=== PATIENT | male | born 1945 | race Caucasian/White ===

== ENCOUNTER 2025-07-23 13:57 | Outpatient (CLI) | payer MEDICARE, SELFPAY ==
--- NOTE | ~2025-07-23 | XR_ITS ---
EXAM/PROCEDURE: XR barium swallow modified HISTORY: R13.10 - Dysphagia, unspecified COMPARISON: None available. Fluoroscopy time: 0.7 minutes DAP: 0.4 great per square centimeter Number of images: 1 TECHNIQUE: Modified barium swallow IMPRESSION: Aspiration observed on the film sequences. See also speech therapist's report for complete evaluation. Reviewed, dictated and finalized at location A. NG CARRIER IMPRESSION: Aspiration observed on the film sequences. See also speech therapist's report f or complete evaluation.
--- NOTE | 2025-07-23 15:04 | REHSTMBS ---
Assessment and note entered by Pema Maldonado, SHED HAND Modified Barium Swallow Evaluation Feeding Type Recommended Oral Food Consistency Regular, Level 7 Liquid Consistency Mildly Thick (2) Treatment Recommendations Laryngeal Elevation Exercise,Mayank Maneuver ST Clinical Summary The patient is a 79 year old male referred for a MBS study. The patient reports a history of dysphagia for several years primarily with liquids but at times with solids. He states he has had hoarseness for sometime as well and that previous speech therapy was not beneficial in improving his voice. He reports he is scheduled to have a procedure in August to address his vocal cord function. The patient was seen in a lateral view and presented the following consistencies: 5cc/tsp thin liquid barium, thin liquid barium via cup, mildly thick liquid barium via cup, pudding mixed with barium paste, and cracker coated with barium paste. Oral Stage: Timely oral preparation and transit was viewed for all consistencies. Pharyngeal Stage: When presented 5cc/tsp thin liquid barium, mildly thick liquid barium, pudding , and cracker consistency swallow initiation was viewed to be timely without viewed aspiration or penetration. No residual was viewed to remain in the vallecula or pyriform sinus for any consistencies presented. However, When presented thin liquid barium via cup the patient was viewed to have julian aspiration during the swallow secondary to reduced laryngeal closure. The aspirated material was viewed to pass below the vocal cords without patient awareness to cough and eject. Additional trace aspiration viewed with trials utilizing a chin tuck posture, passing below the vocal cords without patient awareness to cough and eject the material. Recommend 1. Regular Diet / Level 7 2. Mildly Thick Liquid / Level 2 3. Upright with meals Reviewed recommendations of thickener use and results of MBS with patient and spouse. They verbalized understanding. May consider a MBS following vocal cord procedure in August to determine if it provided improved airway protection and reduction of aspiration risk to allow discontinued use of thickener.
== END 2025-07-23 13:58 | disposition home or self-care (01) ==
PROVIDERS: Visit Provider Otolaryngology
DX: R93.3 Abnormal findings on diagnostic imaging of other parts of digestive tract (principal); R13.10 Dysphagia, unspecified
CPT/HCPCS: 74230; 92611

== ENCOUNTER 2025-08-04 15:53 | Outpatient (CLI) | payer MEDICARE, SELFPAY ==
--- NOTE | 2025-08-04 15:57 | ECG_ITS ---
Test Date: 2025-08-04 16:08:54 Measurements Intervals [place] Rate: 62 P: 26 WV: 328 QRS: -46 QRSD: 98 T: -12 QT: 386 QTc: 394 Interpretive Statements SINUS RHYTHM WITH MARKED FIRST DEGREE AV BLOCK ANTEROSEPTAL INFARCT, AGE INDETERMINATE INFERIOR INFARCT, AGE INDETERMINATE BORDERLINE ST-T WAVE ABNORMALITY- LAT/HIGH LAT LEADS BASELINE ARTIFACT- I, II, AVR ABNORMAL ECG No previous ECG available for comparison Electronically Signed On 08-04-2025 18:08:32 FUND CONTROLLER by Denton Pereira D.O.
--- OUTSIDE RECORDS SUMMARY | 2025-08-04 16:04 | XMS_ITS | Clinical Summary ---
Author Organization [facility] Address [address] [place] [address] Care Team Providers Care Psych Rn Name Role Phone Savage Lyons MD Unavailable [phone] Kevin Caballero MD PhD Unavailable [phone] Russell Mars Primary Care Provider [phone] Allergies No known active allergies Medications acetaminophen (TYLENOL) 325 mg tablet Take 650 mg by mouth every 4 (four) hours as needed for pain Active albuterol sulfate 90 mcg/actuation aerosol powdr breath activated Inhale 2 puffs 4 (four) times a day Active atorvastatin (LIPITOR) 80 mg tablet Take 80 mg by mouth daily Active cholecalciferol (VITAMIN D-3) 2,000 unit tablet Take 4,000 Units by mouth daily Take 2 tablets Active cyanocobalamin (Vitamin B-12) 1,000 mcg tabletIndicatio ns:Prevention of Vitamin B12 Deficiency Take 1,000 mcg by mouth daily Active finasteride (PROSCAR) 5 mg tablet Take 5 mg by mouth daily Active glucose 4 gram chewable tablet Take 20 g by mouth as needed for low blood sugar Active lisinopril-hydr oCHLOROthiazide (ZESTORETIC) 20-12.5 mg per tabletIndicatio ns:hypertension Take 1 tablet by mouth daily Active insulin glargine (LANTUS,BASAGLA R) 100 unit/mL (3 mL) insulin pen Inject 32 Units under the skin daily Active ketoconazole (NIZORAL) 2 % cream Apply topically daily Apply to rash on face Active meloxicam (MOBIC) 15 mg tablet Take 15 mg by mouth daily as needed for pain Active metFORMIN (GLUCOPHAGE) 1,000 mg tablet Take 1,000 mg by mouth 2 (two) times a day with meals Active olodaterol (STRIVERDI RESPIMAT) 2.5 mcg/actuation inhaler Inhale 2 puffs daily Active sildenafil (VIAGRA) 100 mg tablet Take 100 mg by mouth as needed for erectile dysfunction Weekly as needed Active terazosin (HYTRIN) 5 mg capsule Take 5 mg by mouth nightly Active polyvinyl alcohol (LIQUIFILM TEARS) 1.4 % ophthalmic solution Administer 1 drop into both eyes as needed for dry eyes Active glipiZIDE (GLUCOTROL) 5 mg tabletIndicatio ns:type 2 diabetes mellitus Take 5 mg by mouth daily Active fluocinonide (LIDEX) 0.05 % cream Apply 1 application topically 2 (two) times a day as needed Active mometasone 220 mcg/ actuation (120) aerosol powdr breath activated Inhale 1 puff nightly Active amLODIPine (NORVASC) 5 mg tablet Take 1 tablet (5 mg total) by mouth daily 30 tablet 11 0 Active aspirin 81 mg enteric coated tabletIndicatio ns:cerebral ischemia Take 1 tablet (81 mg total) by mouth daily 30 tablet 11 0 Active Active Problems Problem Noted Date Diagnosed Date Malignant neoplasm of upper lobe, right bronchus or lung 02/03/2023 Cancer Staging:Clinical stage from 02/03/2023:Stage IB(cT2a, cN0, cM0) - Signed by Kevin Caballero MD PhD on 02/03/2023 Cerebrovascular accident (CV A) due to thrombosis of right middle cerebral artery 10/08/2019 Hypertension 01/18/2014 Overview (12/07/2016): HYPERTENSION NOS Pure hypercholesterolemia 01/18/2014 Overview (12/08/2016): PURE HYPERCHOLESTEROLEM Type 2 diabetes mellitus 01/18/2014 Overview (12/08/2016): DMII WO CMP UNCNTRLD Cerebrovascular accident (CVA) Immunizations Immunization Administration Dates Next Due Influenza, Trivalent, High D ose, Split, Preservative Free, Intramuscular 06/25/2019,07/17/2018 Influenza, Unspecified 06/06/2019 Surgical History Surgery Date Site/Laterality Comments OTHER SURGICAL HISTORY Hypertension: Medical Management OTHER SURGICAL HISTORY Hyperlipidemia: Medical Management JOINT REPLACEMENT REPLACEMENT TOTAL KNEE Right LIMB SPARING RESECTION HIP W / SADDLE JOINT REPLACEMENT Right TOTAL SHOULDER REPLACEMENT Medical History Medical History Date Comments Hypertension Hypertension Hyperlipidemia Hyperlipidemia Hx Other Medical Peripheral Neur opathy Hx Other Medical carpal tyunnel Diabetes mellitus COPD (chronic obstructive pulmonary disease) Arthritis Cancer (HCC) Family History Medical History Relation Name Comments Diabetes type II Mother D M Type II ; Diabetes type II Sister 2 D M Type II ; secondary to complications Relation Name Status Comments Mother Alive Sister 1 Alive Sister 2 Social History Tobacco Use Types Packs/Day Years Used Date Smoking Tobacco: Former Smokeless Tobacco: Never Tobacco Cessation:Counseling Given: Not Answered Comments:20 years ago Alcohol Use Standard Drinks/Week Comments Not Currently 0 (1 standard drink = 0.6 oz pur e alcohol) PHQ-2 Answer Date Recorded PHQ-2 Score 0 10/07/2019 Sex and Gender Information Value Date Recorded Sex Assigned at Not on file Legal Sex Male 10:50 AM ULTIMATE HOOPS REFEREE Gender Identity Not on file Sexual Orientation Not on file Last Filed Vital Signs Vital Sign Reading Time Taken Comments Blood Pressure 108/64 10/24/2024 2:00 PM ULTIMATE HOOPS REFEREE Pulse 86 10/24/2024 2:00 PM ULTIMATE HOOPS REFEREE Temperature 36.3 C (97.3 F) 10/24/2024 2:00 PM ULTIMATE HOOPS REFEREE Respiratory Rate 20 10/24/2024 2:00 PM ULTIMATE HOOPS REFEREE Oxygen Saturation 99% 10/24/2024 2:00 PM ULTIMATE HOOPS REFEREE Inhaled Oxygen Concentration - - Weight 88.8 kg (195 lb 12.8 oz) 04/11/2024 1:39 PM CDT Height 177.8 cm (5' 10) 10/07/2019 7:28 PM ULTIMATE HOOPS REFEREE Body Mass Index 28.09 10/07/2019 7:28 PM ULTIMATE HOOPS REFEREE Plan of Treatment Health Maintenance Due Date Last Done Comments Albumin Creatinine Ratio, Urine 1945 Fall Risk Assessment 1945 Hepatitis C Screening 1945 Dilated Eye Exam 1945 Foot Exam 1945 Hepatitis B Screening 12/07/1963 Zoster Vaccine (2 of 3) 02/10/2010 12/16/2009 Well Visit 65+ 2010 Hemoglobin A1C 04/07/2020 10/08/2019 Depression Screening 10/07/2020 10/07/2019 Lipid Panel 10/08/2020 10/08/2019 eGFR 10/08/2020 10/08/2019, 10/07/2019 Influenza Vaccine (#1) 2025 4, 08/09/2023, 07/05/2022, Additional history exists DTaP/Tdap/Td Vaccine (3 - Td or Tdap) 07/26/2026 07/26/2016, 09/28/2007 Pneumococcal vaccine 65+ Completed 016, 04/01/2015, 03/11/2009 Procedures Procedure Name Priority Date/Time Associated Diagnosis Comments EGFR Routine 10/08/2019 3:26 AM ULTIMATE HOOPS REFEREE HEMOGLOBIN A1C Routine 10/08/2019 3:26 AM ULTIMATE HOOPS REFEREE LIPID PANEL Routine 10/08/2019 3:26 AM ULTIMATE HOOPS REFEREE from Last 3 Months or Most Recently Relevant to Health Maintenance Results * eGFR (10/08/2019 3:26 AM ULTIMATE HOOPS REFEREE) eGFR 94 mL/min/1.7 3 m2 LENA MCINTYRE (KASEY) Comment: Interpretive Data Reference Interval Normal >/= 90 mL/min/1.73m2 Mildly decreased* 60 - 89 mL/min/1.73m2 Mildly to moderately decreased 45 - 59 mL/min/1.73m2 Moderately to severely decreased 30 - 44 mL/min/1.73m2 Severely decreased 15 - 29 mL/min/1.73m2 Kidney Failure < 15 mL/min/1.73m2 *Relative to young adult level If -[place] multiply value by 1.16. Estimated glomerular filtration rate is determined by the CKD-EPI equation recommended by the National Kidney Foundation (KDIGO 2012 Clinical Practice Guideline for the Evaluation and Management of Chronic Kidney Disease. Kidney Intnl Suppl Sep 2012;3:1). The CKD-EPI equation should not be used for patients with unstable renal function and has not been validated in children and those over 70. Current interpretive data was last reviewed 2016. Blood specimen (specimen) 10/08/2019 3:26 AM ULTIMATE HOOPS REFEREE 10/08/2019 4:39 AM ULTIMATE HOOPS REFEREE Boston Berrios MD LAB BLOOD ORDERABLES Fi nal Result Performing Organization Address City/[facility] Co de Phone Number LENA MCINTYRE (QUINCY) [address] [facility] [place] [address] * (ABNORMAL) Hemoglobin A1c (10/08/2019 3:26 AM ULTIMATE HOOPS REFEREE) Hgb A1C 7.5(H) 4.0 - 5.6 % LENA MCINTYRE (KASEY) Estimated Average Glucose 169 mg/dL LNEA MCINTYRE (KASEY) Comment: The ADA recommends reporting an estimated Average Glucose (eAG) with all Hemoglobin A1c results using the equation derived from a study of 507 normal and diabetic adults. Minority populations were underrepresented and children were not included. (Diabetes Care 31:5191-7616, 2008). The eAG is not equivalent to a fasting glucose. Blood specimen (specimen) 10/08/2019 3:26 AM ULTIMATE HOOPS REFEREE 10/08/2019 4:39 AM ULTIMATE HOOPS REFEREE Pauline Gaona MD LAB BLOOD ORDERABLES Final Re sult Performing Organization Address [facility] Co de Phone Number LENA MCINTYRE (QUINCY) 1 [facility] [place] [address] * (ABNORMAL) Lipid panel (10/08/2019 3:26 AM ULTIMATE HOOPS REFEREE) Cholesterol 131 30 - 199 mg/dL LENA MCINTYRE (KASEY) Comment: Interpretive Data Ages < or = 19 years Acceptable: <170 mg/dL Borderline high: 170-199 mg/dL High: >or= 200 mg/dL Ages > or = 20 years Desirable: <200 mg/dL Borderline high: 200-239 mg/dL High: >or= 240 mg/dL Literature References: 1. Expert Panel on Integrated Guidelines for Cardiovascular Health and Risk Reduction in Children and Adolescents. Pediatrics 2011;128:S213 2. NCEP Expert Panel. Circulation 2004;110:227 Current Interpretive Data was last revised on 2018. Triglycerides 118 <=149 mg/dL LENA MCINTYRE (KASEY) Comment: Interpretive Data Ages < or = 9 years Acceptable: <75 mg/dL Borderline high: 75-99 mg/dL High: >or= 100 mg/dL Ages 10 to 20 years Acceptable: <90 mg/dL Borderline high: 90-129 mg/dL High: >or= 130 mg/dL Ages > or = 20 years Desirable: <150 mg/dL Borderline high: 150-199 mg/dL High: 200-499 mg/dL Very high: >or= 499 mg/dL Literature References: 1. Expert Panel on Integrated Guidelines for Cardiovascular Health and Risk Reduction in Children and Adolescents. Pediatrics 2011;128:S213 2. NCEP Expert Panel. Circulation 2004;110:227 Current Interpretive Data was last revised on 2018. HDL 37(L) >=40 mg/dL LENA Torres (KASEY) Comment: Interpretive Data Ages < or = 19 years Acceptable: >45 mg/dL Borderline low: 40-45 mg/dL Low: <40 mg/dL Ages > or = 20 years Desirable: >or= 60 mg/dL Low: <40 mg/dL Literature References: 1. Expert Panel on Integrated Guidelines for Cardiovascular Health and Risk Reduction in Children and Adolescents. Pediatrics 2011;128:S213 2. NCEP Expert Panel. Circulation 2004;110:227 Current Interpretive Data was last revised on 2018. LDL, calculated 70 <=129 mg/dL LENA MCINTYRE (KASEY) Comment: Interpretive Data Ages < or = 19 years Acceptable: <110 mg/dL Borderline high: 110-129 mg/dL High: >or= 130 mg/dL Ages > or = 20 years Optimal: <100 mg/dL Near optimal: 100-129 mg/dL Borderline high: 130-159 mg/dL High: >160 mg/dL Literature References: 1. Expert Panel on Integrated Guidelines for Cardiovascular Health and Risk Reduction in Children and Adolescents. Pediatrics 2011;128:S213 2. NCEP Expert Panel. Circulation 2004;110:227 Current Interpretive Data was last revised on 2018. Non-HDL Cholesterol 94 mg/dL LENA MCINTYRE (KASEY) Comment: Interpretive Data Ages < or = 19 years Acceptable: <120 mg/dL Borderline high: 120-144 mg/dL High: >145 mg/dL Ages > or = 20 years When triglycerides are >200 mg/dL, Non-HDL cholesterol is a secondary target of therapy with treatment goals that are 30 mg/dL greater than the LDL cholesterol target. Literature References: 1. Expert Panel on Integrated Guidelines for Cardiovascular Health and Risk Reduction in Children and Adolescents. Pediatrics 2011;128:S213 2. NCEP Expert Panel. Circulation 2004;110:227 Current Interpretive Data was last revised on 2018. Chol/HDL ratio 4 ASCENCION Carranza FRANCISCO JAVIER (KASEY) Blood specimen (specimen) 10/08/2019 3:26 AM ULTIMATE HOOPS REFEREE 10/08/2019 4:39 AM ULTIMATE HOOPS REFEREE us Pauline Gaona MD LAB BLOOD ORDERABLES Final Re sult LENA MCINTYRE (QUINCY) 1 [facility] [place] [address] from Last 3 Months or Most Recently Relevant to Health Maintenance Insurance MEDICARE [employer] [facility] ID COMMUNITY CARE MEDICARE RAILROAD ID COMMUNITY CARE Member Subscriber Plan / Payer (Ef fective 2005-Present) Name:Johny Miles Relation to Subscriber:Self Name:Johny Miles Payer ID:[id number] Group ID:Not on file Type:OTHER [employer] Address: [address] [place] [id number] MEDICARE RAILROAD Advance Directives For more information, please contact: [phone] * Full Code (Latest Code Status on File) Date Activated Date Inactivated Comments 10/07/2019 8:16 PM 10/09/2019 5:22 PM Care Teams Psych Rn Relationship Specialty Start Date End Date Russell Mars PA [address] [place] [address] PCP - General Physician Accounting Practice Manager 09/12/24 Savage Lyons MD [address] [address] Consulting Physician Neurology 10/09/19 Kevin Caballero MD PhD [address] [place] [address] Radiation Oncologist Radiation Oncology 02/03/23
--- OUTSIDE RECORDS SUMMARY | 2025-08-04 16:04 | XMS_ITS ---
Author Organization [facility] Address [address] [place] [address] Care Team Providers Care Janitor Head Name Role Phone Savage Lyons MD Unavailable [phone] Kevin Caballero MD PhD Unavailable [phone] Russell Mars Primary Care Provider [phone] Active Problems Problem Noted Date Diagnosed Date [...] DMII WO CMP UNCNTRLD Cerebrovascular accident (CVA) Current Treatment and Therapy Plans No current plan information found. Past Treatment and Therapy Plans No past plan information found. Radiation Treatments (No Episode) * Course [id number]/01/2023 - 03/06/2023 Treatment Period Energy Fraction Dose Fractions Total Dose Plans Planned SBRT RUL 03/01/2023 - 03/06/2023 1,800 3 / 5,400 Reference Points Delivered SBRT [id number] 03/01/2023 - 03/06/2023 5,400
--- OUTSIDE RECORDS SUMMARY | 2025-08-04 16:04 | XMS_ITS | Clinical Summary ---
Author Organization [facility] Address [address] [place] [address] Phone Care Team Providers Care E Learning Developer Name Role Phone Russell Amador DO Primary Care Provider Allergies No known active allergies Medications Cyanocobalamin (B-12 PO) Active AmLODIPine Besylate (NORVASC PO) Active Terazosin HCl (HYTRIN PO) Active SALINE NASAL SPRAY NA Active Meloxicam (MOBIC PO) Active Finasteride (PROSCAR PO) Active Formoterol Fumarate (FORADIL AEROLIZER IN) Active METFORMIN HCL PO Active LISINOPRIL PO Take by mouth. Active oxyCODONE-aceta minophen (PERCOCET) 5-325 MG Tablet Take 1 Tab by mouth every 4 hours as needed for Pain. Active polyethylene glycol (MIRALAX) Powder Take 17 g by mouth daily. 17 g = 1 scoop. Dissolve in 4 -8 oz of water or other liquid. 289 g 0 12/27/2016 Active Active Problems Problem Noted Date Diagnosed Date DM (diabetes mellitus) HTN (hypertension) ED (erectile dysfunction) B12 deficiency Social History Tobacco Use Types Packs/Day Years Used Date Smoking Tobacco: Former Alcohol Use Standard Drinks/Week Comments No 0 (1 standard drink = 0.6 oz pur e alcohol) Sex and Gender Information Value Date Recorded Sex Assigned at Not on file Legal Sex Male 9:32 PM CDT Gender Identity Not on file Sexual Orientation Not on file Last Filed Vital Signs Vital Sign Reading Time Taken Comments Blood Pressure 109/54 12/27/2016 7:22 AM CDT Pulse 95 12/27/2016 7:22 AM CDT Temperature 36.9 C (98.5 F) 12/27/2016 6:07 AM CDT Respiratory Rate 18 12/27/2016 7:22 AM CDT Oxygen Saturation 97% 12/27/2016 7:22 AM CDT Inhaled Oxygen Concentration - - Weight 102.5 kg (226 lb) 12/27/2016 6:07 AM CDT Height 177.8 cm (5' 10) 12/27/2016 6:07 AM CDT Body Mass Index 32.43 12/27/2016 6:07 AM CDT Plan of Treatment Health Maintenance Due Date Last Done Comments Diabetes: Eye Exam 1945 Diabetes: Foot Exam 1945 Hepatitis C Virus (HCV) Screening 1945 Diabetes: Nephropathy Screening 12/07/1963 Zoster Immunization (2 of 3) 02/10/2010 12/16/2009 Medicare Initial AWV [id number] 04/04/2011 Diabetes: Hemoglobin A1c 04/07/2020 10/08/2019 Respiratory Syncytial Virus (RSV) Immunization (Adult) (1 - 1-dose 75+ series) 2020 Influenza Immunization (#1) 05/05/202507/06, 07/15/2022, 07/05/2022, Additional history exists SARS-COV-2 Immunization ( season) 2025 07/24/2023, 07/15/2022, 06/19/2021, Additional history exists Colonoscopy Discontinued 01/23/2014 Colorectal Cancer Screening Discontinued Pneumococcal Immunization (50+ years) Completed 02/03/2016, 04/01/2015, 03/11/2009 Pneumococcal Immunization Combined Discontinued 02/03/2016, 04/01/2015, 03/11/2009 DTaP/Tdap/Td Immunization Discontinued 07/26/2016, TdaP Immunization Completed 07/26/2016, 09/28/2007 Cologuard Discontinued Hepatitis B Immunization Aged Out No longer eligible based on patient's age to complete this topic Human Papillomavirus (HPV) Immunization Aged Out No longer eligible based on patient's age to complete this topic Immunochemical Fecal Occult Blood Discontinued Meningococcal Immunization (ACWY) Aged Out No longer eligible based on patient's age to complete this topic Rotavirus Immunization Aged Out No lo nger eligible based on patient's age to complete this topic Procedures Procedure Name Priority Date/Time Associated Diagnosis Comments COLONOSCOPY Routine 01/23/2014 from Last 3 Months or Most Recently Relevant to Health Maintenance Results * COLONOSCOPY (01/23/2014) Gordon Bustillo MD PROCEDURE/MINOR SURGICAL ORDERAB LES Final Result from Last 3 Months or Most Recently Relevant to Health Maintenance Insurance MEDICARE ADMIN Care Teams E Learning Developer Relationship Specialty [place] [id number] [address] PCP - General Orthopaedic Surgery 08/08/24
[2025-08-04 17:06] LABS: Anion Gap 3 mmol/L (4-12); Blood Urea Nitrogen 28 mg/dL (9-20); Calcium 9.1 mg/dL (8.4-10.2); Carbon Dioxide 29 mmol/L (22-30); Chloride 106 mmol/L (98-107); Estimated Glomerular Filt Rate > 60; Glucose 238 mg/dL (65-110); Potassium 3.9 mmol/L (3.4-5.0); Sodium 138 mmol/L (137-145)
== END 2025-08-04 15:54 | disposition home or self-care (01) ==
PROVIDERS: Visit Provider Anesthesiology
DX: E78.5 Hyperlipidemia, unspecified (principal); I10 Essential (primary) hypertension; Z01.818 Encounter for other preprocedural examination; E11.9 Type 2 diabetes mellitus without complications
CPT/HCPCS: 36415; 80048; 93005

== ENCOUNTER 2025-08-29 00:27 | Day surgery (SDC) | payer MEDICARE, SELFPAY ==
--- OUTSIDE RECORDS SUMMARY | 2024-09-03 07:30 | XMS_ITS | Encounter Summary ---
Author Name [facility] Address [address] [place] [address] Care Team Providers Care Certified Alcohol Drug Counselor Name Role Phone LINN MCKEON Primary Care Provider Unavailabl e Insurance Providers: All historical and current Section Date Range: From patient's date of to the date document was created. This section includes the names of all active insurance providers for the patient. Insurance Provider Type of Coverage Plan Name Start of Policy Coverage End of Policy Coverage Group Number Member ID Insurance Provider's Telephone Number Policy Kirby's Name Patient's Relationship to Policy Kirby MEDICARE (WNR) MEDICARE (M) PART A Apr 04, 2010 PART A [id number] PATIENT MEDICARE (WNR) MEDICARE (M) PART B Apr 04, 2010 PART B [id number] ANDR[address] ROBERTS PATIENT MEDICARE (WNR) MEDICARE (M) PART A Apr 04, 2010 PART A [id number] ANDRÉS ROBERTS PATIENT MEDICARE (WNR) MEDICARE (M) PART B Apr 04, 2010 PART B [id number] ANDRÉS ROBERTS PATIENT Selected Encounter This section includes the information on record at [place] for the Encounter. Date/Time Encounter Type Encounter Description Reason Provider Source Sep 03, 2024 01:30 PM OFFICE O/P EST MOD 30 MIN PRIMARY CARE/MEDICINE ICD-10-CM E11.65 Type 2 diabetes mellitus with hyperglycemia MARS,TODD Lacho Encounter Template Text not used by [place] Assessments - Encounter Diagnoses This section includes the primary and secondary diagnoses documented for the Encounter. Date/Time Primary/Secondary Diagnosis Diagnosis Name Provider Source Sep 03, 2024 02:38 PM PRIMARY Type 2 diabetes mellitus with hyperglycemia GINA MARS [facility] Sep 03, 2024 02:38 PM SECONDARY Benign prostatic hyperplasia with lower urinary tract symp [facility] Sep 03, 2024 02:38 PM SECONDARY Constipation, unspecified [facility] Sep 03, 2024 02:38 PM SECONDARY Encounter for immunization VIKY WOODS [facility] Sep 03, 2024 02:38 PM SECONDARY Essential (primary) hypertension [facility] Sep 03, 2024 02:38 PM SECONDARY Hyperlipidemia, unspecified [facility] Sep 03, 2024 02:38 PM SECONDARY Malignant neoplasm of unsp part of unsp bronchus or lung GINA MARS [facility] Sep 03, 2024 02:38 PM SECONDARY Personal history of melanoma in-situ [facility] Sep 03, 2024 02:38 PM SECONDARY Unspecified osteoarthritis, unspecified site [facility] Plan of Treatment: Future Appointments (+ 6 months) and Future Tests (+/- 45 days) The Plan of Treatment section includes future care activities for the patient from all [place] treatmentfacilities. This section includes future appointments and future orders which are active, pending or scheduled. Future Appointments This section includes appointments that were scheduled to occur 6 months from the date of the Encounter, up to a maximum of 20 appointments. The data comes from all [place] treatment facilities. Appointment Date/Time Appointment Type Appointme nt Facility Name Oct 04, 2024 02:00 PM AMBULATORY - MEDICINE [facility] Oct 14, 2024 01:00 PM AMBULATORY - NONE [facility] Oct 15, 2024 11:00 AM AMBULATORY - MEDICINE [facility] Nov 01, 2024 01:30 PM AMBULATORY - MEDICINE [facility] Nov 13, 2024 01:45 PM AMBULATORY - MEDICINE [facility] January 15, 2025 01:00 PM AMBULATORY - MEDICINE [facility] January 30, 2025 02:00 PM AMBULATORY - MEDICINE [facility] January 31, 2025 11:00 AM AMBULATORY - MEDICINE [facility] Feb 14, 2025 01:30 PM AMBULATORY - MEDICINE [facility] Feb 17, 2025 03:00 PM AMBULATORY - MEDICINE [facility] Feb 21, 2025 02:00 PM AMBULATORY - MEDICINE [facility] Feb 25, 2025 02:30 PM AMBULATORY - MEDICINE [facility] Feb 27, 2025 01:00 PM AMBULATORY - MEDICINE [facility] Lab Results: +/- 30 days of the encounter This section includes the Chemistry and Hematology Lab Results on record with [place] for the patient. Radiology Reports and Pathology Reports are provided separately, in subsequent sections. Lab Results This section contains the Chemistry/Hematology Results that were resulted 30 days before or 30 daysafter the date of the Encounter. Date/Time Source Result Type Result - Unit Interpretation Reference Range Specimen Type Comment Sep 11, 2024 11:08 AM [facility] HGA1C BLOOD Specimen Type: BLOOD No comment entered. Ordering Provider: GINA MARS Report Released Date/Time: Sep 03, 2024 02:41 PM Reporting Lab: [facility] [address] [facility] [address] Performing Lab: [facility] [address] [facility] [address] HGA1C 7.8 H 4.0-6.0 Sep 11, 2024 11:08 AM [facility] TSH W/ REFLEX FT4 (STL) PLASMA Speci men Type: PLASMA No comment entered. Ordering Provider: GINA MARS Report Released Date/Time: Sep 03, 2024 02:41 PM Reporting Lab: [facility] [address] [facility] [address] Performing Lab: [facility] [address] [facility] [address] TSH 0.763 u[IU]/mL 0.47-5 Sep 11, 2024 11:08 AM [facility] B12 SERUM Specimen Type: SERUM No comment entered. Ordering Provider: GINA MARS Report Released Date/Time: Sep 03, 2024 02:41 PM Reporting Lab: [place] [address] [facility] [address] Performing Lab: [place] [address] [facility] [address] B12 >2000 pg/mL H 213-816 Sep 11, 2024 11:08 AM [facility] VITAMIN D, 25-HYDROXY SERUM Specime n Type: SERUM No comment entered. Ordering Provider: GINA MARS Report Released Date/Time: Sep 03, 2024 02:41 PM Reporting Lab: [place] [address] [facility] [address] Performing Lab: [address] [address] VITAMIN D, 25-HYDROXY 77.9 ng/mL 30-96 Sep 11, 2024 11:08 AM [facility] FOLATE (STL-MA) SERUM Specimen Type : SERUM No comment entered. Ordering Provider: GINA MARS Report Released Date/Time: Sep 03, 2024 02:41 PM Reporting Lab: [place] [address] [facility] [address] Performing Lab: [address] [address] FOLATE (STL-MA) 19.7 ng/mL 7-20 Sep 11, 2024 11:08 AM [facility] MICRAL/CREAT PROFILE (STL) URINE Specimen Typ e: URINE No comment entered. Ordering Provider: GINA MARS Report Released Date/Time: Sep 03, 2024 02:41 PM Reporting Lab: [address] [address] Performing Lab: [address] [place] [address] URINE ALBUMIN (PB-STL) 6.5 mg/L uACR (STL) 8 mg/g 0-29 CREATININE URINE/OTHERS 85.2 mg/dL 63-16 6 Sep 11, 2024 11:08 AM [facility] LIPID PANEL (STL) PLASMA Specimen Ty pe: PLASMA Comment: No hemolysis noted. Ordering Provider: GINA MARS Report Released Date/Time: Sep 03, 2024 02:41 PM Reporting Lab: [address] [address] Performing Lab: [address] [address] CHOLESTEROL 155 mg/dL 0-200 TRIGLYCERIDE 95 mg/dL 0-150 CALCULATED LDL 101 mg/dL HDL(New) 35 mg/dL L >40 Sep 11, 2024 11:08 AM [facility] IRON/TIBC PROFILE SERUM Specimen Ty pe: SERUM No comment entered. Ordering Provider: GINA MARS Report Released Date/Time: Sep 03, 2024 02:41 PM Reporting Lab: [address] [address] Performing Lab: [address] [address] TIBC 210 ug/dL L 250-450 TRANSFERRIN 168 mg/dL 163-344 IRON SATURATION 38 20-50 IRON 80 ug/dL 65-175 Sep 11, 2024 11:08 AM [facility] CBC BLOOD Specimen Type: BLOOD No comment entered. Ordering Provider: GINA MARS Report Released Date/Time: Sep 03, 2024 02:41 PM Reporting Lab: [address] [address] Performing Lab: [address] [address] WBC 5.7 10*3/uL 3.6-11.2 RBC 4.63 10*6/uL 4.10-5.70 HGB 14.4 g/dL 13.1-16.8 HCT 44.5 38.2-48.4 MCV 96.1 fL 80.0-100.0 MCH 31.1 pg 27.0-34.0 MCHC 32.4 g/dL L 33.0-36.0 PLT 284 10*3/uL 150-400 MPV 10.5 fL 7.5-11.2 RDW 12.6 11.8-15.1 LYMPHOCYTES, AUTO % 19 MONOCYTES, AUTO % 8 NEUTROPHILS, AUTO % 66 EOSINOPHILS, AUTO % 6 BASOPHILS, AUTO % 1 LYMPHOCYTES, ABSOLUTE 1.08 10*3/uL 0.77- 4.50 MONOCYTES, ABSOLUTE 0.47 10*3/uL 0.19-0. 80 NEUTROPHILS, ABSOLUTE 3.74 10*3/uL 2.10- 8.00 EOSINOPHILS, ABSOLUTE 0.35 10*3/uL 0.00- 0.60 BASOPHILS, ABSOLUTE 0.06 10*3/uL 0.00-0. 20 Sep 11, 2024 11:08 AM [facility] COMPREHENSIVE METABOLIC PANEL PLASMA Specimen Type: PLASMA Comment: No hemolysis noted. Ordering Provider: GINA MARS Report Released Date/Time: Sep 03, 2024 02:41 PM Reporting Lab: [facility] [address] [facility] [address] Performing Lab: [facility] [address] [facility] [address] CREATININE 0.91 mg/dL 0.7-1.3 UREA NITROGEN 19.9 mg/dL 9.0-25.0 GLUCOSE 208 mg/dL H 72-99 SODIUM 141 meq/L 136-145 POTASSIUM 4.2 meq/L 3.5-5 CHLORIDE 107 meq/L 98-107 CARBON DIOXIDE 25 meq/L 22-31 CALCIUM 9.3 mg/dL 8.4-10.4 PROTEIN 7.0 g/dL 6-8.6 ALBUMIN 3.8 g/dL 3.4-5 TOTAL BILIRUBIN 0.6 mg/dL 0.2-1.2 ALKALINE PHOSPHATASE 61 U/L 40-150 AST/SGOT 26 U/L 5-34 ALT/SGPT 13 U/L 8-40 EGFR (CKD-EPI 2020) 86.3 >60 Sep 03, 2024 01:32 PM [facility] GLUCOSE,BLOOD-poct (STL) BLOOD Specimen Type: BLOOD Comment: Test Performed by: [id number] Meter #: [id number] Ordering Provider: GINA MARS Report Released Date/Time: Sep 03, 2024 03:14 PM Reporting Lab: [facility] [address] [facility] [address] Performing Lab: [facility] [address] [facility] [address] GLUCOSE,BLOOD-poct (STL) 253 mg/dL H 72-99 Vital Signs: All taken on the encounter date This section contains inpatient and outpatient Vital Signs collected on the date of the Encounter. Date/Time Temperature Pulse Blood Pressure Respiratory Rate SP02 Pain Height Weight Body Mass Index Source Sep 03, 2024 01:28 PM 97.8 82 114/76 20 98 6 177 26 [facility] Immunizations: All administered on the encounter date This section contains immunizations associated to the Encounter. Immunization Series Date Issued Administered By Site Reaction Lot Number CVX Code Drug Catalyst Recovery Operator Comment(s) Source INFLUENZA, HIGH-DOSE, TRIVALENT, PF Sep 03, 2024 ZULAY WOODS RIGHT DELTO ID [id number] [facility] AT [facility] Social History: Smoking Status (Most current) and Tobacco Use (All prior to encounter date) This section includes the most current, and the historical, smoking and tobacco- related health factors from the [place] facility where the Encounter took place. Current Smoking Status This section includes the most current smoking, or tobacco-related health factor, from the [place] facility where the Encounter took place. Date/Time Current Smoking Status Comment Virgil itsuresh Sep 03, 2024 01:30 PM VA-TOBACCO NEVER USED OTHER TYPE [facility] Tobacco Use History This section includes a history of the smoking, or tobacco-related health factors, that were collected on or before the date of the Encounter. The data comes from the [place] facility where the Encounter took place. Date/Time Smoking Status/Tobacco Use Comment F acility Sep 03, 2024 01:30 PM VA-TOBACCO USE FORMER CIGARETTES [facility] Sep 07, 2023 11:00 AM VA-TOBACCO FORMER USER [facility] Sep 07, 2023 11:00 AM VA-TOBACCO QUIT 15 YRS OR MORE [facility] May 21, 2020 09:30 AM VA-TOBACCO FORMER USER [facility] May 21, 2020 09:30 AM VA-TOBACCO QUIT 15 YRS OR MORE [facility] Mar 29, 2019 10:32 AM VA-TOBACCO FORMER USER [facility] Mar 29, 2019 10:32 AM HI-TOBACCO QUIT 15 YRS OR MORE [facility] Advance Directives: All historical and current Section Date Range: From patient's date of to the date document was created. This section includes ALL of a patient's completed or amended [place] Advance and Rescinded Directives. The entries below indicate that a directive exists for the patient, but an actual copy is not included with this document. The data comes from all [place] facilities. Date Advance Directives Provider Source May 21, 2019 ADVANCE DIRECTIVE DISCUSSION Boogie DOUGLAS [facility] Jul 28, 2016 ADVANCE DIRECTIVE DISCUSSION [facility] Encounter Notes: All associated encounter notes This section contains the clinical notes associated to the Encounter. Date/Time Encounter Note(s) Provider Source Sep 03, 2024 01:36 PM PRIMARY CARE NOTE: LOCAL TITLE: PRIMARY CARE PROVIDER ESTABLISHED VISIT [facility] STANDARD TITLE: PRIMARY CARE NOTE DATE OF NOTE: SEP 03, 2024@13:36 ENTRY DATE: SEP 03, 2024@13:36:40 AUTHOR: GINA MARS EXP COSIGNER: URGENCY: STATUS: COMPLETED * [place] presents for 6 month visit PCP:[facility] SPECIALISTS:[facility] derm/endo/pulm/opto, civilian pod/onco SUBJECTIVE HPI: [place] is a 78 y/o patient to clinic today for a six-month [place] appointment to discuss chronic conditions to include type 2 diabetes and hypertension. Patient and his note that his blood pressures have been decreasing with the patient noting some increasing fatigue but denies any dizziness. states that his blood pressures in the morning run between 100-110 systolic and 60-65 diastolic. The patient's also notes that the patient continues to have issues with constipation and normally has only 1 bowel movement per week. Patient denies any blood in stool with his bowel movements and notes that he has started taking facl-eih-vuzxscr Colace with no improvement in his bowel movement frequency. Patient continues to stretch daily for exercise and adhere to a low-salt diet. Of note the patient did not have lab work done prior to today's appointment but will have labs drawn in the clinic this week. Patient denies headaches, chest pain, SOB, problems with bowel/bladder, or swelling to the BLE. The patient has no other complaints in the clinic today. Smoking:N Exercise:Y, stretching daily Diet:Y, low salt Alcohol:N Optometry:Y, Nov 2023 PERTINENT PMH: 1. Type 2 diabetes with peripheral neuropathy 2. Essential hypertension 3. Hyperlipidemia 4. BPH 5. History of melanoma 6. Multijoint osteoarthritis 7. Constipation 8. Lung cancer MEDICATIONS: Active Outpatient Medications (including Supplies): Active Outpatient Medications Status 1) ACCU-CHEK GUIDE (GLUCOSE) TEST STRIP USE 1 STRIP FOR BLOOD ACTIVE TEST FOUR TIMES A DAY Indication: FOR BLOOD SUGAR MONITORING 2) ACETAMINOPHEN 325MG TAB TAKE TWO TABLETS BY MOUTH EVERY 4 ACTIVE HOURS NEEDED /FEVER. CAUTION: DO NOT EXCEED 4000MG PER DAY ACETAMINOPHEN (APAP) FROM ALL MEDS. Indication: FOR PAIN 3) ALBUTEROL 90MCG (CFC-F) 200D ORAL INHL INHALE 2 PUFFS ORAL ACTIVE (S) INHALATION FOUR TIMES A DAY NEEDED SHAKE WELL. RINSE MOUTHPIECE FREQUENTLY TO PREVENT CLOGGING. Indication: FOR COPD 4) AMLODIPINE BESYLATE 5MG TAB TAKE ONE TABLET BY MOUTH ONCE A ACTIVE DAY Indication: FOR HIGH BLOOD PRESSURE 5) ASPIRIN 81MG EC TAB TAKE ONE TABLET BY MOUTH ONCE A DAY FOR ACTIVE HEART OR CIRCULATION. TAKE WITH FOOD. 6) ATORVASTATIN CALCIUM 80MG TAB TAKE ONE-HALF TABLET BY MOUTH ACTIVE EVERY EVENING FOR CHOLESTEROL. REPORT ANY UNEXPLAINED MUSCLE PAIN/WEAKNESS TO PROVIDER. 7) CAPSAICIN 0.075% CREAM APPLY SPARINGLY TO AFFECTED AREA(S) ACTIVE AT BEDTIME FOR EXTERNAL USE ONLY. WASH HANDS AFTER APPLICATION. Indication: FOR PAIN 8) CARBOXYMETHYLCELLULOSE NA 1% OPH GEL INSTILL 1 DROP INTO ACTIVE (S) BOTH EYES FOUR TIMES A DAY NEEDED FOR DRY EYES 9) CHOLECALCIF 50MCG (D3-2,000UNIT) TAB TAKE TWO TABLETS BY ACTIVE MOUTH ONCE A DAY FOR VITAMIN D DEFICIENCY. 10) CYANOCOBALAMIN 1000MCG TAB TAKE ONE TABLET BY MOUTH ONCE A ACTIVE DAY FOR B12 SUPPLEMENTATION Indication: FOR VITAMIN B12 SUPPLEMENTATION 11) EMPAGLIFLOZIN 10/METFORM 1000MG 24HR TAB TAKE 2 TABLETS BY ACTIVE (S) MOUTH ONCE A DAY TAKE WITH FOOD Indication: FOR DIABETES 12) FINASTERIDE 5MG TAB TAKE ONE TABLET BY MOUTH ONCE A DAY FOR ACTIVE PROSTATE 13) FLUOROURACIL 5% CREAM APPLY THIN FILM TO AFFECTED AREA(S) ACTIVE TWICE DAILY AVOID SUN EXPOSURE. FOLLOW DIRECTIONS CAREFULLY FOR PROPER HANDLING/DISPOSAL START AFTER BLISTERS FROM CYROTHERAPY HEAL. APPLY TO THE RIGHT ARM FOR 2 WEEKS, THEN STOP. THEN APPLY TO THE LEFT ARM FOR 2 WEEKS, THEN STOP. THEN APPLY TO THE FACE FOR 2 WEEKS. Indication: FOR ACTINIC KERATOSIS 14) HYDROCHLOROTHIAZIDE 25MG TAB TAKE ONE TABLET BY MOUTH ONCE A ACTIVE DAY FOR BLOOD PRESSURE TAKE IN THE MORNING 15) HYDROPHILIC (EQV EUCERIN) TOP CREAM APPLY LIBERALLY TO ACTIVE AFFECTED AREA(S) ONCE A DAY (EXTERNAL USE ONLY) APPLY TO DRY SKIN Indication: FOR SKIN CARE 16) KETOCONAZOLE 2% CREAM APPLY LIBERALLY TO AFFECTED AREA(S) ACTIVE TWICE A DAY (EXTERNAL USE ONLY) APPLY TO THE RED AND FLAKY AREAS ON THE NOSE AND ON THE FEET Indication: FOR FUNGAL INFECTION 17) LACTOBACILLUS ACIDOPHILUS CHEW TAB TAKE 1 TABLET BY MOUTH ACTIVE ONCE A DAY 18) LISINOPRIL 40MG TAB TAKE ONE-HALF TABLET BY MOUTH ONCE A DAY ACTIVE AT 1PM FOR HEART OR BLOOD PRESSURE Indication: FOR HIGH BLOOD PRESSURE 19) MELOXICAM 15MG TAB TAKE ONE TABLET BY MOUTH ONCE A DAY ACTIVE NEEDED FOR PAIN OR INFLAMMATION 20) SEMAGLUTIDE 1MG/0.75ML INJ PEN 3ML INJECT 1MG UNDER THE SKIN ACTIVE EVERY WEEK Indication: FOR DIABETES 21) SILDENAFIL CITRATE 100MG TAB TAKE ONE-HALF TABLET BY MOUTH ACTIVE ONE HOUR PRIOR TO SEXUAL ACTIVITY NEEDED - LIMIT 6 DOSES PER 30 DAYS Indication: FOR ERECTILE DYSFUNCTION 22) TERAZOSIN HCL 5MG CAP TAKE ONE CAPSULE BY MOUTH AT BEDTIME ACTIVE FOR PROSTATE ALLERGIES: SIMVASTATIN, SYMBICORT DATA REVIEW: HGA1C 6.9 H % 03/08/2024 11:52 HGA1C 7.3 H % 09/07/2023 10:15 HGA1C 7.3 H % 03/31/2023 10:10 HGA1C 7.2 H % 12/15/2022 11:48 HGA1C 8.4 H % 05/26/2022 13:54 Lipid Panel: TRIGLYCERIDE 85 mg/dL 03/08/2024 11:52 CHOLESTEROL 135 mg/dL 03/08/2024 11:52 HDL(New) 35 L mg/dL 03/08/2024 11:52 CALCULATED LDL 83 mg/dL 03/08/2024 11:52 CMP: SODIUM 140 mEq/L 03/08/2024 11:52 POTASSIUM 4.3 mEq/L 03/08/2024 11:52 CHLORIDE 106 mEq/L 03/08/2024 11:52 UREA NITROGEN 21.9 mg/dL 03/08/2024 11:52 CREATININE 1.08 mg/dL 03/08/2024 11:52 CALCIUM 9.6 mg/dL 03/08/2024 11:52 PROTEIN 7.3 g/dL 03/08/2024 11:52 ALBUMIN 4.1 g/dL 03/08/2024 11:52 ALKALINE PHOSPHATASE 65 U/L 03/08/2024 11:52 ALT/SGPT 18 U/L 03/08/2024 11:52 AST/SGOT 20 U/L 03/08/2024 11:52 TOTAL BILIRUBIN 0.6 mg/dL 03/08/2024 11:52 CARBON DIOXIDE 27 mEq/L 03/08/2024 11:52 GLUCOSE 148 H mg/dL 03/08/2024 11:52 EGFR (CKD-EPI 2020) 70.2 03/08/2024 11:52 CBC: WBC 7.2 10*3/uL 03/08/2024 11:52 RBC 4.87 10*6/uL 03/08/2024 11:52 HGB 15.2 g/dL 03/08/2024 11:52 HCT 46.4 % 03/08/2024 11:52 MCV 95.3 fL 03/08/2024 11:52 MCH 31.2 pg 03/08/2024 11:52 MCHC 32.8 L g/dL 03/08/2024 11:52 RDW 13.3 % 03/08/2024 11:52 PLT 294 10*3/uL 03/08/2024 11:52 MPV 9.9 fL 03/08/2024 11:52 NEUTROPHILS, AUTO % 72 % 03/08/2024 11:52 LYMPHOCYTES, AUTO % 16 % 03/08/2024 11:52 MONOCYTES, AUTO % 8 % 03/08/2024 11:52 EOSINOPHILS, AUTO % 4 % 03/08/2024 11:52 BASOPHILS, AUTO % 1 % 03/08/2024 11:52 NEUTROPHILS, ABSOLUTE 5.20 10*3/uL 03/08/2024 11:52 LYMPHOCYTES, ABSOLUTE 1.13 10*3/uL 03/08/2024 11:52 MONOCYTES, ABSOLUTE 0.56 10*3/uL 03/08/2024 11:52 EOSINOPHILS, ABSOLUTE 0.25 10*3/uL 03/08/2024 11:52 BASOPHILS, ABSOLUTE 0.06 10*3/uL 03/08/2024 11:52 PROST. SPECIFIC AG.(PB-STL) 0.872 ng/mL 12/30/2021 10:53 PROST. SPECIFIC AG.(PB-STL) 1.182 ng/mL 11/27/2020 10:31 PROST. SPECIFIC AG.(PB-STL) 0.782 ng/ml 11/14/2019 09:19 TSH: TSH 0.812 uIU/mL 03/08/2024 11:52 VITAMIN D, 25-HYDROXY 83.2 ng/mL 03/08/2024 11:52 VITAMIN D, 25-HYDROXY 69.5 ng/mL 12/15/2022 11:48 VITAMIN D, 25-HYDROXY 68.0 ng/mL 12/30/2021 10:53 UA: URINE COLOR Yellow 03/08/2024 11:52 APPEARANCE Clear 03/08/2024 11:52 U.PH 6.0 03/08/2024 11:52 U.BILIRUBIN Negative mg/dL 03/08/2024 11:52 U.NITRITE Negative mg/dL 03/08/2024 11:52 VITALS: BP: 114/76 P: 82 R: 20 WT: 177 T: 97.8 reviewed. OBJECTIVE: GENERAL: Alert, well developed/nourished, NAD SKIN: No rashes, no jaundice, warm/dry, intact HEENT: PERRLA, nares patent, throat clear CV: RRR, S1 S2 no murmurs, rubs or gallops RESP: CTA, no crackles, rhonchi, wheezing NECK: Supple, no bruit, no thyromegaly/nodules ABD: No ttp or HSM noted EXT: No edema, no cyanosis PSY: Mildly forgetful but pleasant, appropriate, no obvious delusions or hallucinations ASSESSMENT/PLAN: 1. Type 2 diabetes with peripheral neuropathy, stable with current treatment plan with hemoglobin A1c pending with continued follow-up through [facility] endocrinology. 2. Essential hypertension, decreasing per patient and his 's report. I will have the patient hold his amlodipine and decrease his lisinopril to 10 mg daily. We will have him continue with his hydrochlorothiazide 25 mg as prescribed. Patient and his were instructed to continue to take his blood pressures daily and we will have him return to clinic in 1 month for blood pressure check with nurse. Patient and his were encouraged to bring his blood pressure records to that appointment for review. 3. Hyperlipidemia, stable with medication with lipid panel pending. 4. BPH, stable with medication. 5. History of melanoma, in remission following treatment with continued follow- up through [facility] dermatology. 6. Multijoint osteoarthritis, stable with medication. 7. Constipation, ongoing issue. I will have the patient discontinue the use of Colace and start him on MiraLAX 1 cap daily to help with his constipation issues. 8. Lung cancer, in remission following treatment with continued follow-up through his civilian oncologist office. * Patient have labs drawn in the clinic this week. When lab work is completed we will contact him with results. * Medical conditions discussed with , medications refilled at appointment today. * Return to clinic with routine labs: 6 months. * Patient and his stated understanding and were agreeable with this treatment plan. Tobacco Use Screening - AT,DE,L,M,N,P,PH,PS,RT,S,U: The patient is a former cigarette smoker. The patient has never used other types of tobacco. PAVE Foot Check - L,N,P,PH,PO,PT,U: Patient indicates foot exam (including monofilament test for sensation) was performed in the past year in the private sector: Date: July 20, 2024 Result: Abnormal /es/ GINA MARS PA-C Signed: 09/03/2024 14:42 GINA MARS [place] [facility] Sep 03, 2024 01:33 PM NURSING NOTE: LOCAL TITLE: V15 PACT FACE TO FACE NOTE STL STANDARD TITLE: NURSING NOTE DATE OF NOTE: SEP 03, 2024@13:33 ENTRY DATE: SEP 03, 2024@13:33:22 AUTHOR: VIKY WOODS EXP COSIGNER: URGENCY: STATUS: COMPLETED V15 PACT FACE TO FACE NOTE STL Has ADDENDA Provider Visit: Patient Identifiers : Full Name Date of Reason for visit: Established Follow-Up Mode of Arrival: Ambulatory Allergy Review: SIMVASTATIN, SYMBICORT 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 Recent Vital Signs: Temperature: 97.8 F [36.6 C] (09/03/2024 13:28) Pulse: 82 (09/03/2024 13:28) Respiration: 20 (09/03/2024 13:28) B/P: 114/76 (09/03/2024 13:28) Pain: 6 (09/03/2024 13:28) Wt: 177 lb [80.29 kg] (09/03/2024 13:28) Ht: 69 in [175.3 cm] (12/11/2023 10:51) BMI: 26.2 POX: 98% (09/03/2024 13:28) Blood sugar glucometer readin PERSONAL HEALTH INVENTORY Notes: No data available for PHI note titles PERSONAL HEALTH INVENTORY - MAP: 03/05/2024 Personal Health Plan [place], [place]iration, Purpose (MAP) gg What matters most to you in your life right now? 's Response: being able to be independent Would you like to discuss any personal problem, family problem, alcohol use, drug use, or a mental or emotional illness? No My [facility] ([facility]), please select appointment type: Face to face: Yes- Done Contact provided Primary Care phone number and encouraged to call if any questions or concerns. Review that after hours nurse line [phone] and emergency room are available 27/03 for patient use. Contact verbalized good understanding. No notification required for this note. Frail/Elderly Screen: ADL Screen - Howe Index of [place] in Activities of Daily Living Bathing: (3 Points) Receives no assistance (gets in and out of tub by self, if tub is usual means of bathing) Dressing: (3 Points) Gets clothes and gets completely dressed without assistance. Toileting: (3 Points) Goes to toilet room, cleans self, and arranges clothes without assistance (may use object for support such as cane, walker, or wheelchair, and may manage own night bedpan or commode, emptying same next morning) Transferring: (3 Points) Moves in and out of bed and in and out of chair without assistance (may be using object for support, such as cane or walker) Continence: (3 Points) Controls urination and bowel movement completely by self Feeding: (3 Points) Feeds self without assistance Total Score: 18 Points 18 = High (patient independent) 6 = Low (patient very dependent) IADL Screen - Colin Instrumental Activities of Daily Living Scale Ability to use telephone: (1 point) Operates Telephone on own initiative; looks up and dials numbers. Shopping: (0 points) Completely unable to shop. Food preparation: (0 points) Needs to have meals prepared and served. Housekeeping: (0 points) Does not participate in any housekeeping tasks. Laundry: (0 points) All laundry must be done by others. Mode of transportation: (1 point) Travels independently on public transportation or drives own car. Responsibility for own medications: (1 point) Is responsible for taking medications in correct dosages at correct times. Ability to handle finances: (1 point) Manages financial matters independently (budgets, writes checks, pays rent and bills, goes to bank); collects and keeps track of income. Total score: 4 points 8 = High function, independent 0 = Low function, dependent Falls Screen: One fall with no injury within the last 12 months. Incontinence Screen: No incontinence. Tobacco Use Screening - AT,DE,L,M,N,P,PH,PS,RT,S,U: The patient is a former cigarette smoker. The patient has never used other types of tobacco. /sadia/ VIKY WOODS Licensed Practical Nurse Signed: 09/03/2024 13:37 09/03/2024 ADDENDUM STATUS: COMPLETED Influenza Immunization - L,N,P,PH,U: Influenza, High-Dose, Trivalent, Preservative Free (Fluzone-Syringe) Administered: INFLUENZA, HIGH-DOSE, TRIVALENT, PF Date Administered: Sep 03, 2024 13:30 Catalyst Recovery Operator: SANOFI PASTEUR Lot: [id number] Exp Date: Mar 03, 2025 [facility]: [phone] Admin Route/Site: INTRAMUSCULAR/RIGHT DELTOID Dosage: 0.5mL Vaccine Information Statement(s): INFLUENZA(FLU) VACC(INACTIVATED OR RECOMBINANT)VIS Apr 09, 2021 (SPANISH) Order By: Gina Mars Administered By: Viky Woods The Influenza Vaccine Information Statement (VIS) was reviewed with the patient/caregiver which lists the benefits and risks of the vaccine and the risks of not receiving the Influenza vaccine. The patient/caregiver denied any prior severe reaction to this vaccine or its components or a severe allergic reaction, such as anaphylaxis, to any vaccine or any injectable therapy. The patient/caregiver gave verbal consent to receive the vaccine. /sadia/ VIKY WOODS Licensed Practical Nurse Signed: 09/03/2024 13:58 [facility] WOODS [facility]
--- OUTSIDE RECORDS SUMMARY | 2024-09-27 06:21 | XMS_ITS | Encounter Summary ---
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 Date/Time Encounter Type Encounter Description Reason Pro vider Source Sep 27, 2024 12:21 PM Outpatient Encounter COMMUNITY CARE CONSULT IHE Encounter Template Text not used by [place] Plan of Treatment: Future Appointments (+ 6 months) and Future Tests (+/- 45 days) The Plan of Treatment section includes future care activities for the patient from all [place] treatmentfacilities. This section includes future appointments and future orders which are active, pending or scheduled. Future Appointments This section includes appointments that were scheduled to occur 6 months from the date of the Encounter, up to a maximum of 20 appointments. The data comes from all [place] treatment facilities. Appointment Date/Time Appointment Type Appointme nt Facility Name Oct 04, 2024 02:00 PM AMBULATORY - MEDICINE [facility] Oct 14, 2024 01:00 PM AMBULATORY - NONE [facility] Oct 15, 2024 11:00 AM AMBULATORY - MEDICINE [facility] Nov 01, 2024 01:30 PM AMBULATORY - MEDICINE [facility] Nov 13, 2024 01:45 PM AMBULATORY - MEDICINE [facility] January 15, 2025 01:00 PM AMBULATORY - MEDICINE [facility] January 30, 2025 02:00 PM AMBULATORY - MEDICINE [facility] January 31, 2025 11:00 AM AMBULATORY - MEDICINE [facility] Feb 14, 2025 01:30 PM AMBULATORY - MEDICINE [facility] Feb 17, 2025 03:00 PM AMBULATORY - MEDICINE [facility] Feb 21, 2025 02:00 PM AMBULATORY - MEDICINE [facility] Feb 25, 2025 02:30 PM AMBULATORY - MEDICINE [facility] Feb 27, 2025 01:00 PM AMBULATORY - MEDICINE [facility] Mar 13, 2025 01:30 PM AMBULATORY - MEDICINE [facility] Mar 27, 2025 03:00 PM AMBULATORY - SURGERY [facility] Lab Results: +/- 30 days of the encounter This section includes the Chemistry and Hematology Lab Results on record with [place] for the patient. Radiology Reports and Pathology Reports are provided separately, in subsequent sections. Lab Results This section contains the Chemistry/Hematology Results that were resulted 30 days before or 30 daysafter the date of the Encounter. Date/Time Source Result Type Result - Unit Interpretation Reference Range Specimen Type Comment Sep 11, 2024 11:08 AM [facility] TSH W/ REFLEX FT4 (STL) PLASMA Specimen Type: PLASMA No comment entered. Ordering Provider: GINA CALDERON Report Released Date/Time: Sep 03, 2024 02:41 PM Reporting Lab: [facility] [address] [facility] [address] Performing Lab: [place] [address] [facility] [address] TSH 0.763 u[IU]/mL 0.47-5 Sep 11, 2024 11:08 AM [facility] HGA1C BLOOD Specimen Type: BLOOD No comment entered. Ordering Provider: GINA CALDERON Report Released Date/Time: Sep 03, 2024 02:41 PM Reporting Lab: [facility] [address] [facility] [address] Performing Lab: [place] [address] [facility] [address] HGA1C 7.8 H 4.0-6.0 Sep 11, 2024 11:08 AM [facility] B12 SERUM Specimen Type: SERUM No comment entered. Ordering Provider: GINA CALDERON Report Released Date/Time: Sep 03, 2024 02:41 PM Reporting Lab: [facility] [address] [facility] [address] Performing Lab: [address] [address] B12 >2000 pg/mL H 213-816 Sep 11, 2024 11:08 AM [facility] VITAMIN D, 25-HYDROXY SERUM Specime n Type: SERUM No comment entered. Ordering Provider: GINA CALDERON Report Released Date/Time: Sep 03, 2024 02:41 PM Reporting Lab: [facility] [address] Performing Lab: [facility] [address] VITAMIN D, 25-HYDROXY 77.9 ng/mL 30-96 Sep 11, 2024 11:08 AM [facility] FOLATE (L-MA) SERUM Specimen Type : SERUM No comment entered. Ordering Provider: GINA CALDERON Report Released Date/Time: Sep 03, 2024 02:41 PM Reporting Lab: [address] [address] Performing Lab: [address] [address] FOLATE ([facility]) 19.7 ng/mL 7-20 Sep 11, 2024 11:08 AM [facility] IRON/TIBC PROFILE SERUM Specimen Ty pe: SERUM No comment entered. Ordering Provider: GINA CALDERON Report Released Date/Time: Sep 03, 2024 02:41 PM Reporting Lab: [address] [address] Performing Lab: [address] [address] TIBC 210 ug/dL L 250-450 TRANSFERRIN 168 mg/dL 163-344 IRON SATURATION 38 20-50 IRON 80 ug/dL 65-175 Sep 11, 2024 11:08 AM [facility] MICRAL/CREAT PROFILE (L) URINE Specimen Typ e: URINE No comment entered. Ordering Provider: GINA CALDERON Report Released Date/Time: Sep 03, 2024 02:41 PM Reporting Lab: [address] [address] Performing Lab: [address] [address] URINE ALBUMIN (PB-STL) 6.5 mg/L uACR (STL) 8 mg/g 0-29 CREATININE URINE/OTHERS 85.2 mg/dL 63-16 6 Sep 11, 2024 11:08 AM [facility] LIPID PANEL (L) PLASMA Specimen Ty pe: PLASMA Comment: No hemolysis noted. Ordering Provider: GINA CALDERON Report Released Date/Time: Sep 03, 2024 02:41 PM Reporting Lab: [address] [address] Performing Lab: [address] [address] CHOLESTEROL 155 mg/dL 0-200 TRIGLYCERIDE 95 mg/dL 0-150 CALCULATED LDL 101 mg/dL HDL(New) 35 mg/dL L >40 Sep 11, 2024 11:08 AM [facility] CBC BLOOD Specimen Type: BLOOD No comment entered. Ordering Provider: GINA CALDERON Report Released Date/Time: Sep 03, 2024 02:41 PM Reporting Lab: [address] [address] Performing Lab: [address] [address] WBC 5.7 10*3/uL 3.6-11.2 RBC 4.63 10*6/uL [...] 0.00-0. 20 Sep 11, 2024 11:08 AM [facility] COMPREHENSIVE METABOLIC PANEL PLASMA Specimen Type: PLASMA Comment: No hemolysis noted. Ordering Provider: GINA CALDERON Report Released Date/Time: Sep 03, 2024 02:41 PM Reporting Lab: [place] [phone] Performing Lab: [facility] [address] [facility] [address] CREATININE 0.91 mg/dL 0.7-1.3 UREA NITROGEN 19.9 [...] 86.3 >60 Sep 03, 2024 01:[address] [facility] GLUCOSE,BLOOD-poct (STL) BLOOD Specimen Type: BLOOD Comment: Test Performed by: [id number] Meter #: [id number] Ordering Provider: GINA CALDERON Report Released Date/Time: Sep 03, 2024 03:14 PM Reporting Lab: [facility] [address] [place] [phone] Performing Lab: [address] [address] GLUCOSE,BLOOD-poct (STL) 253 mg/dL H 72-99 Social History: Smoking Status (Most current) and Tobacco Use (All prior to encounter date) This section includes the most current, and the historical, smoking and tobacco- related health factors from the [facility] where the Encounter took place. Current Smoking Status This section includes the most current smoking, or tobacco-related health factor, from the [place] facility where the Encounter took place. Date/Time Current Smoking Status Comment Facil ity January 13, 2023 05:24 PM ORYX ADMIT TOBACCO SCREEN NO [facility] Tobacco Use History This section includes a history of the smoking, or tobacco-related health factors, that were collected on or before the date of the Encounter. The data comes from the [place] facility where the Encounter took place. Date/Time Smoking Status/Tobacco Use Comment F acility May 12, 2022 01:00 PM VA-TOBACCO FORMER USER [facility] May 12, 2022 01:00 PM VA-TOBACCO QUIT 15 YRS OR MORE [facility] May 12, 2021 09:00 AM VA-TOBACCO FORMER USER [facility] May 12, 2021 09:00 AM VA-TOBACCO QUIT 15 YRS OR MORE [facility] Nov 01, 2017 03:12 PM LIFETIME NON-USER OF TOBACCO [facility] Dec 16, 2016 07:18 PM QUIT TOBACCO >7 YEARS AGO [facility] Jul 27, 2016 12:41 AM LIFETIME NON-USER OF TOBACCO [facility] Advance Directives: All historical and current Section Date Range: From patient's date of to the date document was created. This section includes ALL of a patient's completed or amended [place] Advance and Rescinded Directives. The entries below indicate that a directive exists for the patient, but an actual copy is not included with this document. The data comes from all [place] facilities. Date Advance Directives Provider Source May 21, 2019 ADVANCE DIRECTIVE DISCUSSION Boogie DOUGLAS [facility] Jul 28, 2016 ADVANCE DIRECTIVE DISCUSSION SEAN JOE [facility] Encounter Notes: All associated encounter notes This section contains the clinical notes associated to the Encounter. Date/Time Encounter Note(s) Provider Source Sep 27, 2024 12:21 PM NONVA NOTE: LOCAL TITLE: COMMUNITY CARE-REQUEST FOR SERVICE NOTE [facility] STANDARD TITLE: NONVA NOTE DATE OF NOTE: SEP 27, 2024@12:21 ENTRY DATE: SEP 27, 2024@12:21:41 AUTHOR: ZACHARY BRADY EXP COSIGNER: URGENCY: STATUS: COMPLETED Request for Services (RFS) documentation has been scanned to [facility] Consult: COMMUNITY CARE-Rad therapy Consult No: [id number] Date scanned: Sep A Request for Service (RFS) form [id number] has been received which includes the following: Care Requested: 's previous [facility] Rad Onc referral/auth 09/17/24. CC Provider requesting new auth. Appt: 10/10/24 1300 w/Federico BALL. Copy of notes/RFS sent to [place] Rad Onc Team for review and dispositon. ICD-10 Dx code: C34.11 Date VA received request: Sep Date service required: Sep Requesting [facility] Provider Information: Name of Ordering Provider: Dr. Kevin Caballero Office:[facility] Address, City, State: [address] [place] [address] [place] [address] POC: Nicole /es/ ZACHARY BRADY MSN RN REGISTERED NURSE Signed: 09/27/2024 12:25 Receipt Acknowledged By: 09/27/2024 12:30 /es/ ALAYNA IZAGUIRRE RN REGISTERED NURSE 09/30/2024 08:16 /es/ MIGUELITO PINO,MSN,RN REGISTERED NURSE ZACHARY BRADY [facility]
--- OUTSIDE RECORDS SUMMARY | 2024-09-27 08:12 | XMS_ITS | Encounter Summary ---
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 Date/Time Encounter Type Encounter Description Reason Provider Source Sep 27, 2024 02:12 PM Outpatient Encounter COMMUNITY CARE CONSULT ZACHARY BRADY Lacho Encounter Template Text not used by [place] Plan of Treatment: Future Appointments (+ 6 months) and Future Tests (+/- 45 days) The Plan of Treatment section includes future care activities for the patient from all [place] treatmentfacilities. This section includes future appointments and future orders which are active, pending or scheduled. Future Appointments This section includes appointments that were scheduled to occur 6 months from the date of the Encounter, up to a maximum of 20 appointments. The data comes from all [place] treatment facilities. Appointment Date/Time Appointment Type Appointme nt Facility Name Oct 04, 2024 02:00 PM AMBULATORY - MEDICINE [facility] Oct 14, 2024 01:00 PM AMBULATORY - NONE [facility] Oct 15, 2024 11:00 AM AMBULATORY - MEDICINE [facility] Nov 01, 2024 01:30 PM AMBULATORY - MEDICINE [facility] Nov 13, 2024 01:45 PM AMBULATORY - MEDICINE [facility] January 15, 2025 01:00 PM AMBULATORY - MEDICINE [facility] January 30, 2025 02:00 PM AMBULATORY - MEDICINE [facility] January 31, 2025 11:00 AM AMBULATORY - MEDICINE [facility] Feb 14, 2025 01:30 PM AMBULATORY - MEDICINE [facility] Feb 17, 2025 03:00 PM AMBULATORY - MEDICINE [facility] Feb 21, 2025 02:00 PM AMBULATORY - MEDICINE [facility] Feb 25, 2025 02:30 PM AMBULATORY - MEDICINE [facility] Feb 27, 2025 01:00 PM AMBULATORY - MEDICINE [facility] Mar 13, 2025 01:30 PM AMBULATORY - MEDICINE [facility] Mar 27, 2025 03:00 PM AMBULATORY - SURGERY . [facility] Lab Results: +/- 30 days of the encounter This section includes the Chemistry and Hematology Lab Results on record with [place] for the patient. Radiology Reports and Pathology Reports are provided separately, in subsequent sections. Lab Results This section contains the Chemistry/Hematology Results that were resulted 30 days before or 30 daysafter the date of the Encounter. Date/Time Source Result Type Result - Unit Interpretation Reference Range Specimen Type Comment Sep 11, 2024 11:08 AM [facility] HGA1C BLOOD Specimen Type: BLOOD No comment entered. Ordering Provider: GINA CALDERON Report Released Date/Time: Sep 03, 2024 02:41 PM Reporting Lab: [facility] [address] [facility] [address] Performing Lab: [place] [address] [facility] [address] HGA1C 7.8 H 4.0-6.0 Sep 11, 2024 11:08 AM [facility] VITAMIN D, 25-HYDROXY SERUM Specime n Type: SERUM No comment entered. Ordering Provider: GINA CALDERON Report Released Date/Time: Sep 03, 2024 02:41 PM Reporting Lab: [facility] [address] [place] [address] Performing Lab: [place] [address] [facility] [address] VITAMIN D, 25-HYDROXY 77.9 ng/mL 30-96 Sep 11, 2024 11:08 AM [facility] TSH W/ REFLEX FT4 (STL) PLASMA Speci men Type: PLASMA No comment entered. Ordering Provider: GINA CALDERON Report Released Date/Time: Sep 03, 2024 02:41 PM Reporting Lab: [facility] [address] [facility] [address] Performing Lab: [facility] [address] [facility] [address] TSH 0.763 u[IU]/mL 0.47-5 Sep 11, 2024 11:08 AM [facility] B12 SERUM Specimen Type: SERUM No comment entered. Ordering Provider: GINA CALDERON Report Released Date/Time: Sep 03, 2024 02:41 PM Reporting Lab: [facility] [address] [facility] [address] Performing Lab: [facility] [address] [facility] [address] B12 >2000 pg/mL H 213-816 Sep 11, 2024 11:08 AM [facility] FOLATE (L-MA) SERUM Specimen Type : SERUM No comment entered. Ordering Provider: GINA CALDERON Report Released Date/Time: Sep 03, 2024 02:41 PM Reporting Lab: [address] [address] Performing Lab: [address] [address] FOLATE ([facility]) 19.7 ng/mL 7-20 Sep 11, 2024 11:08 AM [facility] MICRAL/CREAT PROFILE (STL) URINE Specimen Typ e: URINE No comment entered. Ordering Provider: GINA CALDERON Report Released Date/Time: Sep 03, 2024 02:41 PM Reporting Lab: [address] [address] Performing Lab: [address] [address] URINE ALBUMIN (PB-STL) 6.5 mg/L uACR (STL) 8 mg/g 0-29 CREATININE URINE/OTHERS 85.2 mg/dL 63-16 6 Sep 11, 2024 11:08 AM [facility] IRON/TIBC PROFILE SERUM Specimen Ty pe: SERUM No comment entered. Ordering Provider: GINA CALDERON Report Released Date/Time: Sep 03, 2024 02:41 PM Reporting Lab: [address] [address] Performing Lab: [address] [address] TIBC 210 ug/dL L 250-450 TRANSFERRIN 168 mg/dL 163-344 IRON SATURATION 38 20-50 IRON 80 ug/dL 65-175 Sep 11, 2024 11:08 AM [facility] LIPID PANEL (STL) PLASMA Specimen Ty pe: PLASMA Comment: No hemolysis noted. Ordering Provider: GINA CALDERON Report Released Date/Time: Sep 03, 2024 02:41 PM Reporting Lab: [address] [address] Performing Lab: [address] [address] CHOLESTEROL 155 mg/dL 0-200 TRIGLYCERIDE 95 mg/dL 0-150 CALCULATED LDL 101 mg/dL HDL(New) 35 mg/dL L >40 Sep 11, 2024 11:08 AM [facility] CBC BLOOD Specimen Type: BLOOD No comment entered. Ordering Provider: GINA CALDERON Report Released Date/Time: Sep 03, 2024 02:41 PM Reporting Lab: [address] [address] Performing Lab: [address] [address] WBC 5.7 10*3/uL 3.6-11.2 RBC 4.63 10*6/uL [...] 0.00-0. 20 Sep 11, 2024 11:08 AM [facility] COMPREHENSIVE METABOLIC PANEL PLASMA Specimen Type: PLASMA Comment: No hemolysis noted. Ordering Provider: GINA CALDERON Report Released Date/Time: Sep 03, 2024 02:41 PM Reporting Lab: [address] [place] [address] Performing Lab: [facility] [address] [facility] [address] CREATININE 0.91 mg/dL 0.7-1.3 UREA NITROGEN 19.9 [...] 86.3 >60 Sep 03, 2024 01:32 PM [facility] GLUCOSE,BLOOD-poct (STL) BLOOD Specimen Type: BLOOD Comment: Test Performed by: [id number] Meter #: [id number] Ordering Provider: GINA CALDERON Report Released Date/Time: Sep 03, 2024 03:14 PM Reporting Lab: [facility] [address] [place] [address] Performing Lab: [facility] [address] [place] [address] GLUCOSE,BLOOD-poct (STL) 253 mg/dL H 72-99 Social History: Smoking Status (Most current) and Tobacco Use (All prior to encounter date) This section includes the most current, and the historical, smoking and tobacco- related health factors from the [facility] where the Encounter took place. Current Smoking Status This section includes the most current smoking, or tobacco-related health factor, from the [place] facility where the Encounter took place. Date/Time Current Smoking Status Comment Facil ity January 13, 2023 05:24 PM ORYX ADMIT TOBACCO SCREEN NO [facility] Tobacco Use History This section includes a history of the smoking, or tobacco-related health factors, that were collected on or before the date of the Encounter. The data comes from the [place] facility where the Encounter took place. Date/Time Smoking Status/Tobacco Use Comment F acility May 12, 2022 01:00 PM VA-TOBACCO FORMER USER [facility] May 12, 2022 01:00 PM VA-TOBACCO QUIT 15 YRS OR MORE [facility] May 12, 2021 09:00 AM VA-TOBACCO FORMER USER [facility] May 12, 2021 09:00 AM VA-TOBACCO QUIT 15 YRS OR MORE [facility] Nov 01, 2017 03:12 PM LIFETIME NON-USER OF TOBACCO [facility] Dec 16, 2016 07:18 PM QUIT TOBACCO >7 YEARS AGO [facility] Jul 27, 2016 12:41 AM LIFETIME NON-USER OF TOBACCO [facility] Advance Directives: All historical and current Section Date Range: From patient's date of to the date document was created. This section includes ALL of a patient's completed or amended [place] Advance and Rescinded Directives. The entries below indicate that a directive exists for the patient, but an actual copy is not included with this document. The data comes from all [place] facilities. Date Advance Directives Provider Source May 21, 2019 ADVANCE DIRECTIVE DISCUSSION Boogie DOUGLAS [facility] Jul 28, 2016 ADVANCE DIRECTIVE DISCUSSION SEAN JOE [facility] Encounter Notes: All associated encounter notes This section contains the clinical notes associated to the Encounter. Date/Time Encounter Note(s) Provider Source Sep 27, 2024 02:12 PM NONVA NOTE: LOCAL TITLE: COMMUNITY CARE-CARE COORDINATION PLAN NOTE 6[address] STANDARD TITLE: NONVA NOTE DATE OF NOTE: SEP 27, 2024@14:12 ENTRY DATE: SEP 27, 2024@14:13:01 AUTHOR: ZACHARY BRADY EXP COSIGNER: URGENCY: STATUS: COMPLETED COMMUNITY CARE-CARE COORDINATION PLAN NOTE 657 STL Has ADDENDA Community Care Consult: rad therapy Consult No: [id number] [facility] Referral #: pending DOA approval Chief Complaint: lung cancer Patient Admitted? No Level of Care Coordination Moderate Care Coordination was determined from: Chart Review Facility Community Care Office Contact Care Coordination Point of Contact: Zachary Brady Services: Basic Care Coordination Services Monitoring and coordination of Rehab/PT Services Direct communication to referring provider Care management, if appropriate Plan: [facility] will proceed after DOA decision. /vanesa OTTO RN REGISTERED NURSE Signed: 09/27/2024 14:14 09/30/2024 ADDENDUM STATUS: COMPLETED Care Coordination Follow Up Level of Care Coordination Moderate Care Coordination was determined from: Chart Review, Phone call to [place]/Family/Caregiver Services: Basic Care Coordination Services Monitoring and coordination of Rehab/PT Services Direct communication to referring provider Care management, if appropriate Plan: [facility] [address], [place], [id number] Provider Name (if known): CLYDE RUBIO Community Provider Provider Provider POC: Nicole Referral Number: [id number] Appointment Management: Appointment 1 Other: rad onc Appointment Location: Community Provider Appointment Date: Oct 1300 Reason for Appointment: OV CONTACT [place] contacted on Sep to discuss approved consult. Informed 's that referral has been approved for six months. [place]'s was informed of CC Provider location and above appt date/time. No transporation issues reported. Action Needed? Yes Will coordinate care with and [facility]/Community providers throughout [facility]. CC staff will call post first appointment and throughout [facility] as warranted. /vanesa OTTO RN REGISTERED NURSE Signed: 09/30/2024 11:28 10/11/2024 ADDENDUM STATUS: COMPLETED Appointment Management: Appointment 1 Radiology Appointment Location: Community Provider Appointment Date: Oct 1300 Reason for Appointment: CT Appointment 2 Other: Radiation Oncology Appointment Location: Community Provider Appointment Date: Oct 1300 Reason for Appointment: OV w/Federico - r/s from 10/10/24 in order to be seen s/p above CT /sadia/ ZACHARY OTTO RN REGISTERED NURSE Signed: 10/11/2024 09:32 11/02/2024 ADDENDUM STATUS: COMPLETED Care Coordination Follow Up Level of Care Coordination Moderate Care Coordination was determined from: Chart Review Services: Basic Care Coordination Services Monitoring and coordination of Rehab/PT Services Direct communication to referring provider Care management, if appropriate Plan: According to [facility] 10/24/24 notes: ASSESSMENT: Andrés Miles is a 78 [facility] a [facility] of a 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 He remains relatively stable from a respiratory standpoint and has no clinical or radiographic evidence of disease progression at this time. PLAN: Return to clinic in 6 months with a repeat CT of the chest at that time. Continue close follow up with his other healthcare providers. RAD ONC PAIN PLAN: The patient is not currently having any pain that requires changes in pain management. My total face to face time with this patient during this office visit: 20 minutes DISEASE STATUS/TOXICITY: Disease Status: Controlled New metachronous cancer?: No Copy of notes sent to [facility]. Appointment Management: Appointment Other: Rad Onc Appointment Location: Community Provider Appointment Date: Apr 1300 Reason for Appointment: f/u visit w/Federico BALL Referral [id number] valid until 04/12/25; will need new CC auth prior to above appt date. /sadia/ ZACHARY OTTO RN REGISTERED NURSE Signed: 11/02/2024 08:08 ZACHARY BRADY [facility]
--- OUTSIDE RECORDS SUMMARY | 2024-10-04 08:00 | XMS_ITS | Encounter Summary ---
Author Name [facility] [facility] [place] [facility] [place] Address [address] [place] [address] Care Team Providers Care Counter Professional Name Role Phone LINN MCKEON Primary Care [...] PART A Apr 04, 2010 PART A [id number] PATIENT MEDICARE (WNR) MEDICARE (M) PART B Apr 04, 2010 PART B [id number] PATIENT MEDICARE (WNR) MEDICARE (M) PART B Apr 04, 2010 PART B [id number] [phone] ANDRÉS ROBERTS PATIENT MEDICARE (WNR) MEDICARE (M) PART A Apr 04, 2010 PART A [id number] ANDRÉS ROBERTS PATIENT Selected Encounter This section includes the information on record at [place] for the Encounter. Date/Time Encounter Type Encounter Description Reason Provider Source Oct 04, 2024 02:00 PM EDU&TRN PT SELF-MGMT NQHP 1 PRIMARY CARE/MEDICINE ICD-10-CM I10 Essential (primary) hypertension MALIMAN LANDAEMILY Monk IHLacho Encounter Template Text not used by [place] Assessments - Encounter Diagnoses This section includes the primary and secondary diagnoses documented for the Encounter. Date/Time Primary/Secondary Diagnosis Diagnosis Name Provider Source Oct 05, 2024 12:33 AM PRIMARY Essential (primary) hypertension RACHAEL SAMSON [facility] Plan of Treatment: Future Appointments (+ 6 months) and Future Tests (+/- 45 days) The Plan of Treatment section includes future care activities for the patient from all [place] treatmentfacilities. This section includes future appointments and future orders which are active, pending or scheduled. Future Appointments This section includes appointments that were scheduled to occur 6 months from the date of the Encounter, up to a maximum of 20 appointments. The data comes from all [place] treatment facilities. Appointment Date/Time Appointment Type Appointme nt Facility Name Oct 14, 2024 01:00 PM AMBULATORY - NONE [facility] Oct 15, 2024 11:00 AM AMBULATORY - MEDICINE [facility] Nov 01, 2024 01:30 PM AMBULATORY - MEDICINE [facility] Nov 13, 2024 01:45 PM AMBULATORY - MEDICINE [facility] January 15, 2025 01:00 PM AMBULATORY - MEDICINE [facility] January 30, 2025 02:00 PM AMBULATORY - MEDICINE [facility] January 31, 2025 11:00 AM AMBULATORY - MEDICINE [facility] Feb 14, 2025 01:30 PM AMBULATORY - MEDICINE [facility] Feb 17, 2025 03:00 PM AMBULATORY - MEDICINE [facility] Feb 21, 2025 02:00 PM AMBULATORY - MEDICINE [facility] Feb 25, 2025 02:30 PM AMBULATORY - MEDICINE [facility] Feb 27, 2025 01:00 PM AMBULATORY - MEDICINE [facility] Mar 13, 2025 01:30 PM AMBULATORY - MEDICINE [facility] Mar 27, 2025 03:00 PM AMBULATORY - SURGERY [facility] Lab Results: +/- 30 days of the encounter This section includes the Chemistry and Hematology Lab Results on record with [place] for the patient. Radiology Reports and Pathology Reports are provided separately, in subsequent sections. Lab Results This section contains the Chemistry/Hematology Results that were resulted 30 days before or 30 daysafter the date of the Encounter. Date/Time Source Result Type Result - Unit Interpretation Reference Range Specimen Type Comment Sep 11, 2024 11:08 AM [facility] HGA1C BLOOD Specimen Type: BLOOD No comment entered. Ordering Provider: RUSSELL MARS Report Released Date/Time: Sep 03, 2024 02:41 PM Reporting Lab: [address] [address] Performing Lab: [address] [address] HGA1C 7.8 H 4.0-6.0 Sep 11, 2024 11:08 AM [facility] VITAMIN D, 25-HYDROXY SERUM Specime n Type: SERUM No comment entered. Ordering Provider: RUSSELL MARS Report Released Date/Time: Sep 03, 2024 02:41 PM Reporting Lab: [place] [address] [facility] [phone] Performing Lab: [address] [address] VITAMIN D, 25-HYDROXY 77.9 ng/mL 30-96 Sep 11, 2024 11:08 AM [facility] TSH W/ REFLEX FT4 (STL) PLASMA Speci men Type: PLASMA No comment entered. Ordering Provider: RUSSELL MARS Report Released Date/Time: Sep 03, 2024 02:41 PM Reporting Lab: [address] [address] Performing Lab: [address] [address] TSH 0.763 u[IU]/mL 0.47-5 Sep 11, 2024 11:08 AM [facility] FOLATE (STL-MA) SERUM Specimen Type : SERUM No comment entered. Ordering Provider: RUSSELL MARS Report Released Date/Time: Sep 03, 2024 02:41 PM Reporting Lab: [address] [address] Performing Lab: [facility] [address] [place] [phone] FOLATE ([facility]) 19.7 ng/mL 7-20 Sep 11, 2024 11:08 AM [facility] B12 SERUM Specimen Type: SERUM No comment entered. Ordering Provider: RUSSELL MARS Report Released Date/Time: Sep 03, 2024 02:41 PM Reporting Lab: [address] [address] Performing Lab: [address] [address] B12 >2000 pg/mL H 213-816 Sep 11, 2024 11:08 AM [facility] MICRAL/CREAT PROFILE (L) URINE Specimen Typ e: URINE No comment entered. Ordering Provider: RUSSELL MARS Report Released Date/Time: Sep 03, 2024 02:41 PM Reporting Lab: [facility] [address] [place] [phone] Performing Lab: [address] [address] URINE ALBUMIN (PB-STL) 6.5 mg/L uACR (STL) 8 mg/g 0-29 CREATININE URINE/OTHERS 85.2 mg/dL 63-16 6 Sep 11, 2024 11:08 AM [facility] LIPID PANEL (L) PLASMA Specimen Ty pe: PLASMA Comment: No hemolysis noted. Ordering Provider: RUSSELL MARS Report Released Date/Time: Sep 03, 2024 02:41 PM Reporting Lab: [facility] [address] [place] [phone] Performing Lab: [address] [address] CHOLESTEROL 155 mg/dL 0-200 TRIGLYCERIDE 95 mg/dL 0-150 CALCULATED LDL 101 mg/dL HDL([facility]) 35 mg/dL L >40 Sep 11, 2024 11:08 AM [facility] IRON/TIBC PROFILE SERUM Specimen Ty pe: SERUM No comment entered. Ordering Provider: RUSSELL MARS Report Released Date/Time: Sep 03, 2024 02:41 PM Reporting Lab: [address] [address] Performing Lab: [address] [address] TIBC 210 ug/dL L 250-450 TRANSFERRIN 168 mg/dL 163-344 IRON SATURATION 38 20-50 IRON 80 ug/dL 65-175 Sep 11, 2024 11:08 AM [facility] CBC BLOOD Specimen Type: BLOOD No comment entered. Ordering Provider: RUSSELL MARS Report Released Date/Time: Sep 03, 2024 02:41 PM Reporting Lab: [address] [address] Performing Lab: [address] [address] WBC 5.7 10*3/uL 3.6-11.2 RBC 4.63 10*6/uL [...] 0.00-0. 20 Sep 11, 2024 11:08 AM [facility] COMPREHENSIVE METABOLIC PANEL PLASMA Specimen Type: PLASMA Comment: No hemolysis noted. Ordering Provider: RUSSELL MARS Report Released Date/Time: Sep 03, 2024 02:41 PM Reporting Lab: [facility] [address] [facility] [phone] Performing Lab: [facility] [address] [facility] [facility] [phone] CREATININE 0.91 mg/dL 0.7-1.3 UREA NITROGEN 19.9 [...] U/L 8-40 EGFR (CKD-EPI 2020) 86.3 >60 Vital Signs: All taken on the encounter date This section contains inpatient and outpatient Vital Signs collected on the date of the Encounter. Date/Time Temperature Pulse Blood Pressure Respiratory Rate SP02 Pain Height Weight Body Mass Index Source Oct 04, 2024 01:39 PM 80 108/70 [facility] Social History: Smoking Status (Most current) and Tobacco Use (All prior to encounter date) This section includes the most current, and the historical, smoking and tobacco- related health factors from the [place] facility where the Encounter took place. Current Smoking Status This section includes the most current smoking, or tobacco-related health factor, from the [place] facility where the Encounter took place. Date/Time Current Smoking Status Comment Virgil ity Sep 03, 2024 01:30 PM VA-TOBACCO USE FORMER CIGARETTES [facility] Tobacco Use History This section includes a history of the smoking, or tobacco-related health factors, that were collected on or before the date of the Encounter. The data comes from the [place] facility where the Encounter took place. Date/Time Smoking Status/Tobacco Use Comment F acility Sep 03, 2024 01:30 PM VA-TOBACCO USE FORMER CIGARETTES [facility] Sep 07, 2023 11:00 AM VA-TOBACCO FORMER USER [facility] Sep 07, 2023 11:00 AM VA-TOBACCO QUIT 15 YRS OR MORE [facility] May 21, 2020 09:30 AM VA-TOBACCO FORMER USER [facility] May 21, 2020 09:30 AM VA-TOBACCO QUIT 15 YRS OR MORE [facility] Mar 29, 2019 10:32 AM VA-TOBACCO FORMER USER [facility] Mar 29, 2019 10:32 AM VA-TOBACCO QUIT 15 YRS OR MORE [facility] Advance Directives: All historical and current Section Date Range: From patient's date of to the date document was created. This section includes ALL of a patient's completed or amended [place] Advance and Rescinded Directives. The entries below indicate that a directive exists for the patient, but an actual copy is not included with this document. The data comes from all [place] facilities. Date Advance Directives Provider Source May 21, 2019 ADVANCE DIRECTIVE DISCUSSION Boogie DOUGLAS [facility] Jul 28, 2016 ADVANCE DIRECTIVE DISCUSSION [facility] Encounter Notes: All associated encounter notes This section contains the clinical notes associated to the Encounter. Date/Time Encounter Note(s) Provider Source Oct 04, 2024 02:00 PM NURSING NOTE: LOCAL TITLE: V15 PACT FACE TO FACE NOTE ST STANDARD TITLE: NURSING NOTE DATE OF NOTE: OCT 04, 2024@14:00 ENTRY DATE: OCT 04, 2024@23:25:57 AUTHOR: RACHAEL SAMSON COSIGNER: URGENCY: STATUS: COMPLETED Nurse Visit: Patient Identifiers : Full Name Date of Reason for visit: Blood pressure check Mode of Arrival: Ambulatory Allergy Review: SIMVASTATIN, SYMBICORT 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 's Response: Family Hypertension (HTN): Purpose of Encounter:Provider requested follow-up for HTN Subjective:Dizziness and weakness DX Hypertension: Yes DX IHD (Ischemic Heart Disease):No DX DM: Yes Is patient currently enrolled in the home telehealth (HT) program: No VSD - Detailed Vitals Date Vital Measurement Qualifiers 10/04/2024 13:39 Pulse 80 BP 108/70 L Arm, Sitting, Cuff- Manual, Lg Adult Home BP readings: Patient reported BP readings: Enter up to 7 readings: DATE/TIME:09/17/2024 B/P 108/61 PULSE76 [id number] 3 pills DATE/TIME:09/17/2024 B/P 150/76 PULSE74 [id number] DATE/TIME:09/18/2024 B/P 115/63 PULSE79 [id number] 3 pills DATE/TIME:09/18/2024 B/P 132/71 PULSE78 [id number] DATE/TIME:09/19/2024 B/P 110/64 PULSE84 [id number] 3 pills DATE/TIME:09/19/2024 B/P 112/56 PULSE81 [id number] DATE/TIME:09/20/2024 B/P 109/60 PULSE90 [id number] 3 pills Enter up to 7 readings: DATE/TIME:09/21/2024 B/P 109/64 PULSE88 [id number] 2 pills held Amlodipine DATE/TIME:09/21/2024 B/P 116/64 PULSE79 [id number] DATE/TIME:09/22/2024 B/P 116/66 PULSE76 [id number] 2 pills DATE/TIME:09/22/2024 B/P 153/80 PULSE73 [id number] DATE/TIME:09/23/2024 B/P 104/62 PULSE87 [id number] 3 pills DATE/TIME:09/23/2024 B/P 103/61 PULSE74 [id number] DATE/TIME:09/24/2024 B/P 108/56 PULSE68 [id number] 3 pills Enter up to 7 readings: DATE/TIME:09/24/2024 B/P 124/67 PULSE71 [id number] DATE/TIME:09/25/2024 B/P 100/53 PULSE83 [id number] 2 pills DATE/TIME:09/25/2024 B/P 110/59 PULSE81 [id number] DATE/TIME:09/26/2024 B/P 111/59 PULSE91 [id number] 2 pills DATE/TIME:09/26/2024 B/P 128/63 PULSE76 [id number] DATE/TIME:09/27/2024 B/P 100/55 PULSE88 [id number] 2 pills DATE/TIME:09/27/2024 B/P 119/64 PULSE80 [id number] Enter up to 7 readings: DATE/TIME:09/28/2024 B/P 114/64 PULSE81 [id number] 2 pills DATE/TIME: B/P 136/64 PULSE69 [id number] 2 pills DATE/TIME:09/29/2024 B/P 119/65 PULSE87 [id number] 2 pills DATE/TIME:09/29/2024 B/P 134/73 PULSE76 [id number] DATE/TIME:09/30/2024 B/P 112/66 PULSE80 [id number] 1 pill DATE/TIME:09/30/2024 B/P 120/65 PULSE76 [id number] DATE/TIME:10/01/2024 B/P 108/56 PULSE85 [id number] no pills taken Date/Time:10/01/2024 B/P 135/70 Pulse77 Comment 2015 Enter up to 7 readings: Date/Time:10/02/2024 B/P 107/57 Pulse92 [id number] no pills taken Date/Time: B/P 151/80 Pulse75 Comment Date/Time:10/03/2024 B/P 132/76 Pulse85 Comment 1000 3 pills Date/Time:10/03/2024 B/P 142/68 Pulse75 Comment 2020 Date/Time:10/04/2024 B/P 111/62 Pulse76 Comment 0840 Allergy Review: SIMVASTATIN, SYMBICORT 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 View Current Medications Active Outpatient Medications (including Supplies): Active Outpatient [...] CREAM APPLY SPARINGLY TO AFFECTED AREA(S) ACTIVE FOUR TIMES A DAY NEEDED FOR EXTERNAL USE ONLY. WASH HANDS AFTER APPLICATION. Indication: FOR PAIN 8) CARBOXYMETHYLCELLULOSE NA 1% OPH GEL INSTILL 1 DROP INTO ACTIVE BOTH EYES FOUR TIMES A DAY NEEDED [...] MOUTH ACTIVE ONCE A DAY 18) LISINOPRIL 20MG TAB TAKE ONE-HALF TABLET BY MOUTH ONCE A DAY ACTIVE AT 1PM FOR HEART OR BLOOD PRESSURE Indication: FOR HIGH BLOOD PRESSURE 19) MELOXICAM 15MG TAB TAKE ONE TABLET BY MOUTH ONCE A DAY ACTIVE NEEDED FOR PAIN OR INFLAMMATION 20) POLYETHYLENE GLYCOL 3350 ORAL PWDR MIX AND DRINK 1 CAPFUL BY ACTIVE MOUTH ONCE A DAY (MEASURE WITH CAP AND MIX IN 8 OZ OF WATER) Indication: FOR CONSTIPATION 21) SEMAGLUTIDE 1MG/0.75ML INJ PEN 3ML INJECT 1MG UNDER THE SKIN ACTIVE EVERY WEEK Indication: FOR DIABETES 22) SILDENAFIL CITRATE 100MG TAB TAKE ONE-HALF TABLET BY MOUTH ACTIVE ONE HOUR PRIOR TO SEXUAL ACTIVITY NEEDED - LIMIT 6 DOSES PER 30 DAYS Indication: FOR ERECTILE DYSFUNCTION 23) TERAZOSIN HCL 5MG CAP TAKE ONE CAPSULE BY MOUTH AT BEDTIME ACTIVE FOR PROSTATE Patient reports the following medication regimen changes: Taking Amlodipine 5 mg daily unless B/P systolic is less than 120 and he feels weak. HCYZ 25mg, and Lisinirpil 10 mg . total of 3 B/P meds. Patient was instructed to hold Amlodipine. thought patient had stopped taking Amlodipine. Patient says hold and stop mean two different things. Planned follow-up: Patiet/ instructed to Stop taking Amlodipine and repeat B/P log, and return in 1 month for [place]. [place]'s understanding verified by teach back: Yes For notification only, information forwarded to: Russell Mars/ADALI Provider /sadia/ RACHAEL SAMSON BSN,RN REGISTERED NURSE Signed: 10/05/2024 01:07 RACHAEL SAMSON [facility]
--- OUTSIDE RECORDS SUMMARY | 2024-10-15 05:00 | XMS_ITS ---
Author Name [facility] [place] Organization [facility] [place] Address [address] [place] [address] Care Team Providers Care Media Services Specialist Name Role Phone LINN MCKEON Primary Care [...] PART A Apr 04, 2010 PART A [id number] [phone] ANDRÉS ROBERTS PATIENT MEDICARE (WNR) MEDICARE (M) PART B Apr 04, 2010 PART B [id number] [phone] ANDRÉS ROBERTS PATIENT MEDICARE (WNR) MEDICARE (M) PART A Apr 04, 2010 PART A [id number] ANDRÉS ROBERTS PATIENT MEDICARE (WNR) MEDICARE (M) PART B Apr 04, 2010 PART B [id number] ANDRÉS ROBERTS PATIENT Selected Encounter This section includes the information on record at [place] for the Encounter. Date/Time Encounter Type Encounter Description Reason Provider Source Oct 15, 2024 11:00 AM OFFICE O/P EST MOD 30 MIN ENDOCRINOLOGY ICD-10-CM E11.65 Type 2 diabetes mellitus with hyperglycemia VIVIAN KIRK IHLacho Encounter Template Text not used by [place] Assessments - Encounter Diagnoses This section includes the primary and secondary diagnoses documented for the Encounter. Date/Time Primary/Secondary Diagnosis Diagnosis Name Provider Source Oct 15, 2024 11:27 AM PRIMARY Type 2 diabetes mellitus with hyperglycemia VIVIAN KIRK [facility] Plan of Treatment: Future Appointments (+ 6 months) and Future Tests (+/- 45 days) The Plan of Treatment section includes future care activities for the patient from all [place] treatmentfacilities. This section includes future appointments and future orders which are active, pending or scheduled. Future Appointments This section includes appointments that were scheduled to occur 6 months from the date of the Encounter, up to a maximum of 20 appointments. The data comes from all [place] treatment facilities. Appointment Date/Time Appointment Type Appointme nt Facility Name Nov 01, 2024 01:30 PM AMBULATORY - MEDICINE [facility] Nov 13, 2024 01:45 PM AMBULATORY - MEDICINE [facility] January 15, 2025 01:00 PM AMBULATORY - MEDICINE [facility] January 30, 2025 02:00 PM [facility] MEDICINE [facility] January 31, 2025 11:00 AM AMBULATORY - MEDICINE [facility] Feb 14, 2025 01:30 PM AMBULATORY - MEDICINE [facility] Feb 17, 2025 03:00 PM AMBULATORY - MEDICINE [facility] Feb 21, 2025 02:00 PM AMBULATORY - MEDICINE [facility] Feb 25, 2025 02:30 PM AMBULATORY - MEDICINE [facility] Feb 27, 2025 01:00 PM AMBULATORY - MEDICINE [facility] Mar 13, 2025 01:30 PM AMBULATORY - MEDICINE [facility] Mar 27, 2025 03:00 PM AM[facility]ORY - SURGERY [facility] Vital Signs: All taken on the encounter date This section contains inpatient and outpatient Vital Signs collected on the date of the Encounter. Date/Time Temperature Pulse Blood Pressure Respiratory Rate SP02 Pain Height Weight Body Mass Index Source Oct 15, 2024 10:43 AM 97.3 81 107/66 16 95 7 172.6 26 [facility] Social History: Smoking Status (Most current) and Tobacco Use (All prior to encounter date) This section includes the most current, and the historical, smoking and tobacco- related health factors from the [place] facility where the Encounter took place. Current Smoking Status This section includes the most current smoking, or tobacco-related health factor, from the [place] facility where the Encounter took place. Date/Time Current Smoking Status Comment Facil ity January 13, 2023 05:24 PM ORYX ADMIT TOBACCO SCREEN NO [facility] Tobacco Use History This section includes a history of the smoking, or tobacco-related health factors, that were collected on or before the date of the Encounter. The data comes from the [place] facility where the Encounter took place. Date/Time Smoking Status/Tobacco Use Comment F acility May 12, 2022 01:00 PM VA-TOBACCO FORMER USER [facility] May 12, 2022 01:00 PM VA-TOBACCO QUIT 15 YRS OR MORE [facility] May 12, 2021 09:00 AM VA-TOBACCO FORMER USER [facility] May 12, 2021 09:00 AM VA-TOBACCO QUIT 15 YRS OR MORE [facility] Nov 01, 2017 03:12 PM LIFETIME NON-USER OF TOBACCO [facility] Dec 16, 2016 07:18 PM QUIT TOBACCO >7 YEARS AGO [facility] Jul 27, 2016 12:41 AM LIFETIME NON-USER OF TOBACCO [facility] Advance Directives: All historical and current Section Date Range: From patient's date of to the date document was created. This section includes ALL of a patient's completed or amended [place] Advance and Rescinded Directives. The entries below indicate that a directive exists for the patient, but an actual copy is not included with this document. The data comes from all [place] facilities. Date Advance Directives Provider Source May 21, 2019 ADVANCE DIRECTIVE DISCUSSION Boogie [facility] Jul 28, 2016 ADVANCE DIRECTIVE DISCUSSION [facility] Encounter Notes: All associated encounter notes This section contains the clinical notes associated to the Encounter. 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 Couch was last seen in 05/2024. Insulin was stopped. Ozempic was increased to 1 mg weekly dose. Couch has ongoing weight loss. Lost > 20 lbs over the past year. He notes marked appetite suppression with current dose of ozempic. Glucose log shows fasting glucose 150-200s, glucose at bedtime 170-220s Couch concerned about hyperglycemia No hypoglycemia current regimen: /metformin 1000 mg bid ozempic 1 mg weekly previously on lantus which was stopped in 05/2024 a1c 7.8, 09/28 eye exam 11/27/23 1. Type 2 Diabetes without Ocular Manifestations OU 2. Immature Cataract OU; not visually significant 3. Dry Eye OU 4. Refractive Error/Presbyopia checks feet daily, [facility] htn: on lisinopril 10 mg daily, amlodipine 5 mg daily, hctz 25 mg daily hld: on lipitor 40 mg daily, ldl 101 renal: egfr 86, micr/cr neg in 09/2024 Uses a wheelchair x 10 years CVA 10/2019 Tolerating SGLT2 inhibitor well, no UTIs Not very active,may get short winded, continues to complain of feeling tired, history of sleep apnea not using CPAP no hx of pancreatitis Has JEAN MARIE, has not used cpap in years, worried about malfunctioning device, endorses fatigue no family hx of T2DM/medullary thyroid cancer 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, 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, 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,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, no other substance use ROS: 10 point ros done and negative except as per HPI Allergies: SIMVASTATIN, SYMBICORT Medications: Active Outpatient Medications (excluding Supplies): Issue Date Status Last Fill Active Outpatient Medications Refills Expiration 1) ACCU-CHEK GUIDE (GLUCOSE) TEST STRIP Qty: ACTIVE Issue: 01/01/24 200 for 50 days Sig: USE 1 STRIP FOR BLOOD Refills: 7 Last : 08/06/24 TEST FOUR TIMES A DAY Expr : 01/01/25 Indication: FOR BLOOD SUGAR MONITORING 2) ACETAMINOPHEN 325MG TAB Qty: 200 for 30 days ACTIVE Issue: 09/03/24 Sig: TAKE TWO TABLETS BY MOUTH EVERY 4 HOURS Refills: 3 Last : 09/11/24 NEEDED /FEVER. CAUTION: DO NOT EXCEED Expr : 09/04/25 4000MG PER DAY ACETAMINOPHEN (APAP) FROM ALL MEDS. Indication: FOR PAIN 3) ALBUTEROL 90MCG (CFC-F) 200D ORAL INHL Qty: ACTIVE (S) Issue: 09/03/24 3 for 90 days Sig: INHALE 2 PUFFS ORAL Refills: 2 Last : 11/12/24 INHALATION FOUR TIMES A DAY NEEDED SHAKE Expr : 09/04/25 WELL. RINSE MOUTHPIECE FREQUENTLY TO PREVENT CLOGGING. Indication: FOR COPD 4) AMLODIPINE BESYLATE 5MG TAB Qty: 90 for 90 ACTIVE Issue: 08/06/24 days Sig: TAKE ONE TABLET BY MOUTH ONCE A Refills: 3 Last : 08/06/24 DAY Expr : 08/07/25 Indication: FOR HIGH BLOOD PRESSURE 5) ASPIRIN 81MG EC TAB Qty: 120 for 90 days ACTIVE Issue: 03/05/24 Sig: TAKE ONE TABLET BY MOUTH ONCE A DAY FOR Refills: 2 Last : 08/06/24 HEART OR CIRCULATION. TAKE WITH FOOD. Expr : 03/06/25 6) ATORVASTATIN CALCIUM 80MG TAB Qty: 45 for 90 ACTIVE Issue: 01/01/24 days Sig: TAKE ONE-HALF TABLET BY MOUTH Refills: 0 Last : 10/03/24 EVERY EVENING FOR CHOLESTEROL. REPORT ANY Expr : 01/01/25 UNEXPLAINED MUSCLE PAIN/WEAKNESS TO PROVIDER. 7) CAPSAICIN 0.075% CREAM Qty: 120 for 90 days ACTIVE Issue: 09/03/24 Sig: APPLY SPARINGLY TO AFFECTED AREA(S) Refills: 3 Last : 09/03/24 FOUR TIMES A DAY NEEDED FOR EXTERNAL USE Expr : 09/04/25 ONLY. WASH HANDS AFTER APPLICATION. Indication: FOR PAIN 8) CARBOXYMETHYLCELLULOSE NA 1% OPH GEL Qty: 45 ACTIVE Issue: 11/27/23 for 90 days Sig: INSTILL 1 DROP INTO BOTH Refills: 1 Last : 09/29/24 EYES FOUR TIMES A DAY NEEDED FOR DRY EYES Expr : 11/27/24 9) CHOLECALCIF 50MCG (D3-2,000UNIT) TAB Qty: ACTIVE Issue: 07/12/24 200 for 90 days Sig: TAKE TWO TABLETS BY Refills: 2 Last : 09/30/24 MOUTH ONCE A DAY FOR VITAMIN D DEFICIENCY. Expr : 07/13/25 10) CYANOCOBALAMIN 1000MCG TAB Qty: 100 for 90 ACTIVE Issue: 05/08/24 days Sig: TAKE ONE TABLET BY MOUTH ONCE A Refills: 2 Last : 08/18/24 DAY FOR B12 SUPPLEMENTATION Expr : 05/09/25 Indication: FOR VITAMIN B12 SUPPLEMENTATION 11) EMPAGLIFLOZIN 10/METFORM 1000MG 24HR TAB ACTIVE Issue: 05/09/24 Qty: 180 for 90 days Sig: TAKE 2 TABLETS BY Refills: 1 Last : 10/27/24 MOUTH ONCE A DAY TAKE WITH FOOD Expr : 05/10/25 Indication: FOR DIABETES 12) FINASTERIDE 5MG TAB Qty: 90 for 90 days Sig: ACTIVE Issue: 01/01/24 TAKE ONE TABLET BY MOUTH ONCE A DAY FOR Refills: 1 Last : 07/11/24 PROSTATE Expr : 01/01/25 13) FLUOROURACIL 5% CREAM Qty: 40 for 30 days ACTIVE Issue: 05/14/24 Sig: APPLY THIN FILM TO AFFECTED AREA(S) Refills: 2 Last : 05/16/24 TWICE DAILY AVOID SUN EXPOSURE. FOLLOW Expr : 05/15/25 DIRECTIONS CAREFULLY FOR PROPER HANDLING/DISPOSAL START AFTER BLISTERS FROM CYROTHERAPY HEAL. APPLY TO THE RIGHT ARM FOR 2 WEEKS, THEN STOP. THEN APPLY TO THE LEFT ARM FOR 2 WEEKS, THEN STOP. THEN APPLY TO THE FACE FOR 2 WEEKS. Indication: FOR ACTINIC KERATOSIS 14) HYDROCHLOROTHIAZIDE 25MG TAB Qty: 90 for 90 ACTIVE Issue: 01/01/24 days Sig: TAKE ONE TABLET BY MOUTH ONCE A Refills: 3 Last : 01/19/24 DAY FOR BLOOD PRESSURE TAKE IN THE MORNING Expr : 01/01/25 15) HYDROPHILIC (EQV EUCERIN) TOP CREAM Qty: 454 ACTIVE Issue: 05/14/24 for 90 days Sig: APPLY LIBERALLY TO AFFECTED Refills: 2 Last : 05/16/24 AREA(S) ONCE A DAY (EXTERNAL USE ONLY) APPLY Expr : 05/15/25 TO DRY SKIN Indication: FOR SKIN CARE 16) KETOCONAZOLE 2% CREAM Qty: 60 for 30 days ACTIVE Issue: 05/14/24 Sig: APPLY LIBERALLY TO AFFECTED AREA(S) Refills: 3 Last : 05/16/24 TWICE A DAY (EXTERNAL USE ONLY) APPLY TO Expr : 05/15/25 THE RED AND FLAKY AREAS ON THE NOSE AND ON THE FEET Indication: FOR FUNGAL INFECTION 17) LACTOBACILLUS ACIDOPHILUS CHEW TAB Qty: 100 ACTIVE Issue: 03/05/24 for 90 days Sig: TAKE 1 TABLET BY MOUTH ONCE Refills: 3 Last : 07/12/24 A DAY Expr : 03/06/25 18) LISINOPRIL 20MG TAB Qty: 45 for 90 days Sig: ACTIVE Issue: 09/03/24 TAKE ONE-HALF TABLET BY MOUTH ONCE A DAY AT Refills: 3 Last : 09/03/24 1PM FOR HEART OR BLOOD PRESSURE Expr : 09/04/25 Indication: FOR HIGH BLOOD PRESSURE 19) MELOXICAM 15MG TAB Qty: 90 for 90 days Sig: ACTIVE Issue: 05/08/24 TAKE ONE TABLET BY MOUTH ONCE A DAY Refills: 2 Last : 10/14/24 NEEDED FOR PAIN OR INFLAMMATION Expr : 05/09/25 20) POLYETHYLENE GLYCOL 3350 ORAL PWDR Qty: 510 ACTIVE Issue: 09/03/24 for 30 days Sig: MIX AND DRINK 1 CAPFUL BY Refills: 2 Last : 09/30/24 MOUTH ONCE A DAY (MEASURE WITH CAP AND MIX Expr : 09/04/25 IN 8 OZ OF WATER) Indication: FOR CONSTIPATION 21) SEMAGLUTIDE 1MG/0.75ML INJ PEN 3ML Qty: 3 ACTIVE Issue: 05/09/24 for 84 days Sig: INJECT 1MG UNDER THE SKIN Refills: 1 Last : 10/15/24 EVERY WEEK Expr : 05/10/25 Indication: FOR DIABETES 22) SILDENAFIL CITRATE 100MG TAB Qty: 9 for 90 ACTIVE Issue: 01/30/24 days Sig: TAKE ONE-HALF TABLET BY MOUTH ONE Refills: 3 Last : 01/31/24 HOUR PRIOR TO SEXUAL ACTIVITY NEEDED - Expr : 01/30/25 LIMIT 6 DOSES PER 30 DAYS Indication: FOR ERECTILE DYSFUNCTION 23) TERAZOSIN HCL 5MG CAP Qty: 90 for 90 days ACTIVE Issue: 01/01/24 Sig: TAKE ONE CAPSULE BY MOUTH AT BEDTIME Refills: 0 Last : 10/07/24 FOR PROSTATE Expr : 01/01/25 Past Medical History: 1) Benign essential hypertension (SNOMED CT 1962455) 2) Moderate chronic obstructive pulmonary disease (SNOMED CT 163665032) 3) Obesity (SNOMED CT 853847726) 4) History of malignant melanoma of the skin (SNOMED CT 918569093973) 5) Osteoarthritis of knee (SNOMED CT 426521681) 6) Colonoscopy normal 7) Diabetes mellitus 8) HLD - Hyperlipidaemia 9) Expressive dysphasia 10) Moderate cognitive impairment 11) Neuropathy 12) Squamous cell carcinoma of lung 13) Vitamin B12 Deficiency (SCT 509034534) 14) Vitamin D Deficiency (SCT 62334459) 15) Arthritis of hand 16) Benign prostatic hyperplasia 17) Osteoarthritis of multiple joints 18) Exposure to potentially hazardous substance 19) Constipation PHYSICAL EXAM: Vital Signs: Temperature: 97.3 F [36.3 C] (10/15/2024 10:43) Blood Pressure: 107/66 (10/15/2024 10:43) Pulse: 81 (10/15/2024 10:43) Respirations: 16 (10/15/2024 10:43) Weight: 172.6 lb [78.29 kg] (10/15/2024 10:43) Patient Weight History - Last Four 1. 172.6 lbs. / 78.3 kg. on OCT 15, 2024@10:43:08 2. 177.0 lbs. / 80.3 kg. on SEP 03, 2024@13:28:28 3. 190.6 lbs. / 86.5 kg. on MAY 09, 2024@11:14:03 4. 195.0 lbs. / 88.5 kg. on MAR 05, 2024@13:31:26 BMI: 25.5 GENERAL: No acute distress, Well developed, well nourished HEENT: EOMI, PERRL, sclera anicteric NECK: Supple, no cervical LAD, no thyromegaly CV: RRR, S1 S2, no S3, S4, murmur, no edema bilaterally RESP: regular, unlabored, clear to auscultation bilaterally GI: soft, non-tender, non-distended, +BS NEURO: strength equal bilaterally, patellar & Achilles reflex 2+ bilaterally PSYCH: pleasant, appropriate LABS: Comprehensive Metabolic Panel Results: SODIUM 141 mEq/L 09/11/2024 11:08 POTASSIUM 4.2 mEq/L 09/11/2024 11:08 CHLORIDE 107 mEq/L 09/11/2024 11:08 UREA NITROGEN 19.9 mg/dL 09/11/2024 11:08 CREATININE 0.91 mg/dL 09/11/2024 11:08 CALCIUM 9.3 mg/dL 09/11/2024 11:08 PROTEIN 7.0 g/dL 09/11/2024 11:08 ALBUMIN 3.8 g/dL 09/11/2024 11:08 ALKALINE PHOSPHATASE 61 U/L 09/11/2024 11:08 ALT/SGPT 13 U/L 09/11/2024 11:08 AST/SGOT 26 U/L 09/11/2024 11:08 TOTAL BILIRUBIN 0.6 mg/dL 09/11/2024 11:08 CARBON DIOXIDE 25 mEq/L 09/11/2024 11:08 GLUCOSE 208 H mg/dL 09/11/2024 11:08 EGFR (CKD-EPI 2020) 86.3 09/11/2024 11:08 Hemoglobin: HGB 14.4 g/dL 09/11/2024 11:08 Hematocrit: HCT 44.5 % 09/11/2024 11:08 Vitamin D: VITAMIN D, 25-HYDROXY 77.9 ng/mL 09/11/2024 11:08 Phosphorus: No PHOSPHOROUS data found TSH: TSH 0.763 uIU/mL 09/11/2024 11:08 ____ Total T3: 0 ng/dl PSA: No PSA EO data found No TESTOSTERONE EO data found No PROLACTIN EO data found LH: ____ Glucose: GLUCOSE 208 H mg/dL 09/11/2024 11:08 Hemoglobin A1C: HGA1C 7.8 H % 09/11/2024 11:08 HGA1C 6.9 H % 03/08/2024 11:52 HGA1C 7.3 H % 09/07/2023 10:15 HGA1C 7.3 H % 03/31/2023 10:10 HGA1C 7.2 H % 12/15/2022 11:48 Microalb/creat ratio: No MICRAL/CREAT RATIO (STL) data found Lipid Panel: TRIGLYCERIDE 95 mg/dL 09/11/2024 11:08 CHOLESTEROL 155 mg/dL 09/11/2024 11:08 HDL(New) 35 L mg/dL 09/11/2024 11:08 CALCULATED LDL 101 mg/dL 09/11/2024 11:08 Assessment and plan: 78 year old male with a medical history of osteoarthritis of knee, htn, severe copd, diabetes, hld, cognitive impairement, 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 1. Type II DM, A1c goal is <7.5% - current regimen: [id number]/metformin 1000 mg bid ozempic 1 mg weekly - previously on lantus which was stopped in 05/2024 - a1c 7.8, 09/28 - Glucose log shows fasting glucose 150-200s, glucose at bedtime 170-220s - No hypoglycemia P: - given ongoing weight loss and marked appetite suppression with current dose of ozempic, will reduce ozempic to 0.5 mg weekly - continue [id number]/metformin 1000 mg bid - start glipizide 5 mg daily - hypoglycemia precautions discussed - eye exam 11/27/23, 1. Type 2 Diabetes without Ocular Manifestations OU, advised to make an appt for an - checks feet daily, [facility] htn: on lisinopril 10 mg daily, amlodipine 5 mg daily, hctz 25 mg daily, bp at goal, continue hld: on lipitor 40 mg daily, ldl 101, continue renal: egfr 86, micr/cr neg in 09/2024, advised to avoid nephrotoxic medications. Continue jardiance JEAN MARIE: has not used cpap in years, worried about malfunctioning device, endorses fatigue. advised to go to the 5th floor walk in CPAP clinic for trouble shooting History of lung cancer - stage 1, incidentally found, s/p xrt, follows [facility] Questions answered. Verbalizes understanding. RTC 3 months /es/ Vivian Kirk MD STAFF GILL BOX OPERATOR Signed: 10/15/2024 11:27 VIVIAN KIRK [facility]
--- OUTSIDE RECORDS SUMMARY | 2024-11-01 07:30 | XMS_ITS | Encounter Summary ---
Author Name [facility] [place] [facility] [place] [facility] [place] Address [address] [place] [address] Care Team Providers Care Sales Team Manager Name Role Phone LINN MCKEON Primary Care [...] PART A Apr 04, 2010 PART A [id number] ANDRÉS ROBERTS PATIENT MEDICARE (WNR) MEDICARE (M) PART B Apr 04, 2010 PART B [id number] [phone] ANDRÉS ROBERTS PATIENT MEDICARE (WNR) MEDICARE (M) PART A Apr 04, 2010 PART A [id number] ANDRÉS ROBERTS PATIENT MEDICARE (WNR) MEDICARE (M) PART B Apr 04, 2010 PART B [id number] [phone] ANDRÉS ROBERTS PATIENT Selected Encounter This section includes the information on record at [place] for the Encounter. Date/Time Encounter Type Encounter Description Reason Provider Source Nov 01, 2024 01:30 PM EDU&TRN PT SELF-MGMT NQHP 1 PRIMARY CARE/MEDICINE ICD-10-CM I10 Essential (primary) hypertension MALIMAN LANDAEMILY Monk IHLacho Encounter Template Text not used by [facility] Assessments - Encounter Diagnoses This section includes the primary and secondary diagnoses documented for the Encounter. Date/Time Primary/Secondary Diagnosis Diagnosis Name Provider Source Nov 01, 2024 05:53 PM PRIMARY Essential (primary) hypertension RACHAEL SAMSON [facility] Plan of Treatment: Future Appointments (+ 6 months) and Future Tests (+/- 45 days) The Plan of Treatment section includes future care activities for the patient from all [place] treatmentfacilities. This section includes future appointments and future orders which are active, pending or scheduled. Future Appointments This section includes appointments that were scheduled to occur 6 months from the date of the Encounter, up to a maximum of 20 appointments. The data comes from all [place] treatment facilities. Appointment Date/Time Appointment Type Appointme nt Facility Name Nov 13, 2024 01:45 PM [facility] January 15, 2025 01:00 PM [facility] January 30, 2025 02:00 PM [facility] - MEDICINE [facility] January 31, 2025 11:00 AM [facility] Feb 14, 2025 01:30 PM [facility] Feb 17, 2025 03:00 PM [facility] Feb 21, 2025 02:00 PM [facility] Feb 25, 2025 02:30 PM [facility] Feb 27, 2025 01:00 PM [facility] Mar 13, 2025 01:30 PM [facility] Mar 27, 2025 03:00 PM AMBULATORY - SURGERY [facility] May 01, 2025 01:00 PM [facility] Social History: Smoking Status (Most current) and Tobacco Use (All prior to encounter date) This section includes the most current, and the historical, smoking and tobacco- related health factors from the [place] facility where the Encounter took place. Current Smoking Status This section includes the most current smoking, or tobacco-related health factor, from the [place] facility where the Encounter took place. Date/Time Current Smoking Status Comment Facil ity Sep 03, 2024 01:30 PM VA-TOBACCO USE FORMER CIGARETTES [facility] Tobacco Use History This section includes a history of the smoking, or tobacco-related health factors, that were collected on or before the date of the Encounter. The data comes from the [place] facility where the Encounter took place. Date/Time Smoking Status/Tobacco Use Comment F acility Sep 03, 2024 01:30 PM VA-TOBACCO USE FORMER CIGARETTES [facility] Sep 07, 2023 11:00 AM VA-TOBACCO FORMER USER [facility] Sep 07, 2023 11:00 AM VA-TOBACCO QUIT 15 YRS OR MORE [facility] May 21, 2020 09:30 AM VA-TOBACCO FORMER USER [facility] May 21, 2020 09:30 AM VA-TOBACCO QUIT 15 YRS OR MORE [facility] Mar 29, 2019 10:32 AM VA-TOBACCO FORMER USER [facility] Mar 29, 2019 10:32 AM VA-TOBACCO QUIT 15 YRS OR MORE [facility] Advance Directives: All historical and current Section Date Range: From patient's date of to the date document was created. This section includes ALL of a patient's completed or amended [place] Advance and Rescinded Directives. The entries below indicate that a directive exists for the patient, but an actual copy is not included with this document. The data comes from all [facility]. Date Advance Directives Provider Source May 21, 2019 ADVANCE DIRECTIVE DISCUSSION Boogie DOUGLAS [facility] Jul 28, 2016 ADVANCE DIRECTIVE DISCUSSION [facility] Encounter Notes: All associated encounter notes This section contains the clinical notes associated to the Encounter. Date/Time Encounter Note(s) Provider Source Nov 01, 2024 04:49 PM NURSING NOTE: LOCAL TITLE: V15 PACT FACE TO FACE NOTE STL STANDARD TITLE: NURSING NOTE DATE OF NOTE: NOV 01, 2024@16:49 ENTRY DATE: NOV 01, 2024@16:50:02 AUTHOR: RACHAEL SAMSON COSIGNER: URGENCY: STATUS: COMPLETED Nurse Visit: Patient Identifiers : Full Name Date of Reason for visit: B/P follow-up Mode of Arrival: Ambulatory Allergy Review: SIMVASTATIN, SYMBICORT 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 Blood pressure (BP) follow-up: Home BP readings: Enter Home Blood Pressure DATE/TIME:10/22/2024 B/P 91/50 [id number] COMMENT am held all bop meds today DATE/TIME:10/22/2024 B/P 116/63 [email or web address] Comment DATE/TIME:10/23/2024 B/P 115/66 [email or web address] COMMENT am DATE/TIME:10/23/2024 B/P 154/80 [email or web address] COMMENT am held HCTZ DATE/TIME:10/24/2024 B/P 124/69 [email or web address] Comment DATE/TIME:10/24/2024 B/P 127/63 [email or web address] COMMENTPM DATE/TIME:10/25/2024 B/P 107/63 [email or web address] COMMENTAM DATE/TIME:10/25/2024 B/P 113/60 [email or web address] COMMENTPM DATE/TIME:10/26 B/P 120/69 [email or web address] COMMENTAM DATE/TIME:10/26 B/P 128/70 [email or web address] COMMENTPM DATE/TIME:10/27 B/P 100/64 [email or web address] COMMENTAM DATE/TIME:10/27 B/P 166/88 [email or web address] COMMENTPM DATE/TIME:10/28 B/P 100/52 PULSE84 COMMENTAM DATE/TIME:10/28 B/P 100/51 [email or web address] COMMENTPM Enter up to 14 additional home B/P readings DATE/TIME 10/29 B/P 93/59 [email or web address] COMMENTAM DATE/TIME 10/29 B/P 138/72 [email or web address] COMMENTPM HELD HCTZ DATE/TIME 10/30 B/P 88/51 [email or web address] COMMENTAM HELD B/P MEDS DATE/TIME 10/30 B/P 115/63 [email or web address] COMMENTPM DATE/TIME 10/31 B/P 120/60 [email or web address] COMMENTAM DATE/TIME 10/31 B/P 120/66 [email or web address] COMMENTPM DATE/TIME 11/01 B/P 97/59 [email or web address] COMMENTAM HELD B/P MEDS DATE/TIME 11/01 B/P 93/54 PULSE COMMENTAFTER NOON PATIENT FEELS FATIGUE FEELS BAD Reminded of importance of using correct BP technique and recording/reporting BP readings per parameters. Follow-up instructions: Go to the Ed if fatigue and dizziness continue. 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 's Response: Health WHOLE HEALTH SHARED GOALS: PERSONAL HEALTH PLAN - SHARED GOALS: No data available for: Php Shared Goals SHARED GOALS Patient wants to feel better, tired of feeling bad. Hypertension (HTN): Purpose of Encounter: Scheduled RN Follow-up HTN visit (state Second interval Subjective: Patient c/o fatigue, slight dizziness DX IHD (Ischemic Heart Disease):No DX DM: No Is patient currently enrolled in the home telehealth (HT) program: No VSD - Detailed Vitals Date Vital Measurement Qualifiers 10/15/2024 10:43 Temp F (C) 97.3 (36.3) Pulse 81 Respir 16 BP 107/66 Wt. lbs. (kg)[BMI] 172.6 (78.29)[26] Pain 7 Pox (L/Min)(%) 95 Allergy Review: SIMVASTATIN, SYMBICORT Allergy list reviewed [...] ORAL INHL INHALE 2 PUFFS ORAL ACTIVE INHALATION FOUR TIMES A DAY NEEDED SHAKE [...] ONE TABLET BY MOUTH ONCE A ACTIVE (S) DAY FOR B12 SUPPLEMENTATION Indication: FOR VITAMIN B12 SUPPLEMENTATION 11) EMPAGLIFLOZIN 10/METFORM 1000MG 24HR TAB TAKE 2 TABLETS BY ACTIVE MOUTH ONCE A DAY TAKE WITH FOOD [...] 2 WEEKS. Indication: FOR ACTINIC KERATOSIS 14) GLIPIZIDE 5MG TAB TAKE ONE TABLET BY MOUTH TWO TIMES A DAY ACTIVE BEFORE MEALS TAKE 30 MINUTES BEFORE EATING. Indication: FOR DIABETES 15) HYDROCHLOROTHIAZIDE 25MG TAB TAKE ONE TABLET BY MOUTH ONCE A ACTIVE DAY FOR BLOOD PRESSURE TAKE IN THE MORNING 16) HYDROPHILIC (EQV EUCERIN) TOP CREAM APPLY LIBERALLY TO ACTIVE AFFECTED AREA(S) ONCE A DAY (EXTERNAL USE ONLY) APPLY TO DRY SKIN Indication: FOR SKIN CARE 17) KETOCONAZOLE 2% CREAM APPLY LIBERALLY TO AFFECTED AREA(S) ACTIVE TWICE A DAY (EXTERNAL USE ONLY) APPLY TO THE RED AND FLAKY AREAS ON THE NOSE AND ON THE FEET Indication: FOR FUNGAL INFECTION 18) LACTOBACILLUS ACIDOPHILUS CHEW TAB TAKE 1 TABLET BY MOUTH ACTIVE ONCE A DAY 19) LISINOPRIL 20MG TAB TAKE ONE-HALF TABLET BY MOUTH ONCE A DAY ACTIVE AT 1PM FOR HEART OR BLOOD PRESSURE Indication: FOR HIGH BLOOD PRESSURE 20) MELOXICAM 15MG TAB TAKE ONE TABLET BY MOUTH ONCE A DAY ACTIVE NEEDED FOR PAIN OR INFLAMMATION 21) POLYETHYLENE GLYCOL 3350 ORAL PWDR MIX AND DRINK 1 CAPFUL BY ACTIVE MOUTH ONCE A DAY (MEASURE WITH CAP AND MIX IN 8 OZ OF WATER) Indication: FOR CONSTIPATION 22) SEMAGLUTIDE 0.25MG/0.375ML INJ PEN 3ML INJECT 0.5MG UNDER ACTIVE THE SKIN EVERY WEEK Indication: FOR DIABETES 23) SILDENAFIL CITRATE 100MG TAB TAKE ONE-HALF TABLET BY MOUTH ACTIVE ONE HOUR PRIOR TO SEXUAL ACTIVITY NEEDED - LIMIT 6 DOSES PER 30 DAYS Indication: FOR ERECTILE DYSFUNCTION 24) TERAZOSIN HCL 5MG CAP TAKE ONE CAPSULE BY MOUTH AT BEDTIME ACTIVE FOR PROSTATE Patient reports the following medication regimen changes: Patient reports taking B/P medications as prescribed but will hold the HCTZ when the B/P is low and he feels dizzy or no energy. Assessment: Understanding of hypertension: Patient reports understanding of hypertension-no additional education necessary. Modifiable risk factors (select all that apply): Nutrition: Eats canned foods. Increase water intake Physical activity: Patient does not exercise. Self-management: Checks own B/P BP monitor and use: Patient reports having a BP cuff and understands how to use it. Patients not currently enrolled in the HT program: Declines enrollment in the HT program. Barriers identified: Feels very fatigued SMART Goals set prior to this encounter (Specific, Measurable, Attainable, Relevant, Time): None Patient had no smart goals prior to this visit. Analyze: [facility] nursing Diagnosis List [facility] Nursing Diagnosis List (select all that apply): Sedentary lifestyle (Nursing care Plan) Planning/Intervention (select all that apply): Education (select all that apply): Hypertension disease process: Blood pressure indicates how hard your heart is working to move blood throughout your body. Your BP reading is divided into two numbers. The first number is the systolic which is the pressure in your arteries when your heart contracts. The second number is the diastolic, which is the pressure in your arteries when your heart relaxes. A reading of 120/80 is considered normal. High BP (hypertension) is when your BP is consistently elevated. For most patients with high BP, your provider will recommend treating you to a BP reading < 130/90. It is important that you discuss what your individual BP goal is with your provider and understand what your BP readings mean. Hypertension can be caused by diet high in sodium, being overweight, aging, being sedentary or a lack of exercise, other chronic conditions like diabetes, kidneys, or hormonal problems, a family history, race, and/or excessive alcohol consumption. Consequences of hypertension can include peripheral artery disease, stroke, eye disease, heart attack, congestive heart failure, and/or chronic kidney disease. The best way to protect yourself is to visit your primary care provider for checkups and to follow their instructions. It is also important to understand the causes and consequences of hypertension so you can slow down or stop the progression. Self-Management (select all that apply): BP monitoring: It is important to check your blood pressure as directed so you will know if you are within target range. Provided log to record BP readings. Instructed to bring log of home readings with you each time you visit your health care provider. Modifiable risk factors (select all that apply per AHA list for HTN): Lack of physical activity: Work up to 30 minutes of moderate to high intensity physical activity at least 3-4 days per week. Remember, some activity is better than none. Clearance from provider may be needed for some forms of exercise. An unhealthy diet: Eat less unhealthy fat. Saturated fats and trans (also called hydrogenated) fats by selecting lean cuts of meat, low-fat dairy, and using oils instead of solid fats. Limit baked goods, processed meats, and fried foods. A diet that's high in these gats increases your bad cholesterol. It's not enough to just cut back on foods containing cholesterol. Avoid foods high in sodium. SMART Goals set today: Nutrition, Physical activity Goal 1: Patient/ stop eating can foods, increase water intake with in a week Goal 2: Patient will start walking neighborhood for 15 minutes starting next week, when not feeling fatigued. Goal 3: When patient feels dizzy will increase water intake, and/or go to ED for evaluation. Patient instructed to go today but refused today. Evaluation: instructed to follow-up*:See provider next week. RTC entered for:01/30/2025 Signs/symptoms/parameters to report: * Seek immediate medical evaluation for severe headache or blurred vision, drowsiness or confusion, persistent numbness and tingling in hands and feet, coughing up blood or blood-tinged sputum, difficulty breathing, chest pain or heart palpitations, persistent nosebleed, tongue swelling. * Periods of dizziness, constipation, impotence after starting new BP medicine. * BP >140/90 consistently for >3 months Seek emergency services: BP: B/P < 80/52 or > 170/100 HR: HR <60 or > 110 Sprague's understanding verified by teach back: Yes For intervention, information forwarded to: Jerad made aware of patient B/P 80/52 with light dizziness ,fatigue. Advised patient to go to ED. for further evaluation incase the issue is not the B/P. /sadia/ RAS AWAD,RN REGISTERED NURSE Signed: 11/01/2024 17:55 RACHAEL SAMSON [facility]
--- OUTSIDE RECORDS SUMMARY | 2024-11-13 07:45 | XMS_ITS | Encounter Summary ---
Author Name [facility] [place] Address [address] [place] [address] Care Team Providers Care Club Car Attendant Name Role Phone LINN MCKEON Primary Care [...] PART B Apr 04, 2010 PART B [id number] ANDRÉS ROBERTS PATIENT MEDICARE (WNR) MEDICARE (M) PART A Apr 04, 2010 PART A [id number] ANDRÉS ROBERTS PATIENT MEDICARE (WNR) MEDICARE (M) PART B Apr 04, 2010 PART B [id number] ANDRÉS ROBERTS PATIENT MEDICARE (WNR) MEDICARE (M) PART A Apr 04, 2010 PART A [id number] ANDRÉS ROBERTS PATIENT Selected Encounter This section includes the information on record at [place] for the Encounter. Date/Time Encounter Type Encounter Description Reason Provider Source Nov 13, 2024 01:45 PM OFFICE O/P EST MOD 30 MIN DERMATOLOGY ICD-10-CM L57.0 Actinic keratosis STACIA RIBEIRO IHE Encounter Template Text not used by [place] Assessments - Encounter Diagnoses This section includes the primary and secondary diagnoses documented for the Encounter. Date/Time Primary/Secondary Diagnosis Diagnosis Name Provider Source Nov 13, 2024 02:04 PM PRIMARY Actinic keratosis [facility] Nov 13, 2024 02:04 PM SECONDARY Melanocytic nevi, unspecified [facility] Nov 13, 2024 02:04 PM SECONDARY Other melanin hyperpigmentation [facility] Nov 13, 2024 02:04 PM SECONDARY Other seborrheic dermatitis [facility] Nov 13, 2024 02:04 PM SECONDARY Other seborrheic keratosis [facility] Nov 13, 2024 02:04 PM SECONDARY Personal history of malignant melanoma of skin [facility] Nov 13, 2024 02:04 PM SECONDARY Personal history of other malignant neoplasm of skin [facility] Nov 13, 2024 02:04 PM SECONDARY Tinea pedis [facility] Plan of Treatment: Future Appointments (+ 6 months) and Future Tests (+/- 45 days) The Plan of Treatment section includes future care activities for the patient from all [place] treatmentfacilities. This section includes future appointments and future orders which are active, pending or scheduled. Future Appointments This section includes appointments that were scheduled to occur 6 months from the date of the Encounter, up to a maximum of 20 appointments. The data comes from all [place] treatment facilities. Appointment Date/Time Appointment Type Appointme nt Facility Name January 15, 2025 01:00 PM AMBULATORY - [facility]INE [facility] January 30, 2025 02:00 PM AM[facility]ULATORY - MEDICINE [facility] January 31, 2025 11:00 AM AMBULATORY - MEDICINE [facility] Feb 14, 2025 01:30 PM AMBULATORY - MEDICINE [facility] Feb 17, 2025 03:00 PM AMBULATORY - MEDICINE [facility] Feb 21, 2025 02:00 PM AMBULATORY - MEDICINE [facility] Feb 25, 2025 02:30 PM AMBULATORY - MEDICINE [facility] Feb 27, 2025 01:00 PM AMBULATORY - MEDICINE [facility] Mar 13, 2025 01:30 PM AMBULATORY - MEDICINE [facility] Mar 27, 2025 03:00 PM AMBULATORY - SURGERY [facility] May 01, 2025 01:00 PM AMBULATORY - MEDICINE [facility] May 06, 2025 02:30 PM AMBULATORY - NONE [facility] May 14, 2025 01:15 PM AMBULATORY - MEDICINE [facility] May 14, 2025 02:00 PM AMBULATORY - MEDICINE [facility] Advance Directives: All historical and current Section Date Range: From patient's date of to the date document was created. This section includes ALL of a patient's completed or amended [place] Advance and Rescinded Directives. The entries below indicate that a directive exists for the patient, but an actual copy is not included with this document. The data comes from all [place] facilities. Date Advance Directives Provider Source May 21, 2019 ADVANCE DIRECTIVE DISCUSSION Boogie DOUGLAS [facility] Jul 28, 2016 ADVANCE DIRECTIVE DISCUSSION [facility] Encounter Notes: All associated encounter notes This section contains the clinical notes associated to the Encounter. 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 Today: - Rash on back, using eucerin cream - Patient reports ptsd-related symptoms including leg pain. Discussing with primary doctor, per patient Allergies: SIMVASTATIN, SYMBICORT ROS: no fever or chills, no recent unintended weight change, no non-healing sores PE: [place] nummulary scaly eczematous plaques on lower and mid back [place] gritty papules on forearms, temples, forehead Trunk/ext with huynh stuck on appearing papules Trunk/ext with several regular brown macules 2 regular/homogenous blueish macules on the frontal scalp Erythematous greasy scaly plaques on the glabella and nose Erythematous well defined scaly plaques on the bilateral plantar feet wrapping around to the lateral feet L upper chest with WHSS, no pig/nod/satellitosis Forearms with WHSS Otherwise: General Appearance: Well-appearing MALE, NAD Face: wnl Ears: wnl Scalp, Hair: wnl Neck: wnl Chest: wnl Abd: wnl Back: wnl Upper Extremities: wnl Lower Extremities: wnl Nails: wnl Mood/Affect: wnl A/P: Actinic keratoses - Premalignant nature & risk of transformation to SCC reviewed. - Reviewed diagnosis and risk factors (sun exposure) - Treatment plan: - Few AKs present on forearms and worship. Patient declined LN2. - Recommend using Efudex for forearms and temples/forehead at some time in the winter. Previously prescribed - Counseled on and reviewed sun protection strategies and skin cancer warning signs Nummular dermatitis - back,flaring - Start Triamcinalone 0.1% ointment to AA up to BID PRN; SER Seborrheic dermatitis - Etiology discussed - Continue head and shoulders shampoo, can use on face as well - Continue ketoconazole 2% cream BID PRN Tinea pedis, bilateral - Discussed etiology - Continue ketoconazole 2% cream to the affected areas twice daily until clear Xerosis cutis - Start Eucerin cream or other emollient PRN Seborrheic keratoses - Benign reassurance provided - No treatment indicated Multiple benign nevi Lentigines - Benign reassurance provided - Recommend sunscreen with SPF30 or greater and sun protective clothing. - Reviewed sun protection strategies and skin cancer warning signs - Continue monthly self-skin exams and regular MD skin exams History of non-melanoma skin cancer HIstory of MIS - No evidence of recurrence or new primaries today - Reviewed sun protection strategies and skin cancer warning signs - Recommend sunscreen with SPF30 or greater and sun protective clothing. - Continue monthly self-skin exams and regular MD skin exams RTC 6 mo /sadia/ Piedad Thorne MD Resident Physician Signed: 11/13/2024 14:04 /sadia/ STACIA RIBEIRO MD Dermatology Attending Physician Cosigned: 11/13/2024 14:30 11/13/2024 ADDENDUM STATUS: COMPLETED Reviewed documented history and physical examination and agree with assessment and plan. I was immediately available during entire visit and procedures. /sadia/ STACIA RIBEIRO MD Dermatology Attending Physician Signed: 11/13/2024 14:30 PIEDAD THORNE U [facility]
--- OUTSIDE RECORDS SUMMARY | 2025-01-15 07:00 | XMS_ITS | Encounter Summary ---
Author Name [facility] Organization [facility] Address [address] [place] [address] Care Team Providers Care Passenger Relations Representative Name Role Phone LINN MCKEON Primary Care [...] PART A Apr 04, 2010 PART A [id number] ANDRÉS ROBERTS PATIENT MEDICARE (WNR) MEDICARE (M) PART B Apr 04, 2010 PART B [id number] [phone] ANDRÉS ROBERTS PATIENT MEDICARE (WNR) MEDICARE (M) PART A Apr 04, 2010 PART A [id number] [phone] ANDRÉS ROBERTS PATIENT MEDICARE (WNR) MEDICARE (M) PART B Apr 04, 2010 PART B [id number] ANDRÉS ROBERTS PATIENT Selected Encounter This section includes the information on record at [place] for the Encounter. Date/Time Encounter Type Encounter Description Reason Provider Source January 15, 2025 01:00 PM OFFICE O/P EST MOD 30 MIN ENDOCRINOLOGY ICD-10-CM E11.65 Type 2 diabetes mellitus with hyperglycemia VIVIAN KIRK IHLacho Encounter Template Text not used by [place] Assessments - Encounter Diagnoses This section includes the primary and secondary diagnoses documented for the Encounter. Date/Time Primary/Secondary Diagnosis Diagnosis Name Provider Source January 15, 2025 02:28 PM PRIMARY Type 2 diabetes mellitus with hyperglycemia VIVIAN KIRK [facility] Plan of Treatment: Future Appointments (+ 6 months) and Future Tests (+/- 45 days) The Plan of Treatment section includes future care activities for the patient from all [place] treatmentfacilities. This section includes future appointments and future orders which are active, pending or scheduled. Future Appointments This section includes appointments that were scheduled to occur 6 months from the date of the Encounter, up to a maximum of 20 appointments. The data comes from all [place] treatment facilities. Appointment Date/Time Appointment Type Appointme nt Facility Name January 30, 2025 02:00 PM AMBULATORY - MEDICINE [facility] January 31, 2025 11:00 AM AMBULATORY - MEDICINE [facility] Feb 14, 2025 01:30 PM AMBULATORY - MEDICINE [facility] Feb 17, 2025 03:00 PM AMBULATORY - MEDICINE [facility] Feb 21, 2025 02:00 PM AMBULATORY - MEDICINE [facility] Feb 25, 2025 02:30 PM AMBULATORY - MEDICINE [facility] Feb 27, 2025 01:00 PM AMBULATORY - MEDICINE [facility] Mar 13, 2025 01:30 PM AMBULATORY - MEDICINE [facility] Mar 27, 2025 03:00 PM AMBULATORY - SURGERY [facility] May 01, 2025 01:00 PM AMBULATORY - MEDICINE [facility] May 06, 2025 02:30 PM AMBULATORY - NONE [facility] May 14, 2025 01:15 PM AMBULATORY - MEDICINE [facility] May 14, 2025 02:00 PM AMBULATORY - MEDICINE [facility] Jul 09, 2025 03:00 PM AMBULATORY - MEDICINE [facility] Lab Results: +/- 30 days of the encounter This section includes the Chemistry and Hematology Lab Results on record with [place] for the patient. Radiology Reports and Pathology Reports are provided separately, in subsequent sections. Lab Results This section contains the Chemistry/Hematology Results that were resulted 30 days before or 30 daysafter the date of the Encounter. Date/Time Source Result Type Result - Unit Interpretation Reference Range Specimen Type Comment Feb 05, 2025 02:29 PM [facility] MICRAL/CREAT PROFILE (STL) URINE Specimen Typ e: URINE Comment: uALB/CREAT Ratio Unable to be calculated Unable to calculate due to Microalbumin < 5.0 mg/L Ordering Provider: GINA CALDERON Report Released Date/Time: January 30, 2025 02:33 PM Reporting Lab: [address] [address] Performing Lab: [place] [address] [place] [address] URINE ALBUMIN (PB-STL) <5.0 mg/L uACR (STL) comment mg/g 0-29 CREATININE URINE/OTHERS 84.3 mg/dL 63-16 6 Feb 05, 2025 02:24 PM [facility] FERRITIN SERUM Specimen Type: SERUM No comment entered. Ordering Provider: GINA CALDERON Report Released Date/Time: January 30, 2025 02:33 PM Reporting Lab: [place] [address] [place] [address] Performing Lab: [address] [address] FERRITIN 83.91 ng/mL 22-275 Feb 05, 2025 02:24 PM [facility] VITAMIN D, 25-HYDROXY SERUM Specime n Type: SERUM No comment entered. Ordering Provider: GINA CALDERON Report Released Date/Time: January 30, 2025 02:33 PM Reporting Lab: [address] [address] Performing Lab: [address] [place] [address] VITAMIN D, 25-HYDROXY 88.6 ng/mL 30-96 Feb 05, 2025 02:24 PM [facility] TSH W/ REFLEX FT4 (L) PLASMA Speci men Type: PLASMA No comment entered. Ordering Provider: GINA CALDERON Report Released Date/Time: January 30, 2025 02:33 PM Reporting Lab: [place] [address] Performing Lab: [place] [phone] TSH 0.500 u[IU]/mL 0.47-5 Feb 05, 2025 02:24 PM [facility] FOLATE (L-MA) SERUM Specimen Type : SERUM No comment entered. Ordering Provider: GINA CALDERON Report Released Date/Time: January 30, 2025 02:33 PM Reporting Lab: [place] [phone] Performing Lab: [address] [address] FOLATE (L-MA) 19.5 ng/mL 7-20 Feb 05, 2025 02:24 PM [facility] RETICULOCYTE PANEL BLOOD Specimen T ype: BLOOD No comment entered. Ordering Provider: GINA CALDERON Report Released Date/Time: January 30, 2025 02:33 PM Reporting Lab: [place] [address] Performing Lab: [address] [address] RETIC RATIO 0.92 0.50-2.30 IRF 2.8 2.3-13.4 RETICULOCYTE HEMOGLOBIN EQUIVALENT 34.9 pg 28.2-36.6 RETIC COUNT,ABS 0.040 10*6/uL 0.022-0.10 1 Feb 05, 2025 02:24 PM [facility] MAGNESIUM PLASMA Specimen Type: PLASMA Comment: No hemolysis noted. Ordering Provider: GINA CALDERON Report Released Date/Time: January 30, 2025 02:33 PM Reporting Lab: [place] [address] [place] [address] Performing Lab: [address] [address] MAGNESIUM 2.0 mg/dL 1.6-2.6 Feb 05, 2025 02:24 PM [facility] B12 SERUM Specimen Type: SERUM No comment entered. Ordering Provider: GINA CALDERON Report Released Date/Time: January 30, 2025 02:33 PM Reporting Lab: [address] [address] Performing Lab: [address] [address] B12 >2000 pg/mL H 213-816 Feb 05, 2025 02:24 PM [facility] LIPID PANEL (STL) PLASMA Specimen Ty pe: PLASMA Comment: No hemolysis noted. Ordering Provider: GINA CALDERON Report Released Date/Time: January 30, 2025 02:33 PM Reporting Lab: [address] [address] Performing Lab: [address] [address] CHOLESTEROL 140 mg/dL 0-200 TRIGLYCERIDE 128 mg/dL 0-150 CALCULATED LDL 72 mg/dL HDL(New) 42 mg/dL >40 Feb 05, 2025 02:24 PM [facility] IRON/TIBC PROFILE SERUM Specimen Ty pe: SERUM No comment entered. Ordering Provider: GINA CALDERON Report Released Date/Time: January 30, 2025 02:33 PM Reporting Lab: [address] [address] Performing Lab: [address] [address] TIBC 214 ug/dL L 250-450 TRANSFERRIN 171 mg/dL 163-344 IRON SATURATION 46 20-50 IRON 99 ug/dL 65-175 Feb 05, 2025 02:24 PM [facility] HGA1C BLOOD Specimen Type: BLOOD No comment entered. Ordering Provider: GINA CALDERON Report Released Date/Time: January 30, 2025 02:33 PM Reporting Lab: [facility] [address] [facility] [address] Performing Lab: [address] [address] HGA1C 7.4 H 4.0-6.0 Feb 05, 2025 02:24 PM [facility] COMPREHENSIVE METABOLIC PANEL PLASMA Specimen Type: PLASMA Comment: No hemolysis noted. Ordering Provider: GINA CALDERON Report Released Date/Time: January 30, 2025 02:33 PM Reporting Lab: [address] [address] Performing Lab: [address] [address] CREATININE 0.98 mg/dL 0.7-1.3 UREA NITROGEN 22.3 mg/dL 9.0-25.0 GLUCOSE 177 mg/dL H 72-99 SODIUM 139 meq/L 136-145 POTASSIUM 4.6 meq/L 3.5-5 CHLORIDE 105 meq/L 98-107 CARBON DIOXIDE 29 meq/L 22-31 CALCIUM 9.5 mg/dL 8.4-10.4 PROTEIN 7.0 g/dL 6-8.6 ALBUMIN 3.9 g/dL 3.4-5 TOTAL BILIRUBIN 0.5 mg/dL 0.2-1.2 ALKALINE PHOSPHATASE 58 U/L 40-150 AST/SGOT 25 U/L 5-34 ALT/SGPT 13 U/L 8-40 EGFR (CKD-EPI 2020) 78.4 >60 Feb 05, 2025 02:24 PM [facility] CBC BLOOD Specimen Type: BLOOD No comment entered. Ordering Provider: GINA CALDERON Report Released Date/Time: January 30, 2025 02:33 PM Reporting Lab: [address] [address] Performing Lab: [address] [address] WBC 6.5 10*3/uL 3.6-11.2 RBC 4.31 10*6/uL 4.10-5.70 HGB 13.6 g/dL 13.1-16.8 HCT 41.7 38.2-48.4 MCV 96.8 fL 80.0-100.0 MCH 31.6 pg 27.0-34.0 MCHC 32.6 g/dL L 33.0-36.0 PLT 279 10*3/uL 150-400 MPV 10.2 fL 7.5-11.2 RDW 12.9 11.8-15.1 LYMPHOCYTES, AUTO % 19 MONOCYTES, AUTO % 8 NEUTROPHILS, AUTO % 67 EOSINOPHILS, AUTO % 5 BASOPHILS, AUTO % 1 LYMPHOCYTES, ABSOLUTE 1.25 10*3/uL 0.77- 4.50 MONOCYTES, ABSOLUTE 0.52 10*3/uL 0.19-0. 80 NEUTROPHILS, ABSOLUTE 4.38 10*3/uL 2.10- 8.00 EOSINOPHILS, ABSOLUTE 0.29 10*3/uL 0.00- 0.60 BASOPHILS, ABSOLUTE 0.04 10*3/uL 0.00-0. 20 Vital Signs: All taken on the encounter date This section contains inpatient and outpatient Vital Signs collected on the date of the Encounter. Date/Time Temperature Pulse Blood Pressure Respiratory Rate SP02 Pain Height Weight Body Mass Index Source January 15, 2025 01:13 PM 105/68 [facility] January 15, 2025 01:13 PM 98.5 84 103/65 20 95 0 69 171.6 25 [facility] N Social History: Smoking Status (Most current) and Tobacco Use (All prior to encounter date) This section includes the most current, and the historical, smoking and tobacco- related health factors from the [place] facility where the Encounter took place. Current Smoking Status This section includes the most current smoking, or tobacco-related health factor, from the [place] facility where the Encounter took place. Date/Time Current Smoking Status Comment Virgil fatima January 13, 2023 05:24 PM ORYX ADMIT TOBACCO SCREEN NO [facility] Tobacco Use History This section includes a history of the smoking, or tobacco-related health factors, that were collected on or before the date of the Encounter. The data comes from the [place] facility where the Encounter took place. Date/Time Smoking Status/Tobacco Use Comment F acility May 12, 2022 01:00 PM VA-TOBACCO FORMER USER [facility] May 12, 2022 01:00 PM VA-TOBACCO QUIT 15 YRS OR MORE [facility] May 12, 2021 09:00 AM [place]-TOBACCO FORMER USER [facility] May 12, 2021 09:00 AM SD-TOBACCO QUIT 15 YRS OR MORE [facility] Nov 01, 2017 03:12 PM LIFETIME NON-USER OF TOBACCO [facility] Dec 16, 2016 07:18 PM QUIT TOBACCO >7 YEARS AGO [facility] Jul 27, 2016 12:41 AM LIFETIME NON-USER OF TOBACCO [facility] Advance Directives: All historical and current Section Date Range: From patient's date of to the date document was created. This section includes ALL of a patient's completed or amended [place] Advance and Rescinded Directives. The entries below indicate that a directive exists for the patient, but an actual copy is not included with this document. The data comes from all [place] facilities. Date Advance Directives Provider Source May 21, 2019 ADVANCE DIRECTIVE DISCUSSION Boogie DOUGLAS [facility] Jul 28, 2016 ADVANCE DIRECTIVE DISCUSSION SEAN JOE [facility] Radiology Reports: +/- 30 days of the encounter Radiology Reports For cases when an order for radiology services may have been completed prior to the date of the Encounter, the report list includes the Radiology Reports that were completed up to 30 days before dateof the Encounter. For cases when an order for radiology services may have been completed after the date of the Encounter, the report list also includes the Radiology Reports that were completed up to30 days after date of the Encounter. The data comes from all [place] treatment facilities. Date/Time Radiology Report Provider Source Feb 05, 2025 02:09 PM CHEST X-RAY, 2 VIE WS: ANDRÉS ROBERTS JETHRO [id number] M Exm Date: FEB 05, 2025@14:09 Req Phys: GINA CALDERON Loc: [facility] PACT 5 (Req'g Loc) Img Loc: [facility] SUITE Service: [facility], [facility] [address] [place] [address] (Case [id number] COMPLETE) CHEST X-RAY, 2 VIEWS (RAD Detailed) CPT:25488 Reason for Study: History of lung cancer/COPD Clinical History: Requested by cardiology with consult Report Status: Verified Date Reported: FEB 06, 2025 Date Verified: FEB 06, 2025 Lonny E-Sig:/ALEXANDER/ELZBIETA FRYE Report: CHEST X-RAY, 2 VIEWS COMPARISON: 03/08/2020. HISTORY: History of lung cancer/COPD FINDINGS: Heart size unchanged. There bilateral small lung nodules. Chronic irregular opacity again noted within the right upper lobe. No Pleural effusion or pneumothorax. Impression: Bilateral lung nodules possibly new. Recommend CT of the chest for further evaluation. RR Primary Interpreting Staff: ELZBIETA FRYE, Staff Physician (Lonny) /ELZBIETA [facility] Encounter Notes: All associated encounter notes This section contains the clinical notes associated to the Encounter. 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 Last visit ozempic was reduced from 1 mg weekly to 0.5 mg weekly as patient had marked appetite suppresion and weight loss. continued to take the 1 mg weekly dose. Weight has remained stable however he endorses fatigue and would like to stop ozempic On /metformin 1000 mg bid Started on glipizide 5 mg daily, tolerating well, no hypoglycemia. 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 CAUTION: DO NOT EXCEED Expr : 09/04/25 4000MG PER DAY ACETAMINOPHEN (APAP) FROM ALL MEDS. Indication: FOR PAIN 2) ALBUTEROL 90MCG (CFC-F) 200D ORAL INHL Qty: ACTIVE Issue: 09/03/24 3 for 90 days Sig: INHALE 2 PUFFS ORAL Refills: 2 Last : 11/12/24 INHALATION FOUR TIMES A DAY NEEDED SHAKE Expr : 09/04/25 WELL. RINSE MOUTHPIECE FREQUENTLY TO PREVENT CLOGGING. Indication: FOR COPD 3) AMLODIPINE BESYLATE 5MG TAB Qty: 90 for 90 ACTIVE Issue: 08/06/24 days Sig: TAKE ONE TABLET BY MOUTH ONCE A Refills: 2 Last : 10/31/24 DAY Expr : 08/07/25 Indication: FOR HIGH BLOOD PRESSURE 4) ASPIRIN 81MG EC TAB Qty: 120 for 90 days ACTIVE Issue: 03/05/24 Sig: TAKE ONE TABLET BY MOUTH ONCE A DAY FOR Refills: 1 Last : 11/09/24 HEART OR CIRCULATION. TAKE WITH FOOD. Expr : 03/06/25 5) ATORVASTATIN CALCIUM 80MG TAB Qty: 45 for 90 ACTIVE Issue: 12/12/24 days Sig: TAKE ONE-HALF TABLET BY MOUTH Refills: 3 Last : 12/30/24 EVERY EVENING FOR CHOLESTEROL. REPORT ANY Expr : 12/13/25 UNEXPLAINED MUSCLE PAIN/WEAKNESS TO PROVIDER. 6) CAPSAICIN 0.075% CREAM Qty: 120 for 90 days ACTIVE Issue: 09/03/24 Sig: APPLY SPARINGLY TO AFFECTED AREA(S) Refills: 3 Last : 09/03/24 FOUR TIMES A DAY NEEDED FOR EXTERNAL USE Expr : 09/04/25 ONLY. WASH HANDS AFTER APPLICATION. Indication: FOR PAIN 7) CHOLECALCIF 50MCG (D3-2,000UNIT) TAB Qty: ACTIVE Issue: 07/12/24 200 for 90 days Sig: TAKE TWO TABLETS BY Refills: 2 Last : 09/30/24 MOUTH ONCE A DAY FOR VITAMIN D DEFICIENCY. Expr : 07/13/25 8) CYANOCOBALAMIN 1000MCG TAB Qty: 100 for 90 ACTIVE Issue: 05/08/24 days Sig: TAKE ONE TABLET BY MOUTH ONCE A Refills: 1 Last : 11/16/24 DAY FOR B12 SUPPLEMENTATION Expr : 05/09/25 Indication: FOR VITAMIN B12 SUPPLEMENTATION 9) EMPAGLIFLOZIN 10/METFORM 1000MG 24HR TAB ACTIVE Issue: 05/09/24 Qty: 180 for 90 days Sig: TAKE 2 TABLETS BY Refills: 0 Last : 01/25/25 MOUTH ONCE A DAY TAKE WITH FOOD Expr : 05/10/25 Indication: FOR DIABETES 10) FLUOROURACIL 5% CREAM Qty: 40 for 30 [...] FOR 2 WEEKS. Indication: FOR ACTINIC KERATOSIS 11) GLIPIZIDE 5MG TAB Qty: 180 for 90 days Sig: ACTIVE Issue: 10/15/24 TAKE ONE TABLET BY MOUTH TWO TIMES A DAY Refills: 2 Last : 01/06/25 BEFORE MEALS TAKE 30 MINUTES BEFORE EATING. Expr : 10/16/25 Indication: FOR DIABETES 12) HYDROPHILIC (EQV EUCERIN) TOP CREAM Qty: 454 ACTIVE Issue: 05/14/24 for 90 days Sig: APPLY LIBERALLY TO AFFECTED Refills: 1 Last : 11/09/24 AREA(S) ONCE A DAY (EXTERNAL USE ONLY) APPLY Expr : 05/15/25 TO DRY SKIN Indication: FOR SKIN CARE 13) KETOCONAZOLE 2% CREAM Qty: 60 for 30 days ACTIVE Issue: 05/14/24 Sig: APPLY LIBERALLY TO AFFECTED AREA(S) Refills: 3 Last : 05/16/24 TWICE A DAY (EXTERNAL USE ONLY) APPLY TO Expr : 05/15/25 THE RED AND FLAKY AREAS ON THE NOSE AND ON THE FEET Indication: FOR FUNGAL INFECTION 14) LACTOBACILLUS ACIDOPHILUS CHEW TAB Qty: 100 ACTIVE Issue: 03/05/24 for 90 days Sig: TAKE 1 TABLET BY MOUTH ONCE Refills: 2 Last : 11/09/24 A DAY Expr : 03/06/25 15) LISINOPRIL 20MG TAB Qty: 45 for 90 days Sig: ACTIVE Issue: 09/03/24 TAKE ONE-HALF TABLET BY MOUTH ONCE A DAY AT Refills: 2 Last : 11/28/24 1PM FOR HEART OR BLOOD PRESSURE Expr : 09/04/25 Indication: FOR HIGH BLOOD PRESSURE 16) MELOXICAM 15MG TAB Qty: 90 for 90 days Sig: ACTIVE Issue: 05/08/24 TAKE ONE TABLET BY MOUTH ONCE A DAY Refills: 1 Last : 01/12/25 NEEDED FOR PAIN OR INFLAMMATION Expr : 05/09/25 17) POLYETHYLENE GLYCOL 3350 ORAL PWDR Qty: 510 ACTIVE Issue: 09/03/24 for 30 days Sig: MIX AND DRINK 1 CAPFUL BY Refills: 2 Last : 09/30/24 MOUTH ONCE A DAY (MEASURE WITH CAP AND MIX Expr : 09/04/25 IN 8 OZ OF WATER) Indication: FOR CONSTIPATION 18) SEMAGLUTIDE 0.25MG/0.375ML INJ PEN 3ML Qty: ACTIVE Issue: 10/15/24 3 for 90 days Sig: INJECT 0.5MG UNDER THE Refills: 2 Last : 01/16/25 SKIN EVERY WEEK Expr : 10/16/25 Indication: FOR DIABETES 19) SILDENAFIL CITRATE 100MG TAB Qty: 9 for 90 ACTIVE Issue: 01/30/24 days Sig: TAKE ONE-HALF TABLET BY MOUTH ONE Refills: 3 Last : 01/31/24 HOUR PRIOR TO SEXUAL ACTIVITY NEEDED - Expr : 01/30/25 LIMIT 6 DOSES PER 30 DAYS Indication: FOR ERECTILE DYSFUNCTION 20) TERAZOSIN HCL 5MG CAP Qty: 90 for 90 days ACTIVE Issue: 12/12/24 Sig: TAKE ONE CAPSULE BY MOUTH AT BEDTIME Refills: 3 Last : 12/30/24 FOR PROSTATE Expr : 12/13/25 21) TRIAMCINOLONE ACETONIDE 0.025% OINT Qty: 454 ACTIVE Issue: 11/13/24 for 90 days Sig: APPLY LIGHTLY TO AFFECTED Refills: 0 Last : 11/14/24 AREA(S) TWICE A DAY (EXTERNAL USE ONLY) Expr : 02/11/25 Indication: FOR ATOPIC DERMATITIS Past Medical History: 1) Benign essential hypertension (SNOMED CT 4124964) 2) Moderate chronic obstructive pulmonary disease (SNOMED CT 859862164) 3) Obesity (SNOMED CT 342458596) 4) History of malignant melanoma of the skin (SNOMED CT 900130510739) 5) Osteoarthritis of knee (SNOMED CT 143540797) 6) Colonoscopy normal 7) Diabetes mellitus 8) HLD - Hyperlipidaemia 9) Expressive dysphasia 10) Moderate cognitive impairment 11) Neuropathy 12) Squamous cell carcinoma of lung 13) Vitamin B12 Deficiency (SCT 164185463) 14) Vitamin D Deficiency (SCT 22025418) 15) Arthritis of hand 16) Benign prostatic [...] 101 mg/dL 09/11/2024 11:08 Assessment and plan: 79 year old male with a medical history of osteoarthritis of knee, htn, severe copd, diabetes, hld, cognitive impairement, 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 1. Type II DM, A1c goal is <7.5% - current regimen: [id number]/metformin 1000 mg bid ozempic 1 mg weekly - previously on lantus which was stopped in 05/2024 - a1c 7.8, 09/28 - Glucose log shows fasting glucose 100-150s, glucose at bedtime 170-200s - No hypoglycemia P: - given ongoing weight loss and marked appetite suppression with current dose of ozempic and patient request to stop ozempic, will discontinue - continue [id number]/metformin 1000 mg bid - glipizide 5 mg daily - start sitagliptin 25 mg daily - hypoglycemia precautions discussed - eye exam 11/27/23, 1. Type 2 Diabetes without Ocular Manifestations OU, advised to make an appt for repeat eye exam - checks feet daily, [facility] htn: on lisinopril 10 mg daily, amlodipine 5 mg daily, managed by PCP. BP at goal. hld: on lipitor 40 mg daily, ldl [...] 1, incidentally found, s/p xrt, [facility] [employer] [facility] Questions answered. Verbalizes understanding. RTC 3 months /es/ Vivian Kirk MD STAFF [employer] Signed: 01/15/2025 14:28 [facility]
--- OUTSIDE RECORDS SUMMARY | 2025-01-30 08:00 | XMS_ITS | Encounter Summary ---
Author Name [facility] Organization [facility] Address [address] [place] [address] Care Team Providers Care Astrophysics Professor Name Role Phone LINN MCKEON Primary Care [...] PART A Apr 04, 2010 PART A [id number] PATIENT MEDICARE (WNR) MEDICARE (M) PART B Apr 04, 2010 PART B [id number] ANDR[address]S ROBERTS PATIENT MEDICARE (WNR) MEDICARE (M) PART A Apr 04, 2010 PART A [id number] [phone] ANDRÉS ROBERTS PATIENT MEDICARE (WNR) MEDICARE (M) PART B Apr 04, 2010 PART B [id number] [phone] ANDRÉS ROBERTS PATIENT Selected Encounter This section includes the information on record at [place] for the Encounter. Date/Time Encounter Type Encounter Description Reason Provider Source January 30, 2025 02:00 PM OFFICE O/P EST MOD 30 MIN PRIMARY CARE/MEDICINE ICD-10-CM E11.65 Type 2 diabetes mellitus with hyperglycemia GINA CALDERON Lacho Encounter Template Text not used by [place] Assessments - Encounter Diagnoses This section includes the primary and secondary diagnoses documented for the Encounter. Date/Time Primary/Secondary Diagnosis Diagnosis Name Provider Source January 30, 2025 03:18 PM PRIMARY Type 2 diabetes mellitus with hyperglycemia KVNGGINA [facility] January 30, 2025 03:18 PM SECONDARY Benign prostatic hyperplasia with lower urinary tract symp CALDERONGINA [facility] January 30, 2025 03:18 PM SECONDARY Chronic obstructive pulmonary disease, unspecified CALDERONGINA [facility] January 30, 2025 03:18 PM SECONDARY Constipation, unspecified CALDERONGINA [facility] January 30, 2025 03:18 PM SECONDARY Essential (primary) hypertension CALDERONGINA [facility] January 30, 2025 03:18 PM SECONDARY Hyperlipidemia, unspecified KVNGGINA [facility] January 30, 2025 03:18 PM SECONDARY Male erectile dysfunction, unspecified CALDERONGINA [facility] January 30, 2025 03:18 PM SECONDARY Personal history of melanoma in-situ CALDERONGINA [facility] Plan of Treatment: Future Appointments (+ 6 months) and Future Tests (+/- 45 days) The Plan of Treatment section includes future care activities for the patient from all [place] treatmentfacilities. This section includes future appointments and future orders which are active, pending or scheduled. Future Appointments This section includes appointments that were scheduled to occur 6 months from the date of the Encounter, up to a maximum of 20 appointments. The data comes from all [place] treatment facilities. Appointment Date/Time Appointment Type Appointme nt Facility Name January 31, 2025 11:00 AM AMBULATORY - MEDICINE [facility] Feb 14, 2025 01:30 PM AMBULATORY - MEDICINE [facility] Feb 17, 2025 03:00 PM AMBULATORY - MEDICINE [facility] Feb 21, 2025 02:00 PM AMBULATORY - MEDICINE [facility] Feb 25, 2025 02:30 PM AMBULATORY - MEDICINE [facility] Feb 27, 2025 01:00 PM AMBULATORY - MEDICINE [facility] Mar 13, 2025 01:30 PM AMBULATORY - MEDICINE [facility] Mar 27, 2025 03:00 PM AMBULATORY - SUR[facility]ERY [facility] May 01, 2025 01:00 PM AMBULATORY - MEDICINE [facility] May 06, 2025 02:30 PM AMBULATORY - NONE [facility] May 14, 2025 01:15 PM AMBULATORY - MEDICINE [facility] May 14, 2025 02:00 PM AMBULATORY - MEDICINE [facility] Jul 09, 2025 03:00 PM AMBULATORY - MEDICINE [facility] Jul 21, 2025 02:00 PM AMBULATORY - MEDICINE [facility] Jul 21, 2025 02:01 PM AMBULATORY - NONE [facility] Active, Pending, and Scheduled Orders This section includes a listing of several types of active, pending, and scheduled orders, including clinic medications orders, diagnostic test orders, procedure orders and consult orders; where the start date of the order is 45 days before the date of the Encounter or 45 days after the date of theEncounter. The data comes from all [facility]. Test Date/Time Test Type Test Details Facility Name Mar 04, 2025 12:00 AM Laboratory - Chemi stry Order BASIC METABOLIC PANEL GREEN LI/HEP BLD/PLAS PLASMA [facility] Mar 04, 2025 12:00 AM Laboratory - Chemi stry Order BRAIN NATRIURETIC PEPTIDE LAVENDER BLOOD PLASMA [facility] Lab Results: +/- 30 days of the encounter This section includes the Chemistry and Hematology Lab Results on record with DC for the patient. Radiology Reports and Pathology Reports are provided separately, in subsequent sections. Lab Results This section contains the Chemistry/Hematology Results that were resulted 30 days before or 30 daysafter the date of the Encounter. Date/Time Source Result Type Result - Unit Interpretation Reference Range Specimen Type Comment Feb 05, 2025 02:[address] [facility] MICRAL/CREAT PROFILE (STL) URINE Specimen Typ e: URINE Comment: uALB/CREAT Ratio Unable to be calculated Unable to calculate due to Microalbumin < 5.0 mg/L Ordering Provider: GINA CALDERON Report Released Date/Time: January 30, 2025 02:33 PM Reporting Lab: [address] [address] Performing Lab: [address] [address] URINE ALBUMIN (PB-STL) <5.0 mg/L uACR (STL) comment mg/g 0-29 CREATININE URINE/OTHERS 84.3 mg/dL 63-16 6 Feb 05, 2025 02:[address] [facility] FERRITIN SERUM Specimen Type: SERUM No comment entered. Ordering Provider: GINA CALDERON Report Released Date/Time: January 30, 2025 02:33 PM Reporting Lab: [address] [address] Performing Lab: [address] [address] FERRITIN 83.91 ng/mL 22-275 Feb 05, 2025 02:[address] [facility] MAGNESIUM PLASMA Specimen Type: PLASMA Comment: No hemolysis noted. Ordering Provider: GINA CALDERON Report Released Date/Time: January 30, 2025 02:33 PM Reporting Lab: [place] [address] [facility] [address] Performing Lab: [address] [address] MAGNESIUM 2.0 mg/dL 1.6-2.6 Feb 05, 2025 02:[address] [facility] VITAMIN D, 25-HYDROXY SERUM Specime n Type: SERUM No comment entered. Ordering Provider: GINA CALDERON Report Released Date/Time: January 30, 2025 02:33 PM Reporting Lab: [address] [address] Performing Lab: [address] [address] VITAMIN D, 25-HYDROXY 88.6 ng/mL 30-96 Feb 05, 2025 02:[address] [facility] RETICULOCYTE PANEL BLOOD Specimen T ype: BLOOD No comment entered. Ordering Provider: GINA CALDERON Report Released Date/Time: January 30, 2025 02:33 PM Reporting Lab: [place] [address] [facility] [address] Performing Lab: [place] [address] [facility] [address] RETIC RATIO 0.92 0.50-2.30 IRF 2.8 2.3-13.4 RETICULOCYTE HEMOGLOBIN EQUIVALENT 34.9 pg 28.2-36.6 RETIC COUNT,ABS 0.040 10*6/uL 0.022-0.10 1 Feb 05, 2025 02:[address] [facility] TSH W/ REFLEX FT4 (L) PLASMA Speci men Type: PLASMA No comment entered. Ordering Provider: GINA CALDERON Report Released Date/Time: January 30, 2025 02:33 PM Reporting Lab: [place] [address] [facility] [address] Performing Lab: [place] [address] [facility] [address] TSH 0.500 u[IU]/mL 0.47-5 Feb 05, 2025 02:[address] [facility] FOLATE (L-MA) SERUM Specimen Type : SERUM No comment entered. Ordering Provider: GINA CALDERON Report Released Date/Time: January 30, 2025 02:33 PM Reporting Lab: [place] [address] [facility] [address] Performing Lab: [place] [address] [facility] [address] FOLATE (L-MA) 19.5 ng/mL 7-20 Feb 05, 2025 02:[address] [facility] LIPID PANEL (L) PLASMA Specimen Ty pe: PLASMA Comment: No hemolysis noted. Ordering Provider: GINA CALDERON Report Released Date/Time: January 30, 2025 02:33 PM Reporting Lab: [address] [address] Performing Lab: [facility] [address] [facility] [address] CHOLESTEROL 140 mg/dL 0-200 TRIGLYCERIDE 128 mg/dL 0-150 CALCULATED LDL 72 mg/dL HDL(New) 42 mg/dL >40 Feb 05, 2025 02:[address] [facility] IRON/TIBC PROFILE SERUM Specimen Ty pe: SERUM No comment entered. Ordering Provider: GINA CALDERON Report Released Date/Time: January 30, 2025 02:33 PM Reporting Lab: [address] [address] Performing Lab: [address] [address] TIBC 214 ug/dL L 250-450 TRANSFERRIN 171 mg/dL 163-344 IRON SATURATION 46 20-50 IRON 99 ug/dL 65-175 Feb 05, 2025 02:[address] [facility] HGA1C BLOOD Specimen Type: BLOOD No comment entered. Ordering Provider: GINA CALDERON Report Released Date/Time: January 30, 2025 02:33 PM Reporting Lab: [address] [address] Performing Lab: [address] [address] HGA1C 7.4 H 4.0-6.0 Feb 05, 2025 02:[address] [facility] B12 SERUM Specimen Type: SERUM No comment entered. Ordering Provider: GINA CALDERON Report Released Date/Time: January 30, 2025 02:33 PM Reporting Lab: [facility] [address] [place] [phone] Performing Lab: [address] [address] B12 >2000 pg/mL H 213-816 Feb 05, 2025 02:[address] [facility] COMPREHENSIVE METABOLIC PANEL PLASMA Specimen Type: PLASMA Comment: No hemolysis noted. Ordering Provider: GINA CLADERON Report Released Date/Time: January 30, 2025 02:33 PM Reporting Lab: [address] [address] Performing Lab: [facility] [address] [facility] [address] CREATININE 0.98 mg/dL 0.7-1.3 UREA NITROGEN 22.3 [...] 78.4 >60 Feb 05, 2025 02:[address] [facility] CBC BLOOD Specimen Type: BLOOD No comment entered. Ordering Provider: GINA CALDERON Report Released Date/Time: January 30, 2025 02:33 PM Reporting Lab: [facility] [address] [place] [phone] Performing Lab: [address] [address] WBC 6.5 10*3/uL 3.6-11.2 RBC 4.31 10*6/uL [...] Height Weight Body Mass Index Source January 30, 2025 02:06 PM 97.9 71 101/60 18 96 6 171 25 [facility] Social History: Smoking Status (Most current) and Tobacco Use (All prior to encounter date) This section includes the most current, and the historical, smoking and tobacco- related health factors from the [place] facility where the Encounter took place. Current Smoking Status This section includes the most current smoking, or tobacco-related health factor, from the [place] facility where the Encounter took place. Date/Time Current Smoking Status Comment Facil ity Sep 03, 2024 01:30 PM VA-TOBACCO NEVER USED OTHER TYPE [facility] Tobacco Use History This section includes a history of the smoking, or tobacco-related health factors, that were collected on or before the date of the Encounter. The data comes from the [place] facility where the Encounter took place. Date/Time Smoking Status/Tobacco Use Comment F acility Sep 03, 2024 01:30 PM VA-TOBACCO USE FORMER CIGARETTES [facility] Sep 07, 2023 11:00 AM VA-TOBACCO FORMER USER [facility] Sep 07, 2023 11:00 AM VA-TOBACCO QUIT 15 YRS OR MORE [facility] May 21, 2020 09:30 AM VA-TOBACCO FORMER USER [facility] May 21, 2020 09:30 AM VA-TOBACCO QUIT 15 YRS OR MORE [facility] Mar 29, 2019 10:32 AM VA-TOBACCO FORMER USER [facility] Mar 29, 2019 10:32 AM VA-TOBACCO QUIT 15 YRS OR MORE [facility] Advance Directives: All historical and current Section Date Range: From patient's date of to the date document was created. This section includes ALL of a patient's completed or amended VA Advance and Rescinded Directives. The entries below indicate that a directive exists for the patient, but an actual copy is not included with this document. The data comes from all [place] facilities. Date Advance Directives Provider Source May 21, 2019 ADVANCE DIRECTIVE DISCUSSION Boogie [facility] Jul 28, 2016 ADVANCE DIRECTIVE DISCUSSION SEAN JOE [facility] Radiology Reports: +/- 30 days of the [...] the Encounter. The data comes from all [place] treatment facilities. Date/Time Radiology Report Provider Source Feb 05, 2025 02:09 PM CHEST X-RAY, 2 VIE WS: ANDRÉS ROBERTS JETHRO [id number] -[id number] M Exm Date: FEB 05, 2025@14:09 Req Phys: GINA CALDERON Loc: [facility] PACT 5 (Req'g Loc) Img Loc: [facility] SUITE Service: [facility], [address] [address] (Case [id number] COMPLETE) CHEST X-RAY, 2 VIEWS (RAD Detailed) CPT:54430 Reason for Study: History of lung cancer/COPD Clinical History: Requested by cardiology with consult Report Status: Verified Date Reported: FEB 06, 2025 Date Verified: FEB 06, 2025 Quarter Doper E-Sig:/SADIA/ELZBIETA FRYE Report: CHEST X-RAY, 2 VIEWS COMPARISON: 03/08/2020. HISTORY: History of lung cancer/COPD FINDINGS: Heart size unchanged. There bilateral small lung nodules. Chronic irregular opacity again noted within the right upper lobe. No Pleural effusion or pneumothorax. Impression: Bilateral lung nodules possibly new. Recommend CT of the chest for further evaluation. RR Primary Interpreting Staff: ELZBIETA FRYE Staff Physician (Quarter Doper) /ELZBIETA ARTIS [facility] Encounter Notes: All associated encounter notes This section contains the clinical notes associated to the Encounter. Date/Time Encounter Note(s) Provider Source Feb 10, 2025 04:07 PM ADDENDUM: LOCAL TITLE: Addendum STANDARD TITLE: ADDENDUM DATE OF NOTE: FEB 10, 2025@16:07:13 ENTRY DATE: FEB 10, 2025@16:07:14 AUTHOR: FRIDA SHAH COSIGNER: URGENCY: STATUS: COMPLETED Per PCP's instructions RNCM notified Vet that the recent chest x-ray showed some small pulmonary nodules. Radiology recommended a CT of the chest to be completed for further evaluation. If the patient is amendable I will place the chest CT as recommended. Vet agreed to complete the Chest CT /es/ FRIDA SHAH REGISTERED NURSE, TREE AND SHRUB TECHNICIAN Signed: 02/10/2025 16:08 Receipt Acknowledged By: 02/11/2025 08:03 /sadia/ GINA CALDERON PA-C --- Original Document --- 01/30/25 PRIMARY CARE PROVIDER ESTABLISHED VISIT STL: * [place] presents for 6 month visit PCP:[facility] SPECIALISTS:[facility] derm/endo/opto, civilian pod/onco/chiro SUBJECTIVE HPI: [place] is a 79 y/o patient to clinic today for a six-month VA appointment to discuss chronic conditions to include type 2 diabetes and hypertension. Patient is accompanied to his appointment today by his who provides much of the patient's recent medical history. She states that the patient continues to have issues with low blood pressure. Patient agrees and says that he has been having significant dizziness episodes when getting up from a seated position and intermittently while ambulating. Patient denies any shortness of breath or dizziness with these episodes but the notes that these have been going on for approximately the last 3 to 4 months. Patient admits to significant fatigue that accompanies the dizziness episodes. Patient denies any past history of cardiac related issues other than his hypertension which has not been evaluated by cardiology in the past. The patient's also notes that they have discontinued to include his hydrochlorothiazide and amlodipine. Patient's says that the patient is only taking lisinopril at this time at the 10 mg dose but will often hold that medication also because of dizziness and hypotension. Patient is continuing to complain of intermittent leg pain and has a long history of peripheral neuropathy. Patient states that he continues to use the capsaicin cream which has helped moderately with his neuropathy symptoms but denies that he has had any past vascular studies of the lower extremities. Patient denies any swelling to the lower extremities within the last 6 months. The patient also says that he has continuing issues with constipation with his stating that they have been using kgdx-[id number] Colace which has helped. Patient says that he is having 2 bowel movements weekly and request to receive his Colace from [place] pharmacy. Patient denies headaches, chest pain, worsening SOB, problems with bladder, or swelling to the BLE. The patient has no other complaints in the clinic today. Smoking:N Exercise:N Diet:Y, low salt Alcohol:N Optometry:Pending March 2025 PERTINENT PMH: 1. Type 2 diabetes with peripheral neuropathy 2. Essential hypertension 3. Hyperlipidemia 4. BPH 5. History of melanoma 6. COPD 7. Constipation 8. Lung cancer 9. Erectile dysfunction MEDICATIONS: Active Outpatient Medications (including Supplies): Active Outpatient Medications Status = 1) ACETAMINOPHEN 325MG TAB TAKE TWO TABLETS BY MOUTH EVERY 4 ACTIVE HOURS NEEDED /FEVER. CAUTION: DO NOT EXCEED 4000MG PER DAY ACETAMINOPHEN (APAP) FROM ALL MEDS. Indication: FOR PAIN 2) ALBUTEROL 90MCG (CFC-F) 200D ORAL INHL INHALE 2 PUFFS ORAL ACTIVE INHALATION FOUR TIMES A DAY NEEDED SHAKE WELL. RINSE MOUTHPIECE FREQUENTLY TO PREVENT CLOGGING. Indication: FOR COPD 3) AMLODIPINE BESYLATE 5MG TAB TAKE ONE TABLET BY MOUTH ONCE A ACTIVE DAY Indication: FOR HIGH BLOOD PRESSURE 4) ASPIRIN 81MG EC TAB TAKE ONE TABLET BY MOUTH ONCE A DAY FOR ACTIVE HEART OR CIRCULATION. TAKE WITH FOOD. 5) ATORVASTATIN CALCIUM 80MG TAB TAKE ONE-HALF TABLET BY MOUTH ACTIVE EVERY EVENING FOR CHOLESTEROL. REPORT ANY UNEXPLAINED MUSCLE PAIN/WEAKNESS TO PROVIDER. 6) CAPSAICIN 0.075% CREAM APPLY SPARINGLY TO AFFECTED AREA(S) ACTIVE FOUR TIMES A DAY NEEDED FOR EXTERNAL USE ONLY. WASH HANDS AFTER APPLICATION. Indication: FOR PAIN 7) CHOLECALCIF 50MCG (D3-2,000UNIT) TAB TAKE TWO TABLETS BY ACTIVE MOUTH ONCE A DAY FOR VITAMIN D DEFICIENCY. 8) CYANOCOBALAMIN 1000MCG TAB TAKE ONE TABLET BY MOUTH ONCE A ACTIVE (S) DAY FOR B12 SUPPLEMENTATION Indication: FOR VITAMIN B12 SUPPLEMENTATION 9) EMPAGLIFLOZIN 10/METFORM 1000MG 24HR TAB TAKE 2 TABLETS BY ACTIVE MOUTH ONCE A DAY TAKE WITH FOOD Indication: FOR DIABETES 10) FINASTERIDE 5MG TAB TAKE ONE TABLET BY MOUTH ONCE A DAY FOR ACTIVE PROSTATE 11) FLUOROURACIL 5% CREAM APPLY THIN FILM TO AFFECTED AREA(S) ACTIVE TWICE DAILY AVOID SUN EXPOSURE. FOLLOW DIRECTIONS CAREFULLY FOR PROPER HANDLING/DISPOSAL START AFTER BLISTERS FROM CYROTHERAPY HEAL. APPLY TO THE RIGHT ARM FOR 2 WEEKS, THEN STOP. THEN APPLY TO THE LEFT ARM FOR 2 WEEKS, THEN STOP. THEN APPLY TO THE FACE FOR 2 WEEKS. Indication: FOR ACTINIC KERATOSIS 12) GLIPIZIDE 5MG TAB TAKE ONE TABLET BY MOUTH TWO TIMES A DAY ACTIVE BEFORE MEALS TAKE 30 MINUTES BEFORE EATING. Indication: FOR DIABETES 13) HYDROPHILIC (EQV EUCERIN) TOP CREAM APPLY LIBERALLY TO ACTIVE AFFECTED AREA(S) ONCE A DAY (EXTERNAL USE ONLY) APPLY TO DRY SKIN Indication: FOR SKIN CARE 14) KETOCONAZOLE 2% CREAM APPLY LIBERALLY TO AFFECTED AREA(S) ACTIVE TWICE A DAY (EXTERNAL USE ONLY) APPLY TO THE RED AND FLAKY AREAS ON THE NOSE AND ON THE FEET Indication: FOR FUNGAL INFECTION 15) LACTOBACILLUS ACIDOPHILUS CHEW TAB TAKE 1 TABLET BY MOUTH ACTIVE ONCE A DAY 16) LISINOPRIL 20MG TAB TAKE ONE-HALF TABLET BY MOUTH ONCE A DAY ACTIVE AT 1PM FOR HEART OR BLOOD PRESSURE Indication: FOR HIGH BLOOD PRESSURE 17) MELOXICAM 15MG TAB TAKE ONE TABLET BY MOUTH ONCE A DAY ACTIVE NEEDED FOR PAIN OR INFLAMMATION 18) POLYETHYLENE GLYCOL 3350 ORAL PWDR MIX AND DRINK 1 CAPFUL BY ACTIVE MOUTH ONCE A DAY (MEASURE WITH CAP AND MIX IN 8 OZ OF WATER) Indication: FOR CONSTIPATION 19) SILDENAFIL CITRATE 100MG TAB TAKE ONE-HALF TABLET BY MOUTH ACTIVE ONE HOUR PRIOR TO SEXUAL ACTIVITY NEEDED - LIMIT 6 DOSES PER 30 DAYS Indication: FOR ERECTILE DYSFUNCTION 20) SITAGLIPTIN (EQV-ZITUVIO) 25MG TAB TAKE ONE TABLET BY MOUTH ACTIVE ONCE A DAY Indication: FOR DIABETES 21) TERAZOSIN HCL 5MG CAP TAKE ONE CAPSULE BY MOUTH AT BEDTIME ACTIVE FOR PROSTATE 22) TRIAMCINOLONE ACETONIDE 0.025% OINT APPLY LIGHTLY TO ACTIVE AFFECTED AREA(S) TWICE A DAY (EXTERNAL USE ONLY) Indication: FOR ATOPIC DERMATITIS ALLERGIES: SIMVASTATIN, SYMBICORT DATA REVIEW: HGA1C 7.8 H % 09/11/2024 11:08 HGA1C 6.9 H % 03/08/2024 11:52 HGA1C 7.3 H % 09/07/2023 10:15 HGA1C 7.3 H % 03/31/2023 10:10 HGA1C 7.2 H % 12/15/2022 11:48 Lipid Panel: TRIGLYCERIDE 95 mg/dL 09/11/2024 11:08 CHOLESTEROL 155 mg/dL 09/11/2024 11:08 HDL(New) 35 L mg/dL 09/11/2024 11:08 CALCULATED LDL 101 mg/dL 09/11/2024 11:08 CMP: SODIUM 141 mEq/L 09/11/2024 11:08 POTASSIUM 4.2 [...] 11:08 EGFR (CKD-EPI 2020) 86.3 09/11/2024 11:08 CBC: WBC 5.7 10*3/uL 09/11/2024 11:08 RBC 4.63 10*6/uL 09/11/2024 11:08 HGB 14.4 g/dL 09/11/2024 11:08 HCT 44.5 % 09/11/2024 11:08 MCV 96.1 fL 09/11/2024 11:08 MCH 31.1 pg 09/11/2024 11:08 MCHC 32.4 L g/dL 09/11/2024 11:08 RDW 12.6 % 09/11/2024 11:08 PLT 284 10*3/uL 09/11/2024 11:08 MPV 10.5 fL 09/11/2024 11:08 NEUTROPHILS, AUTO % 66 % 09/11/2024 11:08 LYMPHOCYTES, AUTO % 19 % 09/11/2024 11:08 MONOCYTES, AUTO % 8 % 09/11/2024 11:08 EOSINOPHILS, AUTO % 6 % 09/11/2024 11:08 BASOPHILS, AUTO % 1 % 09/11/2024 11:08 NEUTROPHILS, ABSOLUTE 3.74 10*3/uL 09/11/2024 11:08 LYMPHOCYTES, ABSOLUTE 1.08 10*3/uL 09/11/2024 11:08 MONOCYTES, ABSOLUTE 0.47 10*3/uL 09/11/2024 11:08 EOSINOPHILS, ABSOLUTE 0.35 10*3/uL 09/11/2024 11:08 BASOPHILS, ABSOLUTE 0.06 10*3/uL 09/11/2024 11:08 PROST. SPECIFIC AG.(PB-STL) 0.872 ng/mL 12/30/2021 10:53 PROST. SPECIFIC AG.(PB-STL) 1.182 ng/mL 11/27/2020 10:31 TSH: TSH 0.763 uIU/mL 09/11/2024 11:08 VITAMIN D, 25-HYDROXY 77.9 ng/mL 09/11/2024 11:08 VITAMIN D, 25-HYDROXY 83.2 ng/mL 03/08/2024 11:52 VITAMIN D, 25-HYDROXY 69.5 ng/mL 12/15/2022 11:48 UA: URINE COLOR Yellow 03/08/2024 11:52 APPEARANCE Clear 03/08/2024 11:52 U.PH 6.0 03/08/2024 11:52 U.BILIRUBIN Negative mg/dL 03/08/2024 11:52 U.NITRITE Negative mg/dL 03/08/2024 11:52 VITALS: BP: 101/60 P: 71 R: 18 WT: 171 T: 97.9 reviewed. OBJECTIVE: GENERAL: Alert, mildly kyphotic/thin, NAD, slow ambulation SKIN: No rashes, no jaundice, warm/dry, intact HEENT: PERRLA, nares patent, throat clear CV: RRR, S1 S2 no murmurs, rubs or gallops RESP: CTA, no crackles, rhonchi, wheezing NECK: Supple, no bruit, no thyromegaly/nodules ABD: No ttp or HSM noted EXT: No edema, no cyanosis, decreased sensation noted to BLE with pedal pulses present but decreased bilaterally PSY: Pleasant, appropriate, no obvious delusions or hallucinations ASSESSMENT/PLAN: 1. Type 2 diabetes with peripheral neuropathy, currently pending hemoglobin A1c. With the patient's peripheral neuropathy worsening and decreased pulses noted to the lower extremities I will order ABIs to be completed through [place] vascular lab. 2. Essential hypertension with recent hypotensive episodes. I will have the patient continue to hold his blood pressure medication and return to clinic in 2 weeks for blood pressure check with nurse. Patient and his were instructed to continue to take his blood pressures every other day and bring those readings to his upcoming appointment. I will also get an EKG in the clinic today as well as order an echocardiogram to be completed through cardiology. The patient and his were instructed that if his dizziness episodes should worsen or if he develops any cardiac related symptoms to include shortness of breath or chest pain to follow-up at [place] emergency department for further evaluation and treatment. 3. Hyperlipidemia, currently pending lipid panel. 4. BPH, stable with medication. 5. History of melanoma, in remission following treatment with continued follow-up through [place] dermatology. 6. COPD, stable with current treatment plan although patient has not had recent follow-up with pulmonology nor has he had a recent PFT through [facility] services. With the patient having intermittent dizziness I will order a new PFT and contact the patient and his when the results are completed. 7. Constipation, ongoing issue. I will increase the patient's Colace to 200 mg twice daily. Patient was encouraged to drink at least 64 ounces of water on a daily basis to help with colonic dispersion. 8. Lung cancer, in remission following treatment with continued follow-up through his civilian oncologist office. 9. Erectile dysfunction, stable with medication. * Patient have lab work drawn in the clinic next week. When the lab work is completed we will contact him with results.. * Medical conditions discussed with , medications refilled at appointment today. * Return to clinic with routine labs: 6 months. * Patient stated understanding and was agreeable with this treatment plan. /vanesa CALDERON PA-C Signed: 01/30/2025 15:19 02/10/2025 ADDENDUM STATUS: COMPLETED Please inform the patient that the recent chest x-ray showed some small pulmonary nodules. Radiology recommended a CT of the chest to be completed for further evaluation. If the patient is amendable I will place the chest CT as recommended. /vanesa CALDERON PA-C Signed: 02/10/2025 14:05 Receipt Acknowledged By: 02/10/2025 16:02 /vanesa SHAH REGISTERED NURSE, TREE AND SHRUB TECHNICIAN FRIDA SHAH [facility] Feb 10, 2025 02:04 PM ADDENDUM: LOCAL TITLE: Addendum STANDARD TITLE: ADDENDUM DATE OF NOTE: FEB 10, 2025@14:04:44 ENTRY DATE: FEB 10, 2025@14:04:45 AUTHOR: GINA CALDERONIGNER: URGENCY: STATUS: COMPLETED Please inform the patient that the recent chest x-ray showed some small pulmonary nodules. Radiology recommended a CT of the chest to be completed for further evaluation. If the patient is amendable I will place the chest CT as recommended. /vanesa CALDERON PA-C Signed: 02/10/2025 14:05 Receipt Acknowledged By: 02/10/2025 16:02 /vanesa SHAH REGISTERED NURSE, TREE AND SHRUB TECHNICIAN --- Original Document --- 01/30/25 PRIMARY CARE PROVIDER ESTABLISHED VISIT [facility]: * [place] presents for 6 month visit [facility], civilian pod/onco/chiro SUBJECTIVE HPI: is a 79 y/o patient to clinic today for a six-month DC appointment to discuss chronic conditions to include type 2 diabetes and hypertension. Patient is accompanied to his appointment today by his who provides much of the patient's recent medical history. She states that the patient continues to have issues with low blood pressure. Patient agrees and says that he has been having significant dizziness episodes when getting up from a seated position and intermittently while ambulating. Patient denies any shortness of breath or dizziness with these episodes but the notes that these have been going on for approximately the last 3 to 4 months. Patient admits to significant fatigue that accompanies the dizziness episodes. Patient denies any past history of cardiac related issues other than his hypertension which has not been evaluated by cardiology in the past. The patient's also notes that they have discontinued to include his hydrochlorothiazide and amlodipine. Patient's says that the patient is only taking lisinopril at this time at the 10 mg dose but will often hold that medication also because of dizziness and hypotension. Patient is continuing to complain of intermittent leg pain and has a long history of peripheral neuropathy. Patient states that he continues to use the capsaicin cream which has helped moderately with his neuropathy symptoms but denies that he has had any past vascular studies of the lower extremities. Patient denies any swelling to the lower extremities within the last 6 months. The patient also says that he has continuing issues with constipation with his stating that they have been using [id number] Colace which has helped. Patient says that he is having 2 bowel movements weekly and request to receive his Colace from [facility] pharmacy. Patient denies headaches, chest pain, worsening SOB, problems with bladder, or swelling to the BLE. The patient has no other complaints in the clinic today. Smoking:N Exercise:N Diet:Y, low salt Alcohol:N Optometry:Pending March 2025 PERTINENT PMH: 1. Type 2 diabetes with peripheral neuropathy 2. Essential hypertension 3. Hyperlipidemia 4. BPH 5. History of melanoma 6. COPD 7. Constipation 8. Lung cancer 9. Erectile dysfunction MEDICATIONS: Active Outpatient Medications (including Supplies): Active Outpatient Medications Status = 1) ACETAMINOPHEN 325MG TAB TAKE TWO TABLETS BY MOUTH EVERY 4 ACTIVE HOURS NEEDED /FEVER. CAUTION: DO NOT EXCEED 4000MG PER DAY ACETAMINOPHEN (APAP) FROM ALL MEDS. Indication: FOR PAIN 2) ALBUTEROL 90MCG (CFC-F) 200D ORAL INHL INHALE 2 PUFFS ORAL ACTIVE INHALATION FOUR TIMES A DAY NEEDED SHAKE WELL. RINSE MOUTHPIECE FREQUENTLY TO PREVENT CLOGGING. Indication: FOR COPD 3) AMLODIPINE BESYLATE 5MG TAB TAKE ONE TABLET BY MOUTH ONCE A ACTIVE DAY Indication: FOR HIGH BLOOD PRESSURE 4) ASPIRIN 81MG EC TAB TAKE ONE TABLET BY MOUTH ONCE A DAY FOR ACTIVE HEART OR CIRCULATION. TAKE WITH FOOD. 5) ATORVASTATIN CALCIUM 80MG TAB TAKE ONE-HALF TABLET BY MOUTH ACTIVE EVERY EVENING FOR CHOLESTEROL. REPORT ANY UNEXPLAINED MUSCLE PAIN/WEAKNESS TO PROVIDER. 6) CAPSAICIN 0.075% CREAM APPLY SPARINGLY TO AFFECTED AREA(S) ACTIVE FOUR TIMES A DAY NEEDED FOR EXTERNAL USE ONLY. WASH HANDS AFTER APPLICATION. Indication: FOR PAIN 7) CHOLECALCIF 50MCG (D3-2,000UNIT) TAB TAKE TWO TABLETS BY ACTIVE MOUTH ONCE A DAY FOR VITAMIN D DEFICIENCY. 8) CYANOCOBALAMIN 1000MCG TAB TAKE ONE TABLET BY MOUTH ONCE A ACTIVE (S) DAY FOR B12 SUPPLEMENTATION Indication: FOR VITAMIN B12 SUPPLEMENTATION 9) EMPAGLIFLOZIN 10/METFORM 1000MG 24HR TAB TAKE 2 TABLETS BY ACTIVE MOUTH ONCE A DAY TAKE WITH FOOD Indication: FOR DIABETES 10) FINASTERIDE 5MG TAB TAKE ONE TABLET BY MOUTH ONCE A DAY FOR ACTIVE PROSTATE 11) FLUOROURACIL 5% CREAM APPLY THIN FILM TO AFFECTED AREA(S) ACTIVE TWICE DAILY AVOID SUN EXPOSURE. FOLLOW DIRECTIONS CAREFULLY FOR PROPER HANDLING/DISPOSAL START AFTER BLISTERS FROM CYROTHERAPY HEAL. APPLY TO THE RIGHT ARM FOR 2 WEEKS, THEN STOP. THEN APPLY TO THE LEFT ARM FOR 2 WEEKS, THEN STOP. THEN APPLY TO THE FACE FOR 2 WEEKS. Indication: FOR ACTINIC KERATOSIS 12) GLIPIZIDE 5MG TAB TAKE ONE TABLET BY MOUTH TWO TIMES A DAY ACTIVE BEFORE MEALS TAKE 30 MINUTES BEFORE EATING. Indication: FOR DIABETES 13) HYDROPHILIC (EQV EUCERIN) TOP CREAM APPLY LIBERALLY TO ACTIVE AFFECTED AREA(S) ONCE A DAY (EXTERNAL USE ONLY) APPLY TO DRY SKIN Indication: FOR SKIN CARE 14) KETOCONAZOLE 2% CREAM APPLY LIBERALLY TO AFFECTED AREA(S) ACTIVE TWICE A DAY (EXTERNAL USE ONLY) APPLY TO THE RED AND FLAKY AREAS ON THE NOSE AND ON THE FEET Indication: FOR FUNGAL INFECTION 15) LACTOBACILLUS ACIDOPHILUS CHEW TAB TAKE 1 TABLET BY MOUTH ACTIVE ONCE A DAY 16) LISINOPRIL 20MG TAB TAKE ONE-HALF TABLET BY MOUTH ONCE A DAY ACTIVE AT 1PM FOR HEART OR BLOOD PRESSURE Indication: FOR HIGH BLOOD PRESSURE 17) MELOXICAM 15MG TAB TAKE ONE TABLET BY MOUTH ONCE A DAY ACTIVE NEEDED FOR PAIN OR INFLAMMATION 18) POLYETHYLENE GLYCOL 3350 ORAL PWDR MIX AND DRINK 1 CAPFUL BY ACTIVE MOUTH ONCE A DAY (MEASURE WITH CAP AND MIX IN 8 OZ OF WATER) Indication: FOR CONSTIPATION 19) SILDENAFIL CITRATE 100MG TAB TAKE ONE-HALF TABLET BY MOUTH ACTIVE ONE HOUR PRIOR TO SEXUAL ACTIVITY NEEDED - LIMIT 6 DOSES PER 30 DAYS Indication: FOR ERECTILE DYSFUNCTION 20) SITAGLIPTIN (EQV-ZITUVIO) 25MG TAB TAKE ONE TABLET BY MOUTH ACTIVE ONCE A DAY Indication: FOR DIABETES 21) TERAZOSIN HCL 5MG CAP TAKE ONE CAPSULE BY MOUTH AT BEDTIME ACTIVE FOR PROSTATE 22) TRIAMCINOLONE ACETONIDE 0.025% OINT APPLY LIGHTLY TO ACTIVE AFFECTED AREA(S) TWICE A DAY (EXTERNAL USE ONLY) Indication: FOR ATOPIC DERMATITIS ALLERGIES: SIMVASTATIN, SYMBICORT DATA REVIEW: HGA1C 7.8 H % 09/11/2024 11:08 HGA1C 6.9 H % 03/08/2024 11:52 HGA1C 7.3 H % 09/07/2023 10:15 HGA1C 7.3 H % 03/31/2023 10:10 HGA1C 7.2 H % 12/15/2022 11:48 Lipid Panel: TRIGLYCERIDE 95 mg/dL 09/11/2024 11:08 CHOLESTEROL 155 mg/dL 09/11/2024 11:08 HDL(New) 35 L mg/dL 09/11/2024 11:08 CALCULATED LDL 101 mg/dL 09/11/2024 11:08 CMP: SODIUM 141 mEq/L 09/11/2024 11:08 POTASSIUM 4.2 [...] 11:08 EGFR (CKD-EPI 2020) 86.3 09/11/2024 11:08 CBC: WBC 5.7 10*3/uL 09/11/2024 11:08 RBC 4.63 10*6/uL 09/11/2024 11:08 HGB 14.4 g/dL 09/11/2024 11:08 HCT 44.5 % 09/11/2024 11:08 MCV 96.1 fL 09/11/2024 11:08 MCH 31.1 pg 09/11/2024 11:08 MCHC 32.4 L g/dL 09/11/2024 11:08 RDW 12.6 % 09/11/2024 11:08 PLT 284 10*3/uL 09/11/2024 11:08 MPV 10.5 fL 09/11/2024 11:08 NEUTROPHILS, AUTO % 66 % 09/11/2024 11:08 LYMPHOCYTES, AUTO % 19 % 09/11/2024 11:08 MONOCYTES, AUTO % 8 % 09/11/2024 11:08 EOSINOPHILS, AUTO % 6 % 09/11/2024 11:08 BASOPHILS, AUTO % 1 % 09/11/2024 11:08 NEUTROPHILS, ABSOLUTE 3.74 10*3/uL 09/11/2024 11:08 LYMPHOCYTES, ABSOLUTE 1.08 10*3/uL 09/11/2024 11:08 MONOCYTES, ABSOLUTE 0.47 10*3/uL 09/11/2024 11:08 EOSINOPHILS, ABSOLUTE 0.35 10*3/uL 09/11/2024 11:08 BASOPHILS, ABSOLUTE 0.06 10*3/uL 09/11/2024 11:08 PROST. SPECIFIC AG.(PB-STL) 0.872 ng/mL 12/30/2021 10:53 PROST. SPECIFIC AG.(PB-STL) 1.182 ng/mL 11/27/2020 10:31 TSH: TSH 0.763 uIU/mL 09/11/2024 11:08 VITAMIN D, 25-HYDROXY 77.9 ng/mL 09/11/2024 11:08 VITAMIN D, 25-HYDROXY 83.2 ng/mL 03/08/2024 11:52 VITAMIN D, 25-HYDROXY 69.5 ng/mL 12/15/2022 11:48 UA: URINE COLOR Yellow 03/08/2024 11:52 APPEARANCE Clear 03/08/2024 11:52 U.PH 6.0 03/08/2024 11:52 U.BILIRUBIN Negative mg/dL 03/08/2024 11:52 U.NITRITE Negative mg/dL 03/08/2024 11:52 VITALS: BP: 101/60 P: 71 R: 18 WT: 171 T: 97.9 reviewed. OBJECTIVE: GENERAL: Alert, mildly kyphotic/thin, NAD, slow ambulation SKIN: No rashes, no jaundice, warm/dry, intact HEENT: PERRLA, nares patent, throat clear CV: RRR, S1 S2 no murmurs, rubs or gallops RESP: CTA, no crackles, rhonchi, wheezing NECK: Supple, no bruit, no thyromegaly/nodules ABD: No ttp or HSM noted EXT: No edema, no cyanosis, decreased sensation noted to BLE with pedal pulses present but decreased bilaterally PSY: Pleasant, appropriate, no obvious delusions or hallucinations ASSESSMENT/PLAN: 1. Type 2 diabetes with peripheral neuropathy, currently pending hemoglobin A1c. With the patient's peripheral neuropathy worsening and decreased pulses noted to the lower extremities I will order ABIs to be completed through [facility] vascular lab. 2. Essential hypertension with recent hypotensive episodes. I will have the patient continue to hold his blood pressure medication and return to clinic in 2 weeks for blood pressure check with nurse. Patient and his were instructed to continue to take his blood pressures every other day and bring those readings to his upcoming appointment. I will also get an EKG in the clinic today as well as order an echocardiogram to be completed through cardiology. The patient and his were instructed that if his dizziness episodes should worsen or if he develops any cardiac related symptoms to include shortness of breath or chest pain to follow-up at [place] emergency department for further evaluation and treatment. 3. Hyperlipidemia, currently pending lipid panel. 4. BPH, stable with medication. 5. History of melanoma, in remission following treatment with continued follow-up through [place] dermatology. 6. COPD, stable with current treatment plan although patient has not had recent follow-up with pulmonology nor has he had a recent PFT through [place] services. With the patient having intermittent dizziness I will order a new PFT and contact the patient and his when the results are completed. 7. Constipation, ongoing issue. I will increase the patient's Colace to 200 mg twice daily. Patient was encouraged to drink at least 64 ounces of water on a daily basis to help with colonic dispersion. 8. Lung cancer, in remission following treatment with continued follow-up through his civilian oncologist office. 9. Erectile dysfunction, stable with medication. * Patient have lab work drawn in the clinic next week. When the lab work is completed we will contact him with results.. * Medical conditions discussed with , medications refilled at appointment today. * Return to clinic with routine labs: 6 months. * Patient stated understanding and was agreeable with this treatment plan. /sadia/ GINA CALDERON PA-C Signed: 01/30/2025 15:[address] [facility] January 30, 2025 02:10 PM PRIMARY CARE NOTE: LOCAL TITLE: PRIMARY CARE PROVIDER ESTABLISHED VISIT [facility] STANDARD TITLE: PRIMARY CARE NOTE DATE OF NOTE: JANUARY 30, 2025@14:10 ENTRY DATE: JANUARY 30, 2025@14:10:06 AUTHOR: GINA CALDERON EXP COSIGNER: URGENCY: STATUS: COMPLETED PRIMARY CARE PROVIDER ESTABLISHED VISIT [facility] Has ADDENDA * presents for 6 month visit [place]CP[place]ISTS[facility]/opto, civilian pod/onco/chiro SUBJECTIVE HPI: is a 79 y/o patient to clinic today for a six-month DC appointment to discuss chronic conditions to include type 2 diabetes and hypertension. Patient is accompanied to his appointment today by his who provides much of the patient's recent medical history. She states that the patient continues to have issues with low blood pressure. Patient agrees and says that he has been having significant dizziness episodes when getting up from a seated position and intermittently while ambulating. Patient denies any shortness of breath or dizziness with these episodes but the notes that these have been going on for approximately the last 3 to 4 months. Patient admits to significant fatigue that accompanies the dizziness episodes. Patient denies any past history of cardiac related issues other than his hypertension which has not been evaluated by cardiology in the past. The patient's also notes that they have discontinued to include his hydrochlorothiazide and amlodipine. Patient's says that the patient is only taking lisinopril at this time at the 10 mg dose but will often hold that medication also because of dizziness and hypotension. Patient is continuing to complain of intermittent leg pain and has a long history of peripheral neuropathy. Patient states that he continues to use the capsaicin cream which has helped moderately with his neuropathy symptoms but denies that he has had any past vascular studies of the lower extremities. Patient denies any swelling to the lower extremities within the last 6 months. The patient also says that he has continuing issues with constipation with his stating that they have been using [id number] Colace which has helped. Patient says that he is having 2 bowel movements weekly and request to receive his Colace from [facility] pharmacy. Patient denies headaches, chest pain, worsening SOB, problems with bladder, or swelling to the BLE. The patient has no other complaints in the clinic today. Smoking:N Exercise:N Diet:Y, low salt Alcohol:N Optometry:Pending March 2025 PERTINENT PMH: 1. Type 2 diabetes with peripheral neuropathy 2. Essential hypertension 3. Hyperlipidemia 4. BPH 5. History of melanoma 6. COPD 7. Constipation 8. Lung cancer 9. Erectile dysfunction MEDICATIONS: Active Outpatient Medications (including Supplies): Active Outpatient Medications Status = 1) ACETAMINOPHEN 325MG TAB TAKE TWO TABLETS BY MOUTH EVERY 4 ACTIVE HOURS NEEDED /FEVER. CAUTION: DO NOT EXCEED 4000MG PER DAY ACETAMINOPHEN (APAP) FROM ALL MEDS. Indication: FOR PAIN 2) ALBUTEROL 90MCG (CFC-F) 200D ORAL INHL INHALE 2 PUFFS ORAL ACTIVE INHALATION FOUR TIMES A DAY NEEDED SHAKE WELL. RINSE MOUTHPIECE FREQUENTLY TO PREVENT CLOGGING. Indication: FOR COPD 3) AMLODIPINE BESYLATE 5MG TAB TAKE ONE TABLET BY MOUTH ONCE A ACTIVE DAY Indication: FOR HIGH BLOOD PRESSURE 4) ASPIRIN 81MG EC TAB TAKE ONE TABLET BY MOUTH ONCE A DAY FOR ACTIVE HEART OR CIRCULATION. TAKE WITH FOOD. 5) ATORVASTATIN CALCIUM 80MG TAB TAKE ONE-HALF TABLET BY MOUTH ACTIVE EVERY EVENING FOR CHOLESTEROL. REPORT ANY UNEXPLAINED MUSCLE PAIN/WEAKNESS TO PROVIDER. 6) CAPSAICIN 0.075% CREAM APPLY SPARINGLY TO AFFECTED AREA(S) ACTIVE FOUR TIMES A DAY NEEDED FOR EXTERNAL USE ONLY. WASH HANDS AFTER APPLICATION. Indication: FOR PAIN 7) CHOLECALCIF 50MCG (D3-2,000UNIT) TAB TAKE TWO TABLETS BY ACTIVE MOUTH ONCE A DAY FOR VITAMIN D DEFICIENCY. 8) CYANOCOBALAMIN 1000MCG TAB TAKE ONE TABLET BY MOUTH ONCE A ACTIVE (S) DAY FOR B12 SUPPLEMENTATION Indication: FOR VITAMIN B12 SUPPLEMENTATION 9) EMPAGLIFLOZIN 10/METFORM 1000MG 24HR TAB TAKE 2 TABLETS BY ACTIVE MOUTH ONCE A DAY TAKE WITH FOOD Indication: FOR DIABETES 10) FINASTERIDE 5MG TAB TAKE ONE TABLET BY MOUTH ONCE A DAY FOR ACTIVE PROSTATE 11) FLUOROURACIL 5% CREAM APPLY THIN FILM TO AFFECTED AREA(S) ACTIVE TWICE DAILY AVOID SUN EXPOSURE. FOLLOW DIRECTIONS CAREFULLY FOR PROPER HANDLING/DISPOSAL START AFTER BLISTERS FROM CYROTHERAPY HEAL. APPLY TO THE RIGHT ARM FOR 2 WEEKS, THEN STOP. THEN APPLY TO THE LEFT ARM FOR 2 WEEKS, THEN STOP. THEN APPLY TO THE FACE FOR 2 WEEKS. Indication: FOR ACTINIC KERATOSIS 12) GLIPIZIDE 5MG TAB TAKE ONE TABLET BY MOUTH TWO TIMES A DAY ACTIVE BEFORE MEALS TAKE 30 MINUTES BEFORE EATING. Indication: FOR DIABETES 13) HYDROPHILIC (EQV EUCERIN) TOP CREAM APPLY LIBERALLY TO ACTIVE AFFECTED AREA(S) ONCE A DAY (EXTERNAL USE ONLY) APPLY TO DRY SKIN Indication: FOR SKIN CARE 14) KETOCONAZOLE 2% CREAM APPLY LIBERALLY TO AFFECTED AREA(S) ACTIVE TWICE A DAY (EXTERNAL USE ONLY) APPLY TO THE RED AND FLAKY AREAS ON THE NOSE AND ON THE FEET Indication: FOR FUNGAL INFECTION 15) LACTOBACILLUS ACIDOPHILUS CHEW TAB TAKE 1 TABLET BY MOUTH ACTIVE ONCE A DAY 16) LISINOPRIL 20MG TAB TAKE ONE-HALF TABLET BY MOUTH ONCE A DAY ACTIVE AT 1PM FOR HEART OR BLOOD PRESSURE Indication: FOR HIGH BLOOD PRESSURE 17) MELOXICAM 15MG TAB TAKE ONE TABLET BY MOUTH ONCE A DAY ACTIVE NEEDED FOR PAIN OR INFLAMMATION 18) POLYETHYLENE GLYCOL 3350 ORAL PWDR MIX AND DRINK 1 CAPFUL BY ACTIVE MOUTH ONCE A DAY (MEASURE WITH CAP AND MIX IN 8 OZ OF WATER) Indication: FOR CONSTIPATION 19) SILDENAFIL CITRATE 100MG TAB TAKE ONE-HALF TABLET BY MOUTH ACTIVE ONE HOUR PRIOR TO SEXUAL ACTIVITY NEEDED - LIMIT 6 DOSES PER 30 DAYS Indication: FOR ERECTILE DYSFUNCTION 20) SITAGLIPTIN (EQV-ZITUVIO) 25MG TAB TAKE ONE TABLET BY MOUTH ACTIVE ONCE A DAY Indication: FOR DIABETES 21) TERAZOSIN HCL 5MG CAP TAKE ONE CAPSULE BY MOUTH AT BEDTIME ACTIVE FOR PROSTATE 22) TRIAMCINOLONE ACETONIDE 0.025% OINT APPLY LIGHTLY TO ACTIVE AFFECTED AREA(S) TWICE A DAY (EXTERNAL USE ONLY) Indication: FOR ATOPIC DERMATITIS ALLERGIES: SIMVASTATIN, SYMBICORT DATA REVIEW: HGA1C 7.8 H % 09/11/2024 11:08 HGA1C 6.9 H % 03/08/2024 11:52 HGA1C 7.3 H % 09/07/2023 10:15 HGA1C 7.3 H % 03/31/2023 10:10 HGA1C 7.2 H % 12/15/2022 11:48 Lipid Panel: TRIGLYCERIDE 95 mg/dL 09/11/2024 11:08 CHOLESTEROL 155 mg/dL 09/11/2024 11:08 HDL(New) 35 L mg/dL 09/11/2024 11:08 CALCULATED LDL 101 mg/dL 09/11/2024 11:08 CMP: SODIUM 141 mEq/L 09/11/2024 11:08 POTASSIUM 4.2 [...] 11:08 EGFR (CKD-EPI 2020) 86.3 09/11/2024 11:08 CBC: WBC 5.7 10*3/uL 09/11/2024 11:08 RBC 4.63 10*6/uL 09/11/2024 11:08 HGB 14.4 g/dL 09/11/2024 11:08 HCT 44.5 % 09/11/2024 11:08 MCV 96.1 fL 09/11/2024 11:08 MCH 31.1 pg 09/11/2024 11:08 MCHC 32.4 L g/dL 09/11/2024 11:08 RDW 12.6 % 09/11/2024 11:08 PLT 284 10*3/uL 09/11/2024 11:08 MPV 10.5 fL 09/11/2024 11:08 NEUTROPHILS, AUTO % 66 % 09/11/2024 11:08 LYMPHOCYTES, AUTO % 19 % 09/11/2024 11:08 MONOCYTES, AUTO % 8 % 09/11/2024 11:08 EOSINOPHILS, AUTO % 6 % 09/11/2024 11:08 BASOPHILS, AUTO % 1 % 09/11/2024 11:08 NEUTROPHILS, ABSOLUTE 3.74 10*3/uL 09/11/2024 11:08 LYMPHOCYTES, ABSOLUTE 1.08 10*3/uL 09/11/2024 11:08 MONOCYTES, ABSOLUTE 0.47 10*3/uL 09/11/2024 11:08 EOSINOPHILS, ABSOLUTE 0.35 10*3/uL 09/11/2024 11:08 BASOPHILS, ABSOLUTE 0.06 10*3/uL 09/11/2024 11:08 PROST. SPECIFIC AG.(PB-STL) 0.872 ng/mL 12/30/2021 10:53 PROST. SPECIFIC AG.(PB-STL) 1.182 ng/mL 11/27/2020 10:31 TSH: TSH 0.763 uIU/mL 09/11/2024 11:08 VITAMIN D, 25-HYDROXY 77.9 ng/mL 09/11/2024 11:08 VITAMIN D, 25-HYDROXY 83.2 ng/mL 03/08/2024 11:52 VITAMIN D, 25-HYDROXY 69.5 ng/mL 12/15/2022 11:48 UA: URINE COLOR Yellow 03/08/2024 11:52 APPEARANCE Clear 03/08/2024 11:52 U.PH 6.0 03/08/2024 11:52 U.BILIRUBIN Negative mg/dL 03/08/2024 11:52 U.NITRITE Negative mg/dL 03/08/2024 11:52 VITALS: BP: 101/60 P: 71 R: 18 WT: 171 T: 97.9 reviewed. OBJECTIVE: GENERAL: Alert, mildly kyphotic/thin, NAD, slow ambulation SKIN: No rashes, no jaundice, warm/dry, intact HEENT: PERRLA, nares patent, throat clear CV: RRR, S1 S2 no murmurs, rubs or gallops RESP: CTA, no crackles, rhonchi, wheezing NECK: Supple, no bruit, no thyromegaly/nodules ABD: No ttp or HSM noted EXT: No edema, no cyanosis, decreased sensation noted to BLE with pedal pulses present but decreased bilaterally PSY: Pleasant, appropriate, no obvious delusions or hallucinations ASSESSMENT/PLAN: 1. Type 2 diabetes with peripheral neuropathy, currently pending hemoglobin A1c. With the patient's peripheral neuropathy worsening and decreased pulses noted to the lower extremities I will order ABIs to be completed through [facility] vascular lab. 2. Essential hypertension with recent hypotensive episodes. I will have the patient continue to hold his blood pressure medication and return to clinic in 2 weeks for blood pressure check with nurse. Patient and his were instructed to continue to take his blood pressures every other day and bring those readings to his upcoming appointment. I will also get an EKG in the clinic today as well as order an echocardiogram to be completed through cardiology. The patient and his were instructed that if his dizziness episodes should worsen or if he develops any cardiac related symptoms to include shortness of breath or chest pain to follow-up at [facility] emergency department for further evaluation and treatment. 3. Hyperlipidemia, currently pending lipid panel. 4. BPH, stable with medication. 5. History of melanoma, in remission following treatment with continued follow-up through [facility] dermatology. 6. COPD, stable with current treatment plan although patient has not had recent follow-up with pulmonology nor has he had a recent PFT through [facility] services. With the patient having intermittent dizziness I will order a new PFT and contact the patient and his when the results are completed. 7. Constipation, ongoing issue. I will increase the patient's Colace to 200 mg twice daily. Patient was encouraged to drink at least 64 ounces of water on a daily basis to help with colonic dispersion. 8. Lung cancer, in remission following treatment with continued follow-up through his civilian oncologist office. 9. Erectile dysfunction, stable with medication. * Patient have lab work drawn in the clinic next week. When the lab work is completed we will contact him with results.. * Medical conditions discussed with , medications refilled at appointment today. * Return to clinic with routine labs: 6 months. * Patient stated understanding and was agreeable with this treatment plan. /vanesa CALDERON PA-C Signed: 01/30/2025 15:19 02/10/2025 ADDENDUM STATUS: COMPLETED Please inform the patient that the recent chest x-ray showed some small pulmonary nodules. Radiology recommended a CT of the chest to be completed for further evaluation. If the patient is amendable I will place the chest CT as recommended. /vanesa CALDERON PA-C Signed: 02/10/2025 14:05 Receipt Acknowledged By: 02/10/2025 16:02 /vanesa SHAH REGISTERED NURSE, TREE AND SHRUB TECHNICIAN 02/10/2025 ADDENDUM STATUS: COMPLETED Per PCP's instructions RNCM notified Vet that the recent chest x-ray showed some small pulmonary nodules. Radiology recommended a CT of the chest to be completed for further evaluation. If the patient is amendable I will place the chest CT as recommended. Vet agreed to complete the Chest CT /vanesa SHAH REGISTERED NURSE, TREE AND SHRUB TECHNICIAN Signed: 02/10/2025 16:08 Receipt Acknowledged By: * AWAITING SIGNATURE * GINA CALDERON TODD Kaushal [facility] January 30, 2025 02:09 PM NURSING NOTE: LOCAL TITLE: V15 PACT FACE TO FACE NOTE ST STANDARD TITLE: NURSING NOTE DATE OF NOTE: JANUARY 30, 2025@14:09 ENTRY DATE: JANUARY 30, 2025@14:09:54 AUTHOR: ERNA MOLINA EXP COSIGNER: URGENCY: STATUS: COMPLETED Provider Visit: Patient Identifiers : Full Name Date of Reason for visit: Established Follow-Up Mode of Arrival: Ambulatory Allergy Review: SYMBICORT APR 25, 2011 (HISTORICAL) Symptoms: DRY MOUTH NASAL MUCOSA DRY SIMVASTATIN MAY 13, 2010 (HISTORICAL) Symptoms: MUSCLE PAIN 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 Recent Vital Signs: Temperature: 97.9 F [36.6 C] (01/30/2025 14:06) Pulse: 71 (01/30/2025 14:06) Respiration: 18 (01/30/2025 14:06) B/P: 101/60 (01/30/2025 14:06) Pain: 6 (01/30/2025 14:06) Wt: 171 lb [77.56 kg] (01/30/2025 14:06) Ht: 69 in [175.3 cm] (01/15/2025 13:13) BMI: 25.3 POX: 96% (01/30/2025 14:06) Would you like to discuss any personal problem, family problem, alcohol use, drug use, or a mental or emotional illness? No Contact provided Primary Care phone number and encouraged to call if any questions or concerns. Review that after hours nurse line [phone] and emergency room are available 27/03 for patient use. Contact verbalized good understanding. /sadia/ ERNA MOLINA LPN ADN LICENSED PRACTICAL NURSE Signed: 01/30/2025 14:10 ERNA MOLINA [facility]
--- OUTSIDE RECORDS SUMMARY | 2025-01-31 04:56 | XMS_ITS | Encounter Summary ---
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 Date/Time Encounter Type Encounter Description Reason Pro vider Source January 31, 2025 10:56 AM Outpatient Encounter ADMIN PAT ACTIVTIES (MASNONCT) IHE Encounter Template Text not used by [place] Plan of Treatment: Future Appointments (+ 6 months) and Future Tests (+/- 45 days) The Plan of Treatment section includes future care activities for the patient from all [place] treatmentfacilities. This section includes future appointments and future orders which are active, pending or scheduled. Future Appointments This section includes appointments that were scheduled to occur 6 months from the date of the Encounter, up to a maximum of 20 appointments. The data comes from all [place] treatment facilities. Appointment Date/Time Appointment Type Appointme nt Facility Name Feb 14, 2025 01:30 PM AMBULATORY - MEDICINE [facility] Feb 17, 2025 03:00 PM AMBULATORY - MEDICINE [facility] Feb 21, 2025 02:00 PM AMBULATORY - MEDICINE [facility] Feb 25, 2025 02:30 PM AMBULATORY - MEDICINE [facility] Feb 27, 2025 01:00 PM AMBULATORY - MEDICINE [facility] Mar 13, 2025 01:30 PM AMBULATORY - MEDICINE [facility] Mar 27, 2025 03:00 PM AMBULATORY - SURGERY [facility] May 01, 2025 01:00 PM AMBULATORY - MEDICINE [facility] May 06, 2025 02:30 PM AMBULATORY - NONE [facility] May 14, 2025 01:15 PM AMBULATORY - MEDICINE [facility] May 14, 2025 02:00 PM AMBULATORY - MEDICINE [facility] Jul 09, 2025 03:00 PM AMBULATORY - MEDICINE [facility] Jul 21, 2025 02:00 PM AMBULATORY - MEDICINE [facility] Jul 21, 2025 02:01 PM AMBULATORY - NONE [facility] Active, Pending, and Scheduled Orders This section includes a listing of several types of active, pending, and scheduled orders, including clinic medications orders, diagnostic test orders, procedure orders and consult orders; where the start date of the order is 45 days before the date of the Encounter or 45 days after the date of theEncounter. The data comes from all [place] treatment facilities. Test Date/Time Test Type Test Details Facility Name Mar 04, 2025 12:00 AM Laboratory - Chemi stry Order BASIC METABOLIC PANEL GREEN LI/HEP BLD/PLAS PLASMA [facility] Mar 04, 2025 12:00 AM Laboratory - Chemi stry Order BRAIN NATRIURETIC PEPTIDE LAVENDER BLOOD PLASMA SP [facility] Lab Results: +/- 30 days of the encounter This section includes the Chemistry and Hematology Lab Results on record with [place] for the patient. Radiology Reports and Pathology Reports are provided separately, in subsequent sections. Lab Results This section contains the Chemistry/Hematology Results that were resulted 30 days before or 30 daysafter the date of the Encounter. Date/Time Source Result Type Result - Unit Interpretation Reference Range Specimen Type Comment Feb 05, 2025 02:29 PM [facility] MICRAL/CREAT PROFILE (STL) URINE Specimen Typ e: URINE Comment: uALB/CREAT Ratio Unable to be calculated Unable to calculate due to Microalbumin < 5.0 mg/L Ordering Provider: GINA CALDERON Report Released Date/Time: January 30, 2025 02:33 PM Reporting Lab: [facility] [address] [facility] [place] [place] [address] Performing Lab: [facility] [address] [place] [phone] URINE ALBUMIN (PB-STL) <5.0 mg/L uACR (STL) comment mg/g 0-29 CREATININE URINE/OTHERS 84.3 mg/dL 63-16 6 Feb 05, 2025 02:24 PM [facility] FERRITIN SERUM Specimen Type: SERUM No comment entered. Ordering Provider: GINA CALDERON Report Released Date/Time: January 30, 2025 02:33 PM Reporting Lab: [facility] [address] [place] [phone] Performing Lab: [facility] [address] [facility] [address] FERRITIN 83.91 ng/mL 22-275 Feb 05, 2025 02:24 PM [facility] MAGNESIUM PLASMA Specimen Type: PLASMA Comment: No hemolysis noted. Ordering Provider: GINA CALDERON Report Released Date/Time: January 30, 2025 02:33 PM Reporting Lab: [address] [address] Performing Lab: [address] [address] MAGNESIUM 2.0 mg/dL 1.6-2.6 Feb 05, 2025 02:24 PM [facility] VITAMIN D, 25-HYDROXY SERUM Specime n Type: SERUM No comment entered. Ordering Provider: GINA CALDERON Report Released Date/Time: January 30, 2025 02:33 PM Reporting Lab: [address] [address] Performing Lab: [address] [address] VITAMIN D, 25-HYDROXY 88.6 ng/mL 30-96 Feb 05, 2025 02:24 PM [facility] TSH W/ REFLEX FT4 (STL) PLASMA Speci men Type: PLASMA No comment entered. Ordering Provider: GINA CALDERON Report Released Date/Time: January 30, 2025 02:33 PM Reporting Lab: [address] [address] Performing Lab: [address] [address] TSH 0.500 u[IU]/mL 0.47-5 Feb 05, 2025 02:24 PM [facility] RETICULOCYTE PANEL BLOOD Specimen T ype: BLOOD No comment entered. Ordering Provider: GINA CALDERON Report Released Date/Time: January 30, 2025 02:33 PM Reporting Lab: [address] [address] Performing Lab: [address] [address] RETIC RATIO 0.92 0.50-2.30 IRF 2.8 2.3-13.4 RETICULOCYTE HEMOGLOBIN EQUIVALENT 34.9 pg 28.2-36.6 RETIC COUNT,ABS 0.040 10*6/uL 0.022-0.10 1 Feb 05, 2025 02:24 PM [facility] FOLATE (STL-MA) SERUM Specimen Type : SERUM No comment entered. Ordering Provider: GINA CALDERON Report Released Date/Time: January 30, 2025 02:33 PM Reporting Lab: [address] [address] Performing Lab: [address] [address] FOLATE (L-MA) 19.5 ng/mL 7-20 Feb 05, 2025 02:24 PM [facility] LIPID PANEL (L) PLASMA Specimen T ype: PLASMA Comment: No hemolysis noted. Ordering Provider: GINA CALDERON Report Released Date/Time: January 30, 2025 02:33 PM Reporting Lab: [address] [address] Performing Lab: [address] [address] CHOLESTEROL 140 mg/dL 0-200 TRIGLYCERIDE 128 mg/dL 0-150 CALCULATED LDL 72 mg/dL HDL(New) 42 mg/dL >40 Feb 05, 2025 02:24 PM [facility] IRON/TIBC PROFILE SERUM Specimen Ty pe: SERUM No comment entered. Ordering Provider: GINA CALDERON Report Released Date/Time: January 30, 2025 02:33 PM Reporting Lab: [address] [address] Performing Lab: [address] [address] TIBC 214 ug/dL L 250-450 TRANSFERRIN 171 mg/dL 163-344 IRON SATURATION 46 20-50 IRON 99 ug/dL 65-175 Feb 05, 2025 02:24 PM [facility] HGA1C BLOOD Specimen Type: BLOOD No comment entered. Ordering Provider: GINA CALDERON Report Released Date/Time: January 30, 2025 02:33 PM Reporting Lab: [address] [address] Performing Lab: [place] [address] [facility] [place] [address] HGA1C 7.4 H 4.0-6.0 Feb 05, 2025 02:24 PM [facility] B12 SERUM Specimen Type: SERUM No comment entered. Ordering Provider: GINA CALDERON Report Released Date/Time: January 30, 2025 02:33 PM Reporting Lab: [address] [address] Performing Lab: [address] [address] B12 >2000 pg/mL H 213-816 Feb 05, 2025 02:24 PM [facility] COMPREHENSIVE METABOLIC PANEL PLASMA Specimen Type: PLASMA Comment: No hemolysis noted. Ordering Provider: GINA CALDERON Report Released Date/Time: January 30, 2025 02:33 PM Reporting Lab: [address] [address] Performing Lab: [address] [address] CREATININE 0.98 mg/dL 0.7-1.3 UREA NITROGEN 22.3 [...] 78.4 >60 Feb 05, 2025 02:24 PM [facility] CBC BLOOD Specimen Type: BLOOD No comment entered. Ordering Provider: GINA CALDERON Report Released Date/Time: January 30, 2025 02:33 PM Reporting Lab: [address] [address] Performing Lab: [facility] [address] [place] [address] WBC 6.5 10*3/uL 3.6-11.2 RBC 4.31 10*6/uL [...] 0.60 BASOPHILS, ABSOLUTE 0.04 10*3/uL 0.00-0. 20 Social History: Smoking Status (Most current) and Tobacco Use (All prior to encounter date) This section includes the most current, and the historical, smoking and tobacco- related health factors from the [place] facility where the Encounter took place. Current Smoking Status This section includes the most current smoking, or tobacco-related health factor, from the [place] facility where the Encounter took place. Date/Time Current Smoking Status Comment Facil ity January 13, 2023 05:24 PM ORYX ADMIT TOBACCO SCREEN NO [facility] Tobacco Use History This section includes a history of the smoking, or tobacco-related health factors, that were collected on or before the date of the Encounter. The data comes from the [place] facility where the Encounter took place. Date/Time Smoking Status/Tobacco Use Comment F acility May 12, 2022 01:00 PM VA-TOBACCO FORMER USER [facility] May 12, 2022 01:00 PM VA-TOBACCO QUIT 15 YRS OR MORE [facility] May 12, 2021 09:00 AM VA-TOBACCO FORMER USER [facility] May 12, 2021 09:00 AM VA-TOBACCO QUIT 15 YRS OR MORE [facility] Nov 01, 2017 03:12 PM LIFETIME NON-USER OF TOBACCO [facility] Dec 16, 2016 07:18 PM QUIT TOBACCO >7 YEARS AGO [facility] Jul 27, 2016 12:41 AM LIFETIME NON-USER OF TOBACCO [facility] Advance Directives: All historical and current Section Date Range: From patient's date of to the date document was created. This section includes ALL of a patient's completed or amended [place] Advance and Rescinded Directives. The entries below indicate that a directive exists for the patient, but an actual copy is not included with this document. The data comes from all [place] facilities. Date Advance Directives Provider Source May 21, 2019 ADVANCE DIRECTIVE DISCUSSION Boogie DOUGLAS [facility] Jul 28, 2016 ADVANCE DIRECTIVE DISCUSSION SEAN JOE [facility] Radiology Reports: +/- 30 days [...] the Encounter. The data comes from all [place] treatment facilities. Date/Time Radiology Report Provider Source Feb 05, 2025 02:09 PM CHEST X-RAY, 2 VIE WS: ANDRÉS MILES [id number] -[phone] M Ex Date: FEB 05, 2025@14:09 Req Phys: GINA CALDERON Loc: [facility] PACT 5 (Req'g Loc) Img Loc: [facility] SUITE Service: [facility], [facility] [address] [place] [address] (Case [id number] COMPLETE) CHEST X-RAY, 2 VIEWS (RAD Detailed) CPT:70265 Reason for Study: History of lung cancer/COPD Clinical History: Requested by cardiology with consult Report Status: Verified Date Reported: FEB 06, 2025 Date Verified: FEB 06, 2025 Green Marketing Analyst E-Sig:/ES/ELZBIETA FRYE Report: CHEST X-RAY, 2 VIEWS COMPARISON: 03/08/2020. HISTORY: History of lung cancer/COPD FINDINGS: Heart size unchanged. There bilateral small lung nodules. Chronic irregular opacity again noted within the right upper lobe. No Pleural effusion or pneumothorax. Impression: Bilateral lung nodules possibly new. Recommend CT of the chest for further evaluation. RR Primary Interpreting Staff: ELZBIETA FRYE Staff Physician (Lonny) /ELZBIETA [facility] Encounter Notes: All associated encounter notes This section contains the clinical notes associated to the Encounter. Date/Time Encounter Note(s) Provider Source January 31, 2025 10:56 AM PHYSICIAN LETTERS: LOCAL TITLE: PHYSICIAN LETTERS STANDARD TITLE: PHYSICIAN LETTERS DATE OF NOTE: JANUARY 31, 2025@10:56 ENTRY DATE: JANUARY 31, 2025@10:56:42 AUTHOR: CORTNEY SPENCER COSIGNER: URGENCY: STATUS: COMPLETED [facility] [address] [place] [address] ANDRÉS MILES [address] [place] [id number] Dear Andrés Miles: Thank you for choosing the [facility] as your primary choice for health care. A home heart monitor has been ordered for you; this will be sent by Fwd: Power via [employer]. Please plan to wear the monitor for the prescribed duration of 14 days. After you complete the monitoring period, please send the monitor back via [employer] in the pre-addressed/pre-paid box provided. [employer] will generate a report, which will be reviewed by a [place] Virtualization Architect, results will be uploaded to your record. [employer] can be reached at 24 hours/day You may receive a text asking you to confirm the appt, please answer yes. We can be reached at [phone], extension [phone] M-F [phone] for any questions. If you prefer assistance with applying or removing your monitor you are welcome to visit either the [facility] office [id number] M-F Building 1 Room B2 (next to Blood Draw)ext. [phone] or the [facility] office M-F [phone] [place] [address] Room [id number] (Nurse Practitioner Clinic) ext. [phone] Your good health is important to us. Thank you for your service! Sincerely, CORTNEY SPENCER [facility] [place],CORTNEY NICHOLAS [facility]
--- OUTSIDE RECORDS SUMMARY | 2025-02-14 07:30 | XMS_ITS | Encounter Summary ---
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 Date/Time Encounter Type Encounter Description Reason Provider Source Feb 14, 2025 01:30 PM OFF/OP EST JANUARY X REQ PHY/QHP PRIMARY CARE/MEDICINE ICD-10-CM I10 Essential (primary) hypertension WASHINGTON KRAMER IHE Encounter Template Text not used by [facility] Assessments - Encounter Diagnoses This section includes the primary and secondary diagnoses documented for the Encounter. Date/Time Primary/Secondary Diagnosis Diagnosis Name Provider Source Feb 14, 2025 03:10 PM PRIMARY Essential (primary) hypertension WASHINGTON KRAMER [facility] Plan of Treatment: Future Appointments (+ 6 months) and Future Tests (+/- 45 days) The Plan of Treatment section includes future care activities for the patient from all [place] treatmentfacilities. This section includes future appointments and future orders which are active, pending or scheduled. Future Appointments This section includes appointments that were scheduled to occur 6 months from the date of the Encounter, up to a maximum of 20 appointments. The data comes from all [place] treatment facilities. Appointment Date/Time Appointment Type Appointme nt Facility Name Feb 17, 2025 03:00 PM AMBULATORY - MEDICINE [facility] Feb 21, 2025 02:00 PM AMBULATORY - MEDICINE [facility] Feb 25, 2025 02:30 PM AMBULATORY - MEDICINE [facility] Feb 27, 2025 01:00 PM AMBULATORY - MEDICINE [facility] Mar 13, 2025 01:30 PM AMBULATORY - MEDICINE [facility] Mar 27, 2025 03:00 PM AMBULATORY - SURGERY [facility] May 01, 2025 01:00 PM AMBULATORY - MEDICINE [facility] May 06, 2025 02:30 PM AMBULATORY - NONE [facility] May 14, 2025 01:15 PM AMBULATORY - MEDICINE [facility] May 14, 2025 02:00 PM AMBULATORY - MEDICINE [facility] Jul 09, 2025 03:00 PM AMBULATORY - MEDICINE [facility] Jul 21, 2025 02:00 PM AMBULATORY - MEDICINE [facility] Jul 21, 2025 02:01 PM AMBULATORY - NONE [facility] Aug 06, 2025 01:40 PM AMBULATORY - NONE [facility] Aug 12, 2025 02:30 PM AMBULATORY - NONE [facility] Active, Pending, and Scheduled Orders This section includes a listing of several types of active, pending, and scheduled orders, including clinic medications orders, diagnostic test orders, procedure orders and consult orders; where the start date of the order is 45 days before the date of the Encounter or 45 days after the date of theEncounter. The data comes from all [place] treatment facilities. Test Date/Time Test Type Test Details Facility Name Mar 04, 2025 12:00 AM Laboratory - Chemi stry Order BASIC METABOLIC PANEL GREEN LI/HEP BLD/PLAS PLASMA [facility] Mar 04, 2025 12:00 AM Laboratory - Chemi stry Order BRAIN NATRIURETIC PEPTIDE LAVENDER BLOOD PLASMA [facility] Lab Results: +/- 30 days of the encounter This section includes the Chemistry and Hematology Lab Results on record with [place] for the patient. Radiology Reports and Pathology Reports are provided separately, in subsequent sections. Lab Results This section contains the Chemistry/Hematology Results that were resulted 30 days before or 30 daysafter the date of the Encounter. Date/Time Source Result Type Result - Unit Interpretation Reference Range Specimen Type Comment Feb 05, 2025 02:[address] [facility] MICRAL/CREAT PROFILE (STL) URINE Specimen Typ e: URINE Comment: uALB/CREAT Ratio Unable to be calculated Unable to calculate due to Microalbumin < 5.0 mg/L Ordering Provider: GINA CALDERON Report Released Date/Time: January 30, 2025 02:33 PM Reporting Lab: [facility] [address] [address] Performing Lab: [place] [address] [address] URINE ALBUMIN (PB-STL) <5.0 mg/L uACR (STL) comment mg/g 0-29 CREATININE URINE/OTHERS 84.3 mg/dL 63-16 6 Feb 05, 2025 02:[address] [facility] FERRITIN SERUM Specimen Type: SERUM No comment entered. Ordering Provider: GINA CALDERON Report Released Date/Time: January 30, 2025 02:33 PM Reporting Lab: [facility] [address] [place] [phone] Performing Lab: [address] [address] FERRITIN 83.91 ng/mL 22-275 Feb 05, 2025 02:[address] [facility] MAGNESIUM PLASMA Specimen Type: PLASMA Comment: No hemolysis noted. Ordering Provider: GINA CALDERON Report Released Date/Time: January 30, 2025 02:33 PM Reporting Lab: [address] [address] Performing Lab: [address] [address] MAGNESIUM 2.0 mg/dL 1.6-2.6 Feb 05, 2025 02:[address] [facility] VITAMIN D, 25-HYDROXY SERUM Specime n Type: SERUM No comment entered. Ordering Provider: GINA CALDERON Report Released Date/Time: January 30, 2025 02:33 PM Reporting Lab: [address] [address] Performing Lab: [address] [address] VITAMIN D, 25-HYDROXY 88.6 ng/mL 30-96 Feb 05, 2025 02:[address] [facility] TSH W/ REFLEX FT4 (STL) PLASMA Speci men Type: PLASMA No comment entered. Ordering Provider: GINA CALDERON Report Released Date/Time: January 30, 2025 02:33 PM Reporting Lab: [facility] [address] [address] Performing Lab: [address] [address] TSH 0.500 u[IU]/mL 0.47-5 Feb 05, 2025 02:[address] [facility] RETICULOCYTE PANEL BLOOD Specimen T ype: BLOOD No comment entered. Ordering Provider: GINA CALDERON Report Released Date/Time: January 30, 2025 02:33 PM Reporting Lab: [address] [address] Performing Lab: [address] [address] RETIC RATIO 0.92 0.50-2.30 IRF 2.8 2.3-13.4 RETICULOCYTE HEMOGLOBIN EQUIVALENT 34.9 pg 28.2-36.6 RETIC COUNT,ABS 0.040 10*6/uL 0.022-0.10 1 Feb 05, 2025 02:[address] [facility] FOLATE (L-MA) SERUM Specimen Type : SERUM No comment entered. Ordering Provider: GINA CALDERON Report Released Date/Time: January 30, 2025 02:33 PM Reporting Lab: [address] [address] Performing Lab: [address] [address] FOLATE (STL-MA) 19.5 ng/mL 7-20 Feb 05, 2025 02:[address] [facility] LIPID PANEL (STL) PLASMA Specimen Ty pe: PLASMA Comment: No hemolysis noted. Ordering Provider: GINA CALDERON Report Released Date/Time: January 30, 2025 02:33 PM Reporting Lab: [address] [address] Performing Lab: [address] [address] CHOLESTEROL 140 mg/dL 0-200 TRIGLYCERIDE 128 mg/dL 0-150 CALCULATED LDL 72 mg/dL HDL(New) 42 mg/dL >40 Feb 05, 2025 02:[address] [facility] IRON/TIBC PROFILE SERUM Specimen Ty pe: SERUM No comment entered. Ordering Provider: GINA CALDERON Report Released Date/Time: January 30, 2025 02:33 PM Reporting Lab: [address] [address] Performing Lab: [address] [address] TIBC 214 ug/dL L 250-450 TRANSFERRIN 171 mg/dL 163-344 IRON SATURATION 46 20-50 IRON 99 ug/dL 65-175 Feb 05, 2025 02:[address] [facility] HGA1C BLOOD Specimen Type: BLOOD No comment entered. Ordering Provider: GINA CALDERON Report Released Date/Time: January 30, 2025 02:33 PM Reporting Lab: [address] [address] Performing Lab: [address] [address] HGA1C 7.4 H 4.0-6.0 Feb 05, 2025 02:[address] [facility] B12 SERUM Specimen Type: SERUM No comment entered. Ordering Provider: GINA CALDERON Report Released Date/Time: January 30, 2025 02:33 PM Reporting Lab: [address] [address] Performing Lab: [address] [address] B12 >2000 pg/mL H 213-816 Feb 05, 2025 02:[address] [facility] COMPREHENSIVE METABOLIC PANEL PLASMA Specimen Type: PLASMA Comment: No hemolysis noted. Ordering Provider: GINA CALDERON Report Released Date/Time: January 30, 2025 02:33 PM Reporting Lab: [address] [address] Performing Lab: [address] [address] CREATININE 0.98 mg/dL 0.7-1.3 UREA NITROGEN 22.3 [...] 78.4 >60 Feb 05, 2025 02:24 PM [facility] CBC BLOOD Specimen Type: BLOOD No comment entered. Ordering Provider: GINA CALDERON Report Released Date/Time: January 30, 2025 02:33 PM Reporting Lab: [facility] [address] [address] Performing Lab: [facility] [address] [address] WBC 6.5 10*3/uL 3.6-11.2 RBC 4.31 10*6/uL [...] and tobacco- related health factors from the [place] facility where the Encounter took place. Current Smoking Status This section includes the most current smoking, or tobacco-related health factor, from the [place] facility where the Encounter took place. Date/Time Current Smoking Status Comment Virgil fatima Sep 03, 2024 01:30 PM VA-TOBACCO USE FORMER CIGARETTES [facility] Tobacco Use History This section includes a history of the smoking, or tobacco-related health factors, that were collected on or before the date of the Encounter. The data comes from the [place] facility where the Encounter took place. Date/Time Smoking Status/Tobacco Use Comment F acility Sep 03, 2024 01:30 PM VA-TOBACCO USE FORMER CIGARETTES [facility] Sep 07, 2023 11:00 AM VA-TOBACCO FORMER USER [facility] Sep 07, 2023 11:00 AM VA-TOBACCO QUIT 15 YRS OR MORE [facility] May 21, 2020 09:30 AM VA-TOBACCO FORMER USER [facility] May 21, 2020 09:30 AM VA-TOBACCO QUIT 15 YRS OR MORE [facility] Mar 29, 2019 10:32 AM VA-TOBACCO FORMER USER [facility] Mar 29, 2019 10:32 AM VA-TOBACCO QUIT 15 YRS OR MORE [facility] Advance Directives: All historical and current Section Date Range: From patient's date of to the date document was created. This section includes ALL of a patient's completed or amended [place] Advance and Rescinded Directives. The entries below indicate that a directive exists for the patient, but an actual copy is not included with this document. The data comes from all [place] facilities. Date Advance Directives Provider Source May 21, 2019 ADVANCE DIRECTIVE DISCUSSION Boogie DOUGLAS [facility] Jul 28, 2016 ADVANCE DIRECTIVE DISCUSSION [facility] Radiology Reports: +/- 30 days of [...] the Encounter. The data comes from all [place] treatment facilities. Date/Time Radiology Report Provider Source Feb 05, 2025 02:09 PM CHEST X-RAY, 2 VIE WS: ANDRÉS ROBERTS [id number] -[id number] M Exm Date: FEB 05, 2025@14:09 Req Phys: GINA CALDERON Loc: [facility] PACT 5 (Req'g Loc) Img Loc: [facility] SUITE Service: Unknown [facility], [address] [place] [address] (Case [id number] COMPLETE) CHEST X-RAY, 2 VIEWS (RAD Detailed) CPT:50964 Reason for Study: History of lung cancer/COPD Clinical History: Requested by cardiology with consult Report Status: Verified Date Reported: FEB 06, 2025 Date Verified: FEB 06, 2025 Hand Edge Bander E-Sig:/ES/ELZBIETA FRYE Report: CHEST X-RAY, 2 VIEWS COMPARISON: 03/08/2020. HISTORY: History of lung cancer/COPD FINDINGS: Heart size unchanged. There bilateral small lung nodules. Chronic irregular opacity again noted within the right upper lobe. No Pleural effusion or pneumothorax. Impression: Bilateral lung nodules possibly new. Recommend CT of the chest for further evaluation. RR Primary Interpreting Staff: ELZBIETA FRYE Staff Physician (Lonny) /ELZBIETA [facility] Encounter Notes: All associated encounter notes This section contains the clinical notes associated to the Encounter. Date/Time Encounter Note(s) Provider Source Feb 14, 2025 02:25 PM NURSING NOTE: LOCAL TITLE: V15 PACT FACE TO FACE NOTE ST STANDARD TITLE: NURSING NOTE DATE OF NOTE: FEB 14, 2025@14:25 ENTRY DATE: FEB 14, 2025@14:25:51 AUTHOR: WASHINGTON KRAMER EXP COSIGNER: URGENCY: STATUS: COMPLETED Nurse Visit: Patient Identifiers : Full Name Date of Reason for visit: ortho bp check Mode of Arrival: Ambulatory Allergy Review: SIMVASTATIN, SYMBICORT 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 [place]'s Response: making another WHOLE HEALTH SHARED GOALS: PERSONAL HEALTH PLAN - SHARED GOALS: 11/01/2024 Php Shared Goals Patient wants to feel better, tired of feeling bad. SHARED GOALS dont know Hypertension (HTN): Purpose of Encounter: Provider requested follow-up Subjective: state his BP seem to get high in the evens DX IHD (Ischemic Heart Disease):No DX DM: No Is patient currently enrolled in the home telehealth (HT) program: No VSD - Detailed Vitals Date Vital Measurement Qualifiers 02/14/2025 14:18 Pulse 76 BP 91/56 L Arm, Standing, Adult Cuff, Cuff-Automated Pain 4 POx (L/Min)(%) 95 01/30/2025 14:06 Temp F (C) 97.9 (36.6) Respir 18 Wt lbs (kg)[BMI] 171 (77.56)[25] 01/15/2025 13:13 Ht in (cm) 69 (175.26) Home BP readings: Patient reported BP readings: DATE/ TIME:AM B/P PULSE TIME:PM B/P PULSE COMMENTS 02/02/25 1045 103/64 81 835 155/132 67 NO MEDS 02/03/25 1055 104/65 79 735 119/75 66 ' ' 02/04/25 930 119/68 74 755 148/79 71 ' 02/05/25 915 116/68 72 820 150/77 70 02/06/25 950 118/57 72 720` 162/84 64 ' 02/07/25 800 106/62 74 725 164/89 58 ' 02/08/25 855 107/65 76 800 140/74 64 02/09/25 610 117/68 78 755 177/93 58 165/85 02/10/25 1040 109/65 79 750 136/7563 09/05 PILL 2P 02/11/25 850 100/60 75 750 149/73 66 09/07 PILL 130P 02/12/25 815 93/50 87 835 173/87 70 02/13/25 900 1156/70 73 735 153/81 64 02/14/25 123/98 75 Allergy Review: SIMVASTATIN, SYMBICORT 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 View Current Medications Active Outpatient Medications (including Supplies): Active Outpatient Medications Status 1) ACETAMINOPHEN 325MG TAB TAKE TWO TABLETS [...] SUPPLEMENTATION Indication: FOR VITAMIN B12 SUPPLEMENTATION 9) DOCUSATE NA 100MG CAP TAKE TWO CAPSULES BY MOUTH TWICE A DAY ACTIVE HOLD FOR LOOSE STOOL/DIARRHEA. Indication: FOR SOFTENING STOOL 10) EMPAGLIFLOZIN 10/METFORM 1000MG 24HR TAB TAKE 2 TABLETS BY ACTIVE MOUTH ONCE A DAY TAKE WITH FOOD Indication: FOR DIABETES 11) FINASTERIDE 5MG TAB TAKE ONE TABLET BY MOUTH ONCE A DAY FOR ACTIVE PROSTATE 12) FLUOROURACIL 5% CREAM APPLY THIN FILM TO AFFECTED AREA(S) ACTIVE TWICE DAILY AVOID SUN EXPOSURE. FOLLOW DIRECTIONS CAREFULLY FOR PROPER HANDLING/DISPOSAL START AFTER BLISTERS FROM CYROTHERAPY HEAL. APPLY TO THE RIGHT ARM FOR 2 WEEKS, THEN STOP. THEN APPLY TO THE LEFT ARM FOR 2 WEEKS, THEN STOP. THEN APPLY TO THE FACE FOR 2 WEEKS. Indication: FOR ACTINIC KERATOSIS 13) GLIPIZIDE 5MG TAB TAKE ONE TABLET BY MOUTH TWO TIMES A DAY ACTIVE BEFORE MEALS TAKE 30 MINUTES BEFORE EATING. Indication: FOR DIABETES 14) HYDROPHILIC (EQV EUCERIN) TOP CREAM APPLY LIBERALLY TO ACTIVE AFFECTED AREA(S) ONCE A DAY (EXTERNAL USE ONLY) APPLY TO DRY SKIN Indication: FOR SKIN CARE 15) KETOCONAZOLE 2% CREAM APPLY LIBERALLY TO AFFECTED AREA(S) ACTIVE TWICE A DAY (EXTERNAL USE ONLY) APPLY TO THE RED AND FLAKY AREAS ON THE NOSE AND ON THE FEET Indication: FOR FUNGAL INFECTION 16) LACTOBACILLUS ACIDOPHILUS CHEW TAB TAKE 1 TABLET BY MOUTH ACTIVE ONCE A DAY 17) LISINOPRIL 20MG TAB TAKE ONE-HALF TABLET BY MOUTH ONCE A DAY ACTIVE AT 1PM FOR HEART OR BLOOD PRESSURE Indication: FOR HIGH BLOOD PRESSURE 18) MELOXICAM 15MG TAB TAKE ONE TABLET BY MOUTH ONCE A DAY ACTIVE NEEDED FOR PAIN OR INFLAMMATION 19) POLYETHYLENE GLYCOL 3350 ORAL PWDR MIX AND DRINK 1 CAPFUL BY ACTIVE MOUTH ONCE A DAY (MEASURE WITH CAP AND MIX IN 8 OZ OF WATER) Indication: FOR CONSTIPATION 20) SITAGLIPTIN (EQV-ZITUVIO) 25MG TAB TAKE ONE TABLET BY MOUTH ACTIVE ONCE A DAY Indication: FOR DIABETES 21) TERAZOSIN HCL 5MG CAP TAKE ONE CAPSULE BY MOUTH AT BEDTIME ACTIVE FOR PROSTATE Patient reports adjusting BP medications based on how his blood pressure is running. Assessment: Understanding of hypertension: Patient reports understanding of hypertension-no additional education necessary. Modifiable risk factors (select all that apply): Alcohol consumption: n/a Nutrition: low sweet and low salt diet, low fat Pain and stress: no stress Physical activity: stretching exercise Self-management: recovery Sleep apnea: CPAP need another on the one he has is not functioning Tobacco use: n/a BP monitor and use: Patient reports having a BP cuff and understands how to use it. Analyze: [facility] nursing Nursing Diagnosis List [facility] Nursing Diagnosis List (select all that apply): Readiness for enhanced health literacy Planning/Intervention (select all that apply): Education (select [...] can slow down or stop the progression. SMART Goals set prior to this encounter (Specific, Measurable, Action-oriented, Realistic, Time-specific): None Evaluation: [place] instructed to follow-up*(who/what/when, may be multiple staff): Schedule Nurse visit at 130pm RTC entered for: Feb Signs/symptoms/parameters to report: * Seek immediate medical evaluation for severe headache or blurred vision, drowsiness or confusion, persistent numbness and tingling in hands and feet, coughing up blood or blood-tinged sputum, difficulty breathing, chest pain or heart palpitations, persistent nosebleed, tongue swelling. * Periods of dizziness, constipation, impotence after starting new BP medicine. * BP >140/90 consistently for >2 months Contact PCP/RNCM per the below parameters: When to call your PCP If BP> 160/100 or BP <90/60 or symptom's present (dizzy spells, lightheadedness, nausea, fainting unsteadiness when walking) instructed to go to ER if SBP >180 or higher if BP readings are constant over several readings or DBP >100 or greater /or if symptoms present (chest pain, headache, vision changes, numbness, or etc.) If pulse 120 beat or greater - 's understanding verified by teach back: Yes For intervention, information forwarded to: Jerad BRO RNCM contact Jerad BRO via team regarding orthostatic BP and c/o feeling weak, tired, and lightheaded. Provided said the ins pending appointment with cardiology for echocardiogram for these same complaints. PCP said For to hold his lisinopril for one week and to check his BP every day and return in one week for BP check to see if BP stabilizes. [place] and informed of the above verbalizing their understanding. [place] stated that echocardiogram was on hold until the monitor the was wearing is removed from chest. RNCM gave 16 oz bottle of water before leaving the clinic. After he completed the water RNCM rechecked his BP: sitting 103/64 and standing 99/62 . /sadia/ WASHINGTON KRAMER RN, MSN REGISTERED NURSE Signed: 02/14/2025 15:36 [facility] KRAMER [facility]
--- OUTSIDE RECORDS SUMMARY | 2025-02-19 02:15 | XMS_ITS | Encounter Summary ---
Author Name [facility] Address [address] [place] [address] Care Team Providers Care Forms Designer Name Role Phone LINN MCKEON Primary Care [...] PART A Apr 04, 2010 PART A [id number] ANDRÉS ROBERTS PATIENT MEDICARE (WNR) MEDICARE (M) PART B Apr 04, 2010 PART B [id number] ANDRÉS ROBERTS PATIENT MEDICARE (WNR) MEDICARE (M) PART A Apr 04, 2010 PART A [id number] ANDRÉS ROBERTS PATIENT MEDICARE (WNR) MEDICARE (M) PART B Apr 04, 2010 PART B [id number] ANDRÉS ROBERTS PATIENT Selected Encounter This section includes the information on record at [place] for the Encounter. Date/Time Encounter Type Encounter Description Reason Provider Source Feb 19, 2025 08:15 AM Outpatient Encounter COMMUNITY CARE CONSULT ZURI SAINI Encounter Template Text not used by [place] Plan of Treatment: Future Appointments (+ 6 [...] Appointment Type Appointme nt Facility Name Feb 21, 2025 02:00 PM AMBULATORY - MEDICINE [facility] Feb 25, 2025 02:30 PM AMBULATORY - MEDICINE [facility] Feb 27, 2025 01:00 PM AMBULATORY - MEDICINE [facility] Mar 13, 2025 01:30 PM AMBULATORY - MEDICINE [facility] Mar 27, 2025 03:00 PM AMBULATORY - SURGERY [facility] May 01, 2025 01:00 PM AMBULATORY - MEDICINE [facility] May 06, 2025 02:30 PM AMBULATORY - NONE [facility] May 14, 2025 01:15 PM AMBULATORY - MEDICINE [facility] May 14, 2025 02:00 PM AMBULATORY - MEDICINE [facility] Jul 09, 2025 03:00 PM AMBULATORY - MEDICINE [facility] Jul 21, 2025 02:00 PM AMBULATORY - MEDICINE [facility] Jul 21, 2025 02:01 PM [facility] NONE [facility] Aug 06, 2025 01:40 PM [facility]ULATORY [facility] NONE [facility] Aug 12, 2025 02:30 PM [facility]ULATORY [facility] NONE [facility] Aug 18, 2025 11:00 AM [facility]ULATORY [facility] NONE [facility] Aug 21, 2025 11:30 AM [facility]AT[facility] NONE [facility] Active, Pending, and Scheduled Orders This section includes a listing of several types of active, pending, and scheduled orders, including clinic medications orders, diagnostic test orders, procedure orders and consult orders; where the start date of the order is 45 days before the date of the Encounter or 45 days after the date of theEncounter. The data comes from all [place] treatment facilities. Test Date/Time Test Type Test Details Facility Name Mar 04, 2025 12:00 AM Laboratory - Chemi stry Order BASIC METABOLIC PANEL GREEN LI/HEP BLD/PLAS PLASMA [facility] Mar 04, 2025 12:00 AM Laboratory - Chemi stry Order BRAIN NATRIURETIC PEPTIDE LAVENDER BLOOD PLASMA [facility] Lab Results: +/- 30 days of the encounter This section includes the Chemistry and Hematology Lab Results on record with [facility] for the patient. Radiology Reports and Pathology Reports are provided separately, in subsequent sections. Lab Results This section contains the Chemistry/Hematology Results that were resulted 30 days before or 30 daysafter the date of the Encounter. Date/Time Source Result Type Result - Unit Interpretation Reference Range Specimen Type Comment Feb 05, 2025 02:29 PM [facility] MICRAL/CREAT PROFILE (STL) URINE Specimen Typ e: URINE Comment: uALB/CREAT Ratio Unable to be calculated Unable to calculate due to Microalbumin < 5.0 mg/L Ordering Provider: GINA CALDERON Report Released Date/Time: January 30, 2025 02:33 PM Reporting Lab: [place] [address] [address] Performing Lab: [place] [address] [place] [phone] URINE ALBUMIN (PB-STL) <5.0 mg/L uACR (STL) comment mg/g 0-29 CREATININE URINE/OTHERS 84.3 mg/dL 63-16 6 Feb 05, 2025 02:24 PM [facility] FERRITIN SERUM Specimen Type: SERUM No comment entered. Ordering Provider: GINA CALDERON Report Released Date/Time: January 30, 2025 02:33 PM Reporting Lab: [place] [address] [place] [address] Performing Lab: [facility] [address] [address] FERRITIN 83.91 ng/mL 22-275 Feb 05, 2025 02:24 PM [facility] VITAMIN D, 25-HYDROXY SERUM Specime n Type: SERUM No comment entered. Ordering Provider: GINA CALDERON Report Released Date/Time: January 30, 2025 02:33 PM Reporting Lab: [place] [address] [place] [address] Performing Lab: [place] [address] [place] [address] VITAMIN D, 25-HYDROXY 88.6 ng/mL 30-96 Feb 05, 2025 02:24 PM [facility] TSH W/ REFLEX FT4 (L) PLASMA Speci men Type: PLASMA No comment entered. Ordering Provider: GINA CALDERON Report Released Date/Time: January 30, 2025 02:33 PM Reporting Lab: [place] [address] [place] [address] Performing Lab: [place] [address] [place] [phone] TSH 0.500 u[IU]/mL 0.47-5 Feb 05, 2025 02:24 PM [facility] FOLATE (STL-MA) SERUM Specimen Type : SERUM No comment entered. Ordering Provider: GINA CALDERON Report Released Date/Time: January 30, 2025 02:33 PM Reporting Lab: [place] [address] [place] [address] Performing Lab: [place] [address] [place] [address] FOLATE (STL-MA) 19.5 ng/mL 7-20 Feb 05, 2025 02:24 PM [facility] RETICULOCYTE PANEL BLOOD Specimen T ype: BLOOD No comment entered. Ordering Provider: GINA CALDERON Report Released Date/Time: January 30, 2025 02:33 PM Reporting Lab: [address] [address] Performing Lab: [facility] [place] [address] [address] RETIC RATIO 0.92 0.50-2.30 IRF 2.8 2.3-13.4 RETICULOCYTE HEMOGLOBIN EQUIVALENT 34.9 pg 28.2-36.6 RETIC COUNT,ABS 0.040 10*6/uL 0.022-0.10 1 Feb 05, 2025 02:24 PM [facility] MAGNESIUM PLASMA Specimen Type: PLASMA Comment: No hemolysis noted. Ordering Provider: GINA CALDERON Report Released Date/Time: January 30, 2025 02:33 PM Reporting Lab: [address] [address] Performing Lab: [address] [address] MAGNESIUM 2.0 mg/dL 1.6-2.6 Feb 05, 2025 02:24 PM [facility] B12 SERUM Specimen Type: SERUM No comment entered. Ordering Provider: GINA CALDERON Report Released Date/Time: January 30, 2025 02:33 PM Reporting Lab: [address] [address] Performing Lab: [address] [address] B12 >2000 pg/mL H 213-816 Feb 05, 2025 02:24 PM [facility] LIPID PANEL (STL) PLASMA Specimen Ty pe: PLASMA Comment: No hemolysis noted. Ordering Provider: GINA CALDERON Report Released Date/Time: January 30, 2025 02:33 PM Reporting Lab: [address] [address] Performing Lab: [address] [address] CHOLESTEROL 140 mg/dL 0-200 TRIGLYCERIDE 128 mg/dL 0-150 CALCULATED LDL 72 mg/dL HDL(New) 42 mg/dL >40 Feb 05, 2025 02:24 PM [facility] IRON/TIBC PROFILE SERUM Specimen Ty pe: SERUM No comment entered. Ordering Provider: GINA CALDERON Report Released Date/Time: January 30, 2025 02:33 PM Reporting Lab: [address] [address] Performing Lab: [address] [address] TIBC 214 ug/dL L 250-450 TRANSFERRIN 171 mg/dL 163-344 IRON SATURATION 46 20-50 IRON 99 ug/dL 65-175 Feb 05, 2025 02:24 PM [facility] HGA1C BLOOD Specimen Type: BLOOD No comment entered. Ordering Provider: GINA CALDERON Report Released Date/Time: January 30, 2025 02:33 PM Reporting Lab: [address] [address] Performing Lab: [address] [address] HGA1C 7.4 H 4.0-6.0 Feb 05, 2025 02:24 PM [facility] COMPREHENSIVE METABOLIC PANEL PLASMA Specimen Type: PLASMA Comment: No hemolysis noted. Ordering Provider: GINA CALDERON Report Released Date/Time: January 30, 2025 02:33 PM Reporting Lab: [address] [address] Performing Lab: [address] [address] CREATININE 0.98 mg/dL 0.7-1.3 UREA NITROGEN 22.3 [...] 78.4 >60 Feb 05, 2025 02:24 PM [facility] CBC BLOOD Specimen Type: BLOOD No comment entered. Ordering Provider: GINA CALDERON Report Released Date/Time: January 30, 2025 02:33 PM Reporting Lab: [facility] [address] [facility] [address] Performing Lab: [facility] [address] [facility] [address] WBC 6.5 10*3/uL 3.6-11.2 RBC 4.31 10*6/uL [...] Date/Time Current Smoking Status Comment Virgil ity January 13, 2023 05:24 PM ORYX ADMIT TOBACCO SCREEN NO [facility] Tobacco Use History This section includes a history of the smoking, or tobacco-related health factors, that were collected on or before the date of the Encounter. The data comes from the [place] facility where the Encounter took place. Date/Time Smoking Status/Tobacco Use Comment F acility May 12, 2022 01:00 PM VA-TOBACCO FORMER USER [facility] May 12, 2022 01:00 PM VA-TOBACCO QUIT 15 YRS OR MORE [facility] May 12, 2021 09:00 AM VA-TOBACCO FORMER USER [facility] May 12, 2021 09:00 AM VA-TOBACCO QUIT 15 YRS OR MORE [facility] Nov 01, 2017 03:12 PM LIFETIME NON-USER OF TOBACCO [facility] Dec 16, 2016 07:18 PM QUIT TOBACCO >7 YEARS AGO [facility] Jul 27, 2016 12:41 AM LIFETIME NON-USER OF TOBACCO [facility] Advance Directives: All historical and current Section [...] 21, 2019 ADVANCE DIRECTIVE DISCUSSION Boogie DOUGLAS [facility] Jul 28, 2016 ADVANCE DIRECTIVE DISCUSSION SEAN JOE [facility] Radiology Reports: +/- 30 days of the [...] the Encounter. The data comes from all [place] treatment facilities. Date/Time Radiology Report Provider Source Feb 05, 2025 02:09 PM CHEST X-RAY, 2 VIE WS: ANDRÉS ROBERTS [id number] -1945 M Ex Date: FEB 05, 2025@14:09 Req Phys: GINA CALDERON Loc: [facility] PACT 5 (Req'g Loc) Img Loc: [facility] SUITE Service: [facility], [facility] [address] [place] [address] (Case [id number] COMPLETE) CHEST X-RAY, 2 VIEWS (RAD Detailed) CPT:77327 Reason for Study: History of lung cancer/COPD Clinical History: Requested by cardiology with consult Report Status: Verified Date Reported: FEB 06, 2025 Date Verified: FEB 06, 2025 Larry Operator E-Sig:/[email or web address] FRYE Report: CHEST X-RAY, 2 VIEWS COMPARISON: 03/08/2020. HISTORY: History of lung cancer/COPD FINDINGS: Heart size unchanged. There bilateral small lung nodules. Chronic irregular opacity again noted within the right upper lobe. No Pleural effusion or pneumothorax. Impression: Bilateral lung nodules possibly new. Recommend CT of the chest for further evaluation. RR Primary Interpreting Staff: ELZBIETA FRYE, Staff Physician (Lonny) /ELZBIETA ARTIS [facility] Encounter Notes: All associated encounter notes This section contains the clinical notes associated to the Encounter. Date/Time Encounter Note(s) Provider Source Feb 19, 2025 08:15 AM NONVA NOTE: LOCAL TITLE: COMMUNITY CARE-CARE COORDINATION PLAN NOTE [address] [facility] STANDARD TITLE: NONVA NOTE DATE OF NOTE: FEB 19, 2025@08:15 ENTRY DATE: FEB 19, 2025@08:15:28 AUTHOR: ZURI SAINI EXP COSIGNER: URGENCY: STATUS: COMPLETED Community Care Consult: cardiology Consult No: [id number] [facility] Referral #: Chief Complaint: hypotension Patient Admitted? No Level of Care Coordination Moderate Care Coordination was determined from: Chart Review Facility Community Care Office Contact Care Coordination Point of Contact: zuri pearson rn Phone Number: [phone] Services: Basic Care Coordination Services Monitoring and coordination of Rehab/PT Services Direct communication to referring provider Care management, if appropriate Plan: Procedure (1): Holter/event monitor-7 days Will follow until consult is scheduled. Will navigate services regarding protocol; monitoring and coordinating CC appt, monitor disease process, report significant findings, communicate with monthly for complex coordination and quarterly for moderate. Will transition care to the referring provider after community care EOC is completed. /alexander/ ZURI SAINI RN MSN REGISTERED NURSE Signed: 02/19/2025 08:17 ZURI SAINI [facility]
--- OUTSIDE RECORDS SUMMARY | 2025-02-21 08:00 | XMS_ITS | Encounter Summary ---
Author Name [facility] Organization [facility] Address [address] [place] [address] Care Team Providers Care Beater Out Name Role Phone LINN MCKEON Primary Care [...] PART A Apr 04, 2010 PART A [id number] [phone] ANDRÉS ROBERTS PATIENT MEDICARE (WNR) MEDICARE (M) PART B Apr 04, 2010 PART B [id number] ANDRÉS ROBERTS PATIENT MEDICARE (WNR) MEDICARE (M) PART A Apr 04, 2010 PART A [id number] ANDRÉS ROBERTS PATIENT MEDICARE (WNR) MEDICARE (M) PART B Apr 04, 2010 PART B [id number] ANDRÉS ROBERTS PATIENT Selected Encounter This section includes the information on record at [facility] for the Encounter. Date/Time Encounter Type Encounter Description Reason Provider Source Feb 21, 2025 02:00 PM EDU&TRN PT SELF-MGMT NQHP 1 PRIMARY CARE/MEDICINE ICD-10-CM I10 Essential (primary) hypertension MALIRACHAEL E IHLacho Encounter Template Text not used by [facility] Assessments - Encounter Diagnoses This section includes the primary and secondary diagnoses documented for the Encounter. Date/Time Primary/Secondary Diagnosis Diagnosis Name Provider Source Feb 21, 2025 05:45 PM PRIMARY Essential (primary) hypertension RACHAEL SAMSON [facility] Plan of Treatment: Future Appointments (+ 6 months) and Future Tests (+/- 45 days) The Plan of Treatment section includes future care activities for the patient from all ID treatmentfacilities. This section includes future appointments and future orders which are active, pending or scheduled. Future Appointments This section includes appointments that were scheduled to occur 6 months from the date of the Encounter, up to a maximum of 20 appointments. The data comes from all ID treatment facilities. Appointment Date/Time Appointment Type Appointme nt Facility Name Feb 25, 2025 02:30 PM AMBULATORY - MEDICINE [facility] Feb 27, 2025 01:00 PM AMBULATORY - MEDICINE [facility] Mar 13, 2025 01:30 PM AMBULATORY - MEDICINE [facility] Mar 27, 2025 03:00 PM AMBULATORY - SURGERY [facility] May 01, 2025 01:00 PM AMBULATORY - MEDICINE [facility] May 06, 2025 02:30 PM AMBULATORY - NONE [facility] May 14, 2025 01:15 PM AMBULATORY - MEDICINE [facility] May 14, 2025 02:00 PM AMBULATORY - MEDICINE [facility] Jul 09, 2025 03:00 PM AMBULATORY - MEDICINE [facility] Jul 21, 2025 02:00 PM AMBULATORY - MEDICINE [facility] Jul 21, 2025 02:01 PM AMBULATORY - NONE [facility] Aug 06, 2025 01:40 PM AMBULATORY - NONE [facility] Aug 12, 2025 02:30 PM AMBULATORY - NONE [facility] Aug 18, 2025 11:00 AM AMBULATORY - NONE [facility] Aug 21, 2025 11:30 AM AMBULATORY - NONE [facility] Active, Pending, and Scheduled Orders This section includes a listing of several types of active, pending, and scheduled orders, including clinic medications orders, diagnostic test orders, procedure orders and consult orders; where the start date of the order is 45 days before the date of the Encounter or 45 days after the date of theEncounter. The data comes from all ID treatment facilities. Test Date/Time Test Type Test Details Facility Name Mar 04, 2025 12:00 AM Laboratory - Chemi stry Order BASIC METABOLIC PANEL GREEN LI/HEP BLD/PLAS PLASMA [facility] Mar 04, 2025 12:00 AM Laboratory - Chemi stry Order BRAIN NATRIURETIC PEPTIDE LAVENDER BLOOD PLASMA [facility] Lab Results: +/- 30 days of the encounter This section includes the Chemistry and Hematology Lab Results on record with ID for the patient. Radiology Reports and Pathology Reports are provided separately, in subsequent sections. Lab Results This section contains the Chemistry/Hematology Results that were resulted 30 days before or 30 daysafter the date of the Encounter. Date/Time Source Result Type Result - Unit Interpretation Reference Range Specimen Type Comment Feb 05, 2025 02:29 PM [facility] MICRAL/CREAT PROFILE (STL) URINE Specimen Typ e: URINE Comment: uALB/CREAT Ratio Unable to be calculated Unable to calculate due to Microalbumin < 5.0 mg/L Ordering Provider: GINA CALDERON Report Released Date/Time: January 30, 2025 02:33 PM Reporting Lab: [facility] [address] [address] Performing Lab: [place] [address] [address] [phone] URINE ALBUMIN (PB-STL) <5.0 mg/L uACR (STL) comment mg/g 0-29 CREATININE URINE/OTHERS 84.3 mg/dL 63-16 6 Feb 05, 2025 02:24 PM [facility] RETICULOCYTE PANEL BLOOD Specimen T ype: BLOOD No comment entered. Ordering Provider: GINA CALDERON Report Released Date/Time: January 30, 2025 02:33 PM Reporting Lab: [facility] [address] [address] Performing Lab: [facility] [address] [address] RETIC RATIO 0.92 0.50-2.30 IRF 2.8 2.3-13.4 RETICULOCYTE HEMOGLOBIN EQUIVALENT 34.9 pg 28.2-36.6 RETIC COUNT,ABS 0.040 10*6/uL 0.022-0.10 1 Feb 05, 2025 02:24 PM [facility] FERRITIN SERUM Specimen Type: SERUM No comment entered. Ordering Provider: GINA CALDERON Report Released Date/Time: January 30, 2025 02:33 PM Reporting Lab: [place] [address] [address] [address] Performing Lab: [facility] [address] [address] FERRITIN 83.91 ng/mL 22-275 Feb 05, 2025 02:24 PM [facility] MAGNESIUM PLASMA Specimen Type: PLASMA Comment: No hemolysis noted. Ordering Provider: GINA CALDERON Report Released Date/Time: January 30, 2025 02:33 PM Reporting Lab: [place] [address] [address] [address] Performing Lab: [place] [address] [address] [address] MAGNESIUM 2.0 mg/dL 1.6-2.6 Feb 05, 2025 02:24 PM [facility] VITAMIN D, 25-HYDROXY SERUM Specime n Type: SERUM No comment entered. Ordering Provider: GINA CALDERON Report Released Date/Time: January 30, 2025 02:33 PM Reporting Lab: [facility] [address] [address] Performing Lab: [facility] [address] [address] VITAMIN D, 25-HYDROXY 88.6 ng/mL 30-96 Feb 05, 2025 02:24 PM [facility] TSH W/ REFLEX FT4 (STL) PLASMA Speci men Type: PLASMA No comment entered. Ordering Provider: GINA CALDERON Report Released Date/Time: January 30, 2025 02:33 PM Reporting Lab: [address] [address] Performing Lab: [address] [address] TSH 0.500 u[IU]/mL 0.47-5 Feb 05, 2025 02:24 PM [facility] FOLATE (STL-MA) SERUM Specimen Type : SERUM No comment entered. Ordering Provider: GINA CALDERON Report Released Date/Time: January 30, 2025 02:33 PM Reporting Lab: [address] [address] Performing Lab: [address] [address] FOLATE (L-MA) 19.5 ng/mL 7-Feb 05, 2025 02:24 PM [facility] COMPREHENSIVE METABOLIC PANEL PLASMA Specimen Type: PLASMA Comment: No hemolysis noted. Ordering Provider: GINA CALDERON Report Released Date/Time: January 30, 2025 02:33 PM Reporting Lab: [address] [address] Performing Lab: [address] [address] CREATININE 0.98 mg/dL 0.7-1.3 UREA NITROGEN 22.3 [...] 78.4 >60 Feb 05, 2025 02:24 PM [facility] LIPID PANEL (STL) PLASMA Specimen Ty pe: PLASMA Comment: No hemolysis noted. Ordering Provider: GINA CALDERON Report Released Date/Time: January 30, 2025 02:33 PM Reporting Lab: [address] [address] Performing Lab: [address] [address] CHOLESTEROL 140 mg/dL 0-200 TRIGLYCERIDE 128 mg/dL 0-150 CALCULATED LDL 72 mg/dL HDL(New) 42 mg/dL >40 Feb 05, 2025 02:24 PM [facility] HGA1C BLOOD Specimen Type: BLOOD No comment entered. Ordering Provider: GINA CALDERON Report Released Date/Time: January 30, 2025 02:33 PM Reporting Lab: [address] [address] Performing Lab: [address] [address] HGA1C 7.4 H 4.0-6.0 Feb 05, 2025 02:24 PM [facility] B12 SERUM Specimen Type: SERUM No comment entered. Ordering Provider: GINA CALDERON Report Released Date/Time: January 30, 2025 02:33 PM Reporting Lab: [address] [address] Performing Lab: [address] [address] B12 >2000 pg/mL H 213-816 Feb 05, 2025 02:24 PM [facility] IRON/TIBC PROFILE SERUM Specimen Ty pe: SERUM No comment entered. Ordering Provider: GINA CALDERON Report Released Date/Time: January 30, 2025 02:33 PM Reporting Lab: [address] [address] Performing Lab: [address] [address] TIBC 214 ug/dL L 250-450 TRANSFERRIN 171 mg/dL 163-344 IRON SATURATION 46 20-50 IRON 99 ug/dL 65-175 Feb 05, 2025 02:24 PM [facility] CBC BLOOD Specimen Type: BLOOD No comment entered. Ordering Provider: GINA CALDERON Report Released Date/Time: January 30, 2025 02:33 PM Reporting Lab: [facility] [address] [address] Performing Lab: [facility] [address] [address] WBC 6.5 10*3/uL 3.6-11.2 RBC 4.31 10*6/uL [...] and tobacco- related health factors from the ID facility where the Encounter took place. Current Smoking Status This section includes the most current smoking, or tobacco-related health factor, from the ID facility where the Encounter took place. Date/Time Current Smoking Status Comment Virgil fatima Sep 03, 2024 01:30 PM VA-TOBACCO USE FORMER CIGARETTES [facility] Tobacco Use History This section includes a history of the smoking, or tobacco-related health factors, that were collected on or before the date of the Encounter. The data comes from the ID facility where the Encounter took place. Date/Time Smoking Status/Tobacco Use Comment F acility Sep 03, 2024 01:30 PM VA-TOBACCO USE FORMER CIGARETTES [facility] Sep 07, 2023 11:00 AM VA-TOBACCO FORMER USER [facility] Sep 07, 2023 11:00 AM VA-TOBACCO QUIT [address] [facility] May 21, 2020 09:30 AM VA-TOBACCO FORMER USER [facility] May 21, 2020 09:30 AM VA-TOBACCO QUIT [address] [facility] Mar 29, 2019 10:32 AM VA-TOBACCO FORMER USER [facility] Mar 29, 2019 10:32 AM VA-TOBACCO QUIT [address] [facility] Advance Directives: All historical and current Section Date Range: From patient's date of to the date document was created. This section includes ALL of a patient's completed or amended ID Advance and Rescinded Directives. The entries below indicate that a directive exists for the patient, but an actual copy is not included with this document. The data comes from all ID facilities. Date Advance Directives Provider Source May 21, 2019 ADVANCE DIRECTIVE DISCUSSION Boogie DOUGLAS [facility] Jul 28, 2016 ADVANCE DIRECTIVE DISCUSSION [facility] Radiology Reports: +/- 30 days of [...] the Encounter. The data comes from all ID treatment facilities. Date/Time Radiology Report Provider Source Feb 05, 2025 02:09 PM CHEST X-RAY, 2 VIE WS: ANDRÉS ROBERTS [id number] -1945 M Exm Date: FEB 05, 2025@14:09 Req Phys: GINA CALDERON Loc: [facility] PACT 5 (Req'g Loc) Img Loc: [facility] SUITE Service: Unknown [facility], [address] [place] [address] (Case [id number] COMPLETE) CHEST X-RAY, 2 VIEWS (RAD Detailed) CPT:55336 Reason for Study: History of lung cancer/COPD Clinical History: Requested by cardiology with consult Report Status: Verified Date Reported: FEB 06, 2025 Date Verified: FEB 06, 2025 Lonny E-Sig:/SADIA/ELZBIETA FRYE Report: CHEST X-RAY, 2 VIEWS COMPARISON: 03/08/2020. HISTORY: History of lung cancer/COPD FINDINGS: Heart size unchanged. There bilateral small lung nodules. Chronic irregular opacity again noted within the right upper lobe. No Pleural effusion or pneumothorax. Impression: Bilateral lung nodules possibly new. Recommend CT of the chest for further evaluation. RR Primary Interpreting Staff: ELZBIETA FRYE, Staff Physician (Lonny) /ELZBIETA ARTIS [facility] Encounter Notes: All associated encounter notes This section contains the clinical notes associated to the Encounter. Date/Time Encounter Note(s) Provider Source Feb 21, 2025 05:47 PM ADDENDUM: LOCAL TITLE: Addendum STANDARD TITLE: ADDENDUM DATE OF NOTE: FEB 21, 2025@17:47:19 ENTRY DATE: FEB 21, 2025@17:47:20 AUTHOR: RACHAEL SAMSON EXP COSIGNER: URGENCY: STATUS: COMPLETED Patient's was present during the visit and voiced a concern about patient getting a CT scan for lung nodules that were seen on X-ray. reviewed the patients [facility] and is concerned that the previous Xray that was clear was compared to the most recent one taken. reports the nodules are'nt new and the patient already has a CT scan scheduled outside [facility] 04/03/2025 and was just scheduled CT at [facility] 03/11/2025. would like for Provider to be reminded that this is not a new diagnosis. Patient is currently seeing Dr.Greg Caballero/[facility] [phone]. Nurse will fax request for last chest CT report. /sadia/ RAS AWAD,RN REGISTERED NURSE Signed: 02/21/2025 17:56 Receipt Acknowledged By: 02/25/2025 10:02 /sadia/ GINA CALDERON PA-C --- Original Document --- 02/21/25 V15 PACT FACE TO FACE NOTE STL: Nurse Visit: Patient Identifiers : Full Name Date of Reason for visit: B/p check-- Patient stopped B/P meds Home B/P checks Date time B/P Pulse 02/14 1945 144/73 66- 1/2 pill am 02/15 0930 120/64 72 02/15 2045 134/69 68 02/16 0650 128/71 73 02/16 2050 158/75 63 02/17 1040 116/66 77 02/17 1955 136/68 69 02/18 0845 117/70 73 02/18 1905 143/75 64 02/19 1020 116/76 81 02/19 0850 148/75 68 02/20 0955 121/68 73 02/20 1925 151/77 64 02/21 0915 128/79 70 Mode of Arrival: Ambulatory Allergy Review: SIMVASTATIN, SYMBICORT 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 's Response: feel better Chronic Disease Management (fill-in): Purpose of Encounter:Provider requested follow-up Diagnosis: Hypertension Subjective: feels like I an not all here Objective information: appears tired Is patient currently enrolled in the home telehealth (HT) program: No VSD - Detailed Vitals Date Vital Measurement Qualifiers 02/21/2025 14:01 Pulse 69 BP 110/50 02/17/2025 14:43 Temp F (C) 98.5 (36.9) Respir 16 Wt lbs (kg)[BMI] 171.9 (77.97)[25] Pain 4 POx (L/Min)(%) 95 01/15/2025 13:13 Ht in (cm) 69 (175.26) Allergy Review: SIMVASTATIN, SYMBICORT Allergy list reviewed [...] MOUTH AT BEDTIME ACTIVE FOR PROSTATE 22) TIOTROPIUM 1.25MCG/ACTUAT 60D ORAL INHL INHALE 2 INHALATIONS ACTIVE BY ORAL INHALATION ONCE A DAY (ADMINISTER AT SAME TIME EACH DAY) Indication: FOR COPD Patient reports the following medication regimen changes: B/P medication has been held. last taken 1/2 pill 02/14/2025. Per Provider request Assessment: Understanding of chronic disease pathology: Patient reports understanding of chronic disease-no additional education necessary. Modifiable risk factors: Nutrition: Modifying diet Planning/Intervention: Education: Chronic Disease Process: Modifiable Risk Factors: Nutrition: Eat less unhealthy fat. Cut back on saturated fats and trans fats (also called hydrogenated)by selecting lean cuts of meat, low-fat dairy, and using oils instead of solid fats. Limit baked goods, processed meats, and fried foods. Avoid foods high in sodium. [place]'s understanding verified by teach back: Yes For intervention, information forwarded to: Jerad /sadia/ RAS AWAD,RN REGISTERED NURSE Signed: 02/21/2025 17:46 Receipt Acknowledged By: 02/24/2025 08:Janey /sadia/ RACHAEL DENNIS PA-C [facility] Feb 21, 2025 05:31 PM NURSING NOTE: LOCAL TITLE: V15 PACT FACE TO FACE NOTE STL STANDARD TITLE: NURSING NOTE DATE OF NOTE: FEB 21, 2025@17:31 ENTRY DATE: FEB 21, 2025@17:32:03 AUTHOR: RACHAEL SAMSON EXP COSIGNER: URGENCY: STATUS: COMPLETED V15 PACT FACE TO FACE NOTE STL Has ADDENDA Nurse Visit: Patient Identifiers : Full Name Date of Reason for visit: B/p check-- Patient stopped B/P meds Home B/P checks Date time B/P Pulse 02/14 194 144/73 66- 1/2 pill am 02/15 0930 120/64 72 02/15 2045 134/69 68 02/16 0650 128/71 73 02/160 158/75 63 02/17 1040 116/66 77 02/17 1955 136/68 69 02/18 0845 117/70 73 02/18 1905 143/75 64 02/19 1020 116/76 81 02/19 0850 148/75 68 02/20 0955 121/68 73 02/20 1925 151/77 64 02/21 0915 128/79 70 Mode of Arrival: Ambulatory Allergy Review: SIMVASTATIN, SYMBICORT 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 's Response: feel better Chronic Disease Management (fill-in): Purpose of Encounter:Provider requested follow-up Diagnosis: Hypertension Subjective: feels like I an not all here Objective information: appears tired Is patient currently enrolled in the home telehealth (HT) program: No VSD - Detailed Vitals Date Vital Measurement Qualifiers 02/21/2025 14:01 Pulse 69 BP 110/50 02/17/2025 14:43 Temp F (C) 98.5 (36.9) Respir 16 Wt lbs (kg)[BMI] 171.9 (77.97)[25] Pain 4 POx (L/Min)(%) 95 01/15/2025 13:13 Ht in (cm) 69 (175.26) Allergy Review: SIMVASTATIN, SYMBICORT Allergy list reviewed [...] MOUTH AT BEDTIME ACTIVE FOR PROSTATE 22) TIOTROPIUM 1.25MCG/ACTUAT 60D ORAL INHL INHALE 2 INHALATIONS ACTIVE BY ORAL INHALATION ONCE A DAY (ADMINISTER AT SAME TIME EACH DAY) Indication: FOR COPD Patient reports the following medication regimen changes: B/P medication has been held. last taken 1/2 pill 02/14/2025. Per Provider request Assessment: Understanding of chronic disease pathology: Patient reports understanding of chronic disease-no additional education necessary. Modifiable risk factors: Nutrition: Modifying diet Planning/Intervention: Education: Chronic Disease Process: Modifiable Risk Factors: Nutrition: Eat less unhealthy fat. Cut back on saturated fats and trans fats (also called hydrogenated)by selecting lean cuts of meat, low-fat dairy, and using oils instead of solid fats. Limit baked goods, processed meats, and fried foods. Avoid foods high in sodium. 's understanding verified by teach back: Yes For intervention, information forwarded to: Jerad /sadia/ RAS AWAD,RN REGISTERED NURSE Signed: 02/21/2025 17:46 Receipt Acknowledged By: 02/24/2025 08:05 /sadia/ GINA CALDERON PA-C 02/21/2025 ADDENDUM STATUS: COMPLETED Patient's was present during the visit and voiced a concern about patient getting a CT scan for lung nodules that were seen on X-ray. reviewed the patients [facility] and is concerned that the previous Xray that was clear was compared to the most recent one taken. reports the nodules are'nt new and the patient already has a CT scan scheduled outside [facility] 04/03/2025 and was just scheduled CT at [facility] 03/11/2025. would like for Provider to be reminded that this is not a new diagnosis. Patient is currently seeing Dr.Greg Caballero/[facility] [phone]. Nurse will fax request for last chest CT report. /sadia/ RACHAEL SAMSON BSN,RN REGISTERED NURSE Signed: 02/21/2025 17:56 Receipt Acknowledged By: * AWAITING SIGNATURE * GINA CALDERON,RACHAEL Monk [facility]
--- OUTSIDE RECORDS SUMMARY | 2025-02-27 07:00 | XMS_ITS ---
Author Name [facility] [place] [facility] [place] Address [address] [place] [address] Care Team Providers Care Cartoon Artist Name Role Phone LINN MCKEON Primary Care [...] PART A Apr 04, 2010 PART A [id number] PATIENT MEDICARE (WNR) MEDICARE (M) PART B Apr 04, 2010 PART B [id number] [address] PATIENT MEDICARE (WNR) MEDICARE (M) PART A Apr 04, 2010 PART A [id number] [place] PATIENT MEDICARE (WNR) MEDICARE (M) PART B Apr 04, 2010 PART B [id number] [phone] ANDR[place] PATIENT Selected Encounter This section includes the information on record at [place] for the Encounter. Date/Time Encounter Type Encounter Description Reason Provider Source Feb 27, 2025 01:00 PM OFFICE O/P NEW HI 60 MIN CARDIOLOGY ICD-10-CM I95.9 Hypotension, unspecified OU,JIAFU IHE Encounter Template Text not used by [place] Assessments - Encounter Diagnoses This section includes the primary and secondary diagnoses documented for the Encounter. Date/Time Primary/Secondary Diagnosis Diagnosis Name Provider Source Feb 27, 2025 05:50 PM PRIMARY Hypotension, unspecified BECKIEMARILEE Duong [facility] Feb 27, 2025 05:50 PM SECONDARY Dyspnea, unspecified ERIKA WARDA Rhoda [facility] Plan of Treatment: Future Appointments (+ [...] Date/Time Appointment Type Appointme nt Facility Name Mar 13, 2025 01:30 PM AMBULATORY - MEDICINE [facility] Mar 27, 2025 03:00 PM AMBULATORY - SURGERY [facility] May 01, 2025 01:00 PM AMBULATORY - MEDICINE [facility] May 06, 2025 02:30 PM AMBULATORY - NONE [facility] May 14, 2025 01:15 PM AMBULATORY - MEDICINE [facility] May 14, 2025 02:00 PM AMBULATORY - MEDICINE [facility] Jul 09, 2025 03:00 PM AMBULATORY - MEDICINE [facility] Jul 21, 2025 02:00 PM AMBULATORY - MEDICINE [facility] Jul 21, 2025 02:01 PM AMBULATORY - NONE [facility] Aug 06, 2025 01:40 PM AMBULATORY - NONE [facility] Aug 12, 2025 02:30 PM AMBULATORY - NONE [facility] Aug 18, 2025 11:00 AM AMBULATORY - NONE [facility] Aug 21, 2025 11:30 AM AMBULATORY - NONE [facility] Active, Pending, and Scheduled Orders This section includes a listing of several types of active, pending, and scheduled orders, including clinic medications orders, diagnostic test orders, procedure orders and consult orders; where the start date of the order is 45 days before the date of the Encounter or 45 days after the date of theEncounter. The data comes from all [place] treatment facilities. Test Date/Time Test Type Test Details Facility Name Mar 04, 2025 12:00 AM Laboratory - Chemi stry Order BASIC METABOLIC PANEL GREEN LI/HEP BLD/PLAS PLASMA [facility] Mar 04, 2025 12:00 AM Laboratory - Chemi stry Order BRAIN NATRIURETIC PEPTIDE LAVENDER BLOOD PLASMA [facility] Lab Results: +/- 30 days of the encounter This section includes the Chemistry and Hematology Lab Results on record with [place] for the patient. Radiology Reports and Pathology Reports are provided separately, in subsequent sections. Lab Results This section contains the Chemistry/Hematology Results that were resulted 30 days before or 30 daysafter the date of the Encounter. Date/Time Source Result Type Result - Unit Interpretation Reference Range Specimen Type Comment Feb 05, 2025 02:29 PM [facility] MICRAL/CREAT PROFILE (STL) URINE Specimen Typ e: URINE Comment: uALB/CREAT Ratio Unable to be calculated Unable to calculate due to Microalbumin < 5.0 mg/L Ordering Provider: GINA CALDERON Report Released Date/Time: January 30, 2025 02:33 PM Reporting Lab: [facility] [address] [facility] [address] Performing Lab: [facility] [address] [address] URINE ALBUMIN (PB-STL) <5.0 mg/L uACR (STL) comment mg/g 0-29 CREATININE URINE/OTHERS 84.3 mg/dL 63-16 6 Feb 05, 2025 02:24 PM [facility] FERRITIN SERUM Specimen Type: SERUM No comment entered. Ordering Provider: GINA CALDERON Report Released Date/Time: January 30, 2025 02:33 PM Reporting Lab: [facility] [address] [facility] [address] Performing Lab: [facility] [address] [facility] [address] FERRITIN 83.91 ng/mL 22-275 Feb 05, 2025 02:24 PM [facility] VITAMIN D, 25-HYDROXY SERUM Specime n Type: SERUM No comment entered. Ordering Provider: GINA CALDERON Report Released Date/Time: January 30, 2025 02:33 PM Reporting Lab: [place] [address] [address] [address] Performing Lab: [place] [address] [facility] [address] VITAMIN D, 25-HYDROXY 88.6 ng/mL 30-96 Feb 05, 2025 02:24 PM [facility] TSH W/ REFLEX FT4 ([facility]) PLASMA Speci men Type: PLASMA No comment entered. Ordering Provider: GINA CALDERON Report Released Date/Time: January 30, 2025 02:33 PM Reporting Lab: [facility] [address] Performing Lab: [place] [address] [facility] [address] TSH 0.500 u[IU]/mL 0.47-5 Feb 05, 2025 02:24 PM [facility] FOLATE ([facility]) SERUM Specimen Type : SERUM No comment entered. Ordering Provider: GINA CALDERON Report Released Date/Time: January 30, 2025 02:33 PM Reporting Lab: [facility] [address] Performing Lab: [address] [address] FOLATE ([facility]) 19.5 ng/mL 7-20 Feb 05, 2025 02:24 PM [facility] RETICULOCYTE PANEL BLOOD Specimen T ype: BLOOD No comment entered. Ordering Provider: GINA CALDERON Report Released Date/Time: January 30, 2025 02:33 PM Reporting Lab: [address] [address] Performing Lab: [address] [address] RETIC RATIO 0.92 0.50-2.30 IRF 2.8 2.3-13.4 RETICULOCYTE HEMOGLOBIN EQUIVALENT 34.9 pg 28.2-36.6 RETIC COUNT,ABS 0.040 10*6/uL 0.022-0.10 1 Feb 05, 2025 02:24 PM [facility] MAGNESIUM PLASMA Specimen Type: PLASMA Comment: No hemolysis noted. Ordering Provider: GINA CALDERON Report Released Date/Time: January 30, 2025 02:33 PM Reporting Lab: [address] [address] Performing Lab: [address] [address] MAGNESIUM 2.0 mg/dL 1.6-2.6 Feb 05, 2025 02:24 PM [facility] B12 SERUM Specimen Type: SERUM No comment entered. Ordering Provider: GINA CALDERON Report Released Date/Time: January 30, 2025 02:33 PM Reporting Lab: [address] [address] Performing Lab: [address] [address] B12 >2000 pg/mL H 213-816 Feb 05, 2025 02:24 PM [facility] LIPID PANEL (STL) PLASMA Specimen Ty pe: PLASMA Comment: No hemolysis noted. Ordering Provider: GINA CALDERON Report Released Date/Time: January 30, 2025 02:33 PM Reporting Lab: [address] [address] Performing Lab: [address] [address] CHOLESTEROL 140 mg/dL 0-200 TRIGLYCERIDE 128 mg/dL 0-150 CALCULATED LDL 72 mg/dL HDL(New) 42 mg/dL >40 Feb 05, 2025 02:24 PM [facility] IRON/TIBC PROFILE SERUM Specimen Ty pe: SERUM No comment entered. Ordering Provider: GINA CALDERON Report Released Date/Time: January 30, 2025 02:33 PM Reporting Lab: [address] [address] Performing Lab: [address] [address] TIBC 214 ug/dL L 250-450 TRANSFERRIN 171 mg/dL 163-344 IRON SATURATION 46 20-50 IRON 99 ug/dL 65-175 Feb 05, 2025 02:24 PM [facility] HGA1C BLOOD Specimen Type: BLOOD No comment entered. Ordering Provider: GINA CALDERON Report Released Date/Time: January 30, 2025 02:33 PM Reporting Lab: [address] [address] Performing Lab: [address] [address] HGA1C 7.4 H 4.0-6.0 Feb 05, 2025 02:24 PM [facility] COMPREHENSIVE METABOLIC PANEL PLASMA Specimen Type: PLASMA Comment: No hemolysis noted. Ordering Provider: GINA CALDERON Report Released Date/Time: January 30, 2025 02:33 PM Reporting Lab: [address] [address] Performing Lab: [address] [address] CREATININE 0.98 mg/dL 0.7-1.3 UREA NITROGEN 22.3 [...] 78.4 >60 Feb 05, 2025 02:24 PM [facility] CBC BLOOD Specimen Type: BLOOD No comment entered. Ordering Provider: GINA CALDERON Report Released Date/Time: January 30, 2025 02:33 PM Reporting Lab: [facility] [address] [address] Performing Lab: [facility] [address] [facility] [address] WBC 6.5 10*3/uL 3.6-11.2 RBC 4.31 10*6/uL [...] Pain Height Weight Body Mass Index Source Feb 27, 2025 12:53 PM 97.5 F 66 /min 104/61 mm[Hg] 18 /min 93 % 4 171.2 lb 25 [facility] Social History: Smoking Status (Most [...] 05:24 PM ORYX ADMIT TOBACCO SCREEN NO [facility] Tobacco Use History This section includes a history of the smoking, or tobacco-related health factors, that were collected on or before the date of the Encounter. The data comes from the [place] facility where the Encounter took place. Date/Time Smoking Status/Tobacco Use Comment F acility May 12, 2022 01:00 PM VA-TOBACCO FORMER USER [facility] May 12, 2022 01:00 PM VA-TOBACCO QUIT 15 YRS OR MORE [facility] May 12, 2021 09:00 AM VA-TOBACCO FORMER USER [facility] May 12, 2021 09:00 AM VA-TOBACCO QUIT 15 YRS OR MORE [facility] Nov 01, 2017 03:12 PM LIFETIME NON-USER OF TOBACCO [facility] Dec 16, 2016 07:18 PM QUIT TOBACCO >7 YEARS AGO [facility] Jul 27, 2016 12:41 AM LIFETIME NON-USER OF TOBACCO [facility] Advance Directives: All historical and current Section Date Range: From patient's date of to the date document was created. This section includes ALL of a patient's completed or amended [place] Advance and Rescinded Directives. The entries below indicate that a directive exists for the patient, but an actual copy is not included with this document. The data comes from all [facility]. Date Advance Directives Provider Source May 21, 2019 ADVANCE DIRECTIVE DISCUSSION Boogie ODUGLAS [facility] Jul 28, 2016 ADVANCE DIRECTIVE DISCUSSION SEAN JOE [facility] Radiology Reports: +/- 30 days of [...] the Encounter. The data comes from all [place] treatment facilities. Date/Time Radiology Report Provider Source Feb 05, 2025 02:09 PM CHEST X-RAY, 2 VIE WS: [place]ES [id number] -[id number] M Exm Date: FEB 05, 2025@14:09 Req Phys: GINA CALDERON Loc: [facility] PACT 5 (Req'g Loc) Img Loc: [facility] SUITE Service: [facility], [address] [place] [address] (Case [id number] COMPLETE) CHEST X-RAY, 2 VIEWS (RAD Detailed) CPT:57971 Reason for Study: History of lung cancer/COPD Clinical History: Requested by cardiology with consult Report Status: Verified Date Reported: FEB 06, 2025 Date Verified: FEB 06, 2025 Activities Leader E-Sig:/SADIA/ELZBITEA FRYE Report: CHEST X-RAY, 2 VIEWS COMPARISON: 03/08/2020. HISTORY: History of lung cancer/COPD FINDINGS: Heart size unchanged. There bilateral small lung nodules. Chronic irregular opacity again noted within the right upper lobe. No Pleural effusion or pneumothorax. Impression: Bilateral lung nodules possibly new. Recommend CT of the chest for further evaluation. RR Primary Interpreting Staff: ELZBIETA FRYE, Staff Physician (Activities Leader) /ELZBIETA ARTIS [facility] Encounter Notes: All associated encounter notes This section contains the clinical notes associated to the Encounter. Date/Time Encounter Note(s) Provider Source Feb 27, 2025 05:50 PM ADDENDUM: LOCAL TITLE: Addendum STANDARD TITLE: ADDENDUM DATE OF NOTE: FEB 27, 2025@17:50 ENTRY DATE: FEB 27, 2025@17:50:53 AUTHOR: MARILEE WARD EXP COSIGNER: ALENA ALLEN URGENCY: STATUS: COMPLETED Jenn, please call patient in 2 weeks to see how he is doing with trialing low dose lasix. Thanks! /vanesa WARD D.O. ACID LOADER Signed: 02/27/2025 17:51 /vanesa ALLEN MD,[facility] STAFF KITCHEN SUPERVISOR Cosigned: 02/27/2025 19:47 Receipt Acknowledged By: 02/28/2025 08:34 /sadia/ RAS Ritter, architect internship Ad Compositor --- Original Document --- 02/27/25 CARDIOLOGY OUTPATIENT CONSULT STL: FEB 27, 2025 Cardiology Clinic Note Reason for visit: hypotension Chart was reviewed and history obtained from the patient. HPI: This is a 79 year old MALE with a PMH significant for coronary calcifications, DM2, hx CVA 2020, HTN, COPD, hx lung cancer, JEAN MARIE (not on CPAP) who is referred to cardiology for evaluation of hypotension. Patient is accompanied by his who relays most of the history due to patient reported issues with short term memory. For the last 12 months patient has not felt well - describes fatigue, fogginess in his head, dizziness, 30 pound weight loss and shortness of breath. A couple of months ago, he was seen by his PCP for dizziness and hypotension - BP medications (amlodipine, lisinopril and HCTZ held) with no significant change in his symptoms or BP. Patient's states his BP runs anywhere from 90-130 systolic with most mornings having low readings and PM having higher readings. Patient describes the sensation of dizziness all the time and has had a couple of falls - denies any palpitations or syncope. Descrbies chronic shortness of breath with no significant activity or exertion to deliniate of symptoms are worse. Denies any chest pain or prior cardiac history he is aware of. PCP has ordered 7D monitor which should result soon as well as EKG with report of infarct and TTE as detailed below. PMH/PSH: 1) Benign essential hypertension (SNOMED CT 4272490) 2) Moderate chronic obstructive pulmonary disease (SNOMED CT 554348626) 3) Obesity (SNOMED CT 645642305) 4) History of malignant melanoma of the skin (SNOMED CT 774161367791) 5) Osteoarthritis of knee (SNOMED CT 539444579) 6) Colonoscopy normal 7) Diabetes mellitus 8) HLD - Hyperlipidaemia 9) Expressive dysphasia 10) Moderate cognitive impairment 11) Neuropathy 12) Squamous cell carcinoma of lung 13) Vitamin B12 Deficiency ([facility] 752903460) 14) Vitamin D Deficiency ([facility] 97672573) 15) Arthritis of hand 16) Benign prostatic hyperplasia 17) Osteoarthritis of multiple joints 18) Exposure to potentially hazardous substance 19) Constipation 20) Erectile dysfunction SOCIAL HX: Tobacco: fomer in his 20-30s Alcohol: denies 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 ALLERGIES: SIMVASTATIN, SYMBICORT FAMILY HISTORY: No premature or sudden cardiac ROS: as per HPI OUTPATIENT MEDS: Active Outpatient Medications (including Supplies): Active Outpatient [...] SAME TIME EACH DAY) Indication: FOR COPD PHYSICAL EXAM: VS: BP: 104/61 P: 66 R: 18 WT: 171.2 T: 97.5 BMI: 25.3 General: thin, elderly male, cooperative, pleasant and in NAD HEENT: NC/AT, PERRL, MMM Neck: Supple, No LAD, JVD slightly above clavicle at 90 degrees Heart: RRR, no murmur rub or gallop Lungs: No respiratory distress, CTAB; no wheezing, rhonchi or rales Abdomen: NT/ND, BS normoactive Extremities: No LE Edema, pulses palpable b/l Neuro: no focal deficits Psych: appropriate mood and affect LABS: WBC 6.5 10*3/uL (02/05/25 14:24) HGB 13.6 g/dL 02/05/2025 14:24 HCT 41.7 % (02/05/25 14:24) PLT 279 10*3/uL 02/05/2025 14:24 SODIUM 139 mEq/L 02/05/2025 14:24 POTASSIUM 4.6 mEq/L 02/05/2025 14:24 CHLORIDE 105 mEq/L 02/05/2025 14:24 UREA NITROGEN 22.3 mg/dL 02/05/2025 14:24 CREATININE 0.98 mg/dL 02/05/2025 14:24 CALCIUM 9.5 mg/dL 02/05/2025 14:24 CARBON DIOXIDE 29 mEq/L 02/05/2025 14:24 GLUCOSE 177 H mg/dL 02/05/2025 14:24 EGFR (CKD-EPI 2020) 78.4 02/05/2025 14:24 HGA1C 7.4 H % 02/05/2025 14:24 HGA1C 7.8 H % 09/11/2024 11:08 HGA1C 6.9 H % 03/08/2024 11:52 HGA1C 7.3 H % 09/07/2023 10:15 HGA1C 7.3 H % 03/31/2023 10:10 TRIGLYCERIDE 128 mg/dL 02/05/2025 14:24 CHOLESTEROL 140 mg/dL 02/05/2025 14:24 HDL(New) 42 mg/dL 02/05/2025 14:24 CALCULATED LDL 72 mg/dL 02/05/2025 14:24 ---> EKG <--- 01/2025: sinus rhythm, 1st degree AVB, possible septal infarct ---> ECHOCARDIOGRAPHY <--- 02/2025 TTE: 1. Normal left ventricular size. Left ventricular wall thickness is normal. 2. Global systolic function: Overall left ventricular systolic function is normal with an estimated ejection fraction of 55 - 60%. 3. Moderate mitral regurgitation. 4. It appears to be predominately an anteriorly directed jet with splaying. PML does not appear to be flail or prolapsing. 5. The inferior vena cava is dilated (24 mm) with less than 50% inspiratory collapse, which is consistent with estimated right atrial pressure of 15 mmHg. 6. Consider ROSIE for MV assessment if clinically indicated. 7. No prior study available for comparison ---> STRESS TESTING <--- 03/2009 Lexiscan: Impression: 1. Left ventricular dilatation. 2. No evidence for stress-induced ischemia. 3. Normal left ventricular systolic function. ---> CARDIAC CATHETERIZATION <--- None on file. ASSESSMENT/PLAN: #Hypotension, labile blood pressure #Dizziness - with history of HTN; previously on 3 agents (lisinopril, amlodipine, HCTZ) - of recent, labile BPs with AM hypotensive readings and higher readings at night without much change after stopping all BP medications - ? diabetic Rx side effect vs autonomic dysfunction with longstanding diabetes - sitting BP 90/50, unchanged on standing > negative orthostatics PLAN: - agree with holding BP medications for now - recommend compression socks #Shortness of breath - unclear etiology, likely multifactorial - consider HFpEF/MR (i.e. volume overload) vs COPD/hx lung cancer vs deconditioning PLAN: - trial lasix 20mg daily with dilated IVC on TTE 2 days ago - BMP/BNP 1 week after starting lasix - nursing phone visit 1-2 weeks #HFpEF #Moderate MR - noted on TTE 02/2025 with dilated IVC / diastolic dysfunction PLAN: - already on SGLT2i - trial lasxi 20mg daily as above - unable to tolerate afterload reduction due to labile BP as above #Coronary calcifications #HLD - noted on LDCT, no hx of WA per patient report and normal WM on TTE - certainly has some degree of CAD based on risk factor profile; no clear evidence of infarct with normal wall motion/EF on TTE. EKG without clear inferior infarct criteria and anteroseptal infarct reported could be related to lead placement - last lipid panel with LDL of 72 PLAN: - continue ASA and atorvastatin 40mg daily - no need for ischemic testing at the present time #DM2: A1c 7.4%, on SGLT2i, metformin, glipizide, sitagliptin #JEAN MARIE: intolerant to CPAP RTC: 2 months Marilee Ward DO Performing Artist PGY5 FEB 27, 2025 = Time expended on this encounter: 60 minutes All patients are counseled on the risks of smoking at every visit including patients with no history of smoking in order to dissuade them from starting the use of tobacco products; former smokers to minimize recidivism of nicotine dependence; and current smokers in an effort to help them cease the use of nicotine products. Where relevant [age between 50-60-years and history of smoking], we and/or the PCP will obtain an abdominal ultrasound to screen for the possibility of an abdominal aortic aneurysm and ABIs to screen for occult PAD. When completed, the results will be found in [facility]. # HEALTH PROMOTION/HEALTH MAINTENANCE & EDUCATION DISEASE: Discussed treatment options & counseled on exacerbating factors. # DIAGNOSTIC TESTING AND LABORATORY DATA: Pertinent labs and diagnostic tests (both normal and abnormal) are included above and were reviewed and discussed with the patient within 7-days of the test and during this visit. - DISEASE: Coordinated care; discussed treatment options, & counseled on exacerbating factors. - Encouraged participation in regular exercise program 3-5 days/week - Maximize risk factor reduction & lifestyle modifications i.e. BP <130/80 and LDL goal <70 - Discussed at length about lifestyle modifications in regard to diet, exercise, and medication compliance. -Assessed smoking habits and whether actively using tobacco products or a past history of nicotine dependence, smoking cessation strategies were reinforced. - In patients with a history of CHF, ARYA/ARB use is considered and held when contraindications such as allergies, renal function preclude use. If not mentioned in the above note, these assessments are detailed in prior cardiology notes. The patient verbalized understanding of information regarding: labs, meds, and plans for care. Reinforcement is indicated. # MEDICATION RECONCILIATION: - All cardiac medications were reconciled during the visit. - All patients with an EF </= 40% are considered for Arya inhibitors or ARBs except when contraindicated due to intolerance/allergy, hypotension, or renal disease. Documentation is found in the historical record if not repeated in this note. - All patients with an EF </= 40% are considered for beta blockers and aspirin contraindicated due to intolerance/allergy, hypotension, bradycardia, or bleeding risk. Documentation is found in the historical record if not repeated in this note. - Anticoagulation therapy was discussed with all patients in the setting of atrial flutter/fibrillation and held in cases where the complications of bleeding (e.g., fall risk) outweighs the risk of stroke. All patients on anticoagulation medications are counseled on bleeding risks and the warning signs of a stroke or TIA. - Except where mentioned or restricted, the PCP may renew the cardiac medications. - Other listed profile meds will continue as directed by the PCP (primary provider). /vanesa WARD D.O. ACID LOADER Signed: 02/27/2025 17:50 /vanesa ALLEN MD,[facility] STAFF KITCHEN SUPERVISOR Cosigned: 02/27/2025 19:47 02/27/2025 ADDENDUM STATUS: COMPLETED Cardiology Attending Note I saw, interviewed and examined Mr. Miles with the Performing Artist, Dr. Dhara Vidales. I have reviewed the pt's clinical data including the ECG's, stress, Cath and Echo (when available) with automotive shop foreman. I have reviewed Dr. Dhara Vidales's note and agree with the history, physical findings and the initial eassessment and plan. ANDRÉS MILES had a moderate anteriorly directed eccentric mitral regurgitation by TTE. No evidence of severe MR. Will continue to monitor. Agree with trial of Lasix given elevated JVP and elevated central venous pressure per echo. /vanesa ALLEN MD,[facility] STAFF KITCHEN SUPERVISOR Signed: 02/27/2025 19:50 MARILEE WARD [facility] Feb 27, 2025 12:54 PM CARDIOLOGY CONSULT : LOCAL TITLE: CARDIOLOGY OUTPATIENT CONSULT ST STANDARD TITLE: CARDIOLOGY CONSULT DATE OF NOTE: FEB 27, 2025@12:54 ENTRY DATE: FEB 27, 2025@12:54:55 AUTHOR: MARILEE WARD EXP COSIGNER: ALENA ALLEN URGENCY: STATUS: COMPLETED CARDIOLOGY OUTPATIENT CONSULT STL Has ADDENDA FEB 27, 2025 Cardiology Clinic Note Reason for visit: hypotension Chart was reviewed and history obtained from the patient. HPI: This is a 79 year old MALE with a PMH significant for coronary calcifications, DM2, hx CVA 2019, HTN, COPD, hx lung cancer, JEAN MARIE (not on CPAP) who is referred to cardiology for evaluation of hypotension. Patient is accompanied by his who relays most of the history due to patient reported issues with short term memory. For the last 12 months patient has not felt well - describes fatigue, fogginess in his head, dizziness, 30 pound weight loss and shortness of breath. A couple of months ago, he was seen by his PCP for dizziness and hypotension - BP medications (amlodipine, lisinopril and HCTZ held) with no significant change in his symptoms or BP. Patient's states his BP runs anywhere from 90-130 systolic with most mornings having low readings and PM having higher readings. Patient describes the sensation of dizziness all the time and has had a couple of falls - denies any palpitations or syncope. Descrbies chronic shortness of breath with no significant activity or exertion to deliniate of symptoms are worse. Denies any chest pain or prior cardiac history he is aware of. PCP has ordered 7D monitor which should result soon as well as EKG with report of infarct and TTE as detailed below. PMH/PSH: 1) Benign essential hypertension (SNOMED CT 1923065) 2) Moderate chronic obstructive pulmonary disease (SNOMED CT 872935106) 3) Obesity (SNOMED CT 264883481) 4) History of malignant melanoma of the skin (SNOMED CT 340277832201) 5) Osteoarthritis of knee (SNOMED CT 662428876) 6) Colonoscopy normal 7) Diabetes mellitus 8) HLD - Hyperlipidaemia 9) Expressive dysphasia 10) Moderate cognitive impairment 11) Neuropathy 12) Squamous cell carcinoma of lung 13) Vitamin B12 Deficiency (SCT 875929879) 14) Vitamin D Deficiency (SCT 29785340) 15) Arthritis of hand 16) Benign prostatic hyperplasia 17) Osteoarthritis of multiple joints 18) Exposure to potentially hazardous substance 19) Constipation 20) Erectile dysfunction SOCIAL HX: Tobacco: fomer in his 20-30s Alcohol: denies 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 ALLERGIES: SIMVASTATIN, SYMBICORT FAMILY HISTORY: No premature or sudden cardiac ROS: as per HPI OUTPATIENT MEDS: Active Outpatient Medications (including Supplies): Active Outpatient [...] SAME TIME EACH DAY) Indication: FOR COPD PHYSICAL EXAM: VS: BP: 104/61 P: 66 R: 18 WT: 171.2 T: 97.5 BMI: 25.3 General: thin, elderly male, cooperative, pleasant and in NAD HEENT: NC/AT, PERRL, MMM Neck: Supple, No LAD, JVD slightly above clavicle at 90 degrees Heart: RRR, no murmur rub or gallop Lungs: No respiratory distress, CTAB; no wheezing, rhonchi or rales Abdomen: NT/ND, BS normoactive Extremities: No LE Edema, pulses palpable b/l Neuro: no focal deficits Psych: appropriate mood and affect LABS: WBC 6.5 10*3/uL (02/05/25 14:24) HGB 13.6 g/dL 02/05/2025 14:24 HCT 41.7 % (02/05/25 14:24) PLT 279 10*3/uL 02/05/2025 14:24 SODIUM 139 mEq/L 02/05/2025 14:24 POTASSIUM 4.6 mEq/L 02/05/2025 14:24 CHLORIDE 105 mEq/L 02/05/2025 14:24 UREA NITROGEN 22.3 mg/dL 02/05/2025 14:24 CREATININE 0.98 mg/dL 02/05/2025 14:24 CALCIUM 9.5 mg/dL 02/05/2025 14:24 CARBON DIOXIDE 29 mEq/L 02/05/2025 14:24 GLUCOSE 177 H mg/dL 02/05/2025 14:24 EGFR (CKD-EPI 2020) 78.4 02/05/2025 14:24 HGA1C 7.4 H % 02/05/2025 14:24 HGA1C 7.8 H % 09/11/2024 11:08 HGA1C 6.9 H % 03/08/2024 11:52 HGA1C 7.3 H % 09/07/2023 10:15 HGA1C 7.3 H % 03/31/2023 10:10 TRIGLYCERIDE 128 mg/dL 02/05/2025 14:24 CHOLESTEROL 140 mg/dL 02/05/2025 14:24 HDL(New) 42 mg/dL 02/05/2025 14:24 CALCULATED LDL 72 mg/dL 02/05/2025 14:24 ---> EKG <--- 01/2025: sinus rhythm, 1st degree AVB, possible septal infarct ---> ECHOCARDIOGRAPHY <--- 02/2025 TTE: 1. Normal left ventricular size. Left ventricular wall thickness is normal. 2. Global systolic function: Overall left ventricular systolic function is normal with an estimated ejection fraction of 55 - 60%. 3. Moderate mitral regurgitation. 4. It appears to be predominately an anteriorly directed jet with splaying. PML does not appear to be flail or prolapsing. 5. The inferior vena cava is dilated (24 mm) with less than 50% inspiratory collapse, which is consistent with estimated right atrial pressure of 15 mmHg. 6. Consider ROSIE for MV assessment if clinically indicated. 7. No prior study available for comparison ---> STRESS TESTING <--- 03/2009 Lexiscan: Impression: 1. Left ventricular dilatation. 2. No evidence for stress-induced ischemia. 3. Normal left ventricular systolic function. ---> CARDIAC CATHETERIZATION <--- None on file. ASSESSMENT/PLAN: #Hypotension, labile blood pressure #Dizziness - with history of HTN; previously on 3 agents (lisinopril, amlodipine, HCTZ) - of recent, labile BPs with AM hypotensive readings and higher readings at night without much change after stopping all BP medications - ? diabetic Rx side effect vs autonomic dysfunction with longstanding diabetes - sitting BP 90/50, unchanged on standing > negative orthostatics PLAN: - agree with holding BP medications for now - recommend compression socks #Shortness of breath - unclear etiology, likely multifactorial - consider HFpEF/MR (i.e. volume overload) vs COPD/hx lung cancer vs deconditioning PLAN: - trial lasix 20mg daily with dilated IVC on TTE 2 days ago - BMP/BNP 1 week after starting lasix - nursing phone visit 1-2 weeks #HFpEF #Moderate MR - noted on TTE 02/2025 with dilated IVC / diastolic dysfunction PLAN: - already on SGLT2i - trial lasxi 20mg daily as above - unable to tolerate afterload reduction due to labile BP as above #Coronary calcifications #HLD - noted on LDCT, no hx of WA per patient report and normal WM on TTE - certainly has some degree of CAD based on risk factor profile; no clear evidence of infarct with normal wall motion/EF on TTE. EKG without clear inferior infarct criteria and anteroseptal infarct reported could be related to lead placement - last lipid panel with LDL of 72 PLAN: - continue ASA and atorvastatin 40mg daily - no need for ischemic testing at the present time #DM2: A1c 7.4%, on SGLT2i, metformin, glipizide, sitagliptin #JEAN MARIE: intolerant to CPAP RTC: 2 months Marilee Ward DO Performing Artist PGY5 FEB 27, 2025 = Time expended on this encounter: 60 minutes All patients are counseled on the risks of smoking at every visit including patients with no history of smoking in order to dissuade them from starting the use of tobacco products; former smokers to minimize recidivism of nicotine dependence; and current smokers in an effort to help them cease the use of nicotine products. Where relevant [age between 50-60-years and history of smoking], we and/or the PCP will obtain an abdominal ultrasound to screen for the possibility of an abdominal aortic aneurysm and ABIs to screen for occult PAD. When completed, the results will be found in [facility]. # HEALTH PROMOTION/HEALTH MAINTENANCE & EDUCATION DISEASE: Discussed treatment options & counseled on exacerbating factors. # DIAGNOSTIC TESTING AND LABORATORY DATA: Pertinent labs and diagnostic tests (both normal and abnormal) are included above and were reviewed and discussed with the patient within 7-days of the test and during this visit. - DISEASE: Coordinated care; discussed treatment options, & counseled on exacerbating factors. - Encouraged participation in regular exercise program 3-5 days/week - Maximize risk factor reduction & lifestyle modifications i.e. BP <130/80 and LDL goal <70 - Discussed at length about lifestyle modifications in regard to diet, exercise, and medication compliance. -Assessed smoking habits and whether actively using tobacco products or a past history of nicotine dependence, smoking cessation strategies were reinforced. - In patients with a history of CHF, ARYA/ARB use is considered and held when contraindications such as allergies, renal function preclude use. If not mentioned in the above note, these assessments are detailed in prior cardiology notes. The patient verbalized understanding of information regarding: labs, meds, and plans for care. Reinforcement is indicated. # MEDICATION RECONCILIATION: - All cardiac medications were reconciled during the visit. - All patients with an EF </= 40% are considered for Arya inhibitors or ARBs except when contraindicated due to intolerance/allergy, hypotension, or renal disease. Documentation is found in the historical record if not repeated in this note. - All patients with an EF </= 40% are considered for beta blockers and aspirin contraindicated due to intolerance/allergy, hypotension, bradycardia, or bleeding risk. Documentation is found in the historical record if not repeated in this note. - Anticoagulation therapy was discussed with all patients in the setting of atrial flutter/fibrillation and held in cases where the complications of bleeding (e.g., fall risk) outweighs the risk of stroke. All patients on anticoagulation medications are counseled on bleeding risks and the warning signs of a stroke or TIA. - Except where mentioned or restricted, the PCP may renew the cardiac medications. - Other listed profile meds will continue as directed by the PCP (primary provider). /vanesa WARD D.O. ACID LOADER Signed: 02/27/2025 17:50 /vanesa ALLEN MD,[facility] STAFF KITCHEN SUPERVISOR Cosigned: 02/27/2025 19:47 02/27/2025 ADDENDUM STATUS: COMPLETED Jenn, please call patient in 2 weeks to see how he is doing with trialing low dose lasix. Thanks! /vanesa WARD D.O. ACID LOADER Signed: 02/27/2025 17:51 /vanesa ALLEN MD,[facility] STAFF KITCHEN SUPERVISOR Cosigned: 02/27/2025 19:47 Receipt Acknowledged By: * AWAITING SIGNATURE * JORJE CUEVASDEEPA Powell 02/27/2025 ADDENDUM STATUS: COMPLETED Cardiology Attending Note I saw, interviewed and examined Mr. Miles with the Performing Artist, Dr. Dhara Vidales. I have reviewed the pt's clinical data including the ECG's, stress, Cath and Echo (when available) with automotive shop foreman. I have reviewed Dr. Dhara Vidales's note and agree with the history, physical findings and the initial eassessment and plan. ANDRÉS MILES had a moderate anteriorly directed eccentric mitral regurgitation by TTE. No evidence of severe MR. Will continue to monitor. Agree with trial of Lasix given elevated JVP and elevated central venous pressure per echo. /vanesa ALLEN MD,[facility] STAFF KITCHEN SUPERVISOR Signed: 02/27/2025 19:50 MARILEE WARD [facility]
--- OUTSIDE RECORDS SUMMARY | 2025-02-28 06:06 | XMS_ITS | Encounter Summary ---
Author Name [facility] Address [address] [place] [address] Care Team Providers Care Industrial Green Systems Designer Name Role Phone LINN MCKEON Primary [...] PART A Apr 04, 2010 PART A [id number] ANDRÉS ROBERTS PATIENT MEDICARE (WNR) MEDICARE (M) PART B Apr 04, 2010 PART B [id number] ANDRÉS ROBERTS PATIENT MEDICARE (WNR) MEDICARE (M) PART A Apr 04, 2010 PART A [id number] [phone] ANDRÉS ROBERTS PATIENT MEDICARE (WNR) MEDICARE (M) PART B Apr 04, 2010 PART B [id number] [phone] ANDRÉS ROBERTS PATIENT Selected Encounter This section includes the information on record at [place] for the Encounter. Date/Time Encounter Type Encounter Description Reason Provider Source Feb 28, 2025 12:06 PM EXT ECG>7D<15D REV&INTERPJ AMB ECG MONITORING ICD-10-CM I95.9 Hypotension, unspecified MARY MANN I[facility] Encounter Template Text not used by [place] Assessments - Encounter Diagnoses This section includes the primary and secondary diagnoses documented for the Encounter. Date/Time Primary/Secondary Diagnosis Diagnosis Name Provider Source Feb 28, 2025 04:45 PM PRIMARY Hypotension, unspecified MARY MANN [facility] Plan of Treatment: Future Appointments (+ 6 months) and Future Tests (+/- 45 days) The Plan of Treatment section includes future care activities for the patient from all [place] treatmentfacilities. This section includes future appointments and future orders which are active, pending or scheduled. Future Appointments This section includes appointments that were scheduled to occur 6 months from the date of the Encounter, up to a maximum of 20 appointments. The data comes from all [place] treatment facilities. Appointment Date/Time Appointment Type Appointme nt Facility Name Mar 13, 2025 01:30 PM AMBULATORY - MEDICINE [facility] Mar 27, 2025 03:00 PM AMBULATORY - SURGERY [facility] May 01, 2025 01:00 PM AMBULATORY - MEDICINE [facility] May 06, 2025 02:30 PM [facility] NONE [facility] May 14, 2025 01:15 PM AMBULATORY - MEDICINE [facility] May 14, 2025 02:00 PM AMBULATORY - MEDICINE [facility] Jul 09, 2025 03:00 PM AMBULATORY - MEDICINE [facility] Jul 21, 2025 02:00 PM AMBULATORY - MEDICINE [facility] Jul 21, 2025 02:01 PM [facility] Aug 06, 2025 01:40 PM [facility] Aug 12, 2025 02:30 PM [facility]AT[facility] Aug 18, 2025 11:00 AM [facility]AT[facility]ONE [facility] Aug 21, 2025 11:30 AM AMBULATORY - NONE [facility] Active, Pending, and Scheduled Orders This section includes a listing of several types of active, pending, and scheduled orders, including clinic medications orders, diagnostic test orders, procedure orders and consult orders; where the start date of the order is 45 days before the date of the Encounter or 45 days after the date of theEncounter. The data comes from all [place] treatment facilities. Test Date/Time Test Type Test [...] Type Comment Feb 05, 2025 02:29 PM [facility] MICRAL/CREAT PROFILE (STL) URINE Specimen Typ e: URINE Comment: uALB/CREAT Ratio Unable to be calculated Unable to calculate due to Microalbumin < 5.0 mg/L Ordering Provider: GINA CALDERON Report Released Date/Time: January 30, 2025 02:33 PM Reporting Lab: [facility] [address] [facility] [address] Performing Lab: [place] [id number] [facility] [address] URINE ALBUMIN (PB-STL) <5.0 mg/L uACR (STL) comment mg/g 0-29 CREATININE URINE/OTHERS 84.3 mg/dL 63-16 6 Feb 05, 2025 02:24 PM [facility] FERRITIN SERUM Specimen Type: SERUM No comment entered. Ordering Provider: GINA CADLERON Report Released Date/Time: January 30, 2025 02:33 PM Reporting Lab: [place] [address] [address] Performing Lab: [place] [address] [facility] [address] FERRITIN 83.91 ng/mL 22-275 Feb 05, 2025 02:24 PM [facility] MAGNESIUM PLASMA Specimen Type: PLASMA Comment: No hemolysis noted. Ordering Provider: GINA CALDERON Report Released Date/Time: January 30, 2025 02:33 PM Reporting Lab: [place] [address] [facility] [address] Performing Lab: [place] [address] [facility] [address] MAGNESIUM 2.0 mg/dL 1.6-2.6 Feb 05, 2025 02:24 PM [facility] RETICULOCYTE PANEL BLOOD Specimen T ype: BLOOD No comment entered. Ordering Provider: GINA CALDERON Report Released Date/Time: January 30, 2025 02:33 PM Reporting Lab: [place] [address] [facility] [address] Performing Lab: [place] [address] [facility] [address] RETIC RATIO 0.92 0.50-2.30 IRF 2.8 2.3-13.4 RETICULOCYTE HEMOGLOBIN EQUIVALENT 34.9 pg 28.2-36.6 RETIC COUNT,ABS 0.040 10*6/uL 0.022-0.10 1 Feb 05, 2025 02:24 PM [facility] VITAMIN D, 25-HYDROXY SERUM Specime n Type: SERUM No comment entered. Ordering Provider: GINA CALDERON Report Released Date/Time: January 30, 2025 02:33 PM Reporting Lab: [place] [address] [facility] [address] Performing Lab: [address] [address] VITAMIN D, 25-HYDROXY 88.6 ng/mL 30-96 Feb 05, 2025 02:24 PM [facility] TSH W/ REFLEX FT4 (STL) PLASMA Speci men Type: PLASMA No comment entered. Ordering Provider: GINA CALDERON Report Released Date/Time: January 30, 2025 02:33 PM Reporting Lab: [address] [address] Performing Lab: [address] [address] TSH 0.500 u[IU]/mL 0.47-5 Feb 05, 2025 02:24 PM [facility] FOLATE (L-MA) SERUM Specimen Type : SERUM No comment entered. Ordering Provider: GINA CALDERON Report Released Date/Time: January 30, 2025 02:33 PM Reporting Lab: [address] [address] Performing Lab: [address] [address] FOLATE ([facility]) 19.5 ng/mL 7-20 Feb 05, 2025 02:24 PM [facility] LIPID PANEL (L) PLASMA Specimen Ty pe: PLASMA Comment: No hemolysis noted. Ordering Provider: GINA CALDERON Report Released Date/Time: January 30, 2025 02:33 PM Reporting Lab: [address] [address] Performing Lab: [address] [address] CHOLESTEROL 140 mg/dL 0-200 TRIGLYCERIDE 128 mg/dL 0-150 CALCULATED LDL 72 mg/dL HDL(New) 42 mg/dL >40 Feb 05, 2025 02:24 PM [facility] HGA1C BLOOD Specimen Type: BLOOD No comment entered. Ordering Provider: GNIA CALDERON Report Released Date/Time: January 30, 2025 02:33 PM Reporting Lab: [address] [address] Performing Lab: [address] [address] HGA1C 7.4 H 4.0-6.0 Feb 05, 2025 02:24 PM [facility] IRON/TIBC PROFILE SERUM Specimen Ty pe: SERUM No comment entered. Ordering Provider: GINA CALDERON Report Released Date/Time: January 30, 2025 02:33 PM Reporting Lab: [address] [address] Performing Lab: [address] [address] TIBC 214 ug/dL L 250-450 TRANSFERRIN 171 mg/dL 163-344 IRON SATURATION 46 20-50 IRON 99 ug/dL 65-175 Feb 05, 2025 02:24 PM [facility] B12 SERUM Specimen Type: SERUM No comment entered. Ordering Provider: GINA CALDERON Report Released Date/Time: January 30, 2025 02:33 PM Reporting Lab: [address] [address] Performing Lab: [address] [address] B12 >2000 pg/mL H 213-816 Feb 05, 2025 02:24 PM [facility] COMPREHENSIVE METABOLIC PANEL PLASMA Specimen Type: PLASMA Comment: No hemolysis noted. Ordering Provider: GINA CALDERON Report Released Date/Time: January 30, 2025 02:33 PM Reporting Lab: [address] [address] Performing Lab: [address] [address] CREATININE 0.98 mg/dL 0.7-1.3 UREA NITROGEN 22.3 [...] 78.4 >60 Feb 05, 2025 02:24 PM [facility] CBC BLOOD Specimen Type: BLOOD No comment entered. Ordering Provider: GINA CALDERON Report Released Date/Time: January 30, 2025 02:33 PM Reporting Lab: [facility] [address] [address] Performing Lab: [facility] [address] [address] WBC 6.5 10*3/uL 3.6-11.2 RBC 4.31 10*6/uL [...] and tobacco- related health factors from the [place] facility where the Encounter took place. Current Smoking Status This section includes the most current smoking, or tobacco-related health factor, from the [place] facility where the Encounter took place. Date/Time Current Smoking Status Comment Facil ity January 13, 2023 05:24 PM ORYX ADMIT TOBACCO SCREEN NO [facility] Tobacco Use History This section includes a history of the smoking, or tobacco-related health factors, that were collected on or before the date of the Encounter. The data comes from the [place] facility where the Encounter took place. Date/Time Smoking Status/Tobacco Use Comment F acility May 12, 2022 01:00 PM VA-TOBACCO FORMER USER [facility] May 12, 2022 01:00 PM VA-TOBACCO QUIT 15 YRS OR MORE [facility] May 12, 2021 09:00 AM VA-TOBACCO FORMER USER [facility] May 12, 2021 09:00 AM VA-TOBACCO QUIT 15 YRS OR MORE [facility] Nov 01, 2017 03:12 PM LIFETIME NON-USER OF TOBACCO [facility] Dec 16, 2016 07:18 PM QUIT TOBACCO >7 YEARS AGO [facility] Jul 27, 2016 12:41 AM LIFETIME NON-USER OF TOBACCO [facility] Advance Directives: All historical and current Section Date Range: From patient's date of to the date document was created. This section includes ALL of a patient's completed or amended [place] Advance and Rescinded Directives. The entries below indicate that a directive exists for the patient, but an actual copy is not included with this document. The data comes from all [place] facilities. Date Advance Directives Provider Source May 21, 2019 ADVANCE DIRECTIVE DISCUSSION Boogie DOUGLAS [facility] Jul 28, 2016 ADVANCE DIRECTIVE DISCUSSION SEAN JOE [facility] Radiology Reports: +/- 30 days of the [...] the Encounter. The data comes from all [place] treatment facilities. Date/Time Radiology Report Provider Source Feb 05, 2025 02:09 PM CHEST X-RAY, 2 VIE WS: ANDRÉS ROBERTS [id number] -1945 M Ex Date: FEB 05, 2025@14:09 Req Phys: GINA CALDERON Loc: [facility] 5 (Req'g Loc) Img Loc: [facility] SUITE Service: Unknown [facility], [address] [place] [address] (Case [id number] COMPLETE) CHEST X-RAY, 2 VIEWS (RAD Detailed) CPT:92950 Reason for Study: History of lung cancer/COPD Clinical History: Requested by cardiology with consult Report Status: Verified Date Reported: FEB 06, 2025 Date Verified: FEB 06, 2025 Manager Instrumentation E-Sig:/ES/ELZBIETA FRYE Report: CHEST X-RAY, 2 VIEWS COMPARISON: 03/08/2020. HISTORY: History of lung cancer/COPD FINDINGS: Heart size unchanged. There bilateral small lung nodules. Chronic irregular opacity again noted within the right upper lobe. No Pleural effusion or pneumothorax. Impression: Bilateral lung nodules possibly new. Recommend CT of the chest for further evaluation. RR Primary Interpreting Staff: ELZBIETA FRYE Staff Physician (Manager Instrumentation) /ELZBIETA ARTIS JONATHAN EL [facility] Encounter Notes: All associated encounter notes This section contains the clinical notes associated to the Encounter. Date/Time Encounter Note(s) Provider Source Feb 28, 2025 12:06 PM CARDIOLOGY DIAGNOS TIC STUDY CONSULT: LOCAL TITLE: HOLTER MONITOR COMPLETED CONSULT [facility] STANDARD TITLE: CARDIOLOGY DIAGNOSTIC STUDY CONSULT DATE OF NOTE: FEB 28, 2025@12:06 ENTRY DATE: FEB 28, 2025@12:06:11 AUTHOR: MARY MANN EXP COSIGNER: URGENCY: STATUS: COMPLETED 14-Day Ambulatory Holter Report Date test started: 02/05/2025 9:16pm Date test ended: 02/19/2025 9:15pm Date Report Received: 02/28/2025 Duration of Recordin days 0 hours Duration of Analysis: 13 days 20 hours Reason for Holter: I95.9 Hypotension, unspecified High Heart Rate: 182 bpm at 9:22am on 02/10 (during episode of VT) Sinus High Heart Rate: 106 bpm at 11:34am on 02/10 Average Heart Rate: 69 bpm Low Heart Rate: 31 bpm at 1:20pm on 02/13 (during 2nd Degree AV Block-Mobitz 1) Sinus Low Heart Rate: 60 bpm at 03:28pm on 02/06 VENTRICULAR ECTOPY TOTAL number of Premature Ventricular Contractions: 4,671 (<1%) Total Paired PVC's: 154 (<1%) Total Triplet PVC's: 13 (<1%) Total runs of Non-sustained Ventricular Tachycardia: 4 Longest Run: 19 beats Fastest Run: 174 bpm ATRIAL ECTOPY TOTAL number of Premature Atrial Contractions: 1,769 (<1%) Total Paired PAC's: 23 (<1%) Total Triplet PAC's: 0 Total runs of Paroxysmal Atrial Tachycardia: 0 Longest Run: 0 beats Fastest Run: 0 bpm Rhythm Interpretation: 1) The predominant rhythm was Sinus Rhythm, First Degree AV Block - Second Degree AV Block-Mobitz 1 present. 2) Bradycardia 0%, Controlled 99%, Tachycardia <1% 3) Fastest episode of Ventricular Tachycardia: Non-Patient Triggered - 02/10 at 9:22am, 6 beats of VT (2.6 seconds) HR:150-182bpm 4) Longest episode of Ventricular Tachycardia: Non-Patient Triggered - 02/06 at 7:51am, 19 beats of VT (9.2 seconds) HR:105-156bpm 5) There was (1) patient triggered event. - 02/08 at 10:44am, event associated with Sinus HR:76bpm 6) There were (0) patient diary entries. Clinical Significance: Normal sinus rhythm with first-degree AV block at baseline. There was 1 patient triggered event, no symptom was identified, associated with sinus rhythm at 78 bpm Isolated PVCs, couplets and triplets noted. 4 episodes of nonsustained VT: Fastest 6 beats at 182 bpm, longest 19 beats at 131 bpm Idioventricular rhythm was noted at 12:30 PM Mobitz type I AV block noted at 1:20 PM PVC burden less than 1% No long pauses or sustained tachyarrhythmias. /sadia/ Mary Mann MD Cardiology Physician Signed: 02/28/2025 16:45 Receipt Acknowledged By: 03/03/2025 09:15 /es/ JOSE CARLOS ROMAN Medical Electrical Research Engineer/EKG 03/03/2025 09:10 /es/ Shaw Tay Medical Electrical Research Engineer-EKG 03/03/2025 08:56 /es/ CORTNEY SPENCER Medical Electrical Research Engineer EKG 03/03/2025 09:02 /es/ MARY BYRNE PA-C [facility]
--- OUTSIDE RECORDS SUMMARY | 2025-03-13 07:30 | XMS_ITS | Encounter Summary ---
Author Name [facility] [place] [facility] [place] [facility] [facility] [place] Address [address] [place] [address] Care Team Providers Care Cloth Finishing Range Operator Name Role Phone LINN MCKEON Primary [...] PART A Apr 04, 2010 PART A [id number] [phone] ANDRÉS MILES PATIENT MEDICARE (WNR) MEDICARE (M) PART B Apr 04, 2010 PART B [id number] ANDRÉS MILES PATIENT MEDICARE (WNR) MEDICARE (M) PART B Apr 04, 2010 PART B [id number] [phone] ANDRÉS MILES PATIENT MEDICARE (WNR) MEDICARE (M) PART A Apr 04, 2010 PART A [id number] ANDRÉS MILES PATIENT Selected Encounter This section includes the information on record at [place] for the Encounter. Date/Time Encounter Type Encounter Description Reason Provider Source Mar 13, 2025 01:30 PM OFFICE O/P EST LOW 20 MIN ENDOCRINOLOGY ICD-10-CM E11.9 Type 2 diabetes mellitus without complications VIVIAN KIRK Lacho Encounter Template Text not used by [place] Assessments - Encounter Diagnoses This section includes the primary and secondary diagnoses documented for the Encounter. Date/Time Primary/Secondary Diagnosis Diagnosis Name Provider Source Mar 13, 2025 03:07 PM PRIMARY Type 2 diabetes mellitus without complications RAMON BOOTH [facility] Mar 13, 2025 03:07 PM SECONDARY Hypotension, unspecified RAMON BOOTH [facility] Plan of Treatment: Future Appointments (+ 6 months) and Future Tests (+/- 45 days) The Plan of Treatment section includes future care activities for the patient from all [place] treatmentfaunc healthities. This section includes future appointments and future orders which are active, pending or scheduled. Future Appointments This section includes appointments that were scheduled to occur 6 months from the date of the Encounter, up to a maximum of 20 appointments. The data comes from all [place] treatment facilities. Appointment Date/Time Appointment Type Appointme nt Facility Name Mar 27, 2025 03:00 PM AMBULATORY - SURGERY [facility] May 01, 2025 01:00 PM AMBULATORY - MEDICINE [facility] May 06, 2025 02:30 PM AMBULATORY - NONE [facility] May 14, 2025 01:15 PM AMBULATORY - MEDICINE [facility] May 14, 2025 02:00 PM AMBULATORY - MEDICINE [facility] Jul 09, 2025 03:00 PM AMBULATORY - MEDICINE [facility] Jul 21, 2025 02:00 PM AMBULATORY - MEDICINE [facility] Jul 21, 2025 02:01 PM AMBULATORY - NONE [facility] Aug 06, 2025 01:40 PM AMBULATORY - NONE [facility] Aug 12, 2025 02:30 PM AMBULATORY - NONE [facility] Aug 18, 2025 11:00 AM AMBULATORY - NONE [facility] Aug 21, 2025 11:30 AM AMBULATORY - NONE [facility] Active, Pending, and Scheduled Orders This section includes a listing of several types of active, pending, and scheduled orders, including clinic medications orders, diagnostic test orders, procedure orders and consult orders; where the start date of the order is 45 days before the date of the Encounter or 45 days after the date of theEncounter. The data comes from all [facility] facilities. Test Date/Time Test Type Test Details Facility Name Mar 04, 2025 12:00 AM Laboratory - Chemi stry Order BASIC METABOLIC PANEL GREEN LI/HEP BLD/PLAS [facility] Mar 04, 2025 12:00 AM Laboratory - Chemi stry Order BRAIN NATRIURETIC PEPTIDE LAVENDER BLOOD [facility] Apr 21, 2025 12:00 AM Laboratory - Chemi stry Order CREATININE(EGFR) GREEN LI/HEP BLD/PLAS [facility] Vital Signs: All taken on the encounter date This section contains inpatient and outpatient Vital Signs collected on the date of the Encounter. Date/Time Temperature Pulse Blood Pressure Respiratory Rate SP02 Pain Height Weight Body Mass Index Source Mar 13, 2025 03:01 PM 97/65 mm[Hg] [facility] N Mar 13, 2025 01:59 PM 72/48 mm[Hg] [facility] N Mar 13, 2025 01:59 PM 73/51 mm[Hg] [facility] N Mar 13, 2025 01:58 PM 98.2 F 89 /min 86/56 mm[Hg] 16 /min 96 % [facility] N Social History: Smoking Status (Most current) and Tobacco Use (All prior to encounter date) This section includes the most current, and the historical, smoking and tobacco- related health factors from the [place] facility where the Encounter took place. Current Smoking Status This section includes the most current smoking, or tobacco-related health factor, from the [place] facility where the Encounter took place. Date/Time Current Smoking Status Comment Facil ity January 13, 2023 05:24 PM ORYX ADMIT TOBACCO SCREEN NO [facility] Tobacco Use History This section includes a history of the smoking, or tobacco-related health factors, that were collected on or before the date of the Encounter. The data comes from the [place] facility where the Encounter took place. Date/Time Smoking Status/Tobacco Use Comment F acility May 12, 2022 01:00 PM VA-TOBACCO FORMER USER [facility] May 12, 2022 01:00 PM VA-TOBACCO QUIT 15 YRS OR MORE [facility] May 12, 2021 09:00 AM VA-TOBACCO FORMER USER [facility] May 12, 2021 09:00 AM VA-TOBACCO QUIT 15 YRS OR MORE [facility] Nov 01, 2017 03:12 PM LIFETIME NON-USER OF TOBACCO [facility] Dec 16, 2016 07:18 PM QUIT TOBACCO >7 YEARS AGO [facility] Jul 27, 2016 12:41 AM LIFETIME NON-USER OF TOBACCO [facility] Advance Directives: All historical and current Section Date Range: From patient's date of to the date document was created. This section includes ALL of a patient's completed or amended [place] Advance and Rescinded Directives. The entries below indicate that a directive exists for the patient, but an actual copy is not included with this document. The data comes from all [facility]. Date Advance Directives Provider Source May 21, 2019 ADVANCE DIRECTIVE DISCUSSION Boogie DOUGLAS [facility] Jul 28, 2016 ADVANCE DIRECTIVE DISCUSSION SEAN JOE [facility] Radiology Reports: +/- 30 days of [...] the Encounter. The data comes from all [place] treatment facilities. Date/Time Radiology Report Provider Source Apr 03, 2025 06:[address] THORAX, DIAGNOS TIC W/O CONTRAST: ANDRÉS MILES [id number] M Exm Date: APR 03, 2025@06:00 Req Phys: SARA HELLER Pat Loc: [facility] PHYSICIAN 1 (Re Img Loc: OUTSIDE [facility] Service: Unknown (Case [id number] COMPLETE) CT THORAX, DIAGNOSTIC W/O CONTRAS(CT Detailed) CPT:13534 Reason for Study: Upload Images Clinical History: Use this order to request image importing from outside facilities. Each outisde exam requires a separate order. For a disc import requests, disc must be received by requesting clinic first prior to routing to Diagnostic Imaging Service. Discs can be sent via interoffice mail to ATTN:[employer] DO NOT have outside facilities mail discs directly to Diagnostic Imaging. Image Source: Disc Medicom Exam Descripton: CT Date of Exam:Mar Community care exam? No Routine requests will be completed within 3 business days. If requesting a STAT upload, please send email to: at time of request. STAT exams will be uploaded within 48 business hours. This request is for images only. [facility] Diagnostic Imaging Service cannot provide interpretation for studies performed from outside facilities. Access to the report is the responsibility of the requesting provider. Report Status: Electronically Filed Date Reported: MAY 01, 2025 Report: [facility] and images were uploaded into [employer]. In order to upload images a case number was needed, therefore this is an administrative report. Impression: This [facility] and images were uploaded into [employer]. In order to upload images a case number was needed, therefore this is an administrative report VERIFIED BY: / *ELECTRONICALLY FILED* [facility] Encounter Notes: All associated encounter notes This section contains the clinical notes associated to the Encounter. Date/Time Encounter Note(s) Provider Source Mar 13, 2025 03:14 PM ADDENDUM: LOCAL TITLE: Addendum STANDARD TITLE: ADDENDUM DATE OF NOTE: MAR 13, 2025@15:14 ENTRY DATE: MAR 13, 2025@15:15:01 AUTHOR: RAMON BOOTH EXP COSIGNER: ALENA ALLEN URGENCY: STATUS: COMPLETED Patient was hypotensive with symptoms in clinic. Symptoms resolved after drinking water. Dr. Kirk and I told him to hold lasix at this time until f/u with you to prevent future hypotensive episodes at home. 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 While vitals were checked, pt endorsed dizziness and had BP reads of 80s/50s in both arms. On recheck while remaining sitting, BP reads were 70s/40s. Pt was given water at this time. On discussion with , Mr. Miles was started on furosemide 20 mg recently by his outreach team member. He d/c'ed the lisinopril and amlodipine. After water, Mr. Miles reported that his lightheadedness improved. Repeat BP measurement after exam was 97/55. He was advised to continue to drink more water throughout the day. Glucometer Reads Range 105-240 at night since start of March Range 153-178 in mornings since start of March No hypoglycemic episodes that he can remember BP Measures morning and night morning 110s/60s-70s, slightly higher at night Suspect related hypotensive fall a couple of months ago, no LOC Meds Sitagliptin 25 mg Glipizide 5 mg empagliflozin 10 mg/metformin 1000 mg Diet 2 meals a day, no fast food breakfast is at noon protein shake for snack No soda, juice Unsweetened ice tea is primary drink Exercise Limited walking Pedals on bike half hour every other day ROS Endorsed polyuria with furosemide, neuropathy in legs up to knees bilaterally, tingling in fingertips occasionally, daily JURADO around noon, blurred vision that comes and goes, lightheadedness every day that comes and goes, constipation Denied polydipsia, weakness, palpitations, loss of consciousness, N/V, diarrhea Allergies: SIMVASTATIN, SYMBICORT Medications: Active Outpatient Medications [...] days Sig: INHALE 2 PUFFS ORAL Refills: 1 Last : 01/31/25 INHALATION FOUR TIMES A DAY NEEDED SHAKE Expr : 09/04/25 WELL. RINSE MOUTHPIECE FREQUENTLY TO PREVENT CLOGGING. Indication: FOR COPD 3) AMLODIPINE BESYLATE 5MG TAB Qty: 90 for 90 ACTIVE Issue: 08/06/24 days Sig: TAKE ONE TABLET BY MOUTH ONCE A Refills: 1 Last : 01/23/25 DAY Expr : 08/07/25 Indication: FOR HIGH BLOOD PRESSURE 4) ATORVASTATIN CALCIUM 80MG TAB Qty: 45 for 90 ACTIVE Issue: 12/12/24 days Sig: TAKE ONE-HALF TABLET BY MOUTH Refills: 2 Last : 03/20/25 EVERY EVENING FOR CHOLESTEROL. REPORT ANY Expr : 12/13/25 UNEXPLAINED MUSCLE PAIN/WEAKNESS TO PROVIDER. 5) CAPSAICIN 0.075% CREAM Qty: 120 for 90 days ACTIVE Issue: 09/03/24 Sig: APPLY SPARINGLY TO AFFECTED AREA(S) Refills: 3 Last : 09/03/24 FOUR TIMES A DAY NEEDED FOR EXTERNAL USE Expr : 09/04/25 ONLY. WASH HANDS AFTER APPLICATION. Indication: FOR PAIN 6) CHOLECALCIF 50MCG (D3-2,000UNIT) TAB Qty: ACTIVE Issue: 07/12/24 200 for 90 days Sig: TAKE TWO TABLETS BY Refills: 1 Last : 01/29/25 MOUTH ONCE A DAY FOR VITAMIN D DEFICIENCY. Expr : 07/13/25 7) CYANOCOBALAMIN 1000MCG TAB Qty: 100 for 90 ACTIVE Issue: 01/30/25 days Sig: TAKE ONE TABLET BY MOUTH ONCE A Refills: 3 Last : 02/14/25 DAY FOR B12 SUPPLEMENTATION Expr : 01/31/26 Indication: FOR VITAMIN B12 SUPPLEMENTATION 8) DOCUSATE NA 100MG CAP Qty: 400 for 90 days ACTIVE Issue: 01/30/25 Sig: TAKE TWO CAPSULES BY MOUTH TWICE A DAY Refills: 3 Last : 01/30/25 HOLD FOR LOOSE STOOL/DIARRHEA. Expr : 01/31/26 Indication: FOR SOFTENING STOOL 9) EMPAGLIFLOZIN 10/METFORM 1000MG 24HR TAB ACTIVE Issue: 05/09/24 Qty: 180 for 90 days Sig: TAKE 2 TABLETS BY Refills: 0 Last : 01/25/25 MOUTH ONCE A DAY TAKE WITH FOOD Expr : 05/10/25 Indication: FOR DIABETES 10) FINASTERIDE 5MG TAB Qty: 90 for 90 days Sig: ACTIVE Issue: 01/28/25 TAKE ONE TABLET BY MOUTH ONCE A DAY FOR Refills: 3 Last : 01/29/25 PROSTATE Expr : 01/29/26 11) FLUOROURACIL 5% CREAM Qty: 40 for 30 [...] 2 WEEKS. Indication: FOR ACTINIC KERATOSIS 12) FUROSEMIDE 20MG TAB Qty: 90 for 90 days Sig: ACTIVE Issue: 02/27/25 TAKE ONE TABLET BY MOUTH EVERY MORNING Refills: 0 Last : 02/27/25 Indication: FOR FLUID RETENTION (EDEMA) Expr : 05/28/25 13) GLIPIZIDE 5MG TAB Qty: 180 for 90 days Sig: ACTIVE Issue: 10/15/24 TAKE ONE TABLET BY MOUTH TWO TIMES A DAY Refills: 2 Last : 01/06/25 BEFORE MEALS TAKE 30 MINUTES BEFORE EATING. Expr : 10/16/25 Indication: FOR DIABETES 14) HYDROPHILIC (EQV EUCERIN) TOP CREAM Qty: 454 ACTIVE Issue: 05/14/24 for 90 days Sig: APPLY LIBERALLY TO AFFECTED Refills: 1 Last : 11/09/24 AREA(S) ONCE A DAY (EXTERNAL USE ONLY) APPLY Expr : 05/15/25 TO DRY SKIN Indication: FOR SKIN CARE 15) KETOCONAZOLE 2% CREAM Qty: 60 for 30 days ACTIVE Issue: 05/14/24 Sig: APPLY LIBERALLY TO AFFECTED AREA(S) Refills: 3 Last : 05/16/24 TWICE A DAY (EXTERNAL USE ONLY) APPLY TO Expr : 05/15/25 THE RED AND FLAKY AREAS ON THE NOSE AND ON THE FEET Indication: FOR FUNGAL INFECTION 16) LISINOPRIL 20MG TAB Qty: 45 for 90 days Sig: ACTIVE Issue: 09/03/24 TAKE ONE-HALF TABLET BY MOUTH ONCE A DAY AT Refills: 2 Last : 11/28/24 1PM FOR HEART OR BLOOD PRESSURE Expr : 09/04/25 Indication: FOR HIGH BLOOD PRESSURE 17) MELOXICAM 15MG TAB Qty: 90 for 90 days Sig: ACTIVE Issue: 05/08/24 TAKE ONE TABLET BY MOUTH ONCE A DAY Refills: 1 Last : 01/12/25 NEEDED FOR PAIN OR INFLAMMATION Expr : 05/09/25 18) POLYETHYLENE GLYCOL 3350 ORAL PWDR Qty: 510 ACTIVE Issue: 09/03/24 for 30 days Sig: MIX AND DRINK 1 CAPFUL BY Refills: 2 Last : 09/30/24 MOUTH ONCE A DAY (MEASURE WITH CAP AND MIX Expr : 09/04/25 IN 8 OZ OF WATER) Indication: FOR CONSTIPATION 19) SITAGLIPTIN (EQV-ZITUVIO) 25MG TAB Qty: 90 ACTIVE (S) Issue: 01/15/25 for 90 days Sig: TAKE ONE TABLET BY MOUTH Refills: 2 Last : 04/05/25 ONCE A DAY Expr : 01/16/26 Indication: FOR DIABETES 20) TERAZOSIN HCL 5MG CAP Qty: 90 for 90 days ACTIVE Issue: 12/12/24 Sig: TAKE ONE CAPSULE BY MOUTH AT BEDTIME Refills: 3 Last : 12/30/24 FOR PROSTATE Expr : 12/13/25 21) TIOTROPIUM 1.25MCG/ACTUAT 60D ORAL INHL Qty: ACTIVE Issue: 02/19/25 3 for 90 days Sig: INHALE 2 INHALATIONS BY Refills: 3 Last : 02/20/25 ORAL INHALATION ONCE A DAY (ADMINISTER AT Expr : 02/20/26 SAME TIME EACH DAY) Indication: FOR COPD Past Medical History: 1) Benign essential hypertension (SNOMED CT 3459242) 2) Moderate chronic obstructive pulmonary disease (SNOMED CT 112589263) 3) Obesity (SNOMED CT 335839291) 4) History of malignant melanoma of the skin (SNOMED CT 266868287294) 5) Osteoarthritis of knee (SNOMED CT 076388276) 6) Colonoscopy normal 7) Diabetes mellitus 8) HLD - Hyperlipidaemia 9) Expressive dysphasia 10) Moderate cognitive impairment 11) Neuropathy 12) Squamous cell carcinoma of lung 13) Vitamin B12 Deficiency (SCT 690970256) 14) Vitamin D Deficiency (SCT 16927518) 15) Arthritis of hand 16) Benign prostatic hyperplasia 17) Osteoarthritis of multiple joints 18) Exposure to potentially hazardous substance 19) Constipation 20) Erectile dysfunction PHYSICAL EXAM: Vital Signs: Hypotensive episode in clinic. No LOC. Symptoms improved after drinking water. Temperature: 97.5 F [36.4 C] (02/27/2025 12:53) Blood Pressure: 104/61 (02/27/2025 12:53) Pulse: 66 (02/27/2025 12:53) Respirations: 18 (02/27/2025 12:53) Weight: 171.2 lb [77.66 kg] (02/27/2025 12:53) Patient Weight History - Last Four 1. 171.2 lbs. / 77.7 kg. on FEB 27, 2025@12:53:59 2. 171.9 lbs. / 78.0 kg. on FEB 17, 2025@14:43:06 3. 171.0 lbs. / 77.6 kg. on JANUARY 30, 2025@14:06:03 4. 171.6 lbs. / 77.8 kg. on JANUARY 15, 2025@13:13:54 BMI: 25.3 GENERAL: No acute distress, Well developed, well nourished HEENT: sclera anicteric CV: RRR, S1 S2, no murmur, no edema bilaterally RESP: regular, unlabored, clear to auscultation bilaterally PSYCH: pleasant, appropriate LABS: Comprehensive Metabolic Panel Results: SODIUM 139 mEq/L 02/05/2025 14:24 POTASSIUM 4.6 mEq/L 02/05/2025 14:24 CHLORIDE 105 mEq/L 02/05/2025 14:24 UREA NITROGEN 22.3 mg/dL 02/05/2025 14:24 CREATININE 0.98 mg/dL 02/05/2025 14:24 CALCIUM 9.5 mg/dL 02/05/2025 14:24 PROTEIN 7.0 g/dL 02/05/2025 14:24 ALBUMIN 3.9 g/dL 02/05/2025 14:24 ALKALINE PHOSPHATASE 58 U/L 02/05/2025 14:24 ALT/SGPT 13 U/L 02/05/2025 14:24 AST/SGOT 25 U/L 02/05/2025 14:24 TOTAL BILIRUBIN 0.5 mg/dL 02/05/2025 14:24 CARBON DIOXIDE 29 mEq/L 02/05/2025 14:24 GLUCOSE 177 H mg/dL 02/05/2025 14:24 EGFR (CKD-EPI 2020) 78.4 02/05/2025 14:24 Hemoglobin: HGB 13.6 g/dL 02/05/2025 14:24 Hematocrit: HCT 41.7 % 02/05/2025 14:24 Vitamin D: VITAMIN D, 25-HYDROXY 88.6 ng/mL 02/05/2025 14:24 Phosphorus: No PHOSPHOROUS data found TSH: TSH 0.500 uIU/mL 02/05/2025 14:24 ____ Total T3: 0 ng/dl PSA: No PSA EO data found No TESTOSTERONE EO data found No PROLACTIN EO data found LH: ____ Glucose: GLUCOSE 177 H mg/dL 02/05/2025 14:24 Hemoglobin A1C: HGA1C 7.4 H % 02/05/2025 14:24 HGA1C 7.8 H % 09/11/2024 11:08 HGA1C 6.9 H % 03/08/2024 11:52 HGA1C 7.3 H % 09/07/2023 10:15 HGA1C 7.3 H % 03/31/2023 10:10 Microalb/creat ratio: No MICRAL/CREAT RATIO (STL) data found Lipid Panel: TRIGLYCERIDE 128 mg/dL 02/05/2025 14:24 CHOLESTEROL 140 mg/dL 02/05/2025 14:24 HDL(New) 42 mg/dL 02/05/2025 14:24 CALCULATED LDL 72 mg/dL 02/05/2025 14:24 Assessment and plan: # T2DM Assessment -A1c goal <7.5% -A1c (02/05/25) at goal - 7.4% -Last eye exam: 11/27/23 - Type 2 Diabetes without Ocular Manifestations OU -[facility] - no new findings Plan -f/u eye exam 03/17/25 -Will prescribe Jardiance 25 mg separate from metformin 500 mg -Take metformin 500 mg BID -Hold Jardiance for a few days to see if lightheadedness improves, then start Jardiance 12.5 mg -Continue sitagliptin 25 mg -Continue glipizide 5 mg HTN -Patient d/c'ed lisinopril and amlodipine previously -d/c furosemide at this time due to hypotensive measurements in clinic -f/u with outreach team member HLD -Last calculated LDL 72 (02/05/25) -Continue atorvastatin 80 mg Questions answered. Verbalizes understanding. 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 Recently seen by cardiology for dizziness. he has mitral regurgitation and was started on lasix. Also on jardiance. Systolic BP in 70s today. After drinking bp went up to 1. Type II DM, A1c goal is <7.5% - current regimen: uruwomame26/metformin 1000 mg bid ozempic 1 mg weekly - stopped last visit due to marked appetite suppression - glipizide 5 mg daily - sitagliptin 25 mg daily - previously on lantus which was stopped in 05/2024 - a1c 7.8, 09/28 - Glucose log shows fasting glucose 100-150s, glucose at bedtime 170-200s - No hypoglycemia P: - hypotensive in clinic to systolic 60s - bp improved after receiving hydration. ED precautions discussed - hold jardiance - hold lasix - advised to f/u with cardiology - metformin 1000 mg XR daily - glipizide 5 mg daily - sitagliptin 25 mg daily - hypoglycemia precautions discussed - eye exam 11/27/23, 1. Type 2 Diabetes without Ocular Manifestations OU, advised to make an appt for repeat eye exam - checks feet daily, [facility] - advised to call in 2 weeks if symptoms are not better hld: on lipitor 40 mg daily, ldl 101, continue renal: egfr 86, micr/cr neg in 09/2024, advised to avoid nephrotoxic medications. Hold jardiance given dizziness JEAN MARIE: has not used cpap in years, worried about malfunctioning device, endorses fatigue. advised to go to the 5th floor walk in CPAP clinic for trouble shooting History of lung cancer - stage 1, incidentally found, s/p xrt, follows at [facility] RTC 3 months All questions answered /sadia/ Vivian Kirk MD STAFF CLOTHES MARKER Signed: 03/14/2025 07:59 RAMON BOOTH [facility] Mar 13, 2025 01:25 PM ENDOCRINOLOGY OUTP ATIENT NOTE: LOCAL TITLE: ENDOCRINOLOGY OUTPATIENT FOLLOW UP STL STANDARD TITLE: ENDOCRINOLOGY OUTPATIENT NOTE DATE OF NOTE: MAR 13, 2025@13:25 ENTRY DATE: MAR 13, 2025@13:25:36 AUTHOR: RAMON BOOTH EXP COSIGNER: VIVIAN KIRK URGENCY: STATUS: COMPLETED ENDOCRINOLOGY OUTPATIENT FOLLOW UP STL Has ADDENDA ENDOCRINOLOGY OUTPATIENT VISIT HPI: ANDRÉS MILES is a 79yo WHITE MALE with PMHx of osteoarthritis of knee, htn, severe copd, diabetes, hld, cognitive impairement, 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 While vitals were checked, pt endorsed dizziness and had BP reads of 80s/50s in both arms. On recheck while remaining sitting, BP reads were 70s/40s. Pt was given water at this time. On discussion with , Mr. Miles was started on furosemide 20 mg recently by his outreach team member. He d/c'ed the lisinopril and amlodipine. After water, Mr. Miles reported that his lightheadedness improved. Repeat BP measurement after exam was 97/55. He was advised to continue to drink more water throughout the day. Glucometer Reads Range 105-240 at night since start of March Range 153-178 in mornings since start of March No hypoglycemic episodes that he can remember BP Measures morning and night morning 110s/60s-70s, slightly higher at night Suspect related hypotensive fall a couple of months ago, no LOC Meds Sitagliptin 25 mg Glipizide 5 mg empagliflozin 10 mg/metformin 1000 mg Diet 2 meals a day, no fast food breakfast is at noon protein shake for snack No soda, juice Unsweetened ice tea is primary drink Exercise Limited walking Pedals on bike half hour every other day ROS Endorsed polyuria with furosemide, neuropathy in legs up to knees bilaterally, tingling in fingertips occasionally, daily JURADO around noon, blurred vision that comes and goes, lightheadedness every day that comes and goes, constipation Denied polydipsia, weakness, palpitations, loss of consciousness, N/V, diarrhea Allergies: SIMVASTATIN, SYMBICORT Medications: Active Outpatient Medications [...] days Sig: INHALE 2 PUFFS ORAL Refills: 1 Last : 01/31/25 INHALATION FOUR TIMES A DAY NEEDED SHAKE Expr : 09/04/25 WELL. RINSE MOUTHPIECE FREQUENTLY TO PREVENT CLOGGING. Indication: FOR COPD 3) AMLODIPINE BESYLATE 5MG TAB Qty: 90 for 90 ACTIVE Issue: 08/06/24 days Sig: TAKE ONE TABLET BY MOUTH ONCE A Refills: 1 Last : 01/23/25 DAY Expr : 08/07/25 Indication: FOR HIGH BLOOD PRESSURE 4) ATORVASTATIN CALCIUM 80MG TAB Qty: 45 for 90 ACTIVE Issue: 12/12/24 days Sig: TAKE ONE-HALF TABLET BY MOUTH Refills: 2 Last : 03/20/25 EVERY EVENING FOR CHOLESTEROL. REPORT ANY Expr : 12/13/25 UNEXPLAINED MUSCLE PAIN/WEAKNESS TO PROVIDER. 5) CAPSAICIN 0.075% CREAM Qty: 120 for 90 days ACTIVE Issue: 09/03/24 Sig: APPLY SPARINGLY TO AFFECTED AREA(S) Refills: 3 Last : 09/03/24 FOUR TIMES A DAY NEEDED FOR EXTERNAL USE Expr : 09/04/25 ONLY. WASH HANDS AFTER APPLICATION. Indication: FOR PAIN 6) CHOLECALCIF 50MCG (D3-2,000UNIT) TAB Qty: ACTIVE Issue: 07/12/24 200 for 90 days Sig: TAKE TWO TABLETS BY Refills: 1 Last : 01/29/25 MOUTH ONCE A DAY FOR VITAMIN D DEFICIENCY. Expr : 07/13/25 7) CYANOCOBALAMIN 1000MCG TAB Qty: 100 for 90 ACTIVE Issue: 01/30/25 days Sig: TAKE ONE TABLET BY MOUTH ONCE A Refills: 3 Last : 02/14/25 DAY FOR B12 SUPPLEMENTATION Expr : 01/31/26 Indication: FOR VITAMIN B12 SUPPLEMENTATION 8) DOCUSATE NA 100MG CAP Qty: 400 for 90 days ACTIVE Issue: 01/30/25 Sig: TAKE TWO CAPSULES BY MOUTH TWICE A DAY Refills: 3 Last : 01/30/25 HOLD FOR LOOSE STOOL/DIARRHEA. Expr : 01/31/26 Indication: FOR SOFTENING STOOL 9) EMPAGLIFLOZIN 10/METFORM 1000MG 24HR TAB ACTIVE Issue: 05/09/24 Qty: 180 for 90 days Sig: TAKE 2 TABLETS BY Refills: 0 Last : 01/25/25 MOUTH ONCE A DAY TAKE WITH FOOD Expr : 05/10/25 Indication: FOR DIABETES 10) FINASTERIDE 5MG TAB Qty: 90 for 90 days Sig: ACTIVE Issue: 01/28/25 TAKE ONE TABLET BY MOUTH ONCE A DAY FOR Refills: 3 Last : 01/29/25 PROSTATE Expr : 01/29/26 11) FLUOROURACIL 5% CREAM Qty: 40 for 30 [...] 2 WEEKS. Indication: FOR ACTINIC KERATOSIS 12) FUROSEMIDE 20MG TAB Qty: 90 for 90 days Sig: ACTIVE Issue: 02/27/25 TAKE ONE TABLET BY MOUTH EVERY MORNING Refills: 0 Last : 02/27/25 Indication: FOR FLUID RETENTION (EDEMA) Expr : 05/28/25 13) GLIPIZIDE 5MG TAB Qty: 180 for 90 days Sig: ACTIVE Issue: 10/15/24 TAKE ONE TABLET BY MOUTH TWO TIMES A DAY Refills: 2 Last : 01/06/25 BEFORE MEALS TAKE 30 MINUTES BEFORE EATING. Expr : 10/16/25 Indication: FOR DIABETES 14) HYDROPHILIC (EQV EUCERIN) TOP CREAM Qty: 454 ACTIVE Issue: 05/14/24 for 90 days Sig: APPLY LIBERALLY TO AFFECTED Refills: 1 Last : 11/09/24 AREA(S) ONCE A DAY (EXTERNAL USE ONLY) APPLY Expr : 05/15/25 TO DRY SKIN Indication: FOR SKIN CARE 15) KETOCONAZOLE 2% CREAM Qty: 60 for 30 days ACTIVE Issue: 05/14/24 Sig: APPLY LIBERALLY TO AFFECTED AREA(S) Refills: 3 Last : 05/16/24 TWICE A DAY (EXTERNAL USE ONLY) APPLY TO Expr : 05/15/25 THE RED AND FLAKY AREAS ON THE NOSE AND ON THE FEET Indication: FOR FUNGAL INFECTION 16) LISINOPRIL 20MG TAB Qty: 45 for 90 days Sig: ACTIVE Issue: 09/03/24 TAKE ONE-HALF TABLET BY MOUTH ONCE A DAY AT Refills: 2 Last : 11/28/24 1PM FOR HEART OR BLOOD PRESSURE Expr : 09/04/25 Indication: FOR HIGH BLOOD PRESSURE 17) MELOXICAM 15MG TAB Qty: 90 for 90 days Sig: ACTIVE Issue: 05/08/24 TAKE ONE TABLET BY MOUTH ONCE A DAY Refills: 1 Last : 01/12/25 NEEDED FOR PAIN OR INFLAMMATION Expr : 05/09/25 18) POLYETHYLENE GLYCOL 3350 ORAL PWDR Qty: 510 ACTIVE Issue: 09/03/24 for 30 days Sig: MIX AND DRINK 1 CAPFUL BY Refills: 2 Last : 09/30/24 MOUTH ONCE A DAY (MEASURE WITH CAP AND MIX Expr : 09/04/25 IN 8 OZ OF WATER) Indication: FOR CONSTIPATION 19) SITAGLIPTIN (EQV-ZITUVIO) 25MG TAB Qty: 90 ACTIVE (S) Issue: 01/15/25 for 90 days Sig: TAKE ONE TABLET BY MOUTH Refills: 2 Last : 04/05/25 ONCE A DAY Expr : 01/16/26 Indication: FOR DIABETES 20) TERAZOSIN HCL 5MG CAP Qty: 90 for 90 days ACTIVE Issue: 12/12/24 Sig: TAKE ONE CAPSULE BY MOUTH AT BEDTIME Refills: 3 Last : 12/30/24 FOR PROSTATE Expr : 12/13/25 21) TIOTROPIUM 1.25MCG/ACTUAT 60D ORAL INHL Qty: ACTIVE Issue: 02/19/25 3 for 90 days Sig: INHALE 2 INHALATIONS BY Refills: 3 Last : 02/20/25 ORAL INHALATION ONCE A DAY (ADMINISTER AT Expr : 02/20/26 SAME TIME EACH DAY) Indication: FOR COPD Past Medical History: 1) Benign essential hypertension (SNOMED CT 6637916) 2) Moderate chronic obstructive pulmonary disease (SNOMED CT 997074661) 3) Obesity (SNOMED CT 289785899) 4) History of malignant melanoma of the skin (SNOMED CT 459600815455) 5) Osteoarthritis of knee (SNOMED CT 342539054) 6) Colonoscopy normal 7) Diabetes mellitus 8) HLD - Hyperlipidaemia 9) Expressive dysphasia 10) Moderate cognitive impairment 11) Neuropathy 12) Squamous cell carcinoma of lung 13) Vitamin B12 Deficiency (SCT 240254557) 14) Vitamin D Deficiency (SCT 96668993) 15) Arthritis of hand 16) Benign prostatic hyperplasia 17) Osteoarthritis of multiple joints 18) Exposure to potentially hazardous substance 19) Constipation 20) Erectile dysfunction PHYSICAL EXAM: Vital Signs: Hypotensive episode in clinic. No LOC. Symptoms improved after drinking water. Temperature: 97.5 F [36.4 C] (02/27/2025 12:53) Blood Pressure: 104/61 (02/27/2025 12:53) Pulse: 66 (02/27/2025 12:53) Respirations: 18 (02/27/2025 12:53) Weight: 171.2 lb [77.66 kg] (02/27/2025 12:53) Patient Weight History - Last Four 1. 171.2 lbs. / 77.7 kg. on FEB 27, 2025@12:53:59 2. 171.9 lbs. / 78.0 kg. on FEB 17, 2025@14:43:06 3. 171.0 lbs. / 77.6 kg. on JANUARY 30, 2025@14:06:03 4. 171.6 lbs. / 77.8 kg. on JANUARY 15, 2025@13:13:54 BMI: 25.3 GENERAL: No acute distress, Well developed, well nourished HEENT: sclera anicteric CV: RRR, S1 S2, no murmur, no edema bilaterally RESP: regular, unlabored, clear to auscultation bilaterally PSYCH: pleasant, appropriate LABS: Comprehensive Metabolic Panel Results: SODIUM 139 mEq/L 02/05/2025 14:24 POTASSIUM 4.6 mEq/L 02/05/2025 14:24 CHLORIDE 105 mEq/L 02/05/2025 14:24 UREA NITROGEN 22.3 mg/dL 02/05/2025 14:24 CREATININE 0.98 mg/dL 02/05/2025 14:24 CALCIUM 9.5 mg/dL 02/05/2025 14:24 PROTEIN 7.0 g/dL 02/05/2025 14:24 ALBUMIN 3.9 g/dL 02/05/2025 14:24 ALKALINE PHOSPHATASE 58 U/L 02/05/2025 14:24 ALT/SGPT 13 U/L 02/05/2025 14:24 AST/SGOT 25 U/L 02/05/2025 14:24 TOTAL BILIRUBIN 0.5 mg/dL 02/05/2025 14:24 CARBON DIOXIDE 29 mEq/L 02/05/2025 14:24 GLUCOSE 177 H mg/dL 02/05/2025 14:24 EGFR (CKD-EPI 2020) 78.4 02/05/2025 14:24 Hemoglobin: HGB 13.6 g/dL 02/05/2025 14:24 Hematocrit: HCT 41.7 % 02/05/2025 14:24 Vitamin D: VITAMIN D, 25-HYDROXY 88.6 ng/mL 02/05/2025 14:24 Phosphorus: No PHOSPHOROUS data found TSH: TSH 0.500 uIU/mL 02/05/2025 14:24 ____ Total T3: 0 ng/dl PSA: No PSA EO data found No TESTOSTERONE EO data found No PROLACTIN EO data found LH: ____ Glucose: GLUCOSE 177 H mg/dL 02/05/2025 14:24 Hemoglobin A1C: HGA1C 7.4 H % 02/05/2025 14:24 HGA1C 7.8 H % 09/11/2024 11:08 HGA1C 6.9 H % 03/08/2024 11:52 HGA1C 7.3 H % 09/07/2023 10:15 HGA1C 7.3 H % 03/31/2023 10:10 Microalb/creat ratio: No MICRAL/CREAT RATIO (STL) data found Lipid Panel: TRIGLYCERIDE 128 mg/dL 02/05/2025 14:24 CHOLESTEROL 140 mg/dL 02/05/2025 14:24 HDL(New) 42 mg/dL 02/05/2025 14:24 CALCULATED LDL 72 mg/dL 02/05/2025 14:24 Assessment and plan: # T2DM Assessment -A1c goal <7.5% -A1c (02/05/25) at goal - 7.4% -Last eye exam: 11/27/23 - Type 2 Diabetes without Ocular Manifestations OU -[facility] - no new findings Plan -f/u eye exam 03/17/25 -Will prescribe Jardiance 25 mg separate from metformin 500 mg -Take metformin 500 mg BID -Hold Jardiance for a few days to see if lightheadedness improves, then start Jardiance 12.5 mg -Continue sitagliptin 25 mg -Continue glipizide 5 mg HTN -Patient d/c'ed lisinopril and amlodipine previously -d/c furosemide at this time due to hypotensive measurements in clinic -f/u with outreach team member HLD -Last calculated LDL 72 (02/05/25) -Continue atorvastatin 80 mg Questions answered. Verbalizes understanding. RTC 2 months /sadia/ RAMON BOOTH MD Resident Signed: 03/13/2025 15:07 /sadia/ Vivian Kirk MD STAFF CLOTHES MARKER MD Cosigned: 03/14/2025 07:56 03/13/2025 ADDENDUM STATUS: COMPLETED Patient was hypotensive with symptoms in clinic. Symptoms resolved after drinking water. Dr. Kirk and I told him to hold lasix at this time until f/u with you to prevent future hypotensive episodes at home. /sadia/ RAMON BOOTH MD Resident Signed: 03/13/2025 15:17 /es/ ALENA ALLEN MD,[facility] STAFF DEVELOPMENT ADMINISTRATOR Cosigned: 03/13/2025 16:26 Receipt Acknowledged By: * AWAITING SIGNATURE * MATHEW CUEVAS 03/14/2025 ADDENDUM STATUS: COMPLETED The patient was seen and discussed with the endocrinology resident Follow up; DM HPI: 79 year old male with a medical history of osteoarthritis of knee, htn, severe copd, diabetes, hld, cognitive impairement, squamous cell ca of lung s/p xrt (follows at [facility]), bph, history of malignant melanoma who presents for a follow up visit. Recently seen by cardiology for dizziness. he has mitral regurgitation and was started on lasix. Also on jardiance. Systolic BP in 70s today. After drinking bp went up to 1. Type II DM, A1c goal is <7.5% - current regimen: [id number]/metformin 1000 mg bid ozempic 1 mg weekly - stopped last visit due to marked appetite suppression - glipizide 5 mg daily - sitagliptin 25 mg daily - previously on lantus which was stopped in 05/2024 - a1c 7.8, 09/28 - Glucose log shows fasting glucose 100-150s, glucose at bedtime 170-200s - No hypoglycemia P: - hypotensive in clinic to systolic 60s - bp improved after receiving hydration. ED precautions discussed - hold jardiance - hold lasix - advised to f/u with cardiology - metformin 1000 mg XR daily - glipizide 5 mg daily - sitagliptin 25 mg daily - hypoglycemia precautions discussed - eye exam 11/27/23, 1. Type 2 Diabetes without Ocular Manifestations OU, advised to make an appt for repeat eye exam - checks feet daily, [facility] - advised to call in 2 weeks if symptoms are not better hld: on lipitor 40 mg daily, ldl 101, continue renal: egfr 86, micr/cr neg in 09/2024, advised to avoid nephrotoxic medications. Hold jardiance given dizziness JEAN MARIE: has not used cpap in years, worried about malfunctioning device, endorses fatigue. advised to go to the 5th floor walk in CPAP clinic for trouble shooting History of lung cancer - stage 1, incidentally found, s/p xrt, follows at [facility] RTC 3 months All questions answered /sadia/ Vivian Kirk MD STAFF CLOTHES MARKER Signed: 03/14/2025 07:59 RAMON BOOTH [facility]
--- OUTSIDE RECORDS SUMMARY | 2025-03-27 09:00 | XMS_ITS | Encounter Summary ---
Author Name [facility] [facility] Address [address] [place] [address] Care Team Providers Care Automated Teller Manager Name Role Phone LINN MCKEON Primary [...] PART B Apr 04, 2010 PART B [id number] [phone] ANDRÉS ROBERTS PATIENT MEDICARE (WNR) MEDICARE (M) PART A Apr 04, 2010 PART A [id number] ANDRÉS ROBERTS PATIENT MEDICARE (WNR) MEDICARE (M) PART B Apr 04, 2010 PART B [id number] ANDRÉS ROBERTS PATIENT MEDICARE (WNR) MEDICARE (M) PART A Apr 04, 2010 PART A [id number] ANDRÉS ROBERTS PATIENT Selected Encounter This section includes the information on record at [place] for the Encounter. Date/Time Encounter Type Encounter Description Reason Provider Source Mar 27, 2025 03:00 PM OFFICE O/P EST MOD 30 MIN OPTOMETRY ICD-10-CM E11.9 Type 2 diabetes mellitus without complications VICKI RODRÍGUEZ Lacho Encounter Template Text not used by [place] Assessments - Encounter Diagnoses This section includes the primary and secondary diagnoses documented for the Encounter. Date/Time Primary/Secondary Diagnosis Diagnosis Name Provider Source Mar 27, 2025 03:54 PM PRIMARY Type 2 diabetes mellitus without complications RYANN RODRÍGUEZ [facility] Mar 27, 2025 03:54 PM SECONDARY Age-related nuclear cataract, bilateral RYANN RODRÍGUEZ [facility] Mar 27, 2025 03:54 PM SECONDARY Dry eye syndrome of bilateral lacrimal glands RYANN RODRÍGUEZ [facility] Mar 27, 2025 03:54 PM SECONDARY Presbyopia RYANN RODRÍGUEZ [facility] Plan of Treatment: Future Appointments (+ 6 months) and Future Tests (+/- 45 days) The Plan of Treatment section includes future care activities for the patient from all [place] [facility] This section includes future appointments and future orders which are active, pending or scheduled. Future Appointments This section includes appointments that were scheduled to occur 6 months from the date of the Encounter, up to a maximum of 20 appointments. The data comes from all [place] treatment facilities. Appointment Date/Time Appointment Type Appointme nt Facility Name May 01, 2025 01:00 PM AMBULATORY - MEDICINE [facility] May 06, 2025 02:30 PM AMBULATORY - NONE [facility] May 14, 2025 01:15 PM AMBULATORY - MEDICINE [facility] May 14, 2025 02:00 PM AMBULATORY - MEDICINE [facility] Jul 09, 2025 03:00 PM AMBULATORY - MEDICINE [facility] Jul 21, 2025 02:00 PM AMBULATORY - MEDICINE [facility] Jul 21, 2025 02:01 PM AMBULATORY - NONE [facility] Aug 06, 2025 01:40 PM [facility] Aug 12, 2025 02:30 PM AMBULATORY - NONE [facility] Aug 18, 2025 11:00 AM AMBULATORY - NONE [facility] Aug 21, 2025 11:30 AM AMBULATORY - NONE [facility] Active, Pending, and Scheduled Orders This section includes a listing of several types of active, pending, and scheduled orders, including clinic medications orders, diagnostic test orders, procedure orders and consult orders; where the start date of the order is 45 days before the date of the Encounter or 45 days after the date of theEncounter. The data comes from all [facility] facilities. Test Date/Time Test Type Test Details Facility Name Mar 04, 2025 12:00 AM Laboratory - Chemi stry Order BASIC METABOLIC PANEL GREEN LI/HEP BLD/PLAS PLASMA [facility] Mar 04, 2025 12:00 AM Laboratory - Chemi stry Order BRAIN NATRIURETIC PEPTIDE LAVENDER BLOOD PLASMA [facility] Apr 21, 2025 12:00 AM Laboratory - Chemi stry Order CREATININE(EGFR) GREEN LI/HEP BLD/PLAS PLASMA [facility] Social History: Smoking Status (Most current) and Tobacco Use (All prior to encounter date) This section includes the most current, and the historical, smoking and tobacco- related health factors from the [place] facility where the Encounter took place. Current Smoking Status This section includes the most current smoking, or tobacco-related health factor, from the [place] facility where the Encounter took place. Date/Time Current Smoking Status Comment Facil ity January 13, 2023 05:24 PM ORYX ADMIT TOBACCO SCREEN NO [facility] Tobacco Use History This section includes a history of the smoking, or tobacco-related health factors, that were collected on or before the date of the Encounter. The data comes from the [place] facility where the Encounter took place. Date/Time Smoking Status/Tobacco Use Comment F acility May 12, 2022 01:00 PM VA-TOBACCO FORMER USER [facility] May 12, 2022 01:00 PM VA-TOBACCO QUIT 15 YRS OR MORE [facility] May 12, 2021 09:00 AM VA-TOBACCO FORMER USER [facility] May 12, 2021 09:00 AM [place]-TO[place]ACCO QUIT 15 YRS OR MORE [facility] Nov 01, 2017 03:12 PM LIFETIME NON-USER OF TOBACCO [facility] Dec 16, 2016 07:18 PM QUIT TOBACCO >7 YEARS AGO [facility] Jul 27, 2016 12:41 AM LIFETIME NON-USER OF TOBACCO [facility] Advance Directives: All historical and current Section Date Range: From patient's date of to the date document was created. This section includes ALL of a patient's completed or amended [place] Advance and Rescinded Directives. The entries below indicate that a directive exists for the patient, but an actual copy is not included with this document. The data comes from all [place] facilities. Date Advance Directives Provider Source May 21, 2019 ADVANCE DIRECTIVE DISCUSSION Boogie [facility] Jul 28, 2016 ADVANCE DIRECTIVE DISCUSSION SEAN JOE [facility] Radiology Reports: +/- 30 [...] the Encounter. The data comes from all [place] treatment facilities. Date/Time Radiology Report Provider Source Apr 03, 2025 06:[address] THORAX, DIAGNOS TIC W/O CONTRAST: ANDRÉS ROBERTS JETHRO [id number] -[id number] M Exm Date: APR 03, 2025@06:00 Req Phys: SARA HELLER Loc: [facility] 1 (Re Img Loc: [facility]IDE [place] Service: Unknown (Case [id number] COMPLETE) CT THORAX, DIAGNOSTIC W/O CONTRAS(CT Detailed) CPT:18840 Reason for Study: Upload Images Clinical History: [...] hours. This request is for images only. [facility] Diagnostic Imaging Service cannot provide interpretation for studies performed from outside facilities. Access to the report is the responsibility of the requesting provider. Report Status: Electronically Filed Date Reported: MAY 01, 2025 Report: This [facility] and images were uploaded into [facility]. In order to upload images a case number was needed, therefore this is an administrative report. Impression: This [facility] and images were uploaded into [facility]. In order to upload images a case number was needed, therefore this is an administrative report VERIFIED BY: / *ELECTRONICALLY FILED* [facility] Encounter Notes: All associated encounter notes This section contains the clinical notes associated to the Encounter. Date/Time Encounter Note(s) Provider Source Mar 27, 2025 03:30 PM OPTOMETRY NOTE: LOCAL TITLE: EYEGLASS PRESCRIPTION NOTE [facility] STANDARD TITLE: OPTOMETRY NOTE DATE OF NOTE: MAR 27, 2025@15:30 ENTRY DATE: MAR 27, 2025@15:31:01 AUTHOR: JOSE RODRÍGUEZ EXP COSIGNER: URGENCY: STATUS: COMPLETED DATE OF LAST EYE EXAM:MAR 27, 2025 OD: -0.25 -0.75 x055 20/30+2 OS: +0.25 -1.00 x075 20/25+ Add: +2.75 LENS MATERIAL: Polycarbonate LENS TYPE: PAL - Previous wearer Other Add Ons: Photochromic lenses included due to medical condition, Anti-reflective Additional Comments: /sadia/ JOSE RODRÍGUEZ OD FOILING MACHINE OPERATOR Signed: 03/27/2025 15:31 JOSE RODRÍGUEZ [facility] Mar 27, 2025 08:04 AM OPTOMETRY NOTE: LOCAL TITLE: OPTOMETRY NOTE STANDARD TITLE: OPTOMETRY NOTE DATE OF NOTE: MAR 27, 2025@08:04 ENTRY DATE: MAR 27, 2025@08:04:12 AUTHOR: JOSE RODRÍGUEZ EXP COSIGNER: URGENCY: STATUS: COMPLETED Last seen: 11/27/23 CC: 1. Vision is blurry - OU - Distance and near 2. Type 2 Diabetic - Dx'd: several years ago - On oral meds - Last BS: running high - Here for DFE Ocular Meds: (+) Refresh Liquigel Ocular ROS: (+) Diabetes without retinopathy OU (+) Cataracts OU (+) Dry Eye Symptoms OU (+) Hx of Isolated, Left CN Palsy - RESOLVED Family OcHX: (-) blindness (-) glaucoma (-) AMD (-) RD Problem list, medications and allergies reviewed: CPRS Serology for Diabetes GLUCOSE 177 H mg/dL 02/05/2025 14:24 HGA1C 7.4 H % 02/05/2025 14:24 Cardiovascular BP: 97/65 (03/13/2025 15:01) Pulse: 89 (03/13/2025 13:58) VISUAL ACUITY (DOC): WithOUT correction, Distance Visual Acuity OD: 20/40 OS: 20/40 Pupils: PERRL OU (-)APD Confrontation: FTFC OU Extra-Ocular Muscles: Full OU Externals/adnexa: Unremarkable OU Manifest Refraction: 03/27/25 OD: plano -1.00 x095 20/30+2 OS: +0.25 -1.00 x075 20/25+ Add: +2.75 SLIT LAMP EXAMINATION Lids/Lashes/Lacrimal mild MGD OU, lid laxity OU Conjunctiva/Sclera White/quiet OU Cornea/Tear Film dense arcus OU irregular tears OU Ant Chamber Deep and quiet OU Iris Normal, (-)NVI OU Lens 2-3+ brunescent NS OU Intraocular Pressure History (Fluress/Goldmann): Date OD OS Time Meds 12/01/22 16 16 1036 none 11/27/23 18 18 1005 none 03/27/25 17 17 1450 none RETINAL EVALUATION: dilation warning, both eyes, 1% Tropicamide and 2.5% Phenylephrine 03/27/25 Optic Nerve: OD: 0.40 CDR Flat, pink, distinct (-)NVD OS: 0.40 CDR Flat, pink, distinct (-)NVD Vessels: 2/3 OU Macula: OD: Flat, clear (-)CSME OS: Flat, clear (-)CSME Periphery: OD: Flat and attached, (+)CR scarring/pigment clumping S-T OS: Flat and attached, (+)CR scarring/pigment clumping S-T Vitreous: (+)PVD OU Assessment/Plan: 03/27/25 1. Diabetes without retinopathy, OU - No DME/CSME on clinical examination - Educate and monitor, discussed diabetic eye disease, patient understands importance of good blood sugar control. - Monitor yearly with DFE 2. Dry Eye Symptoms, OU - Will mail patient Systane ATs - Continue Refresh Liquigel QPM OU - Educated on regular use of ATs - Monitor 3. Cataracts, OU - Discussed impact on vision - (+)Glare Symptoms, has yellow night drivers - Mildly visually significant - Defer referral for CE-IOL until s/sx indicate 4. Presbyopia and refractive error, OU - Order glasses Educate and monitor, discussed all exam findings. Patient and/or surrogate verbalized understanding of the instructions/information given. RTC: 1 year; sooner PRN /es/ JOSE RODRÍGUEZ OD FOILING MACHINE OPERATOR Signed: 03/27/2025 15:58 JOSE RODRÍGUEZ [facility]
--- OUTSIDE RECORDS SUMMARY | 2025-04-15 12:55 | XMS_ITS | Encounter Summary ---
Author Name [facility] [place] [facility] [place] Address [address] [place] [address] Care Team Providers Care Paper Sealer Name Role Phone LINN MCKEON Primary Care [...] PART A Apr 04, 2010 PART A [id number] ANDRÉS ROBERTS PATIENT MEDICARE (WNR) MEDICARE (M) PART B Apr 04, 2010 PART B [id number] ANDRÉS ROBERTS PATIENT MEDICARE (WNR) MEDICARE (M) PART A Apr 04, 2010 PART A [id number] [phone] ANDRÉS ROBERTS PATIENT MEDICARE (WNR) MEDICARE (M) PART B Apr 04, 2010 PART B [id number] [phone] ANDRÉS ROBERTS PATIENT Selected Encounter This section includes the information on record at [place] for the Encounter. Date/Time Encounter Type Encounter Description Reason Pro vider Source Apr 15, 2025 06:55 PM Outpatient Encounter COMMUNITY CARE CONSULT IHE Encounter Template Text not used by [facility] Plan of Treatment: Future Appointments (+ 6 months) and Future Tests (+/- 45 days) The Plan of Treatment section includes future care activities for the patient from all [place] [facility]. This section includes future appointments and future orders which are active, pending or scheduled. Future Appointments This section includes appointments that were scheduled to occur 6 months from the date of the Encounter, up to a maximum of 20 appointments. The data comes from all [facility]. Appointment Date/Time Appointment Type Appointme nt Facility Name May 01, 2025 01:00 PM AMBULATORY - [facility]INE [facility] May 06, 2025 02:30 PM [facility] May 14, 2025 01:15 PM AMBULATORY - MEDICINE [facility] May 14, 2025 02:00 PM AMBULATORY - MEDICINE [facility] Jul 09, 2025 03:00 PM AMBULATORY - MEDICINE [facility] Jul 21, 2025 02:00 PM AMBULATORY - MEDICINE [facility] Jul 21, 2025 02:01 PM AM[facility]ORY - NONE [facility] Aug 06, 2025 01:40 PM [facility] Aug 12, 2025 02:30 PM [facility] Aug 18, 2025 11:00 AM [facility] Aug 21, 2025 11:30 AM [facility] Oct 09, 2025 12:30 PM AMBULATORY - MEDICINE [facility] Active, Pending, and Scheduled Orders This section includes a listing of several types of active, pending, and scheduled orders, including clinic medications orders, diagnostic test orders, procedure orders and consult orders; where the start date of the order is 45 days before the date of the Encounter or 45 days after the date of theEncounter. The data comes from all [facility] treatment facilities. Test Date/Time Test Type Test Details Facility Name Mar 04, 2025 12:00 AM Laboratory - Chemi stry Order BASIC METABOLIC PANEL GREEN LI/HEP BLD/PLAS PLASMA SP [facility] Mar 04, 2025 12:00 AM Laboratory - Chemi stry Order BRAIN NATRIURETIC PEPTIDE LAVENDER BLOOD PLASMA SP [facility] Apr 21, 2025 12:00 AM Laboratory - Chemi stry Order CREATININE(EGFR) GREEN LI/HEP BLD/PLAS PLASMA [facility] Social History: Smoking Status (Most current) and Tobacco Use (All prior to encounter date) This section includes the most current, and the historical, smoking and tobacco- related health factors from the [place] facility where the Encounter took place. Current Smoking Status This section includes the most current smoking, or tobacco-related health factor, from the [place] facility where the Encounter took place. Date/Time Current Smoking Status Comment Facil ity January 13, 2023 05:24 PM ORYX ADMIT TOBACCO SCREEN NO [facility] Tobacco Use History This section includes a history of the smoking, or tobacco-related health factors, that were collected on or before the date of the Encounter. The data comes from the [place] facility where the Encounter took place. Date/Time Smoking Status/Tobacco Use Comment F acility May 12, 2022 01:00 PM VA-TOBACCO FORMER USER [facility] May 12, 2022 01:00 PM VA-TOBACCO QUIT 15 YRS OR MORE [facility] May 12, 2021 09:00 AM VA-TOBACCO FORMER USER [facility] May 12, 2021 09:00 AM VA-TOBACCO QUIT 15 YRS OR MORE [facility] Nov 01, 2017 03:12 PM LIFETIME NON-USER OF TOBACCO [facility] Dec 16, 2016 07:18 PM QUIT TOBACCO >7 YEARS AGO [facility] Jul 27, 2016 12:41 AM LIFETIME NON-USER OF TOBACCO [facility] Advance Directives: All historical and current Section Date Range: From patient's date of to the date document was created. This section includes ALL of a patient's completed or amended [place] Advance and Rescinded Directives. The entries below indicate that a directive exists for the patient, but an actual copy is not included with this document. The data comes from all [place] facilities. Date Advance Directives Provider Source May 21, 2019 ADVANCE DIRECTIVE DISCUSSION Boogie DOUGLAS [facility] Jul 28, 2016 ADVANCE DIRECTIVE DISCUSSION SEAN JOE [facility] Radiology Reports: +/- 30 days of [...] the Encounter. The data comes from all [place] treatment facilities. Date/Time Radiology Report Provider Source Apr 03, 2025 06:[address] THORAX, DIAGNOS TIC W/O CONTRAST: ANDRÉS ROBERTS [id number] -1945 M Exm Date: APR 03, 2025@06:00 Req Phys: SARA HELLER Loc: [facility]RAD THERAPY PHYSICIAN 1 (Re Img Loc: OUTSIDE [facility] Service: Unknown (Case [id number] COMPLETE) CT THORAX, DIAGNOSTIC W/O CONTRAS(CT Detailed) CPT:73818 Reason for Study: Upload Images Clinical History: [...] hours. This request is for images only. [facility] Diagnostic Imaging Service cannot provide interpretation for studies performed from outside facilities. Access to the report is the responsibility of the requesting provider. Report Status: Electronically Filed Date Reported: MAY 01, 2025 Report: This study was performed outside the [facility] in another facility and images were uploaded into [employer]. In order to upload images a case number was needed, therefore this is an administrative report. Impression: This study was performed outside the [facility] in another facility and images were uploaded into [employer]. In order to upload images a case number was needed, therefore this is an administrative report VERIFIED BY: / *ELECTRONICALLY FILED* [facility] Encounter Notes: All associated encounter notes This section contains the clinical notes associated to the Encounter. Date/Time Encounter Note(s) Provider Source Apr 15, 2025 06:55 PM NONVA NOTE: LOCAL TITLE: COMMUNITY CARE-REQUEST FOR SERVICE NOTE STL STANDARD TITLE: NONVA NOTE DATE OF NOTE: APR 15, 2025@18:55 ENTRY DATE: APR 15, 2025@18:55:49 AUTHOR: ZACHARY BRADY EXP COSIGNER: URGENCY: STATUS: COMPLETED COMMUNITY CARE-REQUEST FOR SERVICE NOTE STL Has ADDENDA Request for Services (RFS) documentation has been scanned to [employer] Community Care Consult: COMMUNITY CARE-Rad Therapy Consult No: [id number] Date scanned: Apr A Request for Service (RFS) form [id number] has been received which includes the following: Care Requested: 's previous CC Rad Onc 04/12/25. CC Provider requesting new CC Rad Therapy consult for continuity of care. Next appt date: 04/24/25 1300(ESPERANZA pires/Federico). Copy of RFS/notes sent to [employer] for review. Alerting [facility] Rad Onc Team for review and disposition. 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 Kevin Caballero Office:[facility] [place] Address, City, State: [address] [place] [address] [place] [address] POC: Nicole /sadia/ ZACHARY BRADY MSN RN REGISTERED NURSE Signed: 04/15/2025 19:00 Receipt Acknowledged By: 04/21/2025 13:08 /es/ ALAYNA IZAGUIRRE RN REGISTERED NURSE 04/21/2025 11:03 /es/ MIGUELITO PINOMSN,RN REGISTERED NURSE 04/21/2025 ADDENDUM STATUS: COMPLETED appropriate for follow up care at [facility]. RTC order placed. /sadia/ MIGUELITO PINOMSN,RN REGISTERED NURSE Signed: 04/21/2025 11:09 ZACHARY BRADY [facility]
--- OUTSIDE RECORDS SUMMARY | 2025-04-21 06:02 | XMS_ITS | Encounter Summary ---
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 Date/Time Encounter Type Encounter Description Reason Provider Source Apr 21, 2025 12:02 PM Outpatient Encounter GENERAL INTERNAL MEDICINE ZAHCARY BRADY Lacho Encounter Template Text not used by [place] Plan of Treatment: Future Appointments (+ 6 months) and Future Tests (+/- 45 days) The Plan of Treatment section includes future care activities for the patient from all [place] [facility]. This section includes future appointments and future orders which are active, pending or scheduled. Future Appointments This section includes appointments that were scheduled to occur 6 months from the date of the Encounter, up to a maximum of 20 appointments. The data comes from all [facility]. Appointment Date/Time Appointment Type Appointme nt Facility Name May 01, 2025 01:00 PM AMBULATORY - MEDICINE [facility] May 06, 2025 02:30 PM AMBULATORY - NONE [facility] May 14, 2025 01:15 PM AMBULATORY - MEDICINE [facility] May 14, 2025 02:00 PM AMBULATORY - MEDICINE [facility] Jul 09, 2025 03:00 PM AMBULATORY - MEDICINE [facility] Jul 21, 2025 02:00 PM AMBULATORY - MEDICINE [facility] Jul 21, 2025 02:01 PM AMBULATORY - NONE [facility] Aug 06, 2025 01:40 PM AMBULATORY - NONE [facility] Aug 12, 2025 02:30 PM AMBULATORY - NONE [facility] Aug 18, 2025 11:00 AM AMBULATORY - NONE [facility] Aug 21, 2025 11:30 AM AMBULATORY - NONE [facility] Oct 09, 2025 12:30 PM AMBULATORY - MEDICINE [facility] Active, Pending, and Scheduled Orders This [...] Date/Time Test Type Test Details Facility Name Apr 21, 2025 12:00 AM Laboratory - Chemi stry Order CREATININE(EGFR) GREEN LI/HEP BLD/PLAS PLASMA SP [facility] Social History: Smoking Status (Most current) and Tobacco Use (All prior to encounter date) This section includes the most current, and the historical, smoking and tobacco- related health factors from the [place] facility where the Encounter took place. Current Smoking Status This section includes the most current smoking, or tobacco-related health factor, from the [place] facility where the Encounter took place. Date/Time Current Smoking Status Comment Facil ity January 13, 2023 05:24 PM ORYX ADMIT TOBACCO SCREEN NO [facility] Tobacco Use History This section includes a history of the smoking, or tobacco-related health factors, that were collected on or before the date of the Encounter. The data comes from the [place] facility where the Encounter took place. Date/Time Smoking Status/Tobacco Use Comment F acility May 12, 2022 01:00 PM VA-TOBACCO FORMER USER [facility] May 12, 2022 01:00 PM VA-TOBACCO QUIT 15 YRS OR MORE [facility] May 12, 2021 09:00 AM VA-TOBACCO FORMER USER [facility] May 12, 2021 09:00 AM [place]-TOBACCO QUIT 15 YRS OR MORE [facility] Nov 01, 2017 03:12 PM LIFETIME NON-USER OF TOBACCO [facility] Dec 16, 2016 07:18 PM QUIT TOBACCO >7 YEARS AGO [facility] Jul 27, 2016 12:41 AM LIFETIME NON-USER OF TOBACCO [facility] Advance Directives: All historical and current Section Date Range: From patient's date of to the date document was created. This section includes ALL of a patient's completed or amended [place] Advance and Rescinded Directives. The entries below indicate that a directive exists for the patient, but an actual copy is not included with this document. The data comes from all [place] facilities. Date Advance Directives Provider Source May 21, 2019 ADVANCE DIRECTIVE DISCUSSION Boogie DOUGLAS [facility] Jul 28, 2016 ADVANCE DIRECTIVE DISCUSSION SEAN JOE [facility] Radiology Reports: +/- 30 days of [...] the Encounter. The data comes from all [place] treatment facilities. Date/Time Radiology Report Provider Source Apr 03, 2025 06:[address] THORAX, DIAGNOS TIC W/O CONTRAST: ANDRÉS MILES EDWAR [id number] -1945 M Exm Date: APR 03, 2025@06:00 Req Phys: SARA HELLER Loc: [facility]RAD THERAPY PHYSICIAN 1 (Re Img Loc: OUTSIDE [facility] Service: Unknown (Case [id number] COMPLETE) CT THORAX, DIAGNOSTIC W/O CONTRAS(CT Detailed) CPT:[id number] Reason for Study: Upload Images Clinical History: [...] directly to Diagnostic Imaging. Image Source: Disc MedicCrude Area Exam Descripton: CT Date of Exam:Mar [facility] exam? No Routine requests will be completed [...] another facility and images were uploaded into [employer]. In order to upload images a case number was needed, therefore this is an administrative report. Impression: This study was performed outside the [place] in another facility and images were uploaded into [employer]. In order to upload images a case number was needed, therefore this is an administrative report VERIFIED BY: / *ELECTRONICALLY FILED* [facility] Encounter Notes: All associated encounter notes This section contains the clinical notes associated to the Encounter. Date/Time Encounter Note(s) Provider Source Apr 21, 2025 12:04 PM LETTERS: LOCAL TITLE: COMMUNITY CARE-REQUEST FOR SERVICES (RFS) LETTER ST STANDARD TITLE: LETTERS DATE OF NOTE: APR 21, 2025@12:04 ENTRY DATE: APR 21, 2025@12:04:48 AUTHOR: ZACHARY BRADY EXP COSIGNER: URGENCY: STATUS: COMPLETED [address] [address] Andrés Miles [address] [place] [address] [facility] Radiation Oncology has received the request for continuity of care for services that were not originally authorized in the [facility] for this [place]. Upon review, the following determination has been made: Service will be provided by the [place] Medical Facility under the [facility] Provider's name: [facility] Radiation Oncology. Should you have questions, please contact us at [facility] P: [phone] to speak with a patient auto service instructor. As a reminder, if applicable, return medical records within 30 days for routine services. Sincerely, ZACHARY OTTO RN REGISTERED NURSE ZACHARY BRADY [facility] Apr 21, 2025 12:02 PM LETTERS: LOCAL TITLE: COMMUNITY CARE-REQUEST FOR SERVICES (RFS) LETTER ST STANDARD TITLE: LETTERS DATE OF NOTE: APR 21, 2025@12:02 ENTRY DATE: APR 21, 2025@12:02:35 AUTHOR: ZACHARY BRADY EXP COSIGNER: URGENCY: STATUS: COMPLETED [address] [address] [address] Kevin Caballero [place] [facility] POC: Nicole Mujica [place] [place] [address] Dear Provider, Information: Patient Name: ANDRÉS MILES Date of : Dec [facility] Radiation Oncology has received the request for continuity of care from you for services that were not originally authorized in the [employer] for this [place]. Upon review, the following determination has been made: Service will be provided by the [place] Medical Facility under the [facility] Provider's name. Should you have questions, please contact us at [facility] P: [phone] to speak with a patient auto service instructor. As a reminder, if applicable, return medical records within 30 days for routine services. Sincerely, Sincerely, ZACHARY OTTO RN REGISTERED NURSE ZACHARY BRADY [facility]
--- OUTSIDE RECORDS SUMMARY | 2025-05-01 07:00 | XMS_ITS | Encounter Summary ---
Author Name [facility] [place] [facility] [place] Organization [facility] [place] [facility] [place] Address [address] [place] [address] Care Team Providers Care Multimedia Author Name Role Phone LINN MCKEON Primary Care [...] PART A Apr 04, 2010 PART A [id number] ANDRÉS MILES PATIENT MEDICARE (WNR) MEDICARE (M) PART B Apr 04, 2010 PART B [id number] [phone] ANDRÉS MILES PATIENT MEDICARE (WNR) MEDICARE (M) PART B Apr 04, 2010 PART B [id number] [phone] ANDRÉS MILES PATIENT MEDICARE (WNR) MEDICARE (M) PART A Apr 04, 2010 PART A [id number] ANDRÉS MILES PATIENT Selected Encounter This section includes the information on record at [place] for the Encounter. Date/Time Encounter Type Encounter Description Reason Provider Source May 01, 2025 01:00 PM OFFICE O/P EST MOD 30 MIN CARDIOLOGY ICD-10-CM I50.32 Chronic diastolic (congestive) heart failure ALENA ALLEN IHLacho Encounter Template Text not used by [place] Assessments - Encounter Diagnoses This section includes the primary and secondary diagnoses documented for the Encounter. Date/Time Primary/Secondary Diagnosis Diagnosis Name Provider Source May 01, 2025 01:25 PM PRIMARY Chronic diastolic (congestive) heart failure MARILEE WARD [facility] Plan of Treatment: Future Appointments (+ 6 months) and Future Tests (+/- 45 days) The Plan of Treatment section includes future care activities for the patient from all [facility]. This section includes future appointments and future orders which are active, pending or scheduled. Future Appointments This section includes appointments that were scheduled to occur 6 months from the date of the Encounter, up to a maximum of 20 appointments. The data comes from all [place] treatment facilities. Appointment Date/Time Appointment Type Appointme nt Facility Name May 06, 2025 02:30 PM AMBULATORY - NONE [facility] May 14, 2025 01:15 PM AMBULATORY - MEDICINE [facility] May 14, 2025 02:00 PM AMBULATORY - MEDICINE [facility] Jul 09, 2025 03:00 PM AMBULATORY - MEDICINE [facility] Jul 21, 2025 02:00 PM AMBULATORY - MEDICINE [facility] Jul 21, 2025 02:01 PM AMBULATORY - NONE [facility] Aug 06, 2025 01:40 PM AMBULATORY - NONE [facility] Aug 12, 2025 02:30 PM AMBULATORY - NONE [facility] Aug 18, 2025 11:00 AM AMBULATORY - NONE [facility] Aug 21, 2025 11:30 AM AMBULATORY - NONE [facility] Oct 09, 2025 12:30 PM AMBULATORY - MEDICINE [facility] Active, Pending, and Scheduled Orders This section includes a listing of several types of active, pending, and scheduled orders, including clinic medications orders, diagnostic test orders, procedure orders and consult orders; where the start date of the order is 45 days before the date of the Encounter or 45 days after the date of theEncounter. The data comes from all [place] treatment facilities. Test Date/Time Test Type Test Details Facility Name Apr 21, 2025 12:00 AM Laboratory - Chemi stry Order CREATININE(EGFR) GREEN LI/HEP BLD/PLAS PLASMA SP [facility] Vital Signs: All taken on the encounter date This section contains inpatient and outpatient Vital Signs collected on the date of the Encounter. Date/Time Temperature Pulse Blood Pressure Respiratory Rate SP02 Pain Height Weight Body Mass Index Source May 01, 2025 12:31 PM 97.7 F 67 /min 130/69 mm[Hg] 16 /min 93 % 6 171.2 lb 25 [facility] Social History: Smoking Status (Most current) and Tobacco Use (All prior to encounter date) This section includes the most current, and the historical, smoking and tobacco- related health factors from the [place] facility where the Encounter took place. Current Smoking Status This section includes the most current smoking, or tobacco-related health factor, from the [place] facility where the Encounter took place. Date/Time Current Smoking Status Comment Facil ity January 13, 2023 05:24 PM ORYX ADMIT TOBACCO SCREEN NO [facility] Tobacco Use History This section includes a history of the smoking, or tobacco-related health factors, that were collected on or before the date of the Encounter. The data comes from the [place] facility where the Encounter took place. Date/Time Smoking Status/Tobacco Use Comment F acility May 12, 2022 01:00 PM VA-TOBACCO FORMER USER [facility] May 12, 2022 01:00 PM VA-TOBACCO QUIT 15 YRS OR MORE [facility] May 12, 2021 09:00 AM VA-TOBACCO FORMER USER [facility] May 12, 2021 09:00 AM NE-TOBACCO QUIT 15 YRS OR MORE [facility] Nov 01, 2017 03:12 PM LIFETIME NON-USER OF TOBACCO [facility] Dec 16, 2016 07:18 PM QUIT TOBACCO >7 YEARS AGO [facility] Jul 27, 2016 12:41 AM LIFETIME NON-USER OF TOBACCO [facility] Advance Directives: All historical and current Section [...] 2019 ADVANCE DIRECTIVE DISCUSSION Boogie DOUGLAS [facility] Jul 28, 2016 ADVANCE DIRECTIVE DISCUSSION SEAN JOE [facility] Radiology Reports: +/- 30 days of [...] the Encounter. The data comes from all [place] treatment facilities. Date/Time Radiology Report Provider Source Apr 03, 2025 06:[address] THORAX, DIAGNOS TIC W/O CONTRAST: ARMANDOANDRÉSJAYSON MORELOS [id number] -1945 M Exm Date: APR 03, 2025@06:00 Req Phys: SARA HELLER Loc: [facility] PHYSICIAN 1 (Re Img Loc: OUTSIDE [facility] Service: Unknown (Case [id number] COMPLETE) CT THORAX, DIAGNOSTIC W/O CONTRAS(CT Detailed) CPT:25285 Reason for Study: Upload Images Clinical History: [...] hours. This request is for images only. [facility] Diagnostic Imaging Service cannot provide interpretation for studies performed from outside facilities. Access to the report is the responsibility of the requesting provider. Report Status: Electronically Filed Date Reported: MAY 01, 2025 Report: This study was performed outside the [place] in another facility and images were uploaded into [email or web address]. In order to upload images a case number was needed, therefore this is an administrative report. Impression: This study [facility] in [facility] facility and images were uploaded into [email or web address]. In order to upload images a case number was needed, therefore this is an administrative report VERIFIED BY: / *ELECTRONICALLY FILED* [facility] Encounter Notes: All associated encounter notes This section contains the clinical notes associated to the Encounter. Date/Time Encounter Note(s) Provider Source May 01, 2025 12:41 PM CARDIOLOGY OUTPATIENT NOTE: LOCAL TITLE: CARDIOLOGY OUTPATIENT FOLLOW UP STL STANDARD TITLE: CARDIOLOGY OUTPATIENT NOTE DATE OF NOTE: MAY 01, 2025@12:41 ENTRY DATE: MAY 01, 2025@12:41:57 AUTHOR: MARILEE WARD COSIGNER: ALENA ALLEN URGENCY: STATUS: COMPLETED CARDIOLOGY OUTPATIENT FOLLOW UP STL Has ADDENDA MAY 01, 2025 Cardiology Clinic Note Reason for visit: Follow up HFpEF, MR Chart was reviewed and history obtained from the patient. HPI: This is a 79 year old MALE with a PMH significant for coronary calcifications by CT, HFpEF, moderate MR, DM2, hx CVA 2019, HTN, COPD, hx lung cancer, JEAN MARIE (not on CPAP) who presents to the cardiology clinic for a follow up visit. I saw him as an initial consult in clinic 02/2025 for evaluation of hypotension which was thought to be 2/2 BP medications. Additionally noted to have moderate eccentric MR with HFpEF based on TTE for which low dose lasix was initiated. He was supposed to get f/u labs and BP check 2 weeks after his last visit but this did not happen. Today, he is accompanied by his . Reports that he took the lasix for a coupld of weeks but then became very hypotensive so it was d/c'd by his PCP. Reports symptoms of dizziness are better. Denies any syncope or falls. BPs now running in the 130-170s systolic. Recently re-started SGLT2i and reports significant increase in urination. Shortness of breath is stable, mainly with exertion. Patient is not very mobile due to frailty / deconditioning. PMH/PSH: 1) Benign essential hypertension (SNOMED CT 2967065) 2) Moderate chronic obstructive pulmonary disease (SNOMED CT 365927393) 3) Obesity (SNOMED CT 158463501) 4) History of malignant melanoma of the skin (SNOMED CT 228807855561) 5) Osteoarthritis of knee (SNOMED CT 701502182) 6) Colonoscopy normal 7) Diabetes mellitus 8) HLD - Hyperlipidaemia 9) Expressive dysphasia 10) Moderate cognitive impairment 11) Neuropathy 12) Squamous cell carcinoma of lung 13) Vitamin B12 Deficiency (SCT 168159531) 14) Vitamin D Deficiency (SCT 58978301) 15) Arthritis of hand 16) Benign prostatic hyperplasia 17) Osteoarthritis of multiple joints 18) Exposure to potentially hazardous substance 19) Constipation 20) Erectile dysfunction SOCIAL HX: Tobacco: fomer in his 20-30s Alcohol: denies Drugs: denies retired from [employer] ALLERGIES: SIMVASTATIN, SYMBICORT FAMILY HISTORY: No premature [...] TO PREVENT CLOGGING. Indication: FOR COPD 3) ATORVASTATIN CALCIUM 80MG TAB TAKE ONE-HALF TABLET BY MOUTH ACTIVE EVERY EVENING FOR CHOLESTEROL. REPORT ANY UNEXPLAINED MUSCLE PAIN/WEAKNESS TO PROVIDER. 4) CAPSAICIN 0.075% CREAM APPLY SPARINGLY TO AFFECTED AREA(S) ACTIVE FOUR TIMES A DAY NEEDED FOR EXTERNAL USE ONLY. WASH HANDS AFTER APPLICATION. Indication: FOR PAIN 5) CARBOXYMETHYLCELLULOSE NA 1% OPH GEL INSTILL 1 DROP INTO ACTIVE BOTH EYES FOUR TIMES A DAY NEEDED Indication: FOR DRY EYE(S) 6) CHOLECALCIF 50MCG (D3-2,000UNIT) TAB TAKE TWO TABLETS BY ACTIVE MOUTH ONCE A DAY FOR VITAMIN D DEFICIENCY. 7) CYANOCOBALAMIN 1000MCG TAB TAKE ONE TABLET BY MOUTH ONCE A ACTIVE DAY FOR B12 SUPPLEMENTATION Indication: FOR VITAMIN B12 SUPPLEMENTATION 8) DOCUSATE NA 100MG CAP TAKE TWO CAPSULES BY MOUTH TWICE A DAY ACTIVE HOLD FOR LOOSE STOOL/DIARRHEA. Indication: FOR SOFTENING STOOL 9) EMPAGLIFLOZIN 25MG TAB TAKE ONE TABLET BY MOUTH ONCE A DAY ACTIVE Indication: FOR DIABETES 10) FINASTERIDE 5MG TAB [...] FOR ACTINIC KERATOSIS 12) FUROSEMIDE 20MG TAB TAKE ONE TABLET BY MOUTH EVERY MORNING ACTIVE Indication: FOR FLUID RETENTION (EDEMA) 13) GLIPIZIDE 5MG TAB TAKE ONE TABLET [...] BY MOUTH ACTIVE ONCE A DAY 17) MELOXICAM 15MG TAB TAKE ONE TABLET BY MOUTH ONCE A DAY ACTIVE NEEDED FOR PAIN OR INFLAMMATION 18) METFORMIN HCL 500MG 24HR SA TAB TAKE TWO TABLETS BY MOUTH ACTIVE ONCE A DAY TAKE WITH FOOD. AVOID ALCOHOL. DISCONTINUE BEFORE GETTING XRAY DYE. Indication: FOR DIABETES 19) POLYETHYLENE GLYCOL 3350 ORAL PWDR MIX AND DRINK 1 CAPFUL BY ACTIVE MOUTH ONCE A DAY (MEASURE WITH CAP AND MIX IN 8 OZ OF WATER) Indication: FOR CONSTIPATION 20) PROPYLENE GLYCOL 0.6% OPH SOLN INSTILL 1 DROP IN AFFECTED ACTIVE EYE(S) ONCE A DAY NEEDED Indication: FOR DRY EYE(S) 21) SITAGLIPTIN (EQV-ZITUVIO) 25MG TAB TAKE ONE TABLET BY MOUTH ACTIVE ONCE A DAY Indication: FOR DIABETES 22) TERAZOSIN HCL 5MG CAP TAKE ONE CAPSULE BY MOUTH AT BEDTIME ACTIVE FOR PROSTATE 23) TIOTROPIUM 1.25MCG/ACTUAT 60D ORAL INHL INHALE 2 INHALATIONS ACTIVE BY ORAL INHALATION ONCE A DAY (ADMINISTER AT SAME TIME EACH DAY) Indication: FOR COPD PHYSICAL EXAM: VS: BP: 130/69 P: 67 R: 16 WT: 171.2 T: 97.7 HT: BMI: 25.3 General: cooperative, pleasant and in NAD HEENT: NC/AT, PERRL, MMM Neck: Supple, No LAD, JVD - Heart: RRR, faint systolic murmur rub Lungs: No respiratory distress, CTAB; no wheezing, rhonchi or rales Abdomen: NT/ND, BS normoactive Extremities: No LE Edema, 2+ pulses b/l DP/PT Neuro: no focal deficits Psych: appropriate mood [...] CARDIAC CATHETERIZATION <--- None on file. ASSESSMENT/PLAN: #Hypotension - resolved #Dizziness - improved - with history of HTN; previously on 3 agents (lisinopril, amlodipine, HCTZ) with BP improvement after discontinuation - became hypotensive with low dose diuretic therapy 02/2025 - systolic BPs somewhat higher now though reported symptoms are better - ? diabetic Rx side effect vs autonomic dysfunction with longstanding diabetes PLAN: - agree with holding BP medications for now - continued BP monitoring - recommend compression socks - would treat standing BP readings only due to history of orthostasis #Shortness of breath - unclear etiology, likely multifactorial - consider HFpEF/MR (i.e. volume overload) vs COPD/hx lung cancer vs deconditioning PLAN: - did not tolerate low dose diuretic therapy due to hypotension - supportive care, per patient albuterol improves symptom of shortness of breath #HFpEF #Moderate MR - noted on TTE 02/2025 with dilated IVC / diastolic dysfunction - euvolemic on exam today PLAN: - continue SGLT2i - unable to tolerate low dose diuretic therapy due to hypotension - unable to tolerate afterload reduction due to labile BP as above #Coronary calcifications #HLD - noted on LDCT, no hx of NM per patient report and normal WM on [...] for ischemic testing at the present time #Carotid stenosis - noted per 's report on OSH CT imaging (not avaiable for review) - will alert PCP for consideration of vascular surgery eval #DM2: A1c 7.4%, on SGLT2i, metformin, glipizide, sitagliptin #JEAN MARIE: intolerant to CPAP RTC: 12 months Marilee Ward DO [employer] PGY6 MAY 01, 2025 Time expended on this encounter: 30 minutes All patients are counseled on the [...] completed, the results will be found in [facility]. # HEALTH PROMOTION/HEALTH MAINTENANCE & EDUCATION [...] as directed by the PCP (primary provider). /es/ MARILEE WARD D.O. LODGING FACILITIES MANAGER Signed: 05/01/2025 13:26 /sadia/ ALENA ALLEN MD,LOCATED WITHIN [facility] STAFF LOUVER DOOR ASSEMBLER Cosigned: 05/01/2025 13:40 Receipt Acknowledged By: 05/01/2025 13:30 /sadia/ LINN MCKEON PHYSICIAN 05/01/2025 ADDENDUM STATUS: COMPLETED Cardiology Attending Note I saw, interviewed and examined Mr. Miles with the [facility], Dr. Marilee Ward. I have reviewed the pt's clinical data including the ECG's, stress, Cath and Echo (when available) with warp scouring vat tender. I have reviewed Dr. Marilee Ward's note and agree with the history, physical findings and the initial assessment and plan. ANDRÉS MILES is doing stable from cardiac standpoint. /sadia/ ALENA ALLEN MD,LOCATED WITHIN [facility] STAFF [employer]OU[employer] DOOR ASSEMBLER Signed: 05/01/2025 13:[address] [facility]
--- OUTSIDE RECORDS SUMMARY | 2025-05-14 07:15 | XMS_ITS | Encounter Summary ---
Author Name [facility] [place] [facility] [place] Organization [facility] [place] Address [address] [place] [address] Care Team Providers Care Case Management Assistant Name Role Phone LINN MCKEON Primary Care [...] PART A Apr 04, 2010 PART A [id number] [phone] ANDRÉS ROBERTS PATIENT MEDICARE (WNR) MEDICARE (M) PART B Apr 04, 2010 PART B [id number] [phone] ANDRÉS ROBERTS PATIENT MEDICARE (WNR) MEDICARE (M) PART A Apr 04, 2010 PART A [id number] ANDRÉS ROBERTS PATIENT MEDICARE (WNR) MEDICARE (M) PART B Apr 04, 2010 PART B [id number] [phone] ANDRÉS ROBERTS PATIENT Selected Encounter This section includes the information on record at [place] for the Encounter. Date/Time Encounter Type Encounter Description Reason Provider Source May 14, 2025 01:15 PM OFFICE O/P EST MOD 30 MIN DERMATOLOGY ICD-10-CM D22.9 Melanocytic nevi, unspecified CHARLETTECHRISLORNA [facility] Encounter Template Text not used by [place] Assessments - Encounter Diagnoses This section includes the primary and secondary diagnoses documented for the Encounter. Date/Time Primary/Secondary Diagnosis Diagnosis Name Provider Source May 14, 2025 01:32 PM PRIMARY Melanocytic nevi, unspecified DAMEON CLEMENTS [facility] May 14, 2025 01:32 PM SECONDARY Actinic keratosis [facility] May 14, 2025 01:32 PM SECONDARY Other atopic dermatitis [facility] May 14, 2025 01:32 PM SECONDARY Other melanin hyperpigmentation [facility] May 14, 2025 01:32 PM SECONDARY Other seborrheic dermatitis [facility] May 14, 2025 01:32 PM SECONDARY Other seborrheic keratosis [facility] Plan of Treatment: Future Appointments (+ 6 months) and Future Tests (+/- 45 days) The Plan of Treatment section includes future care activities for the patient from all [place] treatmentfacilities. This section includes future appointments and future orders which are active, pending or scheduled. Future Appointments This section includes appointments that were scheduled to occur 6 months from the date of the Encounter, up to a maximum of 20 appointments. The data comes from all [place] treatment facilities. Appointment Date/Time Appointment Type Appointme nt Facility Name Jul 09, 2025 03:00 PM AMBULATORY - MEDICINE [facility] Jul 21, 2025 02:00 PM AMBULATORY - MEDICINE [facility] Jul 21, 2025 02:01 PM AMBULATORY - NONE [facility] Aug 06, 2025 01:40 PM AMBULATORY - NONE [facility] Aug 12, 2025 02:30 PM AMBULATORY - NONE [facility] Aug 18, 2025 11:00 AM AMBULATORY - NONE [facility] Aug 21, 2025 11:30 AM AMBULATORY - NONE [facility] Oct 09, 2025 12:30 PM AMBULATORY - MEDICINE [facility] Active, Pending, and Scheduled Orders This section includes a listing of several types of active, pending, and scheduled orders, including clinic medications orders, diagnostic test orders, procedure orders and consult orders; where the start date of the order is 45 days before the date of the Encounter or 45 days after the date of theEncounter. The data comes from all [place] treatment facilities. Test Date/Time Test Type Test Details Facility Name Apr 21, 2025 12:00 AM Laboratory - Chemi stry Order CREATININE(EGFR) GREEN LI/HEP BLD/PLAS PLASMA SP [facility] Vital Signs: All taken on the encounter date This section contains inpatient and outpatient Vital Signs collected on the date of the Encounter. Date/Time Temperature Pulse Blood Pressure Respiratory Rate SP02 Pain Height Weight Body Mass Index Source May 14, 2025 01:37 PM 97.3 F 62 /min 102/62 mm[Hg] 16 /min 95 % 171.2 lb 25 [facility] Social History: Smoking Status (Most current) and Tobacco Use (All prior to encounter date) This section includes the most current, and the historical, smoking and tobacco- related health factors from the [place] facility where the Encounter took place. Current Smoking Status This section includes the most current smoking, or tobacco-related health factor, from the [place] facility where the Encounter took place. Date/Time Current Smoking Status Comment Facil ity January 13, 2023 05:24 PM ORYX ADMIT TOBACCO SCREEN NO [facility] Tobacco Use History This section includes a history of the smoking, or tobacco-related health factors, that were collected on or before the date of the Encounter. The data comes from the [place] facility where the Encounter took place. Date/Time Smoking Status/Tobacco Use Comment F acility May 12, 2022 01:00 PM VA-TOBACCO FORMER USER [facility] May 12, 2022 01:00 PM VA-TOBACCO QUIT 15 YRS OR MORE [facility] May 12, 2021 09:00 AM VA-TOBACCO FORMER USER [facility] May 12, 2021 09:00 AM VA-TOBACCO QUIT 15 YRS OR MORE [facility] Nov 01, 2017 03:12 PM LIFETIME NON-USER OF TOBACCO [facility] Dec 16, 2016 07:18 PM QUIT TOBACCO >7 YEARS AGO [facility] Jul 27, 2016 12:41 AM LIFETIME NON-USER OF TOBACCO [facility] Advance Directives: All historical and current Section Date Range: From patient's date of to the date document was created. This section includes ALL of a patient's completed or amended [place] Advance and Rescinded Directives. The entries below indicate that a directive exists for the patient, but an actual copy is not included with this document. The data comes from all [place] facilities. Date Advance Directives Provider Source May 21, 2019 ADVANCE DIRECTIVE DISCUSSION Boogie [facility] Jul 28, 2016 ADVANCE DIRECTIVE DISCUSSION SEAN JOE [facility] Encounter Notes: All associated encounter notes This section contains the clinical notes associated to the Encounter. 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 Today: - reports had a rash on his back that he has been using topical steroid for, using triamcinolone once a day Allergies: SIMVASTATIN, SYMBICORT ROS: no fever or chills, no recent unintended weight change, no non-healing sores PE: Hyperpigmented scaly patches on lower back [place] gritty papules on L forearm, temples, cheeks Trunk/ext with huynh stuck on appearing papules Trunk/ext with several regular brown macules 2 regular/homogenous blueish macules on the frontal scalp L upper chest with WHSS, no pig/nod/satellitosis Forearms with WHSS Otherwise: General Appearance: Well-appearing MALE, NAD Face: wnl Ears: wnl Scalp, Hair: wnl Neck: wnl Chest: wnl Abd: wnl Back: wnl Upper Extremities: wnl Nails: wnl Mood/Affect: wnl A/P: Actinic keratoses - Premalignant nature & risk of transformation to SCC reviewed. - Reviewed diagnosis and risk factors (sun exposure) - Treatment plan: LN2 - LN2 applied to x5 lesions on R cheek, L cheek, and L arm for 5-8 secs today; blister care reviewed - Counseled on and reviewed sun protection strategies and skin cancer warning Nummular dermatitis - well-controlled - Reviewed etiology - Recommended continuing moisturizing well daily with Eucerin ointment - Continue triamcinalone 0.1% ointment to AA up to BID PRN; SER; refill sent Seborrheic dermatitis - Etiology discussed - Continue head and shoulders shampoo, can use on face as well - Continue ketoconazole 2% cream BID PRN; refill sent Xerosis cutis - Continue Eucerin cream or other emollient PRN; refill sent Seborrheic keratoses - Benign reassurance provided - [...] exams and regular MD skin exams RTC 1 year or sooner prn /sadia/ DAMEON CLEMENTS DERMATOLOGY RESIDENT PHYSICIAN Signed: 05/14/2025 13:32 /es/ DILIA OVALLES MD STAFF UPHOLSTERER [employer]OUSINE AND HEARSE Cosigned: 05/14/2025 13:48 05/14/2025 ADDENDUM STATUS: COMPLETED Discussed case with resident. Agree with history, physical examination, assessment, and plan. /es/ DILIA OVALLES MD STAFF UPHOLSTERER LIMOUSINE AND HEARSE Signed: 05/14/2025 13:48 DAMEON CLEMENTS [facility]
--- OUTSIDE RECORDS SUMMARY | 2025-05-14 08:00 | XMS_ITS | Encounter Summary ---
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 Date/Time Encounter Type Encounter Description Reason Provider Source May 14, 2025 02:00 PM OFFICE O/P EST MOD 30 MIN ENDOCRINOLOGY ICD-10-CM E11.65 Type 2 diabetes mellitus with hyperglycemia VIVIAN KIRK IHLacho Encounter Template Text not used by ME Assessments - Encounter Diagnoses This section includes the primary and secondary diagnoses documented for the Encounter. Date/Time Primary/Secondary Diagnosis Diagnosis Name Provider Source May 14, 2025 02:07 PM PRIMARY Type 2 diabetes mellitus with hyperglycemia VIVIAN KIRK [facility] Plan of Treatment: Future Appointments (+ 6 months) and Future Tests (+/- 45 days) The Plan of Treatment section includes future care activities for the patient from all [facility]. This section includes future appointments and future orders which are active, pending or scheduled. Future Appointments This section includes appointments that were scheduled to occur 6 months from the date of the Encounter, up to a maximum of 20 appointments. The data comes from all [facility]. Appointment Date/Time Appointment Type Appointme nt Facility Name Jul 09, 2025 03:00 PM AMBULATORY - MEDICINE [facility] Jul 21, 2025 02:00 PM AMBULATORY - MEDICINE [facility] Jul 21, 2025 02:01 PM AMBULATORY - NONE [facility] Aug 06, 2025 01:40 PM AMBULATORY - NONE [facility] Aug 12, 2025 02:30 PM AMBULATORY - NONE [facility] Aug 18, 2025 11:00 AM AMBULATORY - NONE [facility] Aug 21, 2025 11:30 AM AMBULATORY - NONE [facility] Oct 09, 2025 12:30 PM AMBULATORY - MEDICINE [facility] Active, Pending, and Scheduled Orders [...] Order CREATININE(EGFR) GREEN LI/HEP BLD/PLAS PLASMA SP [facility] Vital Signs: All taken on the encounter date This section contains inpatient and outpatient Vital Signs collected on the date of the Encounter. Date/Time Temperature Pulse Blood Pressure Respiratory Rate SP02 Pain Height Weight Body Mass Index Source May 14, 2025 01:37 PM 97.3 F 62 /min 102/62 mm[Hg] 16 /min 95 % 171.2 lb 25 [facility] Social History: Smoking Status (Most current) and Tobacco Use (All prior to encounter date) This section includes the most current, and the historical, smoking and tobacco- related health factors from the [place] facility where the Encounter took place. Current Smoking Status This section includes the most current smoking, or tobacco-related health factor, from the [place] facility where the Encounter took place. Date/Time Current Smoking Status Comment Facil ity January 13, 2023 05:24 PM ORYX ADMIT TOBACCO SCREEN NO [facility] Tobacco Use History This section includes a history of the smoking, or tobacco-related health factors, that were collected on or before the date of the Encounter. The data comes from the [place] facility where the Encounter took place. Date/Time [...] ALL of a patient's completed or amended [place] Advance and Rescinded Directives. The entries below indicate that a directive exists for the patient, but an actual copy is not included with this document. The data comes from all [place] facilities. Date Advance Directives Provider Source May 21, 2019 ADVANCE DIRECTIVE DISCUSSION STELLA,B RUCE [facility] Jul 28, 2016 ADVANCE DIRECTIVE DISCUSSION SEAN JOE [facility] Encounter Notes: All associated encounter notes This section contains the clinical notes associated to the Encounter. Date/Time Encounter Note(s) Provider Source May 16, 2025 08:54 AM ADDENDUM: LOCAL TITLE: Addendum STANDARD TITLE: ADDENDUM DATE OF NOTE: MAY 16, 2025@08:54:28 ENTRY DATE: MAY 16, 2025@08:54:29 AUTHOR: ARISTIDES VIERA EXP COSIGNER: URGENCY: STATUS: COMPLETED ------Original Message Sent: 05/15/2025 09:37 PM ET From: ANDRÉS MILES To: ST, ENDOCRINE-DIABETES, - ALL PROVIDERS Subject: Medication:Med confirmation Per Dr's request... I confirmed that Andrés Ginger ([id number]) is taking glipizide twice a day 30 minutes before meals. Isa ------Original Message Sent: 05/16/2025 09:53 AM ET From: ARISTIDES VIERA To: ANDRÉS MILES Subject: Medication:Med confirmation Thank you. I'll get back to you with any change of plan. Regards. 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 Glucometer Reads Range 160's-220's during the day No hypoglycemic episodes BP No further hypotensive episodes since last visit Meds Sitagliptin 25 mg Glipizide 5 mg jardiance 25 mg metformin 1000 mg Diet 2 meals a day, no fast food breakfast is at noon protein shake for snack No soda, juice Unsweetened ice tea is primary drink 1 bottle water per day Exercise Stretching ROS Endorsed neuropathy in legs up to knees bilaterally and cold feet. Denied polydipsia and polyuria. ROS: Constitutional: No fevers, chills or night sweats HEENT: No visual changes, hearing changes, sinus congestion, or sore throat CV: No chest pain, palpitations, dyspnea on exertion Respiratory: No shortness of breath, cough, or wheezing GI: No abdominal pain, nausea, vomiting, heartburn, diarrhea, constipation, melena, hematochezia : No hesitancy, urgency, no urinary frequency, nocturia, dysuria, hematuria, or incontinence Musculoskeletal: No joint pain or swelling Skin: No rashes or color changes Neuro: No headaches, lightheadedness, dizziness, focal weakness. Reports numbness/tingling in bilateral lower extremities Endo: No symptoms of hypo/hyperthyroidism or hypoglycemia Allergies: SIMVASTATIN, SYMBICORT Medications: Active Outpatient Medications [...] TO PREVENT CLOGGING. Indication: FOR COPD 3) ASPIRIN 81MG EC TAB Qty: 120 for 90 days ACTIVE Issue: 05/09/25 Sig: TAKE ONE TABLET BY MOUTH ONCE A DAY FOR Refills: 3 Last : 05/09/25 HEART OR CIRCULATION. TAKE WITH FOOD. Expr : 05/10/26 4) ATORVASTATIN CALCIUM 80MG TAB Qty: 45 [...] HANDS AFTER APPLICATION. Indication: FOR PAIN 6) CARBOXYMETHYLCELLULOSE NA 1% OPH GEL Qty: 30 ACTIVE Issue: 03/27/25 for 90 days Sig: INSTILL 1 DROP INTO BOTH Refills: 3 Last : 03/27/25 EYES FOUR TIMES A DAY NEEDED Expr : 03/28/26 Indication: FOR DRY EYE(S) 7) CHOLECALCIF 50MCG (D3-2,000UNIT) TAB Qty: ACTIVE Issue: 07/12/24 200 for 90 days Sig: TAKE TWO TABLETS BY Refills: 0 Last : 04/19/25 MOUTH ONCE A DAY FOR VITAMIN D DEFICIENCY. Expr : 07/13/25 8) CYANOCOBALAMIN 1000MCG TAB Qty: 100 for 90 ACTIVE Issue: 01/30/25 days Sig: TAKE ONE TABLET BY MOUTH ONCE A Refills: 3 Last : 02/14/25 DAY FOR B12 SUPPLEMENTATION Expr : 01/31/26 Indication: FOR VITAMIN B12 SUPPLEMENTATION 9) DOCUSATE NA 100MG CAP Qty: 400 for 90 days ACTIVE Issue: 01/30/25 Sig: TAKE TWO CAPSULES BY MOUTH TWICE A DAY Refills: 3 Last : 01/30/25 HOLD FOR LOOSE STOOL/DIARRHEA. Expr : 01/31/26 Indication: FOR SOFTENING STOOL 10) EMPAGLIFLOZIN 25MG TAB Qty: 90 for 90 days ACTIVE (S) Issue: 03/13/25 Sig: TAKE ONE TABLET BY MOUTH ONCE A DAY Refills: 2 Last : 06/03/25 Indication: FOR DIABETES Expr : 03/14/26 11) FINASTERIDE 5MG TAB Qty: 90 for 90 days Sig: ACTIVE Issue: 01/28/25 TAKE ONE TABLET BY MOUTH ONCE A DAY FOR Refills: 2 Last : 04/19/25 PROSTATE Expr : 01/29/26 12) FLUOROURACIL 5% CREAM Qty: 40 for 30 [...] 2 WEEKS. Indication: FOR ACTINIC KERATOSIS 13) FUROSEMIDE 20MG TAB Qty: 90 for 90 days Sig: ACTIVE Issue: 02/27/25 TAKE ONE TABLET BY MOUTH EVERY MORNING Refills: 0 Last : 02/27/25 Indication: FOR FLUID RETENTION (EDEMA) Expr : 05/28/25 14) GLIPIZIDE 5MG TAB Qty: 180 for 90 days Sig: ACTIVE (S) Issue: 10/15/24 TAKE ONE TABLET BY MOUTH TWO TIMES A DAY Refills: 0 Last : 07/02/25 BEFORE MEALS TAKE 30 MINUTES BEFORE EATING. Expr : 10/16/25 Indication: FOR DIABETES 15) HYDROPHILIC (EQV EUCERIN) TOP CREAM Qty: [...] ACIDOPHILUS CHEW TAB Qty: 100 ACTIVE Issue: 03/24/25 for 90 days Sig: TAKE 1 TABLET BY MOUTH ONCE Refills: 3 Last : 03/24/25 A DAY Expr : 03/25/26 18) METFORMIN HCL 500MG 24HR SA TAB Qty: 180 for ACTIVE (S) Issue: 03/13/25 90 days Sig: TAKE TWO TABLETS BY MOUTH ONCE Refills: 2 Last : 06/03/25 A DAY TAKE WITH FOOD. AVOID ALCOHOL. Expr : 03/14/26 DISCONTINUE BEFORE GETTING XRAY DYE. Indication: FOR DIABETES 19) POLYETHYLENE GLYCOL 3350 ORAL PWDR Qty: 510 ACTIVE Issue: 09/03/24 for 30 days Sig: MIX AND DRINK 1 CAPFUL BY Refills: 2 Last : 09/30/24 MOUTH ONCE A DAY (MEASURE WITH CAP AND MIX Expr : 09/04/25 IN 8 OZ OF WATER) Indication: FOR CONSTIPATION 20) PROPYLENE GLYCOL 0.6% OPH SOLN Qty: 20 for ACTIVE Issue: 03/27/25 90 days Sig: INSTILL 1 DROP IN AFFECTED Refills: 3 Last : 03/27/25 EYE(S) ONCE A DAY NEEDED Expr : 03/28/26 Indication: FOR DRY EYE(S) 21) SITAGLIPTIN (EQV-ZITUVIO) 25MG TAB Qty: 90 ACTIVE (S) Issue: 01/15/25 for 90 days Sig: TAKE ONE TABLET BY MOUTH Refills: 1 Last : 07/04/25 ONCE A DAY Expr : 01/16/26 Indication: FOR DIABETES 22) TERAZOSIN HCL 5MG CAP Qty: 90 for 90 days ACTIVE Issue: 12/12/24 Sig: TAKE ONE CAPSULE BY MOUTH AT BEDTIME Refills: 2 Last : 03/24/25 FOR PROSTATE Expr : 12/13/25 23) TIOTROPIUM 1.25MCG/ACTUAT 60D ORAL INHL Qty: ACTIVE Issue: 02/19/25 3 for 90 days Sig: INHALE 2 INHALATIONS BY Refills: 3 Last : 02/20/25 ORAL INHALATION ONCE A DAY (ADMINISTER AT Expr : 02/20/26 SAME TIME EACH DAY) Indication: FOR COPD Past Medical History: 1) Benign essential hypertension (SNOMED CT 8316877) 2) Moderate chronic obstructive pulmonary disease (SNOMED CT 498711319) 3) Obesity (SNOMED CT 349379145) 4) History of malignant melanoma of the skin (SNOMED CT 732267915204) 5) Osteoarthritis of knee (SNOMED CT 435909130) 6) Colonoscopy normal 7) Diabetes mellitus 8) HLD - Hyperlipidaemia 9) Expressive dysphasia 10) Moderate cognitive impairment 11) Neuropathy 12) Squamous cell carcinoma of lung 13) Vitamin B12 Deficiency ([facility] 712636685) 14) Vitamin D Deficiency ([facility] 68664471) 15) Arthritis of hand 16) Benign prostatic hyperplasia 17) Osteoarthritis of multiple joints 18) Exposure to potentially hazardous substance 19) Constipation 20) Erectile dysfunction SOCIAL HISTORY: Marital status: PHYSICAL EXAM: Vital Signs: Temperature: 98.8 F [37.1 C] (05/06/2025 14:53) Blood Pressure: 124/73 (05/06/2025 14:53) Pulse: 66 (05/06/2025 14:53) Respirations: 18 (05/06/2025 14:53) Weight: 170 lb [77.11 kg] (05/06/2025 14:53) Patient Weight History - Last Four 1. 170.0 lbs. / 77.1 kg. on MAY 06, 2025@14:53:45 2. 171.2 lbs. / 77.7 kg. on MAY 01, 2025@12:31:32 3. 171.2 lbs. / 77.7 kg. on FEB 27, 2025@12:53:59 4. 171.9 lbs. / 78.0 kg. on FEB 17, 2025@14:43:06 BMI: 25.2 GENERAL: No acute distress, Well developed, well nourished HEENT: EOMI, PERRL, sclera anicteric CV: Regular rate RESP: regular, unlabored GI: non-distended PSYCH: pleasant, appropriate LABS: Comprehensive Metabolic Panel [...] mg/dL 02/05/2025 14:24 Assessment and plan: # 1. Type II DM, A1c goal is <7.5% - metformin 1000 mg XR daily - Increase glipizide to 5 mg BID - sitagliptin 25 mg daily - jardiance 25 mg daily - hypoglycemia precautions discussed - eye exam 03/27/2025, 1. Type 2 Diabetes without Ocular Manifestations OU, advised to make a yearly appt for repeat eye exam - checks feet daily, [facility] - Advised to call in a few weeks regarding BG readings for further management of medications. Will consider restarting Lantus depending on BG readings HTN - Discontinued all BP medications per cardiology due to low BPs - Continue BP monitoring - Compression socks HLD - Last calculated LDL 72 (02/05/25) - Atorvastatin 40 mg Renal - egfr 86, micr/cr neg in 09/2024 - Advised to avoid nephrotoxic medications JEAN MARIE - Does not tolerate CPAP Questions answered. Verbalizes understanding. 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 1. Type II DM, A1c goal is <7.5% - current regimen: [id number]/metformin 1000 mg bid ozempic 1 mg weekly - stopped last visit due to marked appetite suppression - glipizide 5 mg daily -supposed to be bid - sitagliptin 25 mg daily - previously on lantus which was stopped in 05/2024 - a1c 7.8, 09/28, 7.4 in 02/2025 - Glucose log shows avg glucose 160-220 - No hypoglycemia P: - continue jardiance 25 - glipizide 5 mg bid - patient is not sure if he is taking it daily or bid, will check and send secure message. If daily, increase to bid. If already bid, may increase dose - metformin 1000 mg XR daily - sitagliptin 25 mg daily - [...] neg in 09/2024, advised to avoid nephrotoxic medications.continue jaridance JEAN MARIE: has not used cpap in years, worried about malfunctioning device, endorses fatigue. advised to go to the 5th floor walk in CPAP clinic for trouble shooting History of lung cancer - stage 1, incidentally found, s/p xrt, follows at [facility] 2 months /es/ Viivan Kirk MD STAFF SECURITY SYSTEMS MANAGER Signed: 05/14/2025 14:08 ARISTIDES VIERA [facility] May 14, 2025 01:25 PM ENDOCRINOLOGY OUTPATIENT NOTE: LOCAL TITLE: ENDOCRINOLOGY OUTPATIENT FOLLOW UP [facility] STANDARD TITLE: ENDOCRINOLOGY OUTPATIENT NOTE DATE OF NOTE: MAY 14, 2025@13:25 ENTRY DATE: MAY 14, 2025@13:25:56 AUTHOR: MARA KIRBY EXP COSIGNER: VIVIAN KIRK URGENCY: STATUS: COMPLETED ENDOCRINOLOGY OUTPATIENT FOLLOW UP [facility] Has ADDENDA ENDOCRINOLOGY OUTPATIENT VISIT HPI: ANDRÉS MILES is a 79yo WHITE MALE PMHx of osteoarthritis of knee, htn, severe copd, diabetes, hld, cognitive impairement, 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 Glucometer Reads Range 160's-220's during the day No hypoglycemic episodes BP No further hypotensive episodes since last visit Meds Sitagliptin 25 mg Glipizide 5 mg jardiance 25 mg metformin 1000 mg Diet 2 meals a day, no fast food breakfast is at noon protein shake for snack No soda, juice Unsweetened ice tea is primary drink 1 bottle water per day Exercise Stretching ROS Endorsed neuropathy in legs up to knees bilaterally and cold feet. Denied polydipsia and polyuria. ROS: Constitutional: No fevers, chills or night sweats HEENT: No visual changes, hearing changes, sinus congestion, or sore throat CV: No chest pain, palpitations, dyspnea on exertion Respiratory: No shortness of breath, cough, or wheezing GI: No abdominal pain, nausea, vomiting, heartburn, diarrhea, constipation, melena, hematochezia : No hesitancy, urgency, no urinary frequency, nocturia, dysuria, hematuria, or incontinence Musculoskeletal: No joint pain or swelling Skin: No rashes or color changes Neuro: No headaches, lightheadedness, dizziness, focal weakness. Reports numbness/tingling in bilateral lower extremities Endo: No symptoms of hypo/hyperthyroidism or hypoglycemia Allergies: SIMVASTATIN, SYMBICORT Medications: Active Outpatient Medications [...] TO PREVENT CLOGGING. Indication: FOR COPD 3) ASPIRIN 81MG EC TAB Qty: 120 for 90 days ACTIVE Issue: 05/09/25 Sig: TAKE ONE TABLET BY MOUTH ONCE A DAY FOR Refills: 3 Last : 05/09/25 HEART OR CIRCULATION. TAKE WITH FOOD. Expr : 05/10/26 4) ATORVASTATIN CALCIUM 80MG TAB Qty: 45 [...] HANDS AFTER APPLICATION. Indication: FOR PAIN 6) CARBOXYMETHYLCELLULOSE NA 1% OPH GEL Qty: 30 ACTIVE Issue: 03/27/25 for 90 days Sig: INSTILL 1 DROP INTO BOTH Refills: 3 Last : 03/27/25 EYES FOUR TIMES A DAY NEEDED Expr : 03/28/26 Indication: FOR DRY EYE(S) 7) CHOLECALCIF 50MCG (D3-2,000UNIT) TAB Qty: ACTIVE Issue: 07/12/24 200 for 90 days Sig: TAKE TWO TABLETS BY Refills: 0 Last : 04/19/25 MOUTH ONCE A DAY FOR VITAMIN D DEFICIENCY. Expr : 07/13/25 8) CYANOCOBALAMIN 1000MCG TAB Qty: 100 for 90 ACTIVE Issue: 01/30/25 days Sig: TAKE ONE TABLET BY MOUTH ONCE A Refills: 3 Last : 02/14/25 DAY FOR B12 SUPPLEMENTATION Expr : 01/31/26 Indication: FOR VITAMIN B12 SUPPLEMENTATION 9) DOCUSATE NA 100MG CAP Qty: 400 for 90 days ACTIVE Issue: 01/30/25 Sig: TAKE TWO CAPSULES BY MOUTH TWICE A DAY Refills: 3 Last : 01/30/25 HOLD FOR LOOSE STOOL/DIARRHEA. Expr : 01/31/26 Indication: FOR SOFTENING STOOL 10) EMPAGLIFLOZIN 25MG TAB Qty: 90 for 90 days ACTIVE (S) Issue: 03/13/25 Sig: TAKE ONE TABLET BY MOUTH ONCE A DAY Refills: 2 Last : 06/03/25 Indication: FOR DIABETES Expr : 03/14/26 11) FINASTERIDE 5MG TAB Qty: 90 for 90 days Sig: ACTIVE Issue: 01/28/25 TAKE ONE TABLET BY MOUTH ONCE A DAY FOR Refills: 2 Last : 04/19/25 PROSTATE Expr : 01/29/26 12) FLUOROURACIL 5% CREAM Qty: 40 for 30 [...] 2 WEEKS. Indication: FOR ACTINIC KERATOSIS 13) FUROSEMIDE 20MG TAB Qty: 90 for 90 days Sig: ACTIVE Issue: 02/27/25 TAKE ONE TABLET BY MOUTH EVERY MORNING Refills: 0 Last : 02/27/25 Indication: FOR FLUID RETENTION (EDEMA) Expr : 05/28/25 14) GLIPIZIDE 5MG TAB Qty: 180 for 90 days Sig: ACTIVE (S) Issue: 10/15/24 TAKE ONE TABLET BY MOUTH TWO TIMES A DAY Refills: 0 Last : 07/02/25 BEFORE MEALS TAKE 30 MINUTES BEFORE EATING. Expr : 10/16/25 Indication: FOR DIABETES 15) HYDROPHILIC (EQV EUCERIN) TOP CREAM Qty: [...] ACIDOPHILUS CHEW TAB Qty: 100 ACTIVE Issue: 03/24/25 for 90 days Sig: TAKE 1 TABLET BY MOUTH ONCE Refills: 3 Last : 03/24/25 A DAY Expr : 03/25/26 18) METFORMIN HCL 500MG 24HR SA TAB Qty: 180 for ACTIVE (S) Issue: 03/13/25 90 days Sig: TAKE TWO TABLETS BY MOUTH ONCE Refills: 2 Last : 06/03/25 A DAY TAKE WITH FOOD. AVOID ALCOHOL. Expr : 03/14/26 DISCONTINUE BEFORE GETTING XRAY DYE. Indication: FOR DIABETES 19) POLYETHYLENE GLYCOL 3350 ORAL PWDR Qty: 510 ACTIVE Issue: 09/03/24 for 30 days Sig: MIX AND DRINK 1 CAPFUL BY Refills: 2 Last : 09/30/24 MOUTH ONCE A DAY (MEASURE WITH CAP AND MIX Expr : 09/04/25 IN 8 OZ OF WATER) Indication: FOR CONSTIPATION 20) PROPYLENE GLYCOL 0.6% OPH SOLN Qty: 20 for ACTIVE Issue: 03/27/25 90 days Sig: INSTILL 1 DROP IN AFFECTED Refills: 3 Last : 03/27/25 EYE(S) ONCE A DAY NEEDED Expr : 03/28/26 Indication: FOR DRY EYE(S) 21) SITAGLIPTIN (EQV-ZITUVIO) 25MG TAB Qty: 90 ACTIVE (S) Issue: 01/15/25 for 90 days Sig: TAKE ONE TABLET BY MOUTH Refills: 1 Last : 07/04/25 ONCE A DAY Expr : 01/16/26 Indication: FOR DIABETES 22) TERAZOSIN HCL 5MG CAP Qty: 90 for 90 days ACTIVE Issue: 12/12/24 Sig: TAKE ONE CAPSULE BY MOUTH AT BEDTIME Refills: 2 Last : 03/24/25 FOR PROSTATE Expr : 12/13/25 23) TIOTROPIUM 1.25MCG/ACTUAT 60D ORAL INHL Qty: ACTIVE Issue: 02/19/25 3 for 90 days Sig: INHALE 2 INHALATIONS BY Refills: 3 Last : 02/20/25 ORAL INHALATION ONCE A DAY (ADMINISTER AT Expr : 02/20/26 SAME TIME EACH DAY) Indication: FOR COPD Past Medical History: 1) Benign essential hypertension (SNOMED CT 6054377) 2) Moderate chronic obstructive pulmonary disease (SNOMED CT 803691446) 3) Obesity (SNOMED CT 803752034) 4) History of malignant melanoma of the skin (SNOMED CT 412341331149) 5) Osteoarthritis of knee (SNOMED CT 788469796) 6) Colonoscopy normal 7) Diabetes mellitus 8) HLD - Hyperlipidaemia 9) Expressive dysphasia 10) Moderate cognitive impairment 11) Neuropathy 12) Squamous cell carcinoma of lung 13) Vitamin B12 Deficiency ([facility] 472765392) 14) Vitamin D Deficiency ([facility] 12382534) 15) Arthritis of hand 16) Benign prostatic hyperplasia 17) Osteoarthritis of multiple joints 18) Exposure to potentially hazardous substance 19) Constipation 20) Erectile dysfunction SOCIAL HISTORY: Marital status: PHYSICAL EXAM: Vital Signs: Temperature: 98.8 F [37.1 C] (05/06/2025 14:53) Blood Pressure: 124/73 (05/06/2025 14:53) Pulse: 66 (05/06/2025 14:53) Respirations: 18 (05/06/2025 14:53) Weight: 170 lb [77.11 kg] (05/06/2025 14:53) Patient Weight History - Last Four 1. 170.0 lbs. / 77.1 kg. on MAY 06, 2025@14:53:45 2. 171.2 lbs. / 77.7 kg. on MAY 01, 2025@12:31:32 3. 171.2 lbs. / 77.7 kg. on FEB 27, 2025@12:53:59 4. 171.9 lbs. / 78.0 kg. on FEB 17, 2025@14:43:06 BMI: 25.2 GENERAL: No acute distress, Well developed, well nourished HEENT: EOMI, PERRL, sclera anicteric CV: Regular rate RESP: regular, unlabored GI: non-distended PSYCH: pleasant, appropriate LABS: Comprehensive Metabolic Panel [...] mg/dL 02/05/2025 14:24 Assessment and plan: # 1. Type II DM, A1c goal is <7.5% - metformin 1000 mg XR daily - Increase glipizide to 5 mg BID - sitagliptin 25 mg daily - jardiance 25 mg daily - hypoglycemia precautions discussed - eye exam 03/27/2025, 1. Type 2 Diabetes without Ocular Manifestations OU, advised to make a yearly appt for repeat eye exam - checks feet daily, [facility] - Advised to call in a few weeks regarding BG readings for further management of medications. Will consider restarting Lantus depending on BG readings HTN - Discontinued all BP medications per cardiology due to low BPs - Continue BP monitoring - Compression socks HLD - Last calculated LDL 72 (02/05/25) - Atorvastatin 40 mg Renal - egfr 86, micr/cr neg in 09/2024 - Advised to avoid nephrotoxic medications JEAN MARIE - Does not tolerate CPAP Questions answered. Verbalizes understanding. 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 1. Type II DM, A1c goal is <7.5% - current regimen: [id number]/metformin 1000 mg bid ozempic 1 mg weekly - stopped last visit due to marked appetite suppression - glipizide 5 mg daily -supposed to be bid - sitagliptin 25 mg daily - previously on lantus which was stopped in 05/2024 - a1c 7.8, 09/28, 7.4 in 02/2025 - Glucose log shows avg glucose 160-220 - No hypoglycemia P: - continue jardiance 25 - glipizide 5 mg bid - patient is not sure if he is taking it daily or bid, will check and send secure message. If daily, increase to bid. If already bid, may increase dose - metformin 1000 mg XR daily - sitagliptin 25 mg daily - [...] neg in 09/2024, advised to avoid nephrotoxic medications.continue jaridance JEAN MARIE: has not used cpap in years, worried about malfunctioning device, endorses fatigue. advised to go to the 5th floor walk in CPAP clinic for trouble shooting History of lung cancer - stage 1, incidentally found, s/p xrt, follows at [facility] 2 months /sadia/ Vivian Kirk MD STAFF SECURITY SYSTEMS MANAGER Signed: 05/14/2025 14:08 05/16/2025 ADDENDUM STATUS: COMPLETED ------Original Message Sent: 05/15/2025 09:37 PM ET From: ANDRÉS MILES To: [facility], ENDOCRINE-DIABETES, - ALL PROVIDERS Subject: Medication:Med confirmation Per Dr's request... I confirmed that Andrés Miles ([id number]) is taking glipizide twice a day 30 minutes before meals. Isa ------Original Message Sent: 05/16/2025 09:53 AM ET From: ARISTIDES VIERA To: ANDRÉS MILES Subject: Medication:Med confirmation Thank you. I'll get back to you with any change of plan. Regards. /sadia/ Aristides Viera, RN, BSN REGISTERED NURSE Signed: 05/16/2025 08:54 Receipt Acknowledged By: * AWAITING SIGNATURE * MARA KIRBY * AWAITING SIGNATURE * VIVIAN KIRK LEORA MEGAN [facility]
--- OUTSIDE RECORDS SUMMARY | 2025-07-09 09:00 | XMS_ITS | Encounter Summary ---
Author Name [facility] [place] [facility] [place] Address [address] [place] [address] Care Team Providers Care Military Technology Specialist Name Role Phone LINN MCKEON Primary [...] PART B Apr 04, 2010 PART B [id number] ANDRÉS MILES PATIENT MEDICARE (WNR) MEDICARE (M) PART A Apr 04, 2010 PART A [id number] ANDRÉS MILES PATIENT MEDICARE (WNR) MEDICARE (M) PART B Apr 04, 2010 PART B [id number] ANDRÉS MILES PATIENT MEDICARE (WNR) MEDICARE (M) PART A Apr 04, 2010 PART A [id number] ANDRÉS MILES PATIENT Selected Encounter This section includes the information on record at [place] for the Encounter. Date/Time Encounter Type Encounter Description Reason Provider Source Jul 09, 2025 03:00 PM OFFICE O/P EST MOD 30 MIN ENDOCRINOLOGY ICD-10-CM E11.65 Type 2 diabetes mellitus with hyperglycemia VIVIAN KIRK IHLacho Encounter Template Text not used by [place] Assessments - Encounter Diagnoses This section includes the primary and secondary diagnoses documented for the Encounter. Date/Time Primary/Secondary Diagnosis Diagnosis Name Provider Source Jul 09, 2025 03:54 PM PRIMARY Type 2 diabetes mellitus with hyperglycemia VIVIAN KIRK [facility] Plan of Treatment: Future Appointments (+ 6 months) and Future Tests (+/- 45 days) The Plan of Treatment section includes future care activities for the patient from all [place] [facility]. This section includes future appointments and future orders which are active, pending or scheduled. Future Appointments This section includes appointments that were scheduled to occur 6 months from the date of the Encounter, up to a maximum of 20 appointments. The data comes from all [place] treatment facilities. Appointment Date/Time Appointment Type Appointme nt Facility Name Jul 21, 2025 02:00 PM AMBULATORY - MEDICINE [facility] Jul 21, 2025 02:01 PM [facility] NONE [facility] Aug 06, 2025 01:40 PM AMBULATORY - NONE [facility] Aug 12, 2025 02:30 PM AMBULATORY - NONE [facility] Aug 18, 2025 11:00 AM AMBULATORY - NONE [facility] Aug 21, 2025 11:30 AM AMBULATORY - NONE [facility] Oct 09, 2025 12:30 PM AMBULATORY - MEDICINE [facility] Nov 25, 2025 03:30 PM AMBULATORY - NONE [facility] Dec 01, 2025 02:30 PM AMBULATORY - NONE [facility] Lab Results: +/- 30 days of the encounter This section includes the Chemistry and Hematology Lab Results on record with [place] for the patient. Radiology Reports and Pathology Reports are provided separately, in subsequent sections. Lab Results This section contains the Chemistry/Hematology Results that were resulted 30 days before or 30 daysafter the date of the Encounter. Date/Time Source Result Type Result - Unit Interpretation Reference Range Specimen Type Comment Aug 06, 2025 02:05 PM [facility] I-STAT, CREAT (STL-MA) BLOOD Specimen Type: BLOOD Comment: Test Performed by: [id number] Meter #: [id number] Ordering Provider: LOUISE GALEANA Report Released Date/Time: Aug 06, 2025 04:01 PM Reporting Lab: [facility] [address] [facility] [id number] Performing Lab: [facility] [address] [facility] [address] I-STAT, CREAT (STL-MA) 0.9 mg/dL 0.7-1.3 Jul 24, 2025 09:39 AM [facility] TESTOSTERONE, FREE PANEL SERUM Specimen Type: SERUM Comment: Men with clinically significant hypogonadal symptoms and testosterone values repeatedly in the range of the 200-300 ng/dL or less, may benefit from testosterone treatment after adequate risk and benefits counseling. For additional information, please refer to http://education.GoTable.Bazinga/faq/ [email or web address] (This link is being provided for informational/ educational purposes only.) This test was developed and its analytical performance characteristics have been determined by [facility] [place]. It has not been cleared or approved by the U.S. Food and Drug Administration. This assay has been validated pursuant to the CLIA regulations and is used for clinical purposes. Test Performed by [employer], [facility] [place], [address] [place] [address] Favian Franco M.D., Ph.D., Director of Laboratories , CLIA [id number] Ordering Provider: VIVIAN KIRK Report Released Date/Time: Jul 09, 2025 03:50 PM Reporting Lab: [facility] [address] [facility] [address] Performing Lab: [facility] [id number] [place] [address] TESTOSTERONE, TOTAL 421 ng/dL 250-1100 ALBUMIN (PB-sendout) 3.7 g/dL 3.6-5.1 TESTOSTERONE,FREE (sendout) 54.2 pg/mL 6 .0-73.0 TESTOSTERONE,BIOAVAILABLE (MA-PB-SO 92.6 ng/dL 15.0-150.0 SEX HORMONE BINDING GLOBULIN 36 nmol/L 2 2-77 Vital Signs: All taken on the encounter date This section contains inpatient and outpatient Vital Signs collected on the date of the Encounter. Date/Time Temperature Pulse Blood Pressure Respiratory Rate SP02 Pain Height Weight Body Mass Index Source Jul 09, 2025 03:19 PM 97.7 F 55 /min 129/70 mm[Hg] 16 /min 97 % 6 69 in 168.1 lb 25 [facility] Social History: Smoking Status [...] 05:24 PM ORYX ADMIT TOBACCO SCREEN NO [facility] Tobacco Use History This section includes a history of the smoking, or tobacco-related health factors, that were collected on or before the date of the Encounter. The data comes from the [place] facility where the Encounter took place. Date/Time Smoking Status/Tobacco Use Comment F acility May 12, 2022 01:00 PM VA-TOBACCO FORMER USER [facility] May 12, 2022 01:00 PM VA-TOBACCO QUIT 15 YRS OR MORE [facility] May 12, 2021 09:00 AM VA-TOBACCO FORMER USER [facility] May 12, 2021 09:00 AM VA-TOBACCO QUIT 15 YRS OR MORE [facility] Nov 01, 2017 03:12 PM LIFETIME NON-USER OF TOBACCO [facility] Dec 16, 2016 07:18 PM QUIT TOBACCO >7 YEARS AGO [facility] Jul 27, 2016 12:41 AM LIFETIME NON-USER OF TOBACCO [facility] Advance Directives: All historical and current Section [...] 21, 2019 ADVANCE DIRECTIVE DISCUSSION [facility] Jul 28, 2016 ADVANCE DIRECTIVE DISCUSSION [facility] Radiology Reports: +/- 30 days of [...] treatment facilities. Date/Time Radiology Report Provider Source Aug 06, 2025 01:[address] THORAX, DIAGNOS TIC, W/CONTRAST: ANDRÉS MILES JETHRO [id number] -1945 M Ex Date: AUG 06, 2025@13:20 Req Phys: SARA MARCIAL Loc: [facility]-RAD THERAPY PHYSICIAN 1 (Re Img Loc: [facility]-CT IMAGING [facility] Service: [facility], [facility] [address] [place] [address] (Case [id number] COMPLETE) CT THORAX, DIAGNOSTIC, W/CONTRAS(CT Detailed) CPT:40559 Contrast Media : Non-ionic Iodinated Reason for Study: Follow up imaging Clinical History: Responsible Attending: Sara Marcial Attending Contact Number: [phone] Resident Contact Number: H/o RUL lung cancer s/p radiation treatments and a RLL opacity seen in his follow up chest CT in March 2025. Allergies listed in CPRS chart: SIMVASTATIN, SYMBICORT Creatinine: CREATININE 0.98 mg/dL 02/05/2025 14:24 /eGFR: STL EGFR (within one year). CREATININE 0.98 mg/dL (06/04/25 14:24) Wt: 171.2 lb [77.66 kg] (05/01/2025 12:31) History of: Renal failure, chronic or acute renal disease: NO Report Status: Verified Date Reported: AUG 06, 2025 Date Verified: AUG 06, 2025 [facility] E-Sig:/ES/ELZBIETA HERRMANN Report: Case [id number]. CT THORAX, DIAGNOSTIC, W/CONTRAST Total DLP: 185 mGy*cm. IV contrast: Yes. Comparison: Chest CT on 04/03/2025 and also 12/13/2022. FINDINGS: Lungs: Post radiation treatment changes of the right upper lobe mass are redemonstrated and appear increased in density centrally from exam on 04/03/2025 (series 5 image 29). This measures approximately 4.8 x 2.8 cm, unchanged in overall size. The previously described nodule at the peripheral right lower lobe (series 6 image 60) is less conspicuous and appears decreased in size, currently measuring 1.2 x 0.5 cm in the coronal plane. There is a new 1.8 cm spiculated pulmonary nodule of the right upper lobe adjacent to the intersection of the horizontal and oblique fissures (series 7 image 28). Groundglass opacities and tree-in-bud nodularity of the left lung base are also present, mildly increased from 04/03/2025. Pleura: Within normal limits. There is a small pleural-based calcified nodule of the left lower lobe, unchanged. Gaby: A 0.8 cm right hilar lymph node is not significantly changed. No left hilar lymph node enlargement. Mediastinum: Atherosclerotic calcifications of the aorta and its branches, and also the coronary arteries. No mediastinal lymphadenopathy. Upper abdomen: Cholelithiasis without evidence of cholecystitis, otherwise within normal limits. Musculoskeletal: Degenerative changes of the spine and chronic healed bilateral rib fractures are noted. Impression: Evolving radiation changes of the right upper lobe pulmonary mass with increased central fill-in. Viable malignancy cannot be excluded on this examination Previously described right lower lobe peripheral pulmonary nodule is decreased in size, currently 1.2 x 0.5 cm. New 1.8 cm solid pulmonary nodule of the right upper lobe adjacent to the intersection of the horizontal and oblique fissures. Tree-in-bud nodularity and groundglass opacities at the left lung base are mildly increased from the prior exam. Suspect infectious process and/or aspiration. Report dictated by Savage Maria D.O. (residential director) I, Elzbieta Herrmann, have reviewed the images and report and concur with these findings. Primary Interpreting Staff: ELZBIETA HERRMANN MD ([facility]) Primary Interpreting Resident: Savage Maria D.O., Resident Physician /ELZBIETA ALICEA [facility] Encounter Notes: All associated encounter notes This section contains the clinical notes associated to the Encounter. Date/Time Encounter Note(s) Provider Source Aug 13, 2025 02:35 PM PHYSICIAN LETTERS: LOCAL TITLE: TEST RESULT GENERAL LETTER STL STANDARD TITLE: PHYSICIAN LETTERS DATE OF NOTE: AUG 13, 2025@14:35 ENTRY DATE: AUG 13, 2025@14:35:25 AUTHOR: VIVIAN KIRK EXP COSIGNER: URGENCY: STATUS: COMPLETED [facility] [address] [place] [address] AUG 13, 2025 ANDRÉS MILES [address] [place] [id number] Dear Andrés Miles, I would like to update you on your recent test results: TOTAL TESTOSTERONE 421 - this is within the normal range. FUTURE APPOINTMENTS: 08/18/2025 11:00 [facility]NUC MED PET B 08/21/2025 11:30 [facility]-RAD THERAPY PHYSICIAN 10/09/2025 12:30 [facility]ENDOCRINOLOGY MD 1 01/19/2026 15:00 STL-V15 [facility] PACT 04 PA 03/27/2026 13:00 [facility]-OPTOMETRY 3 04/30/2026 13:00 [facility]-CARDIOLOGY F1 06/03/2026 13:15 [facility]-DERM Sincerely, Vivian Kirk MD STAFF ER RN MD MILES,VIVIAN STEVENS [facility] Jul 09, 2025 03:51 PM PHARMACY NOTE: LOCAL TITLE: V15-CGM QUALIFICATION NOTE STANDARD TITLE: PHARMACY NOTE DATE OF NOTE: JUL 09, 2025@15:51 ENTRY DATE: JUL 09, 2025@15:51:12 AUTHOR: VIVIAN KIRK EXP COSIGNER: URGENCY: STATUS: COMPLETED New CGM Start Criteria For Issuance: - Byram has been diagnosed with diabetes OR a condition that significantly increases the risk of hypoglycemia (e.g. post-gastrectomy, paraneoplastic syndromes, reactive hypoglycemia). *Note: for indications other than diabetes, use of a CGM may be considered on a [id number] basis, following evaluation by Endocrinology. - The has the knowledge and skills necessary to successfully use a CGM device, including an understanding of the need to do fingerstick testing for calibration to evaluate high or low blood glucose results or trends based upon readings and/or alarms. - The Byram or caregiver have received, or will be scheduled to receive, CGM device education. - The has followed clinician recommendations for glucose testing and medication adherence. - The Byram agrees to ongoing medical appointments with the multidisciplinary team no later than three months initially, then at least every six months thereafter, to assess the adherence and benefit derived from the CGM device. Byram does meet all of the Main Criteria listed above. The Byram has diabetes,is being treated with daily insulin, and is not achieving desired glycemic targets. 's Target A1C Range: 6.0 - 7.0% The following is required for continued use of a CGM: - The should have an initial follow-up appointment within 3 months of starting the CGM, then at least every 6 months thereafter. - Follow-up appointments must be conducted and documented in the Byram's electronic medical record. This follow-up may occur in the clinic, via video, phone call or secure messaging. - Reevaluation of the continued use of a the CGM device can be considered if there is no improvement in glycemic targets or hypoglycemia events, or if the Byram is not adherent with CGM device usage.Adherence with clinic appointments, treatment recommendations and calibration requirements should be considered as well. CGM Product Chosen: Wayne Freestyle Jony 3 Plus (15 day wear, preferred over Jony 3) /sadia/ Vivian Kirk MD STAFF ER RN Signed: 07/09/2025 15:54 VIVIAN KIRK [facility] Jul 09, 2025 03:16 PM ENDOCRINOLOGY OUTPATIENT NOTE: LOCAL TITLE: ENDOCRINOLOGY OUTPATIENT FOLLOW UP ST STANDARD TITLE: ENDOCRINOLOGY OUTPATIENT NOTE DATE OF NOTE: JUL 09, 2025@15:16 ENTRY DATE: JUL 09, 2025@15:16:50 AUTHOR: VIVIAN KIRK EXP COSIGNER: URGENCY: STATUS: COMPLETED Follow up HPI: 79 year old male with a medical history of osteoarthritis of knee, htn, severe copd, diabetes, hld, cognitive impairement, 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 1. Type II DM, A1c goal is <7.5% - current regimen: jardiance 25 metformin ozempic 1 mg weekly - stopped last visit due to marked appetite suppression - glipizide 5 mg daily - sitagliptin 25 mg daily - previously on lantus which was stopped in 05/2024 - a1c 7.8, 09/28 - Glucose log shows fasting glucose 100-150s, glucose at bedtime 170-200s - No hypoglycemia ROS: Constitutional: No fevers, chills or night [...] changes Neuro: No headaches, lightheadedness, dizziness, focal weakness, or paresthesias Psych: Mood has been ___, denies depression and anxiety Endo: No symptoms of hypo/hyperthyroidism or hypo/hyperglycemia Allergies: SIMVASTATIN, SYMBICORT Medications: Active Outpatient Medications (excluding Supplies): Issue Date Status Last Fill Active Outpatient Medications Refills Expiration 1) ACETAMINOPHEN 325MG TAB Qty: 200 for 30 days ACTIVE Issue: 09/03/24 Sig: TAKE TWO TABLETS BY MOUTH EVERY 4 HOURS Refills: 1 Last : 06/15/25 NEEDED /FEVER. CAUTION: DO NOT EXCEED Expr [...] TAB Qty: 120 for 90 days ACTIVE (S) Issue: 05/09/25 Sig: TAKE ONE TABLET BY MOUTH ONCE A DAY FOR Refills: 2 Last : 07/28/25 HEART OR CIRCULATION. TAKE WITH FOOD. Expr : 05/10/26 4) ATORVASTATIN CALCIUM 80MG TAB Qty: 45 for 90 ACTIVE Issue: 12/12/24 days Sig: TAKE ONE-HALF TABLET BY MOUTH Refills: 1 Last : 06/18/25 EVERY EVENING FOR CHOLESTEROL. REPORT ANY Expr [...] Sig: INSTILL 1 DROP INTO BOTH Refills: 2 Last : 06/15/25 EYES FOUR TIMES A DAY NEEDED Expr : 03/28/26 Indication: FOR DRY EYE(S) 7) CHOLECALCIF 50MCG (D3-2,000UNIT) TAB Qty: ACTIVE Issue: 06/20/25 200 for 90 days Sig: TAKE TWO TABLETS BY Refills: 3 Last : 07/08/25 MOUTH ONCE A DAY FOR VITAMIN D DEFICIENCY. Expr : 06/21/26 8) CYANOCOBALAMIN 1000MCG TAB Qty: 100 for 90 ACTIVE Issue: 01/30/25 days Sig: TAKE ONE TABLET BY MOUTH ONCE A Refills: 2 Last : 06/15/25 DAY FOR B12 SUPPLEMENTATION Expr : 01/31/26 Indication: FOR VITAMIN B12 SUPPLEMENTATION 9) DOCUSATE NA 100MG CAP Qty: 400 for 90 days ACTIVE Issue: 01/30/25 Sig: TAKE TWO CAPSULES BY MOUTH TWICE A DAY Refills: 2 Last : 06/15/25 HOLD FOR LOOSE STOOL/DIARRHEA. Expr : 01/31/26 Indication: FOR SOFTENING STOOL 10) EMPAGLIFLOZIN 25MG TAB Qty: 90 for 90 days ACTIVE Issue: 03/13/25 Sig: TAKE ONE TABLET BY MOUTH ONCE A DAY Refills: 2 Last : 06/03/25 Indication: FOR DIABETES Expr : 03/14/26 11) FINASTERIDE 5MG TAB Qty: 90 for 90 days Sig: ACTIVE Issue: 01/28/25 TAKE ONE TABLET BY MOUTH ONCE A DAY FOR Refills: 1 Last : 07/18/25 PROSTATE Expr : 01/29/26 12) GLIPIZIDE 10MG TAB Qty: 180 for 90 days Sig: ACTIVE Issue: 05/20/25 TAKE ONE TABLET BY MOUTH TWO TIMES A DAY Refills: 3 Last : 05/20/25 BEFORE MEALS TAKE 30 MINUTES BEFORE EATING. Expr : 05/21/26 Indication: FOR DIABETES 13) HYDROPHILIC (EQV EUCERIN) TOP CREAM Qty: 454 ACTIVE Issue: 05/14/25 for 90 days Sig: APPLY LIBERALLY TO AFFECTED Refills: 3 Last : 05/17/25 AREA(S) ONCE A DAY (EXTERNAL USE ONLY) Expr : 05/15/26 Indication: FOR SKIN CARE 14) KETOCONAZOLE 2% CREAM Qty: 15 for 90 days ACTIVE Issue: 05/14/25 Sig: APPLY LIGHTLY TO AFFECTED AREA(S) TWICE Refills: 3 Last : 05/17/25 A DAY (EXTERNAL USE ONLY) Expr : 05/15/26 Indication: FOR SEBORRHEIC DERMATITIS 15) LACTOBACILLUS ACIDOPHILUS CHEW TAB Qty: 100 ACTIVE Issue: 03/24/25 for 90 days Sig: TAKE 1 TABLET BY MOUTH ONCE Refills: 2 Last : 06/15/25 A DAY Expr : 03/25/26 16) METFORMIN HCL 500MG 24HR SA TAB Qty: 180 for ACTIVE Issue: 03/13/25 90 days Sig: TAKE TWO TABLETS BY MOUTH ONCE Refills: 2 Last : 06/03/25 A DAY TAKE WITH FOOD. AVOID ALCOHOL. Expr : 03/14/26 DISCONTINUE BEFORE GETTING XRAY DYE. Indication: FOR DIABETES 17) POLYETHYLENE GLYCOL 3350 ORAL PWDR Qty: 510 ACTIVE Issue: 09/03/24 for 30 days Sig: MIX AND DRINK 1 CAPFUL BY Refills: 2 Last : 09/30/24 MOUTH ONCE A DAY (MEASURE WITH CAP AND MIX Expr : 09/04/25 IN 8 OZ OF WATER) Indication: FOR CONSTIPATION 18) PROPYLENE GLYCOL 0.6% OPH SOLN Qty: 20 for ACTIVE Issue: 03/27/25 90 days Sig: INSTILL 1 DROP IN AFFECTED Refills: 3 Last : 03/27/25 EYE(S) ONCE A DAY NEEDED Expr : 03/28/26 Indication: FOR DRY EYE(S) 19) SITAGLIPTIN (EQV-ZITUVIO) 25MG TAB Qty: 90 ACTIVE Issue: 01/15/25 for 90 days Sig: TAKE ONE TABLET BY MOUTH Refills: 1 Last : 07/04/25 ONCE A DAY Expr : 01/16/26 Indication: FOR DIABETES 20) TERAZOSIN HCL 5MG CAP Qty: 90 for 90 days ACTIVE Issue: 12/12/24 Sig: TAKE ONE CAPSULE BY MOUTH AT BEDTIME Refills: 1 Last : 06/18/25 FOR PROSTATE Expr : 12/13/25 21) TIOTROPIUM 1.25MCG/ACTUAT 60D ORAL INHL Qty: ACTIVE Issue: 02/19/25 3 for 90 days Sig: INHALE 2 INHALATIONS BY Refills: 3 Last : 02/20/25 ORAL INHALATION ONCE A DAY (ADMINISTER AT Expr : 02/20/26 SAME TIME EACH DAY) Indication: FOR COPD 22) TRIAMCINOLONE ACETONIDE 0.025% OINT Qty: 15 ACTIVE Issue: 05/14/25 for 90 days Sig: APPLY LIGHTLY TO AFFECTED Refills: 3 Last : 05/17/25 AREA(S) TWICE A DAY (EXTERNAL USE ONLY) Expr : 05/15/26 Indication: FOR ATOPIC DERMATITIS Past Medical History: 1) Benign essential hypertension (SNOMED CT 3939999) 2) Moderate chronic obstructive pulmonary disease (SNOMED CT 765520025) 3) Obesity (SNOMED CT 633852807) 4) History of malignant melanoma of the skin (SNOMED CT 486441620612) 5) Osteoarthritis of knee (SNOMED CT 433399127) 6) Colonoscopy normal 7) Diabetes mellitus 8) HLD - Hyperlipidaemia 9) Expressive dysphasia 10) Moderate cognitive impairment 11) Neuropathy 12) Squamous cell carcinoma of lung 13) Vitamin B12 Deficiency (SCT 637662518) 14) Vitamin D Deficiency (SCT 90220636) 15) Arthritis of hand 16) Benign prostatic hyperplasia 17) Osteoarthritis of multiple joints 18) Exposure to potentially hazardous substance 19) Constipation 20) Erectile dysfunction PHYSICAL EXAM: Vital Signs: Temperature: 97.3 F [36.3 C] (05/14/2025 13:37) Blood Pressure: 102/62 (05/14/2025 13:37) Pulse: 62 (05/14/2025 13:37) Respirations: 16 (05/14/2025 13:37) Weight: 171.2 lb [77.66 kg] (05/14/2025 13:37) Patient Weight History - Last Four 1. 171.2 lbs. / 77.7 kg. on MAY 14, 2025@13:37:59 2. 170.0 lbs. / 77.1 kg. on MAY 06, 2025@14:53:45 3. 171.2 lbs. / 77.7 kg. on MAY 01, 2025@12:31:32 4. 171.2 lbs. / 77.7 kg. 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 1. Type II DM, A1c goal is <7.5% - current regimen: jardiance 25 metformin ozempic 1 mg weekly - stopped last visit due to marked appetite suppression - glipizide 5 mg daily - sitagliptin 25 mg daily - previously on lantus which was stopped in 05/2024 - a1c 7.8, 09/28 - Glucose log shows fasting glucose 100-150s, glucose at bedtime 170-200s - No hypoglycemia P: - start lantus 10 units - titrate to am fasting glucose 100-150 - continue jardiance 25 mg daily - continue metformin 1 g daily xr - stop glipizide and sitagliptin - freestyle jony 3 sensor prescribed - hypoglycemia precautions discussed - eye exam 11/27/23, 1. Type 2 Diabetes without Ocular Manifestations OU, advised to make an appt for repeat eye exam - checks feet daily, [facility] hld: on lipitor 40 mg daily, ldl 101, continue renal: egfr 86, micr/cr neg in 09/2024, advised to avoid nephrotoxic medications. madi tafoyaace JEAN MARIE: has not used cpap in years, worried about malfunctioning device, endorses fatigue. advised to go to the 5th floor walk in CPAP clinic for trouble shooting History of lung cancer - stage 1, incidentally found, s/p xrt, follows at [facility] fatigue - will check testosterone Questions answered. Verbalizes understanding. rtc 3 months /es/ Vivian Kirk MD STAFF ER RN Signed: 07/09/2025 15:58 VIVIAN KIRK [facility]
--- OUTSIDE RECORDS SUMMARY | 2025-07-21 08:00 | XMS_ITS | Encounter Summary ---
Author Name [facility] [place] Organization [facility] [place] Address [address] [place] [address] Care Team Providers Care Audit Officer Name Role Phone LINN MELGAR Primary Care Provider Unavailabl e Insurance Providers: [...] PART B Apr 04, 2010 PART B [id number] [phone] ANDRÉS ROBERTS PATIENT MEDICARE (WNR) MEDICARE (M) PART A Apr 04, 2010 PART A [id number] ANDRÉS ROBERTS PATIENT MEDICARE (WNR) MEDICARE (M) PART B Apr 04, 2010 PART B [id number] ANDRÉS ROBERTS PATIENT MEDICARE (WNR) MEDICARE (M) PART A Apr 04, 2010 PART A [id number] [phone] ANDRÉS ROBERTS PATIENT Selected Encounter This section includes the information on record at [place] for the Encounter. Date/Time Encounter Type Encounter Description Reason Provider Source Jul 21, 2025 02:00 PM IMMUNIZATION ADMIN PRIMARY CARE/MEDICINE ICD-10-CM N40.1 Benign prostatic hyperplasia with lower urinary tract symp LINN MELAGR E Encounter Template Text not used by [place] Assessments - Encounter Diagnoses This section includes the primary and secondary diagnoses documented for the Encounter. Date/Time Primary/Secondary Diagnosis Diagnosis Name Provider Source Jul 21, 2025 02:41 PM PRIMARY Benign prostatic hyperplasia with lower urinary tract symp BANREX,LINN Merida [facility] Jul 21, 2025 02:41 PM SECONDARY Encounter for immunization KISHAN CASTELLANO [facility] Jul 21, 2025 02:41 PM SECONDARY Hyperlipidemia, unspecified MIKE,LINN A [facility] Jul 21, 2025 02:41 PM SECONDARY Type 2 diabetes mellitus with diabetic neuropathy, unsp [facility] Jul 21, 2025 02:41 PM SECONDARY Type 2 diabetes mellitus with hyperglycemia [facility] Jul 21, 2025 02:41 PM SECONDARY Vitamin D deficiency, unspecified [facility] Plan of Treatment: Future Appointments (+ 6 months) and Future Tests (+/- 45 days) The Plan of Treatment section includes future care activities for the patient from all [place] treatmentfacilities. This section includes future appointments and future orders which are active, pending or scheduled. Future Appointments This section includes appointments that were scheduled to occur 6 months from the date of the Encounter, up to a maximum of 20 appointments. The data comes from all [place] treatment facilities. Appointment Date/Time Appointment Type Appointme nt Facility Name Aug 06, 2025 01:40 PM AMBULATORY - NONE [facility] Aug 12, 2025 02:30 PM AMBULATORY - NONE [facility] Aug 18, 2025 11:00 AM AMBULATORY - NONE [facility] Aug 21, 2025 11:30 AM AMBULATORY - NONE [facility] Oct 09, 2025 12:30 PM AMBULATORY - MEDICINE [facility] Nov 25, 2025 03:30 PM AMBULATORY - NONE [facility] Dec 01, 2025 02:30 PM AMBULATORY - NONE [facility] Lab Results: +/- 30 days [...] Interpretation Reference Range Specimen Type Comment Aug 18, 2025 10:59 AM [facility] GLUCOSE,BLOOD-poct (STL) BLOOD Specimen Type: BLOOD Comment: Test Performed by: [id number] Meter #: [id number] Ordering Provider: LINN MELGAR Report Released Date/Time: Aug 18, 2025 11:05 AM Reporting Lab: [address] [address] Performing Lab: [address] [address] GLUCOSE,BLOOD-poct (STL) 139 mg/dL H 72-99 Aug 06, 2025 02:05 PM [facility] I-STAT, CREAT (L-[place]) BLOOD Specimen Type: B LOOD Comment: Test Performed by: [id number] Meter #: [id number] Ordering Provider: YAHIR COYNE Report Released Date/Time: Aug 06, 2025 04:01 PM Reporting Lab: [place] [address] [facility] [address] Performing Lab: [address] [address] I-STAT, CREAT (STL-[place]) 0.9 mg/dL 0.7-1.3 Jul 24, 2025 09:39 AM [facility] TESTOSTERONE, FREE PANEL SERUM Specimen Type: SERUM Comment: Men with clinically significant hypogonadal symptoms and testosterone values repeatedly in the range of the 200-300 ng/dL or less, may benefit from testosterone treatment after adequate risk and benefits counseling. For additional information, please refer to http://education.Checkmarx.com/faq/ [email or web address] (This link is being provided for informational/ educational purposes only.) This test was developed and its analytical performance characteristics have been determined by [facility] [place], [place]. It has not been cleared or approved by the U.S. Food and Drug Administration. This assay has been validated pursuant to the CLIA regulations and is used for clinical purposes. Test Performed by [facility], [facility], [address] [place], [place] Favian Franco M.D., Ph.D., Director of Laboratories , CLIA [id number] Ordering Provider: OTONIEL BOWDEN Report Released Date/Time: Jul 09, 2025 03:50 PM Reporting Lab: [facility] [address] [facility] [address] Performing Lab: [facility] [address] [facility] TESTOSTERONE, TOTAL 421 ng/dL 250-1100 ALBUMIN (PB-sendout) 3.7 g/dL 3.6-5.1 TESTOSTERONE,FREE (sendout) 54.2 pg/mL 6 .0-73.0 TESTOSTERONE,BIOAVAILABLE ([place]-PB-SO 92.6 ng/dL 15.0-150.0 SEX HORMONE BINDING GLOBULIN 36 nmol/L 2 2-77 Immunizations: All administered on the encounter date This section contains immunizations associated to the Encounter. Immunization Series Date Issued Administered By Site Reaction Lot Number [id number] Code Drug Marketing And Promotions Manager Comment(s) Source COVID-19 (PFIZER), MRNA, LNP-S, PF, LILLIANA-SUCROSE, 30 MCG/0.3 ML (AGES 12+ YEARS) Jul 21, 2025 KISHAN CASTELLANO LEFT DELTO ID [id number] [employer] ADMINISTERE D AT [facility] INFLUENZA, ADJUVANTED, TRIVALENT, PF Jul 21, 2025 KISHAN CASTELLANO RIGHT DELTO ID [id number] [employer] ADMINISTERE D AT [facility] Social History: Smoking Status (Most current) and Tobacco Use (All prior to encounter date) This section includes the most current, and the historical, smoking and tobacco- related health factors from the [place] facility where the Encounter took place. Current Smoking Status This section includes the most current smoking, or tobacco-related health factor, from the [place] facility where the Encounter took place. Date/Time Current Smoking Status Comment Virgil ity Sep 03, 2024 01:30 PM [place]-TOBACCO USE FORMER CIGARETTES [facility] Tobacco Use History This section includes a history of the smoking, or tobacco-related health factors, that were collected on or before the date of the Encounter. The data comes from the [place] facility where the Encounter took place. Date/Time [...] ALL of a patient's completed or amended [place] Advance and Rescinded Directives. The entries below indicate that a directive exists for the patient, but an actual copy is not included with this document. The data comes from all [facility]. Date Advance Directives Provider Source May 21, 2019 ADVANCE DIRECTIVE DISCUSSION Boogie DOUGLAS [facility] Jul 28, 2016 ADVANCE DIRECTIVE DISCUSSION SEAN JOE [facility] Radiology Reports: +/- 30 days of [...] the Encounter. The data comes from all [place] treatment facilities. Date/Time Radiology Report Provider Source Aug 18, 2025 11:11 AM PET/CT TUMOR IMAGING (SKULL TO MID-THIGH)-P: ANDRÉS ROBERTS [id number] M Exm Date: AUG 18, 2025@11:11 Req Phys: SARA MARCIAL Loc: [facility]-RAD THERAPY PHYSICIAN 1 (Re Img Loc: [facility]-PET-CT Service: Unknown [facility], [facility] [address] [place] [address] (Case [id number] COMPLETE) PET/CT TUMOR SKULL BASE TO MID-T(NM Detailed) CPT:61360 CPT Modifiers : PS PET TUMOR SUBSQ TX STRATEGY Reason for Study: RUL Lung Mass (Case [id number] COMPLETE) F-18 FLUORODEOXYGLUCOSE (FDG),PER(NM Detailed) CPT:A9552 Clinical History: with RUL lung mass s/p SBRT 03/16/2023 wtih new pulmonary RUL nodule Report Status: Verified Date Reported: AUG 18, 2025 Date Verified: AUG 18, 2025 [employer] E-Sig:/ES/YAHIR COYNE Report: PATIENT NAME: ANDRÉS ROBERTS. CASE #: [id number], [id number]. 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 Status post radiotherapy in March 2023. TECHNIQUE: 9.98 mCi of F-18 FDG by IV in the right forearm. PET/CT image acquisition from Skull base to mid thighs after approximately 71 min. Post-injection with the CT being low-dose, non-contrast. No separate report for the CT was generated since it was of non-diagnostic quality. Blood glucose level at the time of injection was 139 mg/dl. SUV calculation was based on body weight. Comparison: PET/CT from 01/03/2023. FINDINGS: For reference, SUV max of liver is 3.1, SUV max of blood pool is 2.4. HEAD AND NECK: Brain is not included in the [id number]-agdn. There is no sizable and/or hypermetabolic neck lymph nodes seen. Thyroid is normal. CHEST: Redemonstration of low grade metabolic activity in the right upper lobe consolidative changes, with SUV max up to 2.7, measuring 5.3 x 2.3 cm, may represent postradiation change. Mildly increased metabolic activity in the newly developed pulmonary nodule in the right upper lobe inferior to the postradiation change measuring up to 1.8 cm with SUV max up to 2.5. Increased metabolic activity in clustered nodules with tree-in-bud pattern in the posterior inferior left lower lobe, SUV max up to 5.3. Redemonstrated right lower lobe linear opacity with SUV max up to 0.9. There are no sizable and/or hypermetabolic hilar or mediastinal lymph nodes seen. The heart size is within normal limits. No pericardial effusion is noted. No pleural effusion is noted. Atherosclerotic calcifications in the coronary arteries. ABDOMEN AND PELVIS: Gallbladder stone. Visceral organs without focal abnormal uptake. No hypermetabolic abdominal or pelvic lymphadenopathy is noted. Heterogeneous activity is seen in the bowel loops, likely physiologic. There is no free intraperitoneal air or fluid. Atherosclerotic calcifications in the abdominal aorta and its branches. MUSCULOSKELETAL: Right hip prosthesis. There is no abnormal FDG avid suspicious sclerotic or lytic bone lesion is noted within the qlizb-we-nbep. Impression: 1. Low grade metabolic activity in the right upper lobe consolidative changes, without discrete nodularity favored to represent postradiation change rather than local recurrence. 2. Low grade metabolic activity in the right upper lobe pulmonary nodule is atypical for metastatic squamous cell carcinoma which are typically demonstrate generally high metabolic activity on FDG PET/CT. However, malignancy with low grade metabolic activity cannot be excluded. 3. Increased metabolic activity in the new cluster of pulmonary nodules in the left lower lobe are nonspecific, may represent infectious process. 4. No FDG avid lymphadenopathy. Diagnostic code: 1001 Dictated by Oli Amin MD (Nuclear Medicine Resident). I, Yahir Coyne, have reviewed the images and report and concur with these findings. Primary Diagnostic Code: SIGNIFICANT ABNORMALITY, ATTN NEEDED Primary Interpreting Staff: YAHIR COYNE, RADIOLOGIST ([employer]) Primary Interpreting Resident: OLI AMIN, Resident Physician /YAHIR OLSEN [facility] Aug 06, 2025 01:[address] THORAX, DIAGNOSTIC, W/CONTRAST: ANDRÉS ROBERTS [id number] M Exm Date: AUG 06, 2025@13:20 Req Phys: SARA MARCIAL Loc: [facility]-RAD THERAPY PHYSICIAN 1 (Re Img Loc: [facility]-CT IMAGING [facility] Service: Unknown [facility], [facility] [address] [place] [address] (Case [id number] COMPLETE) CT THORAX, DIAGNOSTIC, W/CONTRAS(CT Detailed) CPT:36906 Contrast Media : Non-ionic Iodinated Reason for Study: Follow up imaging Clinical History: Responsible Attending: Sara Marcial Attending Contact Number: [id number] Resident Contact Number: H/o RUL lung cancer s/p radiation treatments and a RLL opacity seen in his follow up chest CT in March 2025. Allergies listed in CPRS chart: SIMVASTATIN, SYMBICORT Creatinine: CREATININE 0.98 mg/dL 02/05/2025 14:24 /eGFR: STL EGFR (within one year). CREATININE 0.98 mg/dL (02/05/25 14:24) Wt: 171.2 lb [77.66 kg] (05/01/2025 12:31) History of: Renal failure, chronic or acute renal disease: NO Report Status: Verified Date Reported: AUG 06, 2025 Date Verified: AUG 06, 2025 [employer] E-Sig:/ES/ELZBIETA HERRMANN Report: Case [id number]. CT THORAX, DIAGNOSTIC, W/CONTRAST Total DLP: 185 [...] Report dictated by Savage Maria D.O. (residential counselor) I, Elzbieta Herrmann, have reviewed the images and report and concur with these findings. Primary Interpreting Staff: ELZBIETA HERRMANN MD ([employer]) Primary Interpreting Resident: Savage Maria D.O., Resident Physician /ELZBIETA ALICEA [facility] Encounter Notes: All associated encounter notes This section contains the clinical notes associated to the Encounter. Date/Time Encounter Note(s) Provider Source Jul 21, 2025 03:02 PM NURSING IMMUNIZATI ON NOTE: LOCAL TITLE: CLINIC ADMINISTERED IMMUNIZATION/MEDICATION(S) STANDARD TITLE: NURSING IMMUNIZATION NOTE DATE OF NOTE: JUL 21, 2025@15:02:34 ENTRY DATE: JUL 21, 2025@15:02:34 AUTHOR: KISHAN CASTELLANO EXP COSIGNER: URGENCY: STATUS: COMPLETED Administered: COVID-19 (PFIZER), MRNA, LNP-S, PF, LILLIANA-SUCROSE, 30 MCG/0.3 ML (AGES 12+ YEARS) Date Administered: Jul 21, 2025 14:00 Marketing And Promotions Manager: [employer] Lot: [id number] Exp Date: Mar 05, 2026 ND: [id number] Admin Route/Site: INTRAMUSCULAR/LEFT DELTOID Dosage: 0.3mL Vaccine Information Statement(s): COVID-19 MRNA VACCINE (12+ YRS) VIS Oct 04, 2024 (PANAMANIAN) Order By: Linn Melgar Administered By: Kishan Castellano Influenza Immunization - L,N,P,PH,U: Influenza, Trivalent, Preservative Free (Fluad-Syringe) Administered: INFLUENZA, ADJUVANTED, TRIVALENT, PF Date Administered: Jul 21, 2025 14:00 Marketing And Promotions Manager: [employer] Lot: [id number] Exp Date: January 21, 2026 NDC: [id number] Admin Route/Site: INTRAMUSCULAR/RIGHT DELTOID Dosage: 0.5mL Vaccine Information Statement(s): INFLUENZA(FLU) VACC(INACTIVATED OR RECOMBINANT)VIS Oct 04, 2024 (PANAMANIAN) Order By: Linn Melgar Administered By: Kishan Castellano The Influenza Vaccine Information Statement (VIS) was [...] gave verbal consent to receive the vaccine. No adverse reactions noted /sadia/ KISHAN CASTELLANO LPN ADN LICENSED PRACTICAL NURSE Signed: 07/21/2025 15:04 KISHAN CASTELLANO [facility] Jul 21, 2025 02:02 PM NURSING NOTE: LOCAL TITLE: V15 PACT FACE TO FACE NOTE STL STANDARD TITLE: NURSING NOTE DATE OF NOTE: JUL 21, 2025@14:02 ENTRY DATE: JUL 21, 2025@14:03:12 AUTHOR: KISHAN CASTELLANO EXP COSIGNER: URGENCY: STATUS: COMPLETED Provider Visit: Patient Identifiers : Full Name Date of Reason for visit: Established Follow-Up Mode of Arrival: Ambulatory Allergy Review: SYMBICORT APR 25, 2011 (HISTORICAL) Symptoms: DRY MOUTH NASAL MUCOSA DRY SIMVASTATIN MAY 13, 2010 (HISTORICAL) Symptoms: MUSCLE PAIN 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 Recent Vital Signs: Temperature: 97.7 F [36.5 C] (07/21/2025 13:59) Pulse: 65 (07/21/2025 13:59) Respiration: 16 (07/21/2025 13:59) B/P: 123/69 (07/21/2025 13:59) Pain: 6 (07/21/2025 13:59) Wt: 168 lb [76.20 kg] (07/21/2025 13:59) Ht: 69 in [175.3 cm] (07/09/2025 15:19) BMI: 24.9 POX: 98% (07/21/2025 13:59) Would you like to discuss any personal problem, family problem, alcohol use, drug use, or a mental or emotional illness? No Contact provided Primary Care phone number and encouraged to call if any questions or concerns. Review that after hours nurse line [phone] and emergency room are available 27/03 for patient use. Contact verbalized good understanding. Depression Screening - V: Perform PHQ-2 A PHQ-2 screen was performed. The score was 0 which is a negative screen for depression. Over the past two weeks, how often have you been bothered by the following problems? 1. Little interest or pleasure in doing things Not at all 2. Feeling down, depressed, or hopeless Not at all Alcohol Use Screen (AUDIT-C) - V: Alcohol Screen: SCREEN FOR ALCOHOL (AUDIT-C) An alcohol screening test (AUDIT-C) was negative (score=0). 1. How often did you have a drink containing alcohol in the past year? Consider a drink to be a 12 ounce can or bottle of regular beer, 8 ounces of malt liquor, a 5 ounce glass of table wine, or a 1.5 ounce shot of liquor (like scotch, gin, or vodka). Never 2. How many drinks containing alcohol did you have on a typical day when you were drinking in the past year? Response not required due to responses to other questions. 3. How often did you have six or more drinks on one occasion in the past year? Response not required due to responses to other questions. Patient seen via CVT today; see provider note for details. /sadia/ KISHAN LANGLEYN LICENSED PRACTICAL NURSE Signed: 07/21/2025 14:06 KISHAN CASTELLANO [facility]
--- OUTSIDE RECORDS SUMMARY | 2025-07-21 08:01 | XMS_ITS ---
Author Name [facility] [facility] [place] [facility] [facility] [place] Address [address] [place] [address] Care Team Providers Care Control Panel Tester Name Role Phone LINN MCKEON Primary Care [...] PART A Apr 04, 2010 PART A [id number] ANDRÉS ROBERTS PATIENT MEDICARE (WNR) MEDICARE (M) PART B Apr 04, 2010 PART B [id number] ANDRÉS ROBERTS PATIENT MEDICARE (WNR) MEDICARE (M) PART A Apr 04, 2010 PART A [id number] [phone] ANDRÉS ROBERTS PATIENT MEDICARE (WNR) MEDICARE (M) PART B Apr 04, 2010 PART B [id number] [phone] ANDRÉS ROBERTS PATIENT Selected Encounter This section includes the information on record at [place] for the Encounter. Date/Time Encounter Type Encounter Description Reason Provider Source Jul 21, 2025 02:01 PM SYNCH AUDIO-VIDEO EST MOD 30 PRIMARY CARE/MEDICINE ICD-10-CM N40.1 Benign prostatic hyperplasia with lower urinary tract symp MIKELINN A Lacho Encounter Template Text not used by [place] Assessments - Encounter Diagnoses This section includes the primary and secondary diagnoses documented for the Encounter. Date/Time Primary/Secondary Diagnosis Diagnosis Name Provider Source Jul 21, 2025 02:40 PM PRIMARY Benign prostatic hyperplasia with lower urinary tract symp JANIJO,LINN A [facility] Jul 21, 2025 02:40 PM SECONDARY Hyperlipidemia, unspecified LINN MCKEON A [facility] Jul 21, 2025 02:40 PM SECONDARY Type 2 diabetes mellitus with diabetic neuropathy, unsp [facility] Jul 21, 2025 02:40 PM SECONDARY Type 2 diabetes mellitus with hyperglycemia LINN MCKEON [facility] Jul 21, 2025 02:40 PM SECONDARY Vitamin D deficiency, unspecified [facility] Plan of Treatment: Future Appointments (+ 6 months) and Future Tests (+/- 45 days) The Plan of Treatment section includes future care activities for the patient from all [place] treatmentfacritical access hospitalities. This section includes future appointments and [...] PM AM[facility]ULATORY - NONE [facility] Aug 12, 2025 02:30 PM AMBULATORY - NONE [facility] Aug 18, 2025 11:00 AM AMBULATORY - NONE [facility] Aug 21, 2025 11:30 AM AMBULATORY - NONE [facility] Oct 09, 2025 12:30 PM AMBULATORY - MEDICINE [facility] Nov 25, 2025 03:30 PM [facility] Dec 01, 2025 02:30 PM [facility]ULATORY - [facility] Lab Results: +/- 30 days of the [...] Aug 18, 2025 10:59 AM [facility] GLUCOSE,BLOOD-poct (STL) BLOOD Specimen Type: BLOOD Comment: Test Performed by: [id number] Meter #: [id number] Ordering Provider: LINN MCKEON Report Released Date/Time: Aug 18, 2025 11:05 AM Reporting Lab: [address] [address] Performing Lab: [place] [address] [facility] [address] GLUCOSE,BLOOD-poct (STL) 139 mg/dL H 72-99 Aug 06, 2025 02:05 PM [facility] I-STAT, CREAT (L-MA) BLOOD Specimen Type: B LOOD Comment: Test Performed by: [id number] Meter #: [id number] Ordering Provider: YAHIR COYNE Report Released Date/Time: Aug 06, 2025 04:01 PM Reporting Lab: [address] [address] Performing Lab: [address] [address] I-STAT, CREAT (STL-MA) 0.9 mg/dL 0.7-1.3 Jul 24, 2025 09:39 AM [facility] TESTOSTERONE, FREE PANEL SERUM Specimen Type: SERUM Comment: Men with clinically significant hypogonadal symptoms and testosterone values repeatedly in the range of the 200-300 ng/dL or less, may benefit from testosterone treatment after adequate risk and benefits counseling. For additional information, please refer to http://education.MYFLY/faq/ TemedHfxguvoptdprKXPRCXIPF902 (This link is being provided for informational/ educational purposes only.) This test was developed and its analytical performance characteristics have been determined by [facility] [place], [place]. It has not been cleared or approved by the U.S. Food and Drug Administration. This assay has been validated pursuant to the CLIA regulations and is used for clinical purposes. Test Performed by [facility], [facility], [address] [place], [place] Favian Franco M.D., Ph.D., Director of Laboratories , CLIA [id number] Ordering Provider: OTONIEL BOWDEN Report Released Date/Time: Jul 09, 2025 03:50 PM Reporting Lab: [facility] [address] [place] [id number] Performing Lab: [facility] [address] [facility] TESTOSTERONE, TOTAL 421 ng/dL 250-1100 ALBUMIN (PB-sendout) 3.7 g/dL 3.6-5.1 TESTOSTERONE,FREE (sendout) 54.2 pg/mL 6 .0-73.0 TESTOSTERONE,BIOAVAILABLE (MA-PB-SO 92.6 ng/dL 15.0-150.0 SEX HORMONE BINDING GLOBULIN 36 nmol/L 2 2-77 Social History: Smoking Status (Most current) and [...] Current Smoking Status Comment Virgil ity January 16, 2018 12:52 PM QUIT TOBACCO >7 YEARS AGO [facility] Tobacco Use History This section includes a history of the smoking, or tobacco-related health factors, that were collected on or before the date of the Encounter. The data comes from the [place] facility where the Encounter took place. Date/Time Smoking Status/Tobacco Use Comment F acility Aug 03, 2017 07:36 AM QUIT TOBACCO >7 YEARS AGO [facility] Feb 03, 2016 09:38 AM QUIT TOBACCO >7 YEARS AGO [facility] Apr 01, 2015 02:46 PM LIFETIME NON-USER OF TOBACCO [facility] January 15, 2014 09:42 AM QUIT TOBACCO >7 YEARS AGO [facility] Apr 12, 2013 09:23 AM QUIT TOBACCO >7 YEARS AGO [facility] Aug 20, 2008 12:16 PM QUIT TOBACCO >7 YEARS AGO [facility] Advance Directives: All historical and current Section Date Range: From patient's date of to the date document was created. This section includes ALL of a patient's completed or amended [place] Advance and Rescinded Directives. The entries below indicate that a directive exists for the patient, but an actual copy is not included with this document. The data comes from all [place] facilities. Date Advance Directives Provider Source May 21, 2019 ADVANCE DIRECTIVE DISCUSSION Boogie [facility] Jul 28, 2016 ADVANCE DIRECTIVE DISCUSSION SEAN JOE [facility] Radiology Reports: +/- 30 days of [...] TUMOR IMAGING (SKULL TO MID-THIGH)-P: ANDRÉS ROBERTS [id number] -[id number] M Exm Date: AUG 18, 2025@11:11 Req Phys: SARA MARCIAL Loc: [facility]RAD THERAPY PHYSICIAN 1 (Re Img Loc: [facility]PET-CT Service: Unknown [address] [address] (Case [id number] COMPLETE) PET/CT TUMOR SKULL BASE TO MID-T(NM Detailed) CPT:94153 CPT Modifiers : PS PET TUMOR SUBSQ [place] STRATEGY Reason for Study: RUL Lung Mass (Case [id number] COMPLETE) F-18 FLUORODEOXYGLUCOSE (FDG),PER(NM Detailed) CPT:A9552 Clinical History: [place] with RUL lung mass s/p SBRT 03/16/2023 wtih new pulmonary RUL nodule Report Status: Verified Date Reported: AUG 18, 2025 Date Verified: AUG 18, 2025 Foot Caster E-Sig:/ES/YAHIR COYNE Report: PATIENT NAME: ANDRÉS ROBERTS. CASE #: [id number], [id number]. PROCEDURE: PET/CT study Indication: RUL Lung Mass [...] NECK: Brain is not included in the xavsm-mu-maug. There is no sizable and/or hypermetabolic neck [...] lytic bone lesion is noted within the fdsgc-ss-roqv. Impression: 1. Low grade metabolic activity in [...] Amin MD (Nuclear Medicine Resident). I, Yahir Coyen, have reviewed the images and report and concur with these findings. Primary Diagnostic Code: SIGNIFICANT ABNORMALITY, ATTN NEEDED Primary Interpreting Staff: YAHIR COYNE, RADIOLOGIST (Foot Caster) Primary Interpreting Resident: OIL AMIN, Resident Physician /YAHIR OLSEN [facility] Aug 06, 2025 01:[address] THORAX, DIAGNOSTIC, W/CONTRAST: ANDRÉS ROBERTS [id number] -[id number] M Ex Date: AUG 06, 2025@13:20 Req Phys: SARA MARCIAL Pat Loc: [facility]RAD THERAPY PHYSICIAN 1 (Re Img Loc: [facility]-CT IMAGING [facility] Service: Unknown [address] [address] (Case [id number] COMPLETE) CT THORAX, DIAGNOSTIC, W/CONTRAS(CT Detailed) CPT:02186 Contrast Media : Non-ionic Iodinated Reason for Study: Follow up imaging Clinical History: Responsible Attending: Sara Marcial Attending Contact Number: [id number] Resident Contact Number: H/o RUL lung cancer [...] 06, 2025 Date Verified: AUG 06, 2025 Foot Caster E-Sig:/ES/ELZBIETA WHITAKER Report: Case [id number]. CT THORAX, DIAGNOSTIC, W/CONTRAST Total DLP: 185 [...] aspiration. Report dictated by Savage Maria D.O. (resident surgeon) IElzbieta, have reviewed the images and report and concur with these findings. Primary Interpreting Staff: ELZBIETA WHITAKER MD (Foot Caster) Primary Interpreting Resident: Savage Maria D.O., Resident Physician /ELZBIETA ALICEA [facility] Encounter Notes: All associated encounter notes This section contains the clinical notes associated to the Encounter. Date/Time Encounter Note(s) Provider Source Jul 21, 2025 02:27 PM PRIMARY CARE NOTE: LOCAL TITLE: PRIMARY CARE PROVIDER ESTABLISHED VISIT ST STANDARD TITLE: PRIMARY CARE NOTE DATE OF NOTE: JUL 21, 2025@14:27 ENTRY DATE: JUL 21, 2025@14:27:12 AUTHOR: LINN MCKEON COSIGNER: URGENCY: STATUS: COMPLETED Visit conducted by synchronous video telehealth; patient verbal consent obtained. Location and emergency point of contact and/or number confirmed [place] was notified of right to decline Telehealth services and eligibility for other options. [place] consented to be seen via Video into the Clinic (CVT). Verified Patient's location and contact information for this appointment: Other Location [facility] [address] [place] [address] Primary extension: As above Alternate extension: N/A Patient location (room #): [id number] A survey of the environment was conducted and all participants identified in the room and the exam door is closed. Providers: Take measures to minimize the noise outside the clinic room by ensuring the room's door is closed, and a sign is posted on the door to indicate a telehealth visit is in session. Patient is 79 and WHITE Self Identified Gender - Man Reason for visit:Scheduled follow-up Chief Complaint: 6-month follow-up History of Present Illness: Here for 6 month follow-up on chronic medical conditions, since last visit, he denies hospital stay, no ER visits. Patient claims to be compliant with medication, denies side effects. He has no new complaints today. Problem List: 1) Benign essential hypertension (SNOMED CT 1950872) 2) Moderate chronic obstructive pulmonary disease (SNOMED CT 893580403) 3) Obesity (SNOMED CT 181904495) 4) History of malignant melanoma of the skin (SNOMED CT 775450402339) 5) Osteoarthritis of knee (SNOMED CT 970949842) 6) Colonoscopy normal 7) Diabetes mellitus 8) HLD - Hyperlipidaemia 9) Expressive dysphasia 10) Moderate cognitive impairment 11) Neuropathy 12) Squamous cell carcinoma of lung 13) Vitamin B12 Deficiency (SCT 071005801) 14) Vitamin D Deficiency (SCT 75462239) 15) Arthritis of hand 16) Benign prostatic hyperplasia 17) Osteoarthritis of multiple joints 18) Exposure to potentially hazardous substance 19) Constipation 20) Erectile dysfunction Immunization: ADMINISTERED Immunization Series Date Facility Reaction Info COVID-19 (Rightware Oy), MRNA, LNP-S, * 3 06/19/2021 [facility]* <C> COVID-19 (PFIZER), MRNA, LNP-S, * 2 10/07/2020 [facility]* <C> COVID-19 ([employer] Oy), MRNA, LNP-S, * 1 09/16/2020 [facility]* <C> INFLUENZA, ADJUVANTED, QUADRIVAL* 06/17/2021 [facility]* INFLUENZA, HIGH-DOSE, TRIVALENT,* 09/03/2024 [facility]* INFLUENZA, HIGH-DOSE, TRIVALENT,* 06/25/2019 [facility]* <C> INFLUENZA, HIGH-DOSE, TRIVALENT,* 07/17/2018 [facility]* <C> INFLUENZA, HIGH-DOSE, TRIVALENT,* 09/12/2016 [facility]* <C> INFLUENZA, SPLIT VIRUS, TRIVALEN* 04/30/2020 [facility]* <C> INFLUENZA, UNSPECIFIED FORMULATI* [facility] INFLUENZA, UNSPECIFIED FORMULATI* 1 06/06/2019 [facility] INFLUENZA, UNSPECIFIED FORMULATI* [facility]* <C> INFLUENZA, UNSPECIFIED FORMULATI* 05/29/2014 [facility]* INFLUENZA, UNSPECIFIED FORMULATI* 09/18/2013 [facility]* INFLUENZA, UNSPECIFIED FORMULATI* [place] PNEUMOCOCCAL CONJUGATE PCV 13 04/01/2015 [facility]* PNEUMOCOCCAL POLYSACCHARIDE PPV23 02/03/2016 [facility]* PNEUMOCOCCAL, UNSPECIFIED FORMUL* 03/11/2009 [facility]* TDAP 07/26/2016 [facility]* <C> TDAP 09/28/2007 [facility]* <C> ZOSTER LIVE 12/16/2009 [facility]* CONTRAINDICATED No data available REFUSED ======= Immunization Date Facility Info ZOSTER RECOMBINANT 03/03/2023 [facility]* <I> <C> See the Detailed Immunizations Health Summary Component[DIM] for Comments <I> See the Detailed Immunizations Health Summary Component[DIM] for Additional Information * Value is truncated; see the Detailed Immunizations Health Summary Component[DIM] for complete text Family History: Not contributory Social History: Does not smoke cigarettes or drink alcohol Medication Review: The essential med list for review which includes the patient's active VA prescriptions and if applicable, remote VA prescriptions, non-VA prescriptions, and discontinued VA prescriptions within the last 90 days and known allergies including local and remote allergies have been reviewed. Allergies:SIMVASTATIN, SYMBICORT Active and Recently Outpatient Medications (excluding Supplies): Active Outpatient Medications Status 1) ACETAMINOPHEN [...] FOR COPD 3) ASPIRIN 81MG EC TAB TAKE ONE TABLET BY MOUTH ONCE A DAY FOR ACTIVE HEART OR CIRCULATION. TAKE WITH FOOD. 4) ATORVASTATIN CALCIUM 80MG TAB TAKE ONE-HALF TABLET BY MOUTH ACTIVE EVERY EVENING FOR CHOLESTEROL. REPORT ANY UNEXPLAINED MUSCLE PAIN/WEAKNESS TO PROVIDER. 5) CAPSAICIN 0.075% CREAM APPLY SPARINGLY TO AFFECTED AREA(S) ACTIVE FOUR TIMES A DAY NEEDED FOR EXTERNAL USE ONLY. WASH HANDS AFTER APPLICATION. Indication: FOR PAIN 6) CARBOXYMETHYLCELLULOSE NA 1% OPH GEL INSTILL 1 DROP INTO ACTIVE BOTH EYES FOUR TIMES A DAY NEEDED Indication: FOR DRY EYE(S) 7) CHOLECALCIF 50MCG (D3-2,000UNIT) TAB TAKE TWO TABLETS BY ACTIVE MOUTH ONCE A DAY FOR VITAMIN D DEFICIENCY. 8) CYANOCOBALAMIN 1000MCG TAB TAKE ONE TABLET BY MOUTH ONCE A ACTIVE DAY FOR B12 SUPPLEMENTATION Indication: FOR VITAMIN B12 SUPPLEMENTATION 9) DOCUSATE NA 100MG CAP TAKE TWO CAPSULES BY MOUTH TWICE A DAY ACTIVE HOLD FOR LOOSE STOOL/DIARRHEA. Indication: FOR SOFTENING STOOL 10) EMPAGLIFLOZIN 25MG TAB TAKE ONE TABLET BY MOUTH ONCE A DAY ACTIVE Indication: FOR DIABETES 11) FINASTERIDE 5MG TAB TAKE ONE TABLET BY MOUTH ONCE A DAY FOR ACTIVE PROSTATE 12) HYDROPHILIC (EQV EUCERIN) TOP CREAM APPLY LIBERALLY TO ACTIVE AFFECTED AREA(S) ONCE A DAY (EXTERNAL USE ONLY) Indication: FOR SKIN CARE 13) INSULIN,GLARGINE 100 UNT/ML 3ML SOLOSTAR INJECT 31 UNITS ACTIVE UNDER THE SKIN ONCE A DAY ADMINISTER AT SAME TIME EACH DAY DIRECTED. DISCARD ANY OPEN CARTRIDGE AFTER 28 DAYS. Indication: FOR DIABETES 14) KETOCONAZOLE 2% CREAM APPLY LIGHTLY TO AFFECTED AREA(S) ACTIVE TWICE A DAY (EXTERNAL USE ONLY) Indication: FOR SEBORRHEIC DERMATITIS 15) LACTOBACILLUS ACIDOPHILUS CHEW TAB TAKE 1 TABLET BY MOUTH ACTIVE ONCE A DAY 16) METFORMIN HCL 500MG 24HR SA TAB TAKE TWO TABLETS BY MOUTH ACTIVE ONCE A DAY TAKE WITH FOOD. AVOID ALCOHOL. DISCONTINUE BEFORE GETTING XRAY DYE. Indication: FOR DIABETES 17) POLYETHYLENE GLYCOL 3350 ORAL PWDR MIX AND DRINK 1 CAPFUL BY ACTIVE MOUTH ONCE A DAY (MEASURE WITH CAP AND MIX IN 8 OZ OF WATER) Indication: FOR CONSTIPATION 18) PROPYLENE GLYCOL 0.6% OPH SOLN INSTILL 1 DROP IN AFFECTED ACTIVE EYE(S) ONCE A DAY NEEDED Indication: FOR DRY EYE(S) 19) TERAZOSIN HCL 5MG CAP TAKE ONE CAPSULE BY MOUTH AT BEDTIME ACTIVE FOR PROSTATE 20) TIOTROPIUM 1.25MCG/ACTUAT 60D ORAL INHL INHALE 2 INHALATIONS ACTIVE BY ORAL INHALATION ONCE A DAY (ADMINISTER AT SAME TIME EACH DAY) Indication: FOR COPD 21) TRIAMCINOLONE ACETONIDE 0.025% OINT APPLY LIGHTLY TO ACTIVE AFFECTED AREA(S) TWICE A DAY (EXTERNAL USE ONLY) Indication: FOR ATOPIC DERMATITIS Review of Systems: General:No Complaints of fever, chills, malaise, fatigue, night sweats, weight gain, weight loss, swollen glands, temp intolerance. Integumentary (skin): No complaints of diaphorectic, bruise, rash, lesions Ear, Nose, Throat: No complaints of blurred vision, glaucoma, cataracts, headache, syncope, dizziness, vertigo, rhinitis, epistaxis, congestion, sinus pain, sore neck, hoarseness, sore throat, oral lesions, earache, difficulty hearing, hearing loss, tinnitus. Respiratory: No complaints of dyspnea, wheezing, hemoptysis, cough. Cardiovascular: No complaints of SOB, cough, wheezing, chest pain, heart murmur, hemoptysis, orthopnea/PND, palpatations, pedal edema, claudication. Gastrointestinal: No complaints of weight change, poor appetite, heartburn, nausea, vomiting, anorexia, abdominal pain, dysphagia, distention, cancer, constipation, diarrhea, change in bowel habits, reflux, ulcer, food, intolerance, melana, bloody stools, hemorrhoids. Urinary: No complaints of hematuria, nocturia, polyuria, dysuria, nocturia, pain/buring on urination, hesitancy, urinary retention, incontinence. Physical Exam VITALS (most recent, as listed in the electronic record): B/P: 123/69 (07/21/2025 13:59) Pulse: 65 (07/21/2025 13:59) Temperature: 97.7 F [36.5 C] (07/21/2025 13:59) Weight: 168 lb [76.20 kg] (07/21/2025 13:59) Height: 69 in [175.3 cm] (07/09/2025 15:19) BMI: 24.9 Pain: 6 (07/21/2025 13:59) (0-10 scale) PHYSICAL EXAMINATION: CHEST : Symmetrical Equal Bilateral Air Entry, B/L Vesicular breath sounds heard,No abnormal sounds HEART : S1 S2 heard. No murmurs/rubs/gallops. EXTREMETIES: Peripheral pulses present. No pedal edema. NEUROLOGICAL : No focal neurological deficits Assessment/Plan: 79-year-old male with stable chronic medical conditions. 1. BPH: Symptoms are well-controlled on terazosin 5 mg daily and finasteride 5 mg daily, plan is to continue. 2. Diabetes mellitus type 2: Last A1c meets treatment goal, plan is to continue insulin glargine 10 units daily, metformin 1000 mg daily and Jardiance 25 mg daily. Diabetic diet and exercise as tolerated advised. 3. Peripheral neuropathy: Progressively getting worse in the last 6 months, continue multivitamin, gabapentin offered, patient wants to think about it, he will call us if he changes his mind. Meanwhile conservative management with soaking his foot in Epsom salts and capsicin recommended. 4. Hyperlipidemia: Last lipid profile was close to goal, plan is to continue atorvastatin 40 mg daily. 5. Vitamin D deficiency: Level is at goal, plan is to continue vitamin D3 supplement. 6. Other chronic medical conditions: Stable, no change in management Colon cancer screening: Aged out AAA screening: Not applicable Lung cancer screening: Not applicable RTC: 6 months with annual labs Time spent on date of visit including face to face time, data review, and chartin minutes CLINICAL REMINDERS COMPLETED Sexual Orientation - CP,L,N,P,PH,PS,S,U: The patient thinks of their sexual orientation as: Straight or Heterosexual PAVE Foot Check - L,N,P,PH,PO,PT,U: A complete foot check was completed at this encounter. VISUAL INSPECTION: Includes inspection for skin breaks, deformity, erythema, trauma, pallor on elevation, dependent rubor, nail deformities, extensive callus and pitting edema. Visual exam results: Normal PEDAL PULSES: Includes palpation of dorsalis and posterior tibial pulses and signs/symptoms of vascular compromise like pain, pallor, paresthesia or paralysis. Present (even if diminished) SENSORY CHECK: Includes 10 gram Monofilament ([place]-Deanna) test of sensation. Intact (Greater than or equal to 80% of sites checked) Abnormal (Less than 80% of sites checked): Intact LOW-RISK: LOW RISK INFORMATION PROVIDED: 1. Advised patient not to walk barefoot. 2. Explained the importance of daily foot checks for changes. 3. Stressed the importance of daily foot hygiene, including bathing and complete drying. The patient verbalized understanding and was offered a detailed handout on diabetic foot care. /sadia/ LINN MCKEON PHYSICIAN Signed: 07/21/2025 14:40 LINN MCKEON [facility]
--- OUTSIDE RECORDS SUMMARY | 2025-08-19 04:55 | XMS_ITS | Encounter Summary ---
Author Name [facility] [place] Address [address] [place] [address] Care Team Providers Care Color Coater Name Role Phone LINN MCKEON Primary Care [...] PART A Apr 04, 2010 PART A [id number] ANDRÉS ROBERTS PATIENT MEDICARE (WNR) MEDICARE (M) PART B Apr 04, 2010 PART B [id number] ANDRÉS ROBERTS PATIENT MEDICARE (WNR) MEDICARE (M) PART A Apr 04, 2010 PART A [id number] ANDRÉS ROBERTS PATIENT MEDICARE (WNR) MEDICARE (M) PART B Apr 04, 2010 PART B [id number] ANDRÉS ROBERTS PATIENT Selected Encounter This section includes the information on record at [place] for the Encounter. Date/Time Encounter Type Encounter Description Reason Provider Source Aug 19, 2025 10:55 AM [facility] OL DIG ASSMT&MGMT 5-10 CARDIOLOGY ICD-10-CM Z02.9 Encounter for administrative examinations, unspecified DJMITRACGHADA IHE Encounter Template Text not used by [place] Assessments - Encounter Diagnoses This section includes the primary and secondary diagnoses documented for the Encounter. Date/Time Primary/Secondary Diagnosis Diagnosis Name Provider Source Aug 19, 2025 11:00 AM PRIMARY Encounter for administrative examinations, unspecified DJUKICGHADA [facility] Plan of Treatment: Future Appointments (+ 6 months) and Future Tests (+/- 45 days) The Plan of Treatment section includes future care activities for the patient from all [place] treatment[facility]il[facility] specialty hospital. This section includes future appointments and future orders which are active, pending or scheduled. Future Appointments This section includes appointments that were scheduled to occur 6 months from the date of the Encounter, up to a maximum of 20 appointments. The data comes from all [place] treatment facilities. Appointment Date/Time Appointment Type Appointme nt Facility Name Aug 21, 2025 11:30 AM AMBULATORY - NONE [facility] Oct 09, 2025 12:30 PM AMBULATORY - MEDICINE [facility] Nov 25, 2025 03:30 PM AMBULATORY - NONE [facility] Dec 01, 2025 02:30 PM AMBULATORY - NONE [facility] January 19, 2026 03:00 PM AMBULATORY - MEDICINE [facility] Lab Results: +/- 30 days of the encounter This section includes the Chemistry and Hematology Lab Results on record with [place] for the patient. Radiology Reports and Pathology Reports are provided separately, in subsequent sections. Lab Results This section contains the Chemistry/Hematology Results that were resulted 30 days before or 30 daysafter the date of the Encounter. Date/Time Source Result Type Result - Unit Interpretation Reference Range Specimen Type Comment Aug 18, 2025 10:59 AM [facility] GLUCOSE,BLOOD-poct (STL) BLOOD Specimen Type: BLOOD Comment: Test Performed by: [id number] Meter #: [id number] Ordering Provider: LINN MCKEON Report Released Date/Time: Aug 18, 2025 11:05 AM Reporting Lab: [facility] [address] [facility] [address] Performing Lab: [place] [address] [address] [facility] [address] GLUCOSE,BLOOD-poct (STL) 139 mg/dL H 72-99 Aug 06, 2025 02:05 PM [facility] I-STAT, CREAT (L-MA) BLOOD Specimen Type: B LOOD Comment: Test Performed by: [id number] Meter #: [id number] Ordering Provider: YAHIR COYNE Report Released Date/Time: Aug 06, 2025 04:01 PM Reporting Lab: [place] [address] [address] [facility] [address] Performing Lab: [place] [address] [facility] [address] I-STAT, CREAT (STL-MA) 0.9 mg/dL 0.7-1.3 Jul 24, 2025 09:39 AM [facility] TESTOSTERONE, FREE PANEL SERUM Specimen Type: SERUM Comment: Men with clinically significant hypogonadal symptoms and testosterone values repeatedly in the range of the 200-300 ng/dL or less, may benefit from testosterone treatment after adequate risk and benefits counseling. For additional information, please refer to http://education.LiveAir Networks.Applyful/faq/ IloviHflwxifeiszcZKYMPBAVN040 (This link is being provided for informational/ educational purposes only.) This test was developed and its analytical performance characteristics have been determined by [facility] [place], [place]. It has not been cleared or approved by the U.S. Food and Drug Administration. This assay has been validated pursuant to the CLIA regulations and is used for clinical purposes. Test Performed by [facility], [facility] [place], [address] [place] [address] Favian Franco M.D., Ph.D., Director of Laboratories , CLIA [id number] Ordering Provider: DENNISE,MEHDIA Report Released Date/Time: Jul 09, 2025 03:50 PM Reporting Lab: [facility] [address] [facility] [address] Performing Lab: [facility] [address] [facility] TESTOSTERONE, TOTAL 421 ng/dL 250-1100 ALBUMIN (PB-sendout) 3.7 g/dL 3.6-5.1 TESTOSTERONE,FREE (sendout) 54.2 pg/mL 6 .0-73.0 TESTOSTERONE,BIOAVAILABLE (MA-PB-SO 92.6 ng/dL 15.0-150.0 SEX HORMONE BINDING GLOBULIN 36 nmol/L 2 2-77 Social History: Smoking Status (Most current) and Tobacco Use (All prior to encounter date) This section includes the most current, and the historical, smoking and tobacco- related health factors from the [place] facility where the Encounter took place. Current Smoking Status This section includes the most current smoking, or tobacco-related health factor, from the [place] facility where the Encounter took place. Date/Time Current Smoking Status Comment Facil ity January 13, 2023 05:24 PM ORYX ADMIT TOBACCO SCREEN NO [facility] Tobacco Use History This section includes a history of the smoking, or tobacco-related health factors, that were collected on or before the date of the Encounter. The data comes from the [place] facility where the Encounter took place. Date/Time Smoking Status/Tobacco Use Comment F acility May 12, 2022 01:00 PM VA-TOBACCO FORMER USER [facility] May 12, 2022 01:00 PM VA-TOBACCO QUIT 15 YRS OR MORE [facility] May 12, 2021 09:00 AM VA-TOBACCO FORMER USER [facility] May 12, 2021 09:00 AM VA-TOBACCO QUIT 15 YRS OR MORE [facility] Nov 01, 2017 03:12 PM LIFETIME NON-USER OF TOBACCO [facility] Dec 16, 2016 07:18 PM QUIT TOBACCO >7 YEARS AGO [facility] Jul 27, 2016 12:41 AM LIFETIME NON-USER OF TOBACCO [facility] Advance Directives: All historical and current Section Date Range: From patient's date of to the date document was created. This section includes ALL of a patient's completed or amended [place] Advance and Rescinded Directives. The entries below indicate that a directive exists for the patient, but an actual copy is not included with this document. The data comes from all [place] facilities. Date Advance Directives Provider Source May 21, 2019 ADVANCE DIRECTIVE DISCUSSION Boogie DOUGLAS [facility] Jul 28, 2016 ADVANCE DIRECTIVE DISCUSSION SEAN JOE [facility] Radiology Reports: +/- 30 days [...] the Encounter. The data comes from all [place] treatment facilities. Date/Time Radiology Report Provider Source Aug 18, 2025 11:11 AM PET/CT TUMOR IMAGING (SKULL TO MID-THIGH)-P: ANDRÉS ROBERTS [id number] -1945 M Exm Date: AUG 18, 2025@11:11 Req Phys: SARA MARCIAL Loc: [facility]-RAD THERAPY PHYSICIAN 1 (Re Img Loc: [facility]-PET-CT Service: [address] [address] (Case [id number] COMPLETE) PET/CT TUMOR SKULL BASE TO MID-T(NM Detailed) CPT:45938 CPT Modifiers : PS PET TUMOR SUBSQ TX STRATEGY Reason for Study: RUL Lung Mass (Case 491 COMPLETE) F-18 FLUORODEOXYGLUCOSE (FDG),PER(NM Detailed) CPT:A9552 Clinical History: with RUL lung mass s/p SBRT 03/16/2023 [facility] RUL nodule Report Status: Verified Date Reported: AUG 18, 2025 Date Verified: AUG 18, 2025 Photographic Enlarger Operator E-Sig:/ES/YAHIR COYNE Report: PATIENT NAME: ANDRÉS ROBERTS. CASE #: [id number], [id number]. PROCEDURE: PET/CT study Indication: RUL Lung Mass [...] NECK: Brain is not included in the eipuu-hm-wrtf. There is no sizable and/or hypermetabolic neck [...] lytic bone lesion is noted within the jraae-xu-gfyq. Impression: 1. Low grade metabolic activity in [...] NEEDED Primary Interpreting Staff: YAHIR COYNE, RADIOLOGIST (Photographic Enlarger Operator) Primary Interpreting Resident: OLI AMIN, Resident Physician /YAHIR OLSEN [facility] Aug 06, 2025 01:[address] THORAX, DIAGNOSTIC, W/CONTRAST: ARMANDOANDRÉS JETHRO [id number] -1945 M Ex Date: AUG 06, 2025@13:20 Req Phys: SARA MARCIAL Loc: [facility]-RAD THERAPY PHYSICIAN 1 (Re Img Loc: [facility]-CT IMAGING [facility] Service: [facility], [facility] [address] [place] [address] (Case [id number] COMPLETE) CT THORAX, DIAGNOSTIC, W/CONTRAS(CT Detailed) CPT:96831 Contrast Media : Non-ionic Iodinated Reason for Study: Follow up imaging Clinical History: Responsible Attending: Sara Marcial Attending Contact Number: [phone] Resident Contact Number: H/o RUL lung cancer [...] 06, 2025 Date Verified: AUG 06, 2025 Photographic Enlarger Operator E-Sig:/ES/ELZBIETA HERRMANN Report: Case [id number]. CT THORAX, DIAGNOSTIC, W/CONTRAST Total DLP: 185 [...] aspiration. Report dictated by Savage Maria D.O. (radiology tech) I, Elzbieta Herrmann, have reviewed the images and report and concur with these findings. Primary Interpreting Staff: ELZBIETA HERRMANN MD (Photographic Enlarger Operator) Primary Interpreting Resident: Savage Maria D.O., Resident Physician /ELZBIETA ALICEA [facility] Encounter Notes: All associated encounter notes This section contains the clinical notes associated to the Encounter. Date/Time Encounter Note(s) Provider Source Aug 19, 2025 10:55 AM CARDIOLOGY CASE MA ANDRESSA NOTE: LOCAL TITLE: [facility] CARDIOLOGY MITOCHONDRIAL DISORDERS COUNSELOR [facility] STANDARD TITLE: CARDIOLOGY EDGE TRIMMING MACHINE OPERATOR NOTE DATE OF NOTE: AUG 19, 2025@10:55 ENTRY DATE: AUG 19, 2025@10:55:20 AUTHOR: GHADA VASQUEZ EXP COSIGNER: URGENCY: STATUS: COMPLETED Fax correspondence received from [facility] requesting provider fill out and sign forms regarding clearance. Fax forwarded via secure encrypted email to provider for action and RNCM for notification. time spent: 5 min /sadia/ Ghada Vasquez RN, BSN Cardiology News Operations Manager Signed: 08/19/2025 11:00 GHADA VASQUEZ [facility]
--- OUTSIDE RECORDS SUMMARY | 2025-08-21 05:32 | XMS_ITS | Encounter Summary ---
Author Name [facility] [place] Organization [place] Address [address] [place] [address] Care Team Providers Care Animation Camera Operator Name Role Phone LINN MCKEON Primary [...] PART A Apr 04, 2010 PART A [id number] ANDRÉS ROBERTS PATIENT MEDICARE (WNR) MEDICARE (M) PART B Apr 04, 2010 PART B [id number] ANDRÉS ROBERTS PATIENT MEDICARE (WNR) MEDICARE (M) PART A Apr 04, 2010 PART A [id number] [phone] ANDRÉS ROBERTS PATIENT MEDICARE (WNR) MEDICARE (M) PART B Apr 04, 2010 PART B [id number] [phone] ANDRÉS ROBERTS PATIENT Selected Encounter This section includes the information on record at [place] for the Encounter. Date/Time Encounter Type Encounter Description Reason Provider Source Aug 21, 2025 11:32 AM [facility] DIG ASSMT&MGMT 11-20 CARDIOLOGY ICD-10-CM Z02.9 Encounter for administrative examinations, unspecified JANI CUEVAS IHE Encounter Template Text not used by [place] Assessments - Encounter Diagnoses This section includes the primary and secondary diagnoses documented for the Encounter. Date/Time Primary/Secondary Diagnosis Diagnosis Name Provider Source Aug 21, 2025 11:38 AM PRIMARY Encounter for administrative examinations, unspecified MATHEW CUEVAS [facility] Plan of Treatment: Future Appointments (+ 6 months) and Future Tests (+/- 45 days) The Plan of Treatment section includes future care activities for the patient from all [place] treatmentfacilities. This section includes future appointments and future orders which are active, pending or scheduled. Future Appointments This section includes appointments that were scheduled to occur 6 months from the date of the Encounter, up to a maximum of 20 appointments. The data comes from all [place] treatment facilities. Appointment Date/Time Appointment Type Appointme nt Facility Name Oct 09, 2025 12:30 PM AMBULATORY - MEDICINE [facility] Nov 25, 2025 03:30 PM AMBULATORY - NONE [facility] Dec 01, 2025 02:30 PM AMBULATORY - NONE [facility] January 19, 2026 03:00 PM AMBULATORY - MEDICINE [facility] Lab Results: +/- 30 days of the encounter This section includes the Chemistry and Hematology Lab Results on record with [place] for the patient. Radiology Reports and Pathology Reports are provided separately, in subsequent sections. Lab Results This section contains the Chemistry/Hematology Results that were resulted 30 days before or 30 daysafter the date of the Encounter. Date/Time Source Result Type Result - Unit Interpretation Reference Range Specimen Type Comment Aug 18, 2025 10:59 AM [facility] GLUCOSE,BLOOD-poct (STL) BLOOD Specimen Type: BLOOD Comment: Test Performed by: [id number] Meter #: [id number] Ordering Provider: LINN MCKEON Report Released Date/Time: Aug 18, 2025 11:05 AM Reporting Lab: [place] [address] [facility] [address] Performing Lab: [address] [address] GLUCOSE,BLOOD-poct (STL) 139 mg/dL H 72-99 Aug 06, 2025 02:05 PM [facility] I-STAT, CREAT (L-MA) BLOOD Specimen Type: B LOOD Comment: Test Performed by: [id number] Meter #: [id number] Ordering Provider: YAHIR COYNE Report Released Date/Time: Aug 06, 2025 04:01 PM Reporting Lab: [address] [address] Performing Lab: [address] [address] I-STAT, CREAT (STL-MA) 0.9 mg/dL 0.7-1.3 Jul 24, 2025 09:39 AM [facility] TESTOSTERONE, FREE PANEL SERUM Specimen Type: SERUM Comment: Men with clinically significant hypogonadal symptoms and testosterone values repeatedly in the range of the 200-300 ng/dL or less, may benefit from testosterone treatment after adequate risk and benefits counseling. For additional information, please refer to http://education.AppTank.Intrinsic-ID/faq/ Ar[email or web address] (This link is being provided for informational/ educational purposes only.) This test was developed and its analytical performance characteristics have been determined by [employer] [place], [place]. It has not been cleared or approved by the U.S. Food and Drug Administration. This assay has been validated pursuant to the CLIA regulations and is used for clinical purposes. Test Performed by [facility], [employer] [facility], [address] [place], [place] Favian Franco M.D., Ph.D., Director of Laboratories , CLIA [id number] Ordering Provider: OTONIEL BOWDEN Report Released Date/Time: Jul 09, 2025 03:50 PM Reporting Lab: [address] [place] [address] Performing Lab: [facility] [address] [facility] TESTOSTERONE, TOTAL 421 ng/dL 250-1100 ALBUMIN (PB-sendout) 3.7 g/dL 3.6-5.1 TESTOSTERONE,FREE (sendout) 54.2 pg/mL 6 .0-73.0 TESTOSTERONE,BIOAVAILABLE (MA-PB-SO 92.6 ng/dL 15.0-150.0 SEX HORMONE BINDING GLOBULIN 36 nmol/L 2 2-77 Social History: Smoking Status (Most current) and Tobacco Use (All prior to encounter date) This section includes the most current, and the historical, smoking and tobacco- related health factors from the [place] facility where the Encounter took place. Current Smoking Status This section includes the most current smoking, or tobacco-related health factor, from the [place] facility where the Encounter took place. Date/Time Current Smoking Status Comment Facil ity January 13, 2023 05:24 PM ORYX ADMIT TOBACCO SCREEN NO [facility] Tobacco Use History This section includes a history of the smoking, or tobacco-related health factors, that were collected on or before the date of the Encounter. The data comes from the [place] facility where the Encounter took place. Date/Time Smoking Status/Tobacco Use Comment F acility May 12, 2022 01:00 PM VA-TOBACCO FORMER USER [facility] May 12, 2022 01:00 PM VA-TOBACCO QUIT 15 YRS OR MORE [facility] May 12, 2021 09:00 AM VA-TOBACCO FORMER USER [facility] May 12, 2021 09:00 AM VA-TOBACCO QUIT 15 YRS OR MORE [facility] Nov 01, 2017 03:12 PM LIFETIME NON-USER OF TOBACCO [facility] Dec 16, 2016 07:18 PM QUIT TOBACCO >7 YEARS AGO [facility] Jul 27, 2016 12:41 AM LIFETIME NON-USER OF TOBACCO [facility] Advance Directives: All historical and current Section Date Range: From patient's date of to the date document was created. This section includes ALL of a patient's completed or amended [place] Advance and Rescinded Directives. The entries below indicate that a directive exists for the patient, but an actual copy is not included with this document. The data comes from all [place] facilities. Date Advance Directives Provider Source May 21, 2019 ADVANCE DIRECTIVE DISCUSSION Boogie DOUGLAS [facility] Jul 28, 2016 ADVANCE DIRECTIVE DISCUSSION [facility] Radiology Reports: +/- 30 days [...] the Encounter. The data comes from all [place] treatment facilities. Date/Time Radiology Report Provider Source Aug 18, 2025 11:11 AM PET/CT TUMOR IMAGING (SKULL TO MID-THIGH)-P: ANDRÉS ROBERTS [id number] -1945 M Exm Date: AUG 18, 2025@11:11 Req Phys: SARA MARCIAL Pat Loc: [facility]-RAD THERAPY PHYSICIAN 1 (Re Img Loc: [facility]-PET-CT Service: [address] [address] (Case 489 COMPLETE) PET/CT TUMOR SKULL BASE TO MID-T(NM Detailed) CPT:00999 CPT Modifiers : PS PET TUMOR SUBSQ TX STRATEGY Reason for Study: RUL Lung Mass (Case 491 COMPLETE) F-18 FLUORODEOXYGLUCOSE (FDG),PER(NM Detailed) CPT:A9552 Clinical History: [place] with RUL lung mass s/p SBRT 03/16/2023 [facility] RUL nodule Report Status: Verified Date Reported: AUG 18, 2025 Date Verified: AUG 18, 2025 Lmft E-Sig:/ES/YAHIR COYNE Report: PATIENT NAME: ANDRÉS ROBERTS. CASE #: [id number], [id number]. PROCEDURE: PET/CT study Indication: RUL Lung Mass [...] NECK: Brain is not included in the flbqp-hb-czkh. There is no sizable and/or hypermetabolic neck [...] lytic bone lesion is noted within the enzay-hz-prbl. Impression: 1. Low grade metabolic activity in [...] NEEDED Primary Interpreting Staff: YAHIR COYNE, RADIOLOGIST (Lmft) Primary Interpreting Resident: OLI AMIN, Resident Physician /[facility] YAHIR COYNE [facility] Aug 06, 2025 01:[address] THORAX, DIAGNOSTIC, W/CONTRAST: ANDRÉS ROBERTS JETHRO [id number] -1945 M Exm Date: AUG 06, 2025@13:20 Req Phys: SARA MARCIAL Loc: [facility]-RAD THERAPY PHYSICIAN 1 (Re Img Loc: [facility]-CT IMAGING [facility] Service: Unknown [facility] [address] [place] [address] (Case [id number] COMPLETE) CT THORAX, DIAGNOSTIC, W/CONTRAS(CT Detailed) CPT:58673 Contrast Media : Non-ionic Iodinated Reason for Study: Follow up imaging Clinical History: Responsible Attending: Sara Marcial Attending Contact Number: [phone] Resident Contact Number: H/o RUL lung cancer [...] 06, 2025 Date Verified: AUG 06, 2025 Lmft E-Sig:/ES/ELZBIETA WHITAKER Report: Case [id number]. CT THORAX, DIAGNOSTIC, W/CONTRAST Total DLP: 185 [...] Report dictated by Savage Maria D.O. (residential collections) Elzbieta Hansen, have reviewed the images and report and concur with these findings. Primary Interpreting Staff: ELZBIETA WHITAKER MD (Lmft) Primary Interpreting Resident: Savage Syrett, D.O., Resident Physician /ELZBIETA ALICEA [facility] Encounter Notes: All associated encounter notes This section contains the clinical notes associated to the Encounter. Date/Time Encounter Note(s) Provider Source Aug 21, 2025 11:32 AM CARDIOLOGY CASE LUC CRISOSTOMO NOTE: LOCAL TITLE: [facility] CARDIOLOGY DELINQUENT TAX COLLECTION ASSISTANT ST STANDARD TITLE: CARDIOLOGY COMMUNICATIONS EQUIPMENT INSTALLER NOTE DATE OF NOTE: AUG 21, 2025@11:32 ENTRY DATE: AUG 21, 2025@11:32:32 AUTHOR: MATHEW CUEVAS EXP COSIGNER: URGENCY: STATUS: COMPLETED [facility] CARDIOLOGY DELINQUENT TAX COLLECTION ASSISTANT STL Has ADDENDA AUG 21, 2025 Ginger Mcclain [id number] Dec Completed note with surgery recommendations and Cardiology note from clinic re- faxed as recommendations have not changed since prior request to [facility]. Pt. came to [address] [place] [address] to obtain forms for [place]. There are no forms to give to the pt. All documentation is in pt. chart from provider. Notes re- faxed per pt. request. Pt. may request notes from [facility] if he needs a copy. Thank you. Total time: 15 mins /es/ RAS Ritter, human resource assistant Computed Tomography Scanner Operator Signed: 08/21/2025 11:36 08/21/2025 ADDENDUM STATUS: COMPLETED ECFax Status: Delivered Successfully. Fax Delivery Details Job/Fax ID: [id number] Your E[facility]ax account: [facility] Fax #: [phone] Destination Fax #: [phone] Duration: 370 seconds Total number of pages: 10 Subject: surgery clearance Submitted on: 08/21/2025 11:31:39 INDUSTRIAL HYGIENE ENGINEER Delivered on: 08/21/2025 11:40:13 INDUSTRIAL HYGIENE ENGINEER /es/ RAS Ritter, human resource assistant Computed Tomography Scanner Operator Signed: 08/21/2025 11:41 MATHEW CUEVAS [facility]
[2025-08-22 15:37] VITALS: BMI 23.1
--- NOTE | 2025-08-22 16:00 | PC.NURSE ---
[facility] has started construction of its new state of the art ER which will open Spring 2026. With this, we anticipate parking may be a challenge for some our surgical patients and families. Parking spaces are limited but are available for all Surgical, obstetrics, and ER patients sharing this lot. If you arrive and find you are having a hard time finding a parking space, please note that we understand the challenges, please drive around the hospital and park near Hospital Entrance 1. When you enter this entrance, you can ask a volunteer to direct or take you back to the surgical waiting area to check in. We appreciate everyone?s understanding of these expected challenges while we build for your future. Report to the Outpatient Waiting Room, entrance under the green pavilion located off [address], at time __11:00AM___ on date __08/29/25___. Planned Procedure Time: __1:00PM____.? Time changes happen often and if your time is changed the preop area will call you the afternoon before. - You and your visitor will be asked to self-screen and do not enter if you have any COVID symptoms. Please call surgeon if you need to reschedule. - A mask is optional within the hospital at this time. Patients may have clear liquids (water, carbonated beverages, clear teas, apple juice) until 3 hours prior to surgery (11:00AM) with a maximum of 20 ounces. - No food from midnight until time of surgery and no smoking, or chewing tobacco (or any form of nicotine). No chewing gum, candy or mints. - Infants may have breast milk until 4 hours before surgery, infant formula 6 hours prior to surgery. - Children will be allowed to drink immediately following surgery.? If applicable, please bring a bottle or sippy cup to assist with drinking. Juice, water, soda, and popsicles are readily available.? For infants on formula, please bring formula the day of surgery.? Pacifiers are allowed. Take only the following medications with a SIP of water on the morning of surgery: ____ALBUTEROL INHALER NEEDED DO NOT STOP ANY OF YOUR OTHER PRESCRIPTION MEDICATIONS PRIOR TO SURGERY EXCEPT THE FOLLOWING Hold all vitamins and supplements for 3 days per anesthesiologist. 08/25/25 Medications to discontinue per physician ___HOLD ASPIRIN 7 DAYS PRE-OP PER DR AKBAR Date to take last dose 08/21/[address] AKBAR Please no make-up, nail lithuanian, hairspray, perfume, deodorant, or body powder the day of surgery.? No jewelry (including any body piercings) or valuables the day of surgery, leave them at home.? Please take a shower or bath the night before, or the morning of, surgery with an antibacterial soap.? Wear comfortable, loose fitting clothing.? Children are encouraged to wear pajamas. - Jewelry must be removed prior to entering the operating room.? Rings and piercings that are not removed may be cut off. - The hospital will not accept responsibility for valuables.? - Please leave all valuables, including medications, at home the day of surgery. If you are going home after surgery, a licensed dedicated truck driver must drive you home.? - NO public transportation without another adult if you receive anesthesia. - We recommend that an adult stay with you for 24 hours following discharge. - We also recommend that you do not drive, make important decision, drink alcoholic beverages, or take any drugs that were not prescribed by your health care provider for at least 24 hours after your discharge time. For Pediatric surgeries, we recommend two adults accompany the child home. Follow any additional instructions given to you from your surgeon. Telephone instructions given to ____PATIENT'S WIFE and asked if any additional questions and then verbalized understanding. Patient advised to call surgeon office or pre surgery nurse liaison [phone] if any additional questions.
--- OUTSIDE RECORDS SUMMARY | 2025-08-27 02:27 | XMS_ITS | Encounter Summary ---
Author Name [facility] [facility] Address [address] [place] [address] Care Team Providers Care Composition Worker Name Role Phone LINN MCKEON Primary [...] PART A Apr 04, 2010 PART A [id number] ANDR[address] MILES PATIENT MEDICARE (WNR) MEDICARE (M) PART B Apr 04, 2010 PART B [id number] AND[address] PATIENT MEDICARE (WNR) MEDICARE (M) PART A Apr 04, 2010 PART A [id number] ANDRÉS MILES PATIENT MEDICARE (WNR) MEDICARE (M) PART B Apr 04, 2010 PART B [id number] [phone] ANDRÉS MILES PATIENT Selected Encounter This section includes the information on record at [place] for the Encounter. Date/Time Encounter Type Encounter Description Reason Provider Source Aug 27, 2025 08:27 AM [facility] DIG ASSMT&MGMT 11-20 ENDOCRINOLOGY ICD-10-CM Z02.9 Encounter for administrative examinations, unspecified VIERAARISTIDES IHLacho Encounter Template Text not used by [place] Assessments - Encounter Diagnoses This section includes the primary and secondary diagnoses documented for the Encounter. Date/Time Primary/Secondary Diagnosis Diagnosis Name Provider Source Aug 27, 2025 08:39 AM PRIMARY Encounter for administrative examinations, unspecified VIERAARISTIDES [facility] Plan of Treatment: Future Appointments (+ 6 months) and Future Tests (+/- 45 days) The Plan of Treatment section includes future care activities for the patient from all [place] [facility]. This section includes future appointments and [...] 25, 2025 03:30 PM AMBULATORY - NONE [facility] Dec 01, 2025 02:30 PM AMBULATORY - NONE [facility] January 19, 2026 03:00 PM AMBULATORY - MEDICINE [facility] Lab Results: +/- 30 days of the [...] Comment Aug 18, 2025 10:59 AM [facility] GLUCOSE,BLOOD-poct (STL) BLOOD Specimen Type: BLOOD Comment: Test Performed by: [id number] Meter #: [id number] Ordering Provider: LINN MCKEON Report Released Date/Time: Aug 18, 2025 11:05 AM Reporting Lab: [facility] [address] [facility] [address] Performing Lab: [facility] [address] [facility] [address] GLUCOSE,BLOOD-poct (STL) 139 mg/dL H 72-99 Aug 06, 2025 02:05 PM [facility] I-STAT, CREAT (STL-MA) BLOOD Specimen Type: B LOOD Comment: Test Performed by: [id number] Meter #: [id number] Ordering Provider: YAHIR COYNE Report Released Date/Time: Aug 06, 2025 04:01 PM Reporting Lab: [place] [address] [facility] [address] Performing Lab: [place] [address] [facility] [address] I-STAT, CREAT (STL-MA) 0.9 mg/dL 0.7-1.3 Social History: Smoking Status (Most current) and [...] PM ORYX ADMIT TOBACCO SCREEN NO [facility] Tobacco Use History This section includes a history of the smoking, or tobacco-related health factors, that were collected on or before the date of the Encounter. The data comes from the [place] facility where the Encounter took place. Date/Time Smoking Status/Tobacco Use Comment F acility May 12, 2022 01:00 PM VA-TOBACCO FORMER USER [facility] May 12, 2022 01:00 PM VA-TOBACCO QUIT 15 YRS OR MORE [facility] May 12, 2021 09:00 AM VA-TOBACCO FORMER USER [facility] May 12, 2021 09:00 AM NE-TOBACCO QUIT 15 YRS OR MORE [facility] Nov 01, 2017 03:12 PM LIFETIME NON-USER OF TOBACCO [facility] Dec 16, 2016 07:18 PM QUIT TOBACCO >7 YEARS AGO [facility] Jul 27, 2016 12:41 AM LIFETIME NON-USER OF TOBACCO [facility] Advance Directives: All historical and current Section [...] ADVANCE DIRECTIVE DISCUSSION Boogie [facility] Jul 28, 2016 ADVANCE DIRECTIVE DISCUSSION SEAN JOE [facility] Radiology Reports: +/- 30 days of the [...] PET/CT TUMOR IMAGING (SKULL TO MID-THIGH)-P: ANDRÉS MILES JETHRO [id number] -[id number] M Exm Date: AUG 18, 2025@11:11 Req Phys: SARA MARCIAL Pat Loc: [facility]-RAD THERAPY PHYSICIAN 1 (Re Img Loc: [facility]PET-CT Service: Unknown [address] [address] (Case [id number] COMPLETE) PET/CT TUMOR SKULL BASE TO MID-T(NM Detailed) CPT:67972 CPT Modifiers : PS PET TUMOR SUBSQ TX STRATEGY Reason for Study: RUL Lung Mass (Case [id number] COMPLETE) F-18 FLUORODEOXYGLUCOSE (FDG),PER(NM Detailed) CPT:A9552 Clinical History: [place] with RUL lung mass s/p SBRT 03/16/2023 [facility] new pulmonary RUL nodule Report Status: Verified Date Reported: AUG 18, 2025 Date Verified: AUG 18, 2025 Try Out Person E-Sig:/ES/YAHIR COYNE Report: PATIENT NAME: ANDRÉS MILES. CASE #: [id number], [id number]. PROCEDURE: PET/CT study Indication: RUL Lung Mass [...] NECK: Brain is not included in the [id number]-lx-[id number]. There is no sizable and/or hypermetabolic neck [...] lytic bone lesion is noted within the jqonu-pl-cqfa. Impression: 1. Low grade metabolic activity in [...] NEEDED Primary Interpreting Staff: YAHIR COYNE, RADIOLOGIST (Try Out Person) Primary Interpreting Resident: OLI AMIN, Resident Physician /YAHIR OLSEN [facility] Aug 06, 2025 01:[address] THORAX, DIAGNOSTIC, W/CONTRAST: ARMANDO,ANDRÉS JETHRO [id number] -[id number] M Ex Date: AUG 06, 2025@13:20 Req Phys: SARA MARCIAL Loc: [facility]RAD THERAPY PHYSICIAN 1 (Re Img Loc: [facility]-CT IMAGING [facility] Service: Unknown [facility] [address] [place] [address] (Case [id number] COMPLETE) CT THORAX, DIAGNOSTIC, W/CONTRAS(CT Detailed) CPT:70324 Contrast Media : Non-ionic Iodinated Reason for Study: Follow up imaging Clinical History: Responsible Attending: Sara Marcial Attending Contact Number: [id number] Resident Contact Number: H/o RUL lung cancer [...] 06, 2025 Date Verified: AUG 06, 2025 Try Out Person E-Sig:/ES/ELZBIETA WHITAKER Report: Case [id number]. CT THORAX, DIAGNOSTIC, W/CONTRAST Total DLP: 185 [...] aspiration. Report dictated by Savage Maria D.O. (development vice president) Elzbieta Hansen, have reviewed the images and report and concur with these findings. Primary Interpreting Staff: ELZBIETA WHITAKER MD (Try Out Person) Primary Interpreting Resident: Savage Maria D.O., Resident Physician /ELZBIETA ALICEA [facility] Encounter Notes: All associated encounter notes This section contains the clinical notes associated to the Encounter. Date/Time Encounter Note(s) Provider Source Aug 27, 2025 08:27 AM NURSING NOTE: LOCAL TITLE: HORACIO PROGRESS NOTE STL STANDARD TITLE: NURSING NOTE DATE OF NOTE: AUG 27, 2025@08:27 ENTRY DATE: AUG 27, 2025@08:28:38 AUTHOR: ARISTIDES VIERA COSIGNER: URGENCY: STATUS: COMPLETED Accucheck redings from July. Received the following on 08/23 New continuous glucose monitor started July 19, 2025. Lantus started July 21, 2025. (fasting) (2 hrs post-dinner) 07/18/25 AM 192 - PM 204 07/19/25 AM 174 - PM 294 07/20/25 AM 169 - PM 223 07/21/25 AM 157 - PM 225 07/22/25 AM 166 - PM 161 07/23/25 AM 134 - PM 162 07/24/25 AM 129 - PM 244 07/25/25 AM 113 - PM 218 07/26/25 AM 113 - PM 240 07/27/25 AM 81 - PM 233 07/28/25 AM 120 - PM 258 07/29/25 AM 102 - PM 177 07/30/25 AM 107- PM 219 07/31/25 AM 125 - PM 223 08/01/25 AM 131- PM 197 08/02/25 AM 143- PM 244 08/03/25 AM 126 PM 218 Andrés has been giving himself 10 units of Lantus nightly. We aren't sure what has changed but he has been receiving low BS alerts in the night from the CGM for 3 of the past 5 days. He has reduced his insulin to 5. I'll send another message with any concerns. Then, from 08/25... Switched to 5 units on the . When he has checked his BS with a fingerstick to confirm, the points have been 30 -50 higher on the CGM. It doesn't appear to be very accurate. When he has had a low BS alert it has been during sleep usually and he states he didn't notice the normal low BS feeling. We actually talked about not using the CGM because of the inaccuracy but he does like the convenience of it. Thanks for your help with this! Isa Will remind Mr. Miles to bring his Jony reader to his October 09 appointment /es/ Aristides Viera, RN, BSN REGISTERED NURSE Signed: 08/27/2025 08:39 Receipt Acknowledged By: 08/27/2025 13:55 /es/ Vivian Kirk MD STAFF FIRE SUPERVISOR MD VIERA,ARISTIDES [facility]
--- OUTSIDE RECORDS SUMMARY | 2025-08-28 18:30 | XMS_ITS | Continuity of Care Document ---
Author Name [facility] Organization [facility] Care Team Providers Care Data Modeling Specialist Name Role Phone [facility] Unavailable Unavailable Problems Combined list of problems from Department of Defense and Veterans Affairs facilities. It does not include entries that were removed or entered in error. Problem Status Onset Date Problem Type Date of Resolution Comments Source Arthritis of hand Active Condition [facility] Benign essential hypertension (SNOMED CT 1136241) Active Condition [facility] Benign prostatic hyperplasia Active Condition [facility] Colonoscopy normal Active Condition S 2013 Entered By: DAMEON HARTLEY I Comment: January 2014 in private sector [facility] Constipation Active Condition [facility] Diabetes mellitus Active Condition [facility] Erectile dysfunction Active Condition [facility] Exposure to potentially hazardous substance Active Condition [facility] Expressive dysphasia Active Condition [facility] History of malignant melanoma of the skin (SNOMED CT 116342685598) Active Condition [facility] HLD - Hyperlipidaemia Active Condition [facility] Moderate chronic obstructive pulmonary disease (SNOMED CT 533508808) Active Condition May 12, 2009 Entered By: DAMEON HARTLEY I Comment: SEVERE 09 Cardiopulmonary rehab 2008 [facility] Moderate cognitive impairment Active Condition [facility] Neuropathy Active Condition [facility] Obesity (SNOMED CT 256733493) Active Condition [facility] Osteoarthritis of knee (SNOMED CT 820080437) Active Condition [facility] Osteoarthritis of multiple joints Active Condition [facility] Squamous cell carcinoma of lung Active Condition January 18 Entered By: EVITA GORDON Comment: RUL [facility] Vitamin B12 Deficiency ([facility] 969477803) Active Condition [facility] Vitamin D Deficiency ([facility] 48433998) Active Condition [facility] Abnormal findings on diagnostic imaging of lung Inactive Condition 03/03/2023 Nov 22, 2022 Entered By: EVITA GORDON Comment: RUL [facility] Adjustment Disorder with mixed Anxiety and depressed mood (ICD-9-CM 309.28) Inactive Condition 09/07/2023 [facility] Impotence (SNOMED CT 574469317) Inactive Condition 03/03/2023 [facility] Sleep Apnea (ICD-9-CM 780.57/786.09) Inactive Condition 09/07/2023 [facility] Unresolved Inactive Condition 03/03/2023 [facility] Vitamin B 12 Deficiency Inactive Condition 03/03/2023 [facility] Diagnosis: ICD-10-CM Z02.9 Encounter for administrative examinations, unspecified Active Diagnosis [facility] Diagnosis: ICD-10-CM I50.32 Chronic diastolic (congestive) heart failure Active Diagnosis [facility] Diagnosis: ICD-10-CM E78.5 Hyperlipidemia, unspecified Active Diagnosis [facility] Diagnosis: ICD-10-CM N40.1 Benign prostatic hyperplasia with lower urinary tract symp Active Diagnosis [facility] Diagnosis: ICD-10-CM E11.65 Type 2 diabetes mellitus with hyperglycemia Active Diagnosis [facility] Diagnosis: ICD-10-CM D22.9 Melanocytic nevi, unspecified Active Diagnosis [facility] Diagnosis: ICD-10-CM E11.9 Type 2 diabetes mellitus without complications Active Diagnosis [facility] Diagnosis: ICD-10-CM I10 Essential (primary) hypertension Active Diagnosis [facility] Diagnosis: ICD-10-CM I95.9 Hypotension, unspecified Active Diagnosis [facility] Diagnosis: ICD-10-CM J44.9 Chronic obstructive pulmonary disease, unspecified Active Diagnosis [facility] Diagnosis: ICD-10-CM L57.0 Actinic keratosis Active Diagnosis [facility] Diagnosis: ICD-10-CM E11.40 Type 2 diabetes mellitus with diabetic neuropathy, unsp Active Diagnosis [facility] Medications Combined list of outpatient medications from Department of Defense and Veterans Affairs facilities.Medications provided include 1) outpatient medications from the last 15 months, and 2) patient-reported medications. Medication Details Route Status Indication(s) Patie nt Instructions Prescription Expires Prescription Number Last Dispense Date Ordering Provider Order Date Order Qty Source ACETAMINOPH EN 325MG TAB TAKE TWO TABLETS BY MOUTH EVERY 4 HOURS NEEDED FOR PAIN/FEV ER. CAUTION: DO NOT EXCEED 4000MG PER DAY ACETAMIN OPHEN (APAP) FROM ALL MEDS. ORAL ACTIVE 07/22/2026 [id number] 5 SANTIAGO MCKEONA A 2024 200 [facility] ACETAMINOPH EN 325MG TAB TAKE TWO TABLETS BY MOUTH EVERY 4 HOURS NEEDED FOR PAIN/FEV ER. CAUTION: DO NOT EXCEED 4000MG PER DAY ACETAMIN OPHEN (APAP) FROM ALL MEDS. ORAL DISCONT INUED 09/04/2025 [id number] 5 GINA CALDERON 2024 200 [facility] ACETAMINOPH EN 325MG TAB TAKE TWO TABLETS BY MOUTH EVERY 4 HOURS NEEDED FOR PAIN/FEV ER. CAUTION: DO NOT EXCEED 4000MG PER DAY ACETAMIN OPHEN (APAP) FROM ALL MEDS. ORAL DISCONT [facility] 09/07/2024 [id number] 4 GINA CALDERON 2023 200 [facility] ALBUTEROL SO4 90MCG/ACTUA T (CFC-F) INHL,ORAL,8 .5GM INHALE 2 PUFFS ORAL INHALATI ON FOUR TIMES A DAY NEEDED SHAKE WELL. RINSE MOUTHPIE CE FREQUENT LY TO PREVENT CLOGGING . RESPIR ATORY (INHAL ATION) ACTIVE 07/22/2026 [id number] 5 SANTIAGO MCKEON ARAM A 2024 3 [facility] ALBUTEROL SO4 90MCG/ACTUA T (CFC-F) INHL,ORAL,8 .5GM INHALE 2 PUFFS ORAL INHALATI ON FOUR TIMES A DAY NEEDED SHAKE WELL. RINSE MOUTHPIE CE FREQUENT LY TO PREVENT CLOGGING . RESPIR ATORY (INHAL ATION) DISCONT INUED 09/04/2025 [id number] 5 GINA CALDERON 2024 3 [facility] ALBUTEROL SO4 90MCG/ACTUA T (CFC-F) INHL,ORAL,8 .5GM INHALE 2 PUFFS ORAL INHALATI ON FOUR TIMES A DAY NEEDED SHAKE WELL. RINSE MOUTHPIE CE FREQUENT LY TO PREVENT CLOGGING . RESPIR ATORY (INHAL ATION) DISCONT INUED 05/09/2025 [id number] 4 GINA CALDERON 2023 3 [facility] AMLODIPINE BESYLATE 5MG TAB TAKE ONE TABLET BY MOUTH ONCE A DAY ORAL ACTIVE 08/28/2026 [id number] 5 SANTIAGO MCKEON ARAM A [address] [place] [address] DIVISIO N AMLODIPINE BESYLATE 5MG TAB TAKE ONE TABLET BY MOUTH ONCE A DAY FOR HIGH BLOOD PRESSURE ORAL DISCONT INUED BY PROVIDE R 08/07/2025 [id number] 5 MISA SIGALA [address] [place] [address] [facility] ASPIRIN 81MG TAB,EC TAKE ONE TABLET BY MOUTH ONCE A DAY FOR HEART OR CIRCULAT ION. TAKE WITH FOOD. ORAL SUSPEND ED 05/10/2026 [id number] 6 SANTIAGO MCKEON ARAM A [address] [place] [address] DIVISIO N ASPIRIN 81MG TAB,EC TAKE ONE TABLET BY MOUTH ONCE A DAY FOR HEART OR CIRCULAT ION. TAKE WITH FOOD. ORAL DISCONT INUED BY PROVIDE R 03/06/2025 [id number] 5 GINA CALDERON [address] [place] [address] ATORVASTATI N CA 40MG TAB TAKE ONE TABLET BY MOUTH EVERY EVENING FOR CHOLESTE ROL. REPORT ANY UNEXPLAI HAYDEN MUSCLE PAIN/WEA KNESS TO PROVIDER . ORAL ACTIVE 07/22/2026 [id number] 5 MIKESANTIAGO ARAM A 2024 90 [facility] ATORVASTATI N CA 80MG TAB TAKE ONE-HALF TABLET BY MOUTH EVERY EVENING FOR CHOLESTE ROL. REPORT ANY UNEXPLAI HAYDEN MUSCLE PAIN/WEA KNESS TO PROVIDER . ORAL DISCONT INUED (EDIT) 12/13/2025 [id number] 5 GINA CALDERON 2024 45 [facility] ATORVASTATI N CA 80MG TAB TAKE ONE-HALF TABLET BY MOUTH EVERY EVENING FOR CHOLESTE ROL. REPORT ANY UNEXPLAI HAYDEN MUSCLE PAIN/WEA KNESS TO PROVIDER . ORAL DISCONT INUED 01/01/2025 [id number] 5 GINA CALDERON 2023 45 [facility] BENZONATATE 100MG CAP TAKE 1 CAPSULE BY MOUTH THREE TIMES A DAY NEEDED ORAL ACTIVE VAISHNAVI VALENTINO [address] [facility] CAPSAICIN 0.075% CREAM,TOP APPLY SPARINGL Y TO AFFECTED AREA(S) FOUR TIMES A DAY NEEDED FOR PAIN FOR EXTERNAL USE ONLY. WASH HANDS AFTER APPLICAT ION. TOPICA L ACTIVE 09/04/2025 [id number] 4 GINA CALDERON 2023 120 [facility] CARBOXYMETH YLCELLULOSE NA 1% GEL,OPH INSTILL 1 DROP INTO BOTH EYES FOUR TIMES A DAY NEEDED FOR DRY EYE(S) OPHTHA LMIC ACTIVE 03/28/2026 [id number] 5 JOSE RODRÍGUEZ 2024 30 [facility] CARBOXYMETH YLCELLULOSE NA 1% GEL,OPH INSTILL 1 DROP INTO BOTH EYES FOUR TIMES A DAY NEEDED FOR DRY EYES OPHTHA LMIC 11/27/2024 [id number] 5 Kailey HUFF 2023 45 [facility] CHOLECALCIF EM 50MCG (2,000UNIT) TAB TAKE TWO TABLETS BY MOUTH ONCE A DAY FOR VITAMIN D DEFICIEN CY. ORAL ACTIVE 06/21/2026 [id number] 5 SANTIAGO MCKEON 2024 200 [facility] CHOLECALCIF EM 50MCG (2,000UNIT) TAB TAKE TWO TABLETS BY MOUTH ONCE A DAY FOR VITAMIN D DEFICIEN CY. ORAL DISCONT INUED 07/13/2025 [id number] 5 GINA CALDERON 2023 200 [facility] CYANOCOBALA MIN 1000MCG TAB TAKE ONE TABLET BY MOUTH ONCE A DAY FOR B12 SUPPLEME NTATION ORAL ACTIVE 01/31/2026 [id number] 5 GINA CALDERON 2024 100 [facility] CYANOCOBALA MIN 1000MCG TAB TAKE ONE TABLET BY MOUTH ONCE A DAY FOR B12 SUPPLEME NTATION ORAL DISCONT INUED 05/09/2025 [id number] 5 GINA CALDERON 2023 100 [facility] DOCUSATE NA 100MG CAP TAKE TWO CAPSULES BY MOUTH TWICE A DAY HOLD FOR LOOSE STOOL/DI ARRHEA. ORAL ACTIVE 01/31/2026 [id number] 5 GINA CALDERON 2024 400 [facility] EMPAGLIFLOZ IN 10MG/METFOR MIN 1000MG 24HR TAB,SA TAKE 2 TABLETS BY MOUTH ONCE A DAY FOR DIABETES TAKE WITH FOOD ORAL DISCONT INUED BY JUSTICE Carranza 05/10/2025 [id number] 5 DAQUAN CONDE 2023 180 [facility] N EMPAGLIFLOZ IN 25MG TAB TAKE ONE TABLET BY MOUTH ONCE A DAY FOR DIABETES ORAL ACTIVE 03/14/2026 [id number] 5 HANNAH BOWDEN 2024 90 [facility] FINASTERIDE 5MG TAB TAKE ONE TABLET BY MOUTH ONCE A DAY FOR PROSTATE ORAL SUSPEND ED 07/22/2026 [id number] 6 SANTIAGO MCKEON 2025 90 [facility] FINASTERIDE 5MG TAB TAKE ONE TABLET BY MOUTH ONCE A DAY FOR PROSTATE ORAL DISCONT INUED 01/29/2026 [id number] 5 MISA SIGALA 2024 90 [facility] FINASTERIDE 5MG TAB TAKE ONE TABLET BY MOUTH ONCE A DAY FOR PROSTATE ORAL DISCONT INUED 01/01/2025 [id number] 5 GINA CALDERON 2023 90 [facility] FUROSEMIDE 20MG TAB TAKE ONE TABLET BY MOUTH EVERY MORNING FOR FLUID RETENTIO N (EDEMA) ORAL 05/28/2025 [id number] 5 NICOL BUTTS 2024 90 [facility] GLIPIZIDE 10MG TAB TAKE ONE TABLET BY MOUTH TWO TIMES A DAY BEFORE MEALS FOR DIABETES TAKE 30 MINUTES BEFORE EATING. ORAL DISCONT INUED BY JUSTICE R 05/21/2026 [id number] 5 [facility] MARY [facility]NE 2024 180 [facility] N GLIPIZIDE 5MG TAB TAKE ONE TABLET BY MOUTH TWO TIMES A DAY BEFORE MEALS TAKE 30 MINUTES BEFORE EATING. ORAL DISCONT INUED (EDIT) 05/15/2026 [id number] 5 [facility] 2024 180 [facility] GLIPIZIDE 5MG TAB TAKE ONE TABLET BY MOUTH TWO TIMES A DAY BEFORE MEALS TAKE 30 MINUTES BEFORE EATING. ORAL DISCONT INUED 10/16/2025 [id number] 5 [facility] MARY ANNE 2024 180 [facility] N HYDROCHLORO THIAZIDE 25MG TAB TAKE ONE TABLET BY MOUTH ONCE A DAY FOR BLOOD PRESSURE TAKE IN THE MORNING ORAL 01/01/2025 [id number] 5 GINA CALDERON 2023 90 [facility] HYDROPHILIC (EQV EUCERIN) CREAM,TOP APPLY LIBERALL Y TO AFFECTED AREA(S) ONCE A DAY (EXTERNA L USE ONLY) TOPICA L ACTIVE 05/15/2026 [id number] 5 MATT CLEMENTS 2024 454 [facility] N HYDROPHILIC (EQV EUCERIN) CREAM,TOP APPLY LIBERALL Y TO AFFECTED AREA(S) ONCE A DAY (EXTERNA L USE ONLY) APPLY TO DRY SKIN TOPICA L 05/15/2025 [id number] 5 KENNA CARRILLO 2023 454 [facility] INSULIN,GLA RGINE,HUMAN 100 UNIT/ML INJ,SOLOSTA R,3ML INJECT 31 UNITS UNDER THE SKIN ONCE A DAY FOR DIABETES ADMINIST ER AT SAME TIME EACH DAY DIRECTED . DISCARD ANY OPEN CARTRIDG E AFTER 28 DAYS. SUBCUT ANEOUS ACTIVE 07/10/2026 [id number] 5 DENNISEHANNAH MARY ANNE 2024 10 [facility] KETOCONAZOL E 2% CREAM,TOP APPLY LIGHTLY TO AFFECTED AREA(S) TWICE A DAY (EXTERNA L USE ONLY) TOPICA L ACTIVE 05/15/2026 [id number] 5 MATT CLEMENTS 2024 15 [facility] LACTOBACILL US ACIDOPHILUS TAB,CHEWABL E TAKE 1 TABLET BY MOUTH ONCE A DAY ORAL ACTIVE 03/25/2026 [id number] 6 GINA CALDERON 2024 100 [facility] LACTOBACILL US ACIDOPHILUS TAB,CHEWABL E TAKE 1 TABLET BY MOUTH ONCE A DAY ORAL DISCONT INUED 03/06/2025 [id number] 5 GINA CALDERON 2023 100 [facility] LACTOBACILL US COMBO TAB TAKE 1 TABLET BY MOUTH ONCE A DAY ORAL DISCONT INUED 03/06/2025 [id number] 4 GINA CALDERON 2023 100 [facility] LEVOFLOXACI N 500MG TAB TAKE ONE TABLET BY MOUTH DAILY ORAL ACTIVE VAISHNAVI VALENTINO [address] [facility] LISINOPRIL 20MG TAB TAKE ONE-HALF TABLET BY MOUTH ONCE A DAY AT 1PM FOR HEART OR BLOOD PRESSURE ORAL DISCONT INUED BY PROVIDE R 09/04/2025 [id number] 5 GINA CALDERON 2023 45 [facility] MELOXICAM 15MG TAB TAKE ONE TABLET BY MOUTH ONCE A DAY NEEDED FOR PAIN OR INFLAMMA TION ORAL ACTIVE 08/13/2026 [id number] 5 SANTIAGO MCKEONA Magnolia 2024 90 [facility] N MELOXICAM 15MG TAB TAKE ONE TABLET BY MOUTH ONCE A DAY NEEDED FOR PAIN OR INFLAMMA TION ORAL 05/09/2025 [id number] 5 GINA CALDERON 2023 90 [facility] METFORMIN HCL 500MG 24HR TAB,SA TAKE TWO TABLETS BY MOUTH ONCE A DAY FOR DIABETES TAKE WITH FOOD. AVOID ALCOHOL. DISCONTI NUE BEFORE GETTING XRAY DYE. ORAL ACTIVE 03/14/2026 [id number] 5 HANNAH BOWDEN MARY ANNE 2024 180 [facility] POLYETHYLEN E GLYCOL 3350 PWDR,ORAL MIX AND DRINK 1 CAPFUL BY MOUTH ONCE A DAY FOR CONSTIPA TION (MEASURE WITH CAP AND MIX IN 8 OZ OF WATER) ORAL ACTIVE 09/04/2025 [id number] 5 GINA CALDERON 2023 510 [facility] PROPYLENE GLYCOL 0.6% SOLN,OPH INSTILL 1 DROP IN AFFECTED EYE(S) ONCE A DAY NEEDED FOR DRY EYE(S) OPHTHA LMIC ACTIVE 03/28/2026 [id number] 5 JOSE RODRÍGUEZ 2024 20 [facility] SEMAGLUTIDE 0.25MG/0.37 5ML INJ,SOLN,PE N,3ML INJECT 0.5MG UNDER THE SKIN EVERY WEEK FOR DIABETES SUBCUT ANEOUS DISCONT INUED BY PROVIDE R 10/16/2025 [id number] 5 HANNAH BOWDEN 2024 3 [facility] SEMAGLUTIDE 1MG/0.75ML INJ,SOLN,PE N,3ML INJECT 1MG UNDER THE SKIN EVERY WEEK FOR DIABETES SUBCUT ANEOUS DISCONT INUED 05/10/2025 [id number] DAQUAN CONDE 2023 3 [facility] SITAGLIPTIN (EQV-ZITUVI O) 25MG TAB TAKE ONE TABLET BY MOUTH ONCE A DAY FOR DIABETES ORAL DISCONT INUED BY JUSTICE Carranza 01/16/2026 [id number] 5 HANNAH BOWDEN MARY ANNE 2024 90 [facility] TERAZOSIN HCL 5MG CAP TAKE ONE CAPSULE BY MOUTH AT BEDTIME FOR PROSTATE ORAL SUSPEND ED 07/22/2026 [id number] 6 SANTIAGO MCKEON ARAM A 2025 90 [facility] N TERAZOSIN HCL 5MG CAP TAKE ONE CAPSULE BY MOUTH AT BEDTIME FOR PROSTATE ORAL DISCONT INUED 12/13/2025 [id number] 5 GINA CALDERON [address] [place] [address] [facility] TERAZOSIN HCL 5MG CAP TAKE ONE CAPSULE BY MOUTH AT BEDTIME FOR PROSTATE ORAL DISCONT INUED 01/01/2025 [id number] 5 GINA CALDERON [address] [place] [address] [facility] TIOTROPIUM 1.25MCG/ACT UAT INHL,ORAL,6 0D,4GM INHALE 2 INHALATI ONS BY ORAL INHALATI ON ONCE A DAY (ADMINIS TER AT SAME TIME EACH DAY) RESPIR ATORY (INHAL ATION) ACTIVE 02/20/2026 [id number] 5 GINA CALDERON 2024 3 [facility] TRIAMCINOLO NE ACETONIDE 0.025% OINT,TOP APPLY LIGHTLY TO AFFECTED AREA(S) TWICE A DAY (EXTERNA L USE ONLY) TOPICA L ACTIVE 05/15/2026 [id number] 5 MATT CLEMENTS 2024 15 [facility] TRIAMCINOLO NE ACETONIDE 0.025% OINT,TOP APPLY LIGHTLY TO AFFECTED AREA(S) TWICE A DAY (EXTERNA L USE ONLY) TOPICA L 02/11/2025 [id number] 5 CHARLES JIMENEZ U 2024 454 [facility] Allergies, Adverse Reactions, Alerts Combined list of allergies from Department of Defense and Veterans Affairs facilities. It does not include entries that were removed or entered in error. Substance Category Reaction Severity Reaction type Status Date Reported Comments Source SIMVASTATIN Propensity to adverse reactions to drug (finding) Muscle pain active 0 [facility] SYMBICORT Propensity to adverse reactions to drug (finding) Xerostomi a, Nasal mucosa dry active 1 [facility] Immunizations Combined list of available immunizations from the Department of [facility] and [facility] facilities. Immunization Series Date Given Administered By Site Reaction Lot Number CVX Code Drug Textile Stylist Status Comments Source COVID-19 (Color Eight), MRNA, LNP-S, PF, LILLIANA-SUCROSE, 30 MCG/0.3 ML (AGES 12+ YEARS) 2024 ERNA MOLINA LEFT DELTO ID [id number] 309 complet ed [facility] AT [facility] INFLUENZA, ADJUVANTED, TRIVALENT, PF 2024 ERNA MOLINA RIGHT DELTO ID [id number] 168 complet ed [facility] AT [facility] INFLUENZA, HIGH-DOSE, TRIVALENT, PF 2023 ZULAY OLIVERA R RIGHT DELTO ID [id number] 135 complet ed [facility] AT [facility] INFLUENZA, UNSPECIFIED FORMULATION 2021 88 complet ed HISTORICA L INFORMATI ON - FROM OTHER PROVIDER, [facility] COVID-19 (Color Eight), MRNA, LNP-S, PF, 30 MCG/0.3 ML DOSE 3 2020 208 complet ed PFR; [id number]; 1 [facility] INFLUENZA VACCINE, QUADRIVALENT, ADJUVANTED 2020 205 complet ed [facility] COVID-19 (Color Eight), MRNA, LNP-S, PF, 30 MCG/0.3 ML DOSE 2 2020 208 complet ed PFR; [id number]; 1 [facility] COVID-19 (PFIZER), MRNA, LNP-S, PF, 30 MCG/0.3 ML DOSE 1 2020 208 complet ed PFR; [id number]; 1 [facility] INFLUENZA, SEASONAL, INJECTABLE, PRESERVATIVE FREE 2019 140 complet ed HISTORICA L INFORMATI ON - FROM OTHER PROVIDER, Partner: [facility]. Administe red by: [facility] Clinician (NPI=Not Provided) . Partner 8 Lot#: [id number] Mfr: [facility] INFLUENZA, HIGH DOSE SEASONAL 2018 135 complet ed 02, Partner: [facility]. Administe red by: [facility] Clinician (NPI=Not Provided) . Partner 8 Lot#: [id number] Mfr: Lisette JUAREZ [facility] INFLUENZA, UNSPECIFIED FORMULATION 1 2018 88 complet ed HISTORICA L INFORMATI ON - FROM OTHER REGISTRY, [facility] INFLUENZA, HIGH DOSE SEASONAL 2017 135 complet ed 02, Partner: [facility]. Administe red by: [facility] Clinician (NPI=Not Provided) . Partner 8 Lot#: [id number] Mfr: Lisette JUAREZ DEPT [facility] INFLUENZA, HIGH DOSE SEASONAL 2016 135 complet ed Left Deltoid [facility] TDAP 2015 115 complet ed Left Deltoid [facility] PNEUMOCOCCAL POLYSACCHARID E [id number] 2015 33 complet ed [facility] INFLUENZA, UNSPECIFIED FORMULATION 2014 88 complet ed unsure of exact date or month [facility] N PNEUMOCOCCAL CONJUGATE PCV 13 2014 133 complet ed [facility] INFLUENZA, UNSPECIFIED FORMULATION 2013 88 complet ed [facility] INFLUENZA, UNSPECIFIED FORMULATION 2013 88 complet ed [facility] INFLUENZA, UNSPECIFIED FORMULATION 2011 88 complet ed [facility] ZOSTER LIVE 2009 121 complet ed [facility] PNEUMOCOCCAL, UNSPECIFIED FORMULATION 2008 109 complet ed [facility] TDAP 2007 115 complet ed Left Deltoid, Lot#[id number], eXP. 2008 [facility] Results Combined list of recent chemistry, hematology and other laboratory results from Department of Defense and Veterans Affairs, ranging from 15 months to all on record, depending upon the facility. Order Name Results Value Reference Range Date Interpretation Specimen Comments Source GLUCOSE,B LOOD-poct ([facility]) GLUCOSE [MASS/VOLUM E] IN BLOOD BY AUTOMATED TEST STRIP 139 mg/dL 72 - 99 08/18 H Specimen Type: BLOOD Comment: Test Performed by: [id number] Meter #: [id number] Ordering Provider: ANDREW MCKEON Report Released Date/Time: Aug 18, 2025 11:05 AM Reporting Lab: [place] [id number] Performing Lab: [place] [id number] [facility] I-STAT, CREAT ([facility]) CREATININE [MASS/VOLUM E] IN BLOOD 0.9 mg/dL 0.7 - 1.3 08/06 Specimen Type: BLOOD Comment: Test Performed by: [id number] Meter #: [id number] Ordering Provider: KENDRICK GALEANA Report Released Date/Time: Aug 06, 2025 04:01 PM Reporting Lab: [address] [address] Performing Lab: [place] [id number] [place] [address] TESTOSTER ONE, FREE PANEL TESTOSTERON E [MASS/VOLUM E] IN SERUM OR PLASMA 421 ng/dL 250 - 1100 07/24 Specimen Type: SERUM Comment: Men with clinically significant hypogonadal symptoms and testosteron e values repeatedly in the range of the 200-300 ng/dL or less, may benefit from testosteron e treatment after adequate risk and benefits counseling. For additional information , please refer to [email or web address]/ TotalTestos teroneLCMSM [email or web address] (This link is being provided for information al/ educational purposes only.) This test was developed and its analytical performance characteris tics have been determined by [facility] [place], [place]. It has not been cleared or approved by the U.S. Food and Drug Administrat ion. This assay has been validated pursuant to the CLIA regulations and is used for clinical purposes. Test Performed by [facility], [facility] [place], [address] [place] [address] Favian Franco M.D., Ph.D., Director of Laboratorie s , CLIA [id number] Ordering Provider: JIN BOWDEN Report Released Date/Time: Jul 09, 2025 03:50 PM Reporting Lab: [facility] [address] [facility] [id number] Performing Lab: [facility] [address] [place] [address] [facility] TESTOSTER ONE, FREE PANEL ALBUMIN [MASS/VOLUM E] IN SERUM OR PLASMA 3.7 g/dL 3.6 - 5.1 07/24 Specimen Type: SERUM Comment: Men with clinically significant hypogonadal symptoms and testosteron e values repeatedly in the range of the 200-300 ng/dL or less, may benefit from testosteron e treatment after adequate risk and benefits counseling. For additional information , please refer to [email or web address]/ TotalTestos teroneLCMSM [id number] (This link is being provided for information al/ educational purposes only.) This test was developed and its analytical performance characteris tics have been determined by [facility] [place], [place]. It has not been cleared or approved by the U.S. Food and Drug Administrat ion. This assay has been validated pursuant to the CLIA regulations and is used for clinical purposes. Test Performed by [facility] [place], [address] [place], [place] Favian Franco M.D., Ph.D., Director of Laboratorie s , CLIA [id number] Ordering Provider: JIN BOWDEN Report Released Date/Time: Jul 09, 2025 03:50 PM Reporting Lab: [facility] [address] [place] [id number] Performing Lab: [facility] [id number] [place] [address] [facility] TESTOSTER ONE, FREE PANEL TESTOSTERON E FREE [MASS/VOLUM E] IN SERUM OR PLASMA 54.2 pg/mL 6.0 - 73.0 07/24 Specimen Type: SERUM Comment: Men with clinically significant hypogonadal symptoms and testosteron e values repeatedly in the range of the 200-300 ng/dL or less, may benefit from testosteron e treatment after adequate risk and benefits counseling. For additional information , please refer to http://educ ation.[employer] .265 Network/faq/ TotalTestos teroneLCMSM [id number] (This link is being provided for information al/ educational purposes only.) This test was developed and its analytical performance characteris tics have been determined by [employer] [place], [place]. It has not been cleared or approved by the U.S. Food and Drug Administrat ion. This assay has been validated pursuant to the CLIA regulations and is used for clinical purposes. Test Performed by [facility] [place], [address] [place], [place] Favian Franco M.D., Ph.D., Director of Laboratorie s , CLIA [id number] Ordering Provider: JIN BOWDEN Report Released Date/Time: Jul 09, 2025 03:50 PM Reporting Lab: [address] [phone] Performing Lab: [facility] [id number] [place] [address] [facility] TESTOSTER ONE, FREE PANEL TESTOSTERON E.FREE+WEAK LY BOUND [MASS/VOLUM E] IN SERUM OR PLASMA 92.6 ng/dL 15.0 - 150.0 07/24 Specimen Type: SERUM Comment: Men with clinically significant hypogonadal symptoms and testosteron e values repeatedly in the range of the 200-300 ng/dL or less, may benefit from testosteron e treatment after adequate risk and benefits counseling. For additional information , please refer to http://educ Datto.[employer]Space .265 Network/faq/ TotalTestos teroneLCMSM [id number] (This link is being provided for information al/ educational purposes only.) This test was developed and its analytical performance characteris tics have been determined by [employer] [place], [place]. It has not been cleared or approved by the U.S. Food and Drug Administrat ion. This assay has been validated pursuant to the CLIA regulations and is used for clinical purposes. Test Performed by [facility], [employer] [facility], [address] [place] [address] Favian Franco M.D., Ph.D., Director of Laboratorie s , CLIA [id number] Ordering Provider: JIN BOWDEN Report Released Date/Time: Jul 09, 2025 03:50 PM Reporting Lab: [facility] [address] [place] [phone] Performing Lab: [address] [facility] TESTOSTER ONE, FREE PANEL SEX HORMONE BINDING GLOBULIN [MOLES/VOLU ME] IN SERUM OR PLASMA 36 nmol/L 22 - 77 07/24 Specimen Type: SERUM Comment: Men with clinically significant hypogonadal symptoms and testosteron e values repeatedly in the range of the 200-300 ng/dL or less, may benefit from testosteron e treatment after adequate risk and benefits counseling. For additional information , please refer to http://educ [employer] .265 Network/faq/ TotalTestos teroneLCMSM [id number] (This link is being provided for information al/ educational purposes only.) This test was developed and its analytical performance characteris tics have been determined by [employer] [place], [place]. It has not been cleared or approved by the U.S. Food and Drug Administrat ion. This assay has been validated pursuant to the CLIA regulations and is used for clinical purposes. Test Performed by [facility], [employer] [facility], [address] [place], [place] Favian rFanco M.D., Ph.D., Director of Laboratorie s , CLIA [id number] Ordering Provider: JIN BOWDEN Report Released Date/Time: Jul 09, 2025 03:50 PM Reporting Lab: [place] [address] Performing Lab: [facility] [id number] [place] [address] [facility] MICRAL/CR EAT PROFILE (STL) ALBUMIN [MASS/VOLUM E] IN URINE <5.0mg /L 02/05 Specimen Type: URINE Comment: uALB/CREAT Ratio Unable to be calculated Unable to calculate due to Microalbumi n < 5.0 mg/L Ordering Provider: SHARMAINE CALDERON DD Report Released Date/Time: January 30, 2025 02:33 PM Reporting Lab: [address] [phone] Performing Lab: [phone] [place] [address] [facility] MICRAL/CR EAT PROFILE (STL) ALBUMIN/CRE ATININE [MASS RATIO] IN URINE commen tmg/g 0 - 29 02/05 Specimen Type: URINE Comment: uALB/CREAT Ratio Unable to be calculated Unable to calculate due to Microalbumi n < 5.0 mg/L Ordering Provider: SHARMAINE CALDERON DD Report Released Date/Time: January 30, 2025 02:33 PM Reporting Lab: [address] [phone] Performing Lab: [facility] [address] [place] [phone] [facility] MICRAL/CR EAT PROFILE (STL) CREATININE [MASS/VOLUM E] IN URINE 84.3 mg/dL 63 - 166 02/05 Specimen Type: URINE Comment: uALB/CREAT Ratio Unable to be calculated Unable to calculate due to Microalbumi n < 5.0 mg/L Ordering Provider: SHARMAINE CALDERON DD Report Released Date/Time: January 30, 2025 02:33 PM Reporting Lab: [address] [address] Performing Lab: [address] [facility] FERRITIN FERRITIN [MASS/VOLUM E] IN SERUM OR PLASMA 83.91 ng/mL 22 - 275 02/05 Specimen Type: SERUM No comment entered. Ordering Provider: SHARMAINE CALDERON DD Report Released Date/Time: January 30, 2025 02:33 PM Reporting Lab: [facility] [address] [place], [place] [phone] Performing Lab: [place] [phone] [facility] MAGNESIUM MAGNESIUM [MASS/VOLUM E] IN SERUM OR PLASMA 2.0 mg/dL 1.6 - 2.6 02/05 Specimen Type: PLASMA Comment: No hemolysis noted. Ordering Provider: SHARMAINE CALDERON DD Report Released Date/Time: January 30, 2025 02:33 PM Reporting Lab: [facility] [address] [place] [phone] Performing Lab: [facility] [address] [place] [phone] [facility] VITAMIN D, 25-HYDROX Y 25-HYDROXYV ITAMIN D3 [MASS/VOLUM E] IN SERUM OR PLASMA 88.6 ng/mL 30 - 96 02/05 Specimen Type: SERUM No comment entered. Ordering Provider: SHARMAINE CALDERON DD Report Released Date/Time: January 30, 2025 02:33 PM Reporting Lab: [place] [address] Performing Lab: [address] [facility] TSH W/ REFLEX FT4 (STL) THYROTROPIN [UNITS/VOLU ME] IN SERUM OR PLASMA 0.500 u[IU]/ mL 0.47 - 5 02/05 Specimen Type: PLASMA No comment entered. Ordering Provider: SHARMAINE CALDERON DD Report Released Date/Time: January 30, 2025 02:33 PM Reporting Lab: [place] [address] Performing Lab: [address] [facility] RETICULOC YTE PANEL RETICULOCYT ES/100 ERYTHROCYTE S IN BLOOD BY AUTOMATED COUNT 0.92 0.50 - 2.30 02/05 Specimen Type: BLOOD No comment entered. Ordering Provider: SHARMAINE CALDERON DD Report Released Date/Time: January 30, 2025 02:33 PM Reporting Lab: [place] [address] Performing Lab: [address] [facility] RETICULOC YTE PANEL IMMATURE RETICULOCYT ES/RETICULO CYTES.TOTAL IN BLOOD 2.8 2.3 - 13.4 02/05 Specimen Type: BLOOD No comment entered. Ordering Provider: SHARMAINE CALDERON DD Report Released Date/Time: January 30, 2025 02:33 PM Reporting Lab: [place] [address] Performing Lab: [address] [facility] RETICULOC YTE PANEL HEMOGLOBIN [ENTITIC MASS] IN RETICULOCYT ES BY AUTOMATED COUNT 34.9 pg 28.2 - 36.6 02/05 Specimen Type: BLOOD No comment entered. Ordering Provider: SHARMAINE CALDERON DD Report Released Date/Time: January 30, 2025 02:33 PM Reporting Lab: [place] [address] [facility] [phone] Performing Lab: [place] [address] [facility] [phone] [facility] RETICULOC YTE PANEL RETICULOCYT ES [#/VOLUME] IN BLOOD 0.040 10*6/u L 0.022 - 0.101 02/05 Specimen Type: BLOOD No comment entered. Ordering Provider: SHARMAINE CALDERON DD Report Released Date/Time: January 30, 2025 02:33 PM Reporting Lab: [place] [address] [facility] [phone] Performing Lab: [place] [address] [facility] [phone] [place] [address] [facility] FOLATE (STL-MA) FOLATE [MASS/VOLUM E] IN SERUM OR PLASMA 19.5 ng/mL 7 - 02/05 Specimen Type: SERUM No comment entered. Ordering Provider: SHARMAINE CALDERON DD Report Released Date/Time: January 30, 2025 02:33 PM Reporting Lab: [place] [address] [facility] [phone] Performing Lab: [address] [phone] [place] [address] [facility] Vital Signs Combined list of inpatient and outpatient Vital Signs from Department of Defense and Veterans Affairs, ranging from 12 months to all on record, depending upon the facility. Vital Sign Value Date Comments Source SYSTOLIC BLOOD PRESSURE 127 08/12/2025 14:38:26 [facility] DIASTOLIC BLOOD PRESSURE 71 08/12/2025 14:38:26 [facility] PULSE OXIMETRY 95 % 08/12/2025 14:38:26 [facility] WEIGHT 169.7 08/12/2025 14:38:26 [facility] BMI 25 kg/m2 08/12/2025 14:38:26 [facility] PAIN 0 08/12/2025 14:38:26 [facility] Andre [facility] TEMPERATURE 98.7 08/12/2025 14:38:26 [facility] PULSE 64 08/12/2025 14:38:26 [facility] Andre [facility] RESPIRATION 18 08/12/2025 14:38:26 [facility] SYSTOLIC BLOOD PRESSURE 123 07/21/2025 13:59:24 [facility] DIASTOLIC BLOOD PRESSURE 69 07/21/2025 13:59:24 [facility] PULSE OXIMETRY 98 % 07/21/2025 13:59:24 [facility] WEIGHT 168 07/21/2025 13:59:24 [facility] BMI 25 kg/m2 07/21/2025 13:59:24 [facility] PAIN 6 07/21/2025 13:59:24 [facility] TEMPERATURE 97.7 07/21/2025 13:59:24 [facility] PULSE 65 07/21/2025 13:59:24 [facility] RESPIRATION 16 07/21/2025 13:59:24 [facility] SYSTOLIC BLOOD PRESSURE 129 07/09/2025 15:19:41 [facility] DIASTOLIC BLOOD PRESSURE 70 07/09/2025 15:19:41 [facility] PULSE OXIMETRY 97 % 07/09/2025 15:19:41 [facility] WEIGHT 168.1 07/09/2025 15:19:41 [facility] BMI 25 kg/m2 07/09/2025 15:19:41 [facility] PAIN 6 07/09/2025 15:19:41 [facility] HEIGHT 69 07/09/2025 15:19:41 [facility] TEMPERATURE 97.7 07/09/2025 15:19:41 [facility] PULSE 55 07/09/2025 15:19:41 [facility] [facility] 16 07/09/2025 15:19:41 . [facility] SYSTOLIC BLOOD PRESSURE 102 05/14/2025 13:37:59 [facility] DIASTOLIC BLOOD PRESSURE 62 05/14/2025 13:37:59 [facility] PULSE OXIMETRY 95 % 05/14/2025 13:37:59 S Luis Antonio [facility] WEIGHT 171.2 05/14/2025 13:37:59 [facility] Andre [facility] BMI 25 kg/m2 05/14/2025 13:37:59 [facility] Andre [facility] TEMPERATURE 97.3 05/14/2025 13:37:59 [facility] PULSE 62 05/14/2025 13:37:59 . Andre [facility] RESPIRATION 16 05/14/2025 13:37:59 [facility] SYSTOLIC BLOOD PRESSURE 124 05/06/2025 14:53:45 [facility] DIASTOLIC BLOOD PRESSURE 73 05/06/2025 14:53:45 [facility] PULSE OXIMETRY 95 % 05/06/2025 14:53:45 S Luis Antonio [facility] WEIGHT 170 05/06/2025 14:53:45 [facility] Andre [facility] BMI 25 kg/m2 05/06/2025 14:53:45 [facility] Andre [facility] PAIN 0 05/06/2025 14:53:45 [facility] Andre [facility] TEMPERATURE 98.8 05/06/2025 14:53:45 [facility] PULSE 66 05/06/2025 14:53:45 [facility] Andre [facility] RESPIRATION 18 05/06/2025 14:53:45 [facility] Encounters Combined list of: 1) Encounters from Department of Veterans Affairs facilities going backup to the last 18 months, not all VA inpatient encounters are included; 2) Encounters from the Department of Defense facilities going backup to 280 months. 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 Outpatient Encounter [id number] 03/08 [facility] Outpatient Encounter [id number] Clarence CALDERON ODD 03/08 [facility] Outpatient Encounter [id number] ANTOINE KRAMER 03/12 [facility] Outpatient Encounter [id number] 04/22 [facility] Outpatient Encounter [id number] 04/22 [facility] Outpatient Encounter [id number] 05/07 [facility] Outpatient Encounter [id number] MIRTHA SHAH 05/08 [facility] OFFICE O/P EST MOD 30 MIN [id number] Diagnos is: ICD-10- CM E11.40 Type 2 diabete s mellitu s with diabeti c neuropa thy, unsp NASEER,HUM AIRA 05/09 [facility] OFFICE O/P EST MOD 30 MIN [id number] Diagnos is: ICD-10- CM L57.0 Actinic keratos is AB QUINTIN BY FABIANO 05/14 [facility] Outpatient Encounter [id number] TONJA CARLIN AM H 05/17 [facility] Outpatient Encounter [id number] JOHNATHON DALE R 05/20 [facility] Outpatient Encounter [id number] 05/28 [facility] Outpatient Encounter [id number] RAEGANWILLI AM H 07/08 [facility] Outpatient Encounter [id number] PABLOMIRTHA GLORY A 07/12 [facility] Outpatient Encounter [id number] 07/20 [facility] Outpatient Encounter [id number] PABLOMIRTHA GLORY A 08/06 [facility] Outpatient Encounter [id number] PABLOMIRTHA GLORY A 08/14 [facility] OFFICE O/P EST MOD 30 MIN [id number] Diagnos is: ICD-10- CM 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 [id number] MIRTHA SHAH A 01/15 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 Outpatient Encounter [id number] 01/30 [facility] Outpatient Encounter [id number] 01/31 [facility] Outpatient Encounter [id number] 01/31 [facility] Outpatient Encounter [id number] Clarence CALDERON ODD 01/31 [facility] Outpatient Encounter [id number] [id number] KVNG,T ODD 02/06 [facility] OFF/OP EST MAY X REQ PHY/QHP [id number] Diagnos is: ICD-10- CM I10 Essenti al (primar y) hyperte nsion KRAMER,ROS E C 02/14 [facility] SPACER WITHOUT MASK [id number] Diagnos is: ICD-10- CM J44.9 Chronic obstruc tive pulmona ry disease , unspeci fied KAYEBRAN DT T 02/17 [facility] Outpatient Encounter [id number] [id number] LAWANDA SYLVESTER PIRES M 02/17 [facility] Outpatient Encounter [id number] RADHA SAINI RLA F 02/19 [facility] Outpatient Encounter [id number] KVNG,T ODD 02/19 [facility] EDU&TRN PT SELF-MGMT NQHP 1 [id number] Diagnos is: ICD-10- CM I10 Essenti al (primar y) hyperte nsion MALI,NISHANT CA E 02/21 [facility] 3D RENDER W/INTRP POSTPROCES [id number] [id number] Diagnos is: ICD-10- CM I95.9 Hypoten jaleesa, unspeci fied BRUCE,MARY 02/25 [facility] N [facility] OFFICE O/P NEW HI 60 MIN [id number] [id number] Diagnos is: ICD-10- CM I95.9 Hypoten jaleesa, unspeci fied OU,JIAFU 02/27 [facility] EXT ECG>7D<15D REV&INTERP J [id number] [id number] Diagnos is: ICD-10- CM I95.9 Hypoten jaleesa, unspeci fied BRUCE,MARY 02/28 [facility] Outpatient Encounter [id number] 03/12 [facility] Outpatient Encounter [id number] 03/13 [facility] OFFICE O/P EST LOW 20 MIN [id number] [id number] Diagnos is: ICD-10- CM E11.9 Type 2 diabete s mellitu s without complic ations DENNISE,MEHD IA 03/13 [facility] Outpatient Encounter [id number] SHORT,MIRTHA GLORY A 03/13 [facility] Outpatient Encounter [id number] [id number] SHORT,MIRTHA GLORY A 03/19 [facility] Outpatient Encounter [id number] SHORT,MIRTHA GLORY A 03/21 [facility] PH1 ASSMT&MGMT NQHP 5-10 [id number] [id number] Diagnos is: ICD-10- CM I10 Essenti al (primar y) hyperte nsion Clarence CUEVAS 03/21 [facility] OFFICE O/P EST MOD 30 MIN [id number] Diagnos is: ICD-10- CM E11.9 Type 2 diabete s mellitu s without complic ations JOSE RODRÍGUEZ 03/27 [facility] Outpatient Encounter [id number] SYLVESTERLAWANDA WESTON Rhoda 04/11 [facility] Outpatient Encounter [id number] 04/15 [facility] Outpatient Encounter [id number] JOHN BRADY 04/21 [facility] Outpatient Encounter [id number] LUC PINO 04/29 [facility] OFFICE O/P EST MOD 30 MIN [id number] [id number] Diagnos is: ICD-10- CM I50.32 Chronic diastol ic (conges tive) heart failure ALENA ALLEN 05/01 [facility] OFFICE O/P EST MOD 30 MIN [id number] [id number] Diagnos is: ICD-10- CM D22.9 Melanoc ytic nevi, unspeci fied MENDOZA OVALLES A 05/14 [facility] OFFICE O/P EST MOD 30 MIN [id number] [id number] Diagnos is: ICD-10- CM 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 CARMEN BOWDEN IA 05/14 [facility] Outpatient Encounter [id number] TONJA CARLIN AM H 05/16 [facility] Outpatient Encounter [id number] MIRTHA SHAH GLORY A 06/20 [facility] Outpatient Encounter [id number] SHORTMIRTHA GLORY A 07/09 [facility] OFFICE O/P EST MOD 30 MIN [id number] Diagnos is: ICD-10- CM 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 CARMEN BOWDEN IA 07/09 [facility] Outpatient Encounter [id number] TRACYJACQUIEAndre EY M 07/18 [facility] IMMUNIZATI ON ADMIN [id number] Diagnos is: ICD-10- CM 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 BANJO,ADEO LA A 07/21 [facility] SYNCH AUDIO-VIDE O EST MOD 30 [id number] Diagnos is: ICD-10- CM 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 BANJO,ADEO LA A 07/21 [facility] Outpatient Encounter [id number] BANJO,ADEO LA A 07/25 [facility] Outpatient Encounter [id number] [id number] 07/29 [facility] OL DIG ASSMT&MGMT 5-10 [id number] [id number] Diagnos is: ICD-10- CM Z02.9 Encount er for adminis trative examina tions, unspeci fied DJUKIC,ELM A 08/06 [facility] DIG ASSMT&MGMT 5-10 [id number] [id number] 1 Diagnos is: ICD-10- CM Z02.9 Encount er for adminis trative examina tions, unspeci fied Clarence CUEVAS L 08/06 [facility] DIG ASSMT&MGMT 21+ [id number] [id number] Diagnos is: ICD-10- CM E78.5 Hyperli pidemia , unspeci fied DJUKIC,ELM A 08/07 [facility] Outpatient Encounter [id number] [id number] Diagnos is: ICD-10- CM E78.5 Hyperli pidemia , unspeci fied OU,JIAFU 08/07 [facility] Outpatient Encounter [id number] [id number] MIRTHA SHAH GLORY A 08/08 [facility] Outpatient Encounter [id number] [id number] 1 MIRTHA SHAH GLORY A 08/11 [facility] DIG ASSMT&MGMT 5-10 [id number] [id number] Diagnos is: ICD-10- CM I50.32 Chronic diastol ic (conges tive) heart failure STALIN SCHNEIDER 08/18 [facility] N [facility] N[facility] OL DIG ASSMT&MGMT 5-10 [phone] [id number] Diagnos is: ICD-10- CM Z02.9 Encount er for adminis trative examina tions, unspeci fied DORIS VASQUEZ A 08/19 [facility] NQ OL DIG ASSMT&MGMT 11-20 [phone] Diagnos is: ICD-10- CM Z02.9 Encount er for adminis trative examina tions, unspeci fied Clarence CUEVAS 08/21 [facility] Outpatient Encounter [phone] 4 MIRTHA SHAH A 08/25 [facility] N [facility] OL DIG ASSMT&MGMT 11-20 [phone] [id number] Diagnos is: ICD-10- CM Z02.9 Encount er for adminis trative examina tions, unspeci fied TONJA CARLIN AM H 08/27 [facility] Outpatient Encounter [id number] 1 TONJA CARLIN AM H 08/27 [facility] Social History Combined list of available smoking, tobacco, and other social history from [employer] and [facility] facilities. Social History Type Response Date Comment Sourc e Tobacco smoking status NHIS [place]-TOBACCO USE FORMER CIGARETTES 09/03/2024 [facility] History of tobacco use VA-TOBACCO NEVER USED OTHER TYPE 09/03/2024 [facility] History of tobacco use VA-TOBACCO FORMER USER 09/07/2023 [facility] History of tobacco use ORYX ADMIT TOBACCO SCREEN NO 01/13/2023 [facility] History of tobacco use VA-TOBACCO FORMER USER 05/12/2022 [facility] History of tobacco use [place]-TO[place] FORMER USER 05/12/2021 [facility] History of tobacco use [place]-TOBACCO FORMER USER 05/21/2020 [facility] [facility] History of tobacco use VA-TOBACCO QUIT 15 YRS OR MORE 03/29/2019 [facility] History of tobacco use QUIT TOBACCO >7 YEARS AGO 01/16/2018 [facility] History of tobacco use LIFETIME NON-USER OF TOBACCO 11/01/2017 [facility] History of tobacco use QUIT TOBACCO >7 YEARS AGO 08/03/2017 [facility] History of tobacco use QUIT TOBACCO >7 YEARS AGO 12/16/2016 [facility] History of tobacco use LIFETIME NON-USER OF TOBACCO 07/27/2016 [facility] History of tobacco use QUIT TOBACCO >7 YEARS AGO 02/03/2016 [facility] History of tobacco use LIFETIME NON-USER OF TOBACCO 04/01/2015 [facility] History of tobacco use QUIT TOBACCO >7 YEARS AGO 01/15/2014 [facility] History of tobacco use QUIT TOBACCO >7 YEARS AGO 04/12/2013 [facility] History of tobacco use QUIT TOBACCO >7 YEARS AGO 08/20/2008 [facility] Plan of Care List of future care activities from [facility] facilities. Additional future care activities may be listed in the Assessment and Plan section. Date/Time Care Activity Care Activity Detail Facili ty 10/09/2025 AMBULATORY - MEDICINE AMBULATORY - MEDICI NE [facility] Advance Directives List of completed, amended, or rescinded Advance Directives on record at [facility] facilities. An actual copy of the Directive is not included. Date Advance Directive Provider Source 05/21/2019 ADVANCE DIRECTIVE DISCUSSION Boogie DOUGLAS [facility] 07/28/2016 ADVANCE DIRECTIVE DISCUSSION [facility]
[2025-08-29] VITALS (8 sets, daily range): BP systolic 124–172; BP diastolic 65–87; PULSE 55–65; RESP 12–16; TEMP 36.5–36.6; O2SAT 95–99; BMI 23.6
--- OUTSIDE RECORDS SUMMARY | 2025-08-29 00:31 | XMS_ITS ---
Author Organization [facility] Address [address] [place] [address] Care Team Providers Care It Sales Consultant Name Role Phone Savage Lyons MD Unavailable [phone] Kevin Caballero MD PhD Unavailable + [phone] Russell Mars Primary Care Provider [phone] Active Problems Problem Noted Date Diagnosed Date [...]
--- OUTSIDE RECORDS SUMMARY | 2025-08-29 00:31 | XMS_ITS | Clinical Summary ---
Author Organization [facility] Address [address] [place] [address] Care Team Providers Care Link Wire Fabric Machine Tender Name Role Phone Savage Lyons MD Unavailable [phone] Kevin Caballero MD PhD Unavailable + [phone] Russell Mars Primary Care Provider [phone] Allergies No known active allergies Medications acetaminophen [...] on file Legal Sex Male 10:50 AM COMPENSATION AND BENEFITS MANAGER Gender Identity Not on file Sexual Orientation Not on file Last Filed Vital Signs Vital Sign Reading Time Taken Comments Blood Pressure 108/64 10/24/2024 2:00 PM COMPENSATION AND BENEFITS MANAGER Pulse 86 10/24/2024 2:00 PM COMPENSATION AND BENEFITS MANAGER Temperature 36.3 C (97.3 F) 10/24/2024 2:00 PM COMPENSATION AND BENEFITS MANAGER Respiratory Rate 20 10/24/2024 2:00 PM COMPENSATION AND BENEFITS MANAGER Oxygen Saturation 99% 10/24/2024 2:00 PM COMPENSATION AND BENEFITS MANAGER Inhaled Oxygen Concentration - - Weight 88.8 kg (195 lb 12.8 oz) 04/11/2024 1:39 PM CDT Height 177.8 cm (5' 10) 10/07/2019 7:28 PM COMPENSATION AND BENEFITS MANAGER Body Mass Index 28.09 10/07/2019 7:28 PM COMPENSATION AND BENEFITS MANAGER Plan of Treatment Health Maintenance Due Date [...] Diagnosis Comments EGFR Routine 10/08/2019 3:26 AM COMPENSATION AND BENEFITS MANAGER HEMOGLOBIN A1C Routine 10/08/2019 3:26 AM COMPENSATION AND BENEFITS MANAGER LIPID PANEL Routine 10/08/2019 3:26 AM COMPENSATION AND BENEFITS MANAGER from Last 3 Months or Most Recently Relevant to Health Maintenance Results * eGFR (10/08/2019 3:26 AM COMPENSATION AND BENEFITS MANAGER) eGFR 94 mL/min/1.7 3 m2 LENA MCINTYRE (KASEY) Comment: Interpretive Data Reference Interval Normal >/= 90 mL/min/1.73m2 Mildly decreased* 60 - 89 mL/min/1.73m2 Mildly to moderately decreased 45 - 59 mL/min/1.73m2 Moderately to severely decreased 30 - 44 mL/min/1.73m2 Severely decreased 15 - 29 mL/min/1.73m2 Kidney Failure < 15 mL/min/1.73m2 *Relative to young adult level If -Thai multiply value by 1.16. Estimated glomerular filtration [...] 2016. Blood specimen (specimen) 10/08/2019 3:26 AM COMPENSATION AND BENEFITS MANAGER 10/08/2019 4:39 AM COMPENSATION AND BENEFITS MANAGER Boston Berrios MD LAB BLOOD ORDERABLES Fi nal Result Performing Organization Address City/[facility] Co de Phone Number LENA MCINTYRE (HERMOSA) 1 [facility] [place] [address] * (ABNORMAL) Hemoglobin A1c (10/08/2019 3:26 AM COMPENSATION AND BENEFITS MANAGER) Hgb A1C 7.5(H) 4.0 - 5.6 % LENA MCINTYRE (KASEY) Estimated Average Glucose 169 mg/dL LENA MCINTYRE (KASEY) Comment: The ADA recommends reporting an estimated Average Glucose (eAG) with all Hemoglobin A1c results using the equation derived from a study of 507 normal and diabetic adults. Minority populations were underrepresented and children were not included. (Diabetes Care 31:5751-3682, 2008). The eAG is not equivalent to a fasting glucose. Blood specimen (specimen) 10/08/2019 3:26 AM COMPENSATION AND BENEFITS MANAGER 10/08/2019 4:39 AM COMPENSATION AND BENEFITS MANAGER Pauline Gaona MD LAB BLOOD ORDERABLES Final Re sult Performing Organization Address [facility] Co de Phone Number LENA MCINTYRE (HERMOSA) 1 [facility] [place] [employer] [place] [address] * (ABNORMAL) Lipid panel (10/08/2019 3:26 AM COMPENSATION AND BENEFITS MANAGER) Cholesterol 131 30 - 199 mg/dL LENA [...] Chol/HDL ratio 4 ASCENCION Carranza FRANCISCO JAVIER (KAESY) Blood specimen (specimen) 10/08/2019 3:26 AM COMPENSATION AND BENEFITS MANAGER 10/08/2019 4:39 AM COMPENSATION AND BENEFITS MANAGER us Pauline Gaona MD LAB BLOOD ORDERABLES Final Re sult LENA MCINTYRE (HERMOSA) 1 [facility] [place] [employer] [place] [address] from Last 3 Months or Most Recently Relevant to Health Maintenance Insurance MEDICARE [employer] [facility] [place] [facility] [place] [employer] [place] Member Subscriber Plan / Payer (Ef fective 2005-Present) Name:Johny Miles Relation to Subscriber:Self Name:Johny Miles Payer ID:[id number] Group ID:Not on file Type:OTHER [employer] Address: [address] [place] [id number] MEDICARE RAILROAD Advance Directives For more information, please contact: [phone] * Full Code (Latest Code Status on File) Date Activated Date Inactivated Comments 10/07/2019 8:16 PM 10/09/2019 5:22 PM Care Teams Link Wire Fabric Machine Tender Relationship Specialty Start Date End Date Russell Mars PA [address] [place] [address] PCP - General Physician Bootmaker 09/12/24 Savage Lyons MD [address] [address] Consulting Physician Neurology 10/09/19 Kevin Caballero MD PhD [address] [place] [address] Radiation Oncologist Radiation Oncology 02/03/23
--- OUTSIDE RECORDS SUMMARY | 2025-08-29 00:34 | XMS_ITS | Clinical Summary ---
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 Name Role Phone Russell Amador DO Primary [...] complete this topic Human Papillomavirus (HPV) Immunization (No Doses Required) Completed Immunochemical Fecal Occult Blood Discontinued Meningococcal Immunization (ACWY) Aged Out No longer eligible based on patient's age to complete this topic Rotavirus Immunization Aged Out No lo nger eligible based on patient's age to complete this topic Procedures Procedure Name Priority Date/Time Associated Diagnosis Comments HM COLONOSCOPY Routine 01/23/2014 from Last 3 Months or Most Recently Relevant to Health Maintenance Results * HM COLONOSCOPY (01/23/2014) Gordon Bustillo MD PROCEDURE/MINOR SURGICAL ORDERAB LES Final Result from Last 3 Months or Most Recently Relevant to Health Maintenance Insurance MEDICARE ADMIN Care Teams Gas Collection System Operator Relationship Specialty [place] [id number] [address] PCP - General Orthopaedic Surgery 08/08/24
[2025-08-29] MEDS: INSULIN HUMAN REGULAR (*BKC) 100 UNITS/ML SUB-Q (11:49)
--- NOTE | 2025-08-29 12:48 | WPDANESEPPF ---
Anes - Initial Pre Proc Eval Procedure: Operation Date: 08/29/25 13:00 Proposed Procedures p Direct Microlaryngoscopy with Bilateral Vocal Fold Injection - Eduard Cheung MD Date/Time: 08/29/25 12:48 Surgeon: Eduard Cheung MD Pre Op Diagnosis: dysphonia Patient Data Age: 79 Gender: M Height: 1.78 m Weight: 74.6 kg Last Vital Signs Temp 97.7 F 08/29/25 10:45 Pulse 63 08/29/25 10:45 Resp 16 08/29/25 10:45 BP 124/65 08/29/25 10:45 Pulse Ox 98 08/29/25 10:45 O2 Del Method Room Air 08/29/25 10:45 Allergies Allergy/AdvReac Type Severity Reaction Status Date / Time No Known Allergies Allergy Verified 08/22/25 15:45 Home Medications ?Medication ?Instructions ?Recorded ?Confirmed ?Type acetaminophen 325 mg capsule 325 mg PO Q6H PRN pain 05/28/25 08/22/25 History albuterol sulfate 90 mcg/actuation 1 inh inhalation Q4-6H PRN 05/28/25 08/22/25 History breath activated powder inhaler shortness of breath aspirin 81 mg tablet 81 mg PO DAILY 05/28/25 08/22/25 History atorvastatin 80 mg tablet (Lipitor) 80 mg PO DAILY 05/28/25 08/22/25 History capsaicin 0.075 % topical cream 1 applic topical BID PRN pain 05/28/25 08/22/25 History carboxymethylcellulose sodium 1 % 1 drp EACH EYE BID 05/28/25 08/22/25 History eye gel in a dropperette empagliflozin 25 mg tablet 25 mg PO DAILY 05/28/25 08/22/25 History B6 35 mg-levomefolate 3 2 cap PO DAILY 07/29/25 08/22/25 History mg-mecobalam 2 [id number] capsule del rel (EB-N6 DR) cholecalciferol (vitamin D3) 50 50 mcg PO DAILY 07/29/25 08/22/25 History mcg (2,000 unit) capsule (Vitamin D3) docusate sodium 100 mg capsule 100 mg PO BID PRN constipation 07/29/25 08/22/25 History (Stool Softener) finasteride 5 mg tablet 5 mg PO DAILY 07/29/25 08/22/25 History meloxicam 15 mg tablet 15 mg PO DAILY 07/29/25 08/22/25 History metformin 500 mg tablet 500 mg PO DAILY 07/29/25 08/22/25 History terazosin 5 mg capsule 5 mg PO DAILY 07/29/25 08/22/25 History insulin glargine 100 unit/mL (3 5 unit subcut HS 08/22/25 08/22/25 History mL) subcutaneous pen (Lantus Solostar U-100 Insulin) Laboratory Tests 08/29/25 11:21 POC Capillary Glucose 227 H mg/dl (65-105) Patient hx anesthesia problems: none Family hx anesthesia problems: none Results Review: All pre-operative results and documents have been reviewed as part of the pre-operative evaluation. [facility] Past Medical History Medical History Dysphonia Broken femur Cancer Family History Family History Mother Heart disease Father Heart disease Social History Social History Smoking packs per day: 2 Smoking cigarettes per day: 40.0 Years smoked: 30 Smoking pack-years: 60.00 Smoking status: Former smoker Tobacco type: cigarettes Second hand tobacco smoke exposure: Yes Smoking end date: 03/04/93 Additional smoking assessment comments: Quit 1990s Alcohol intake: former Alcohol use details: SOBER 36 YEARS Substance use type: does not use Living arrangements: with family Additional living arrangements comments: Spiritual care concerns: No Anes - Eval Final PreProcedure Day of Procedure 08/29/25 12:48 Patient weight: normal Heart: murmur Lungs: normal air movement Airway: Mallampati scale class II Neurological: alert and oriented Last oral intake: >/= 8 hours ASA classification: III Emergent: no Anesthetic plan: proceed Anesthesia type and monitoring: general ETT and standard monitoring Results Review: All pre-operative results and documents have been reviewed as part of the pre-operative evaluation. HTN, DM fsbs 227, COPD 60 pack year smoker, hx of CVA, R lung ca w radiation. Informed Consent: The patient's anesthetic plan and its attendant risks and benefits were discussed with the patient/family/POA. Questions were solicited and answers provided to the satisfaction of the patient/family/POA.
--- NOTE | 2025-08-29 12:56 | PM.HPGS ---
History of Present Illness History of Present Illness Consent: Risks, benefits, and alternatives have been discussed and questions answered. Patient agrees to proceed with procedure. Chief complaint: dysphonia Narrative: Johny Miles is a 79 year old male w/ a Hx of dysphonia and dysphagia. He underwent modified barium swallow which showed aspiration. 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 His symptoms have been refractory to voice therapy previously. He was therefore offered surgical management with direct microlaryngoscopy with bilateral vocal fold injection. He presents for this today. Review of Systems Review of Systems: All systems reviewed & are unremarkable except as noted in HPI and below PMFSH Past Medical History Medical History Dysphonia Broken femur Cancer Family History Family History Mother Heart disease Father Heart disease Social History Social History Smoking packs per day: 2 Smoking cigarettes per day: 40.0 Years smoked: 30 Smoking pack-years: 60.00 Smoking status: Former smoker Tobacco type: cigarettes Second hand tobacco smoke exposure: Yes Smoking end date: 03/04/93 Additional smoking assessment comments: Quit 1990s Alcohol intake: former Alcohol use details: SOBER 36 YEARS Substance use type: does not use Living arrangements: with family Additional living arrangements comments: Spiritual care concerns: No Meds Home Medications and Allergies Home Medications ?Medication ?Instructions ?Recorded ?Confirmed ?Type acetaminophen 325 mg capsule 325 mg PO Q6H PRN pain 05/28/25 08/22/25 History albuterol sulfate 90 mcg/actuation 1 inh inhalation Q4-6H PRN 05/28/25 08/22/25 History breath activated powder inhaler shortness of breath aspirin 81 mg tablet 81 mg PO DAILY 05/28/25 08/22/25 History atorvastatin 80 mg tablet (Lipitor) 80 mg PO DAILY 05/28/25 08/22/25 History capsaicin 0.075 % topical cream 1 applic topical BID PRN pain 05/28/25 08/22/25 History carboxymethylcellulose sodium 1 % 1 drp EACH EYE BID 05/28/25 08/22/25 History eye gel in a dropperette empagliflozin 25 mg tablet 25 mg PO DAILY 05/28/25 08/22/25 History B6 35 mg-levomefolate 3 2 cap PO DAILY 07/29/25 08/22/25 History mg-mecobalam 2 [id number] capsule del rel (EB-N6 DR) cholecalciferol (vitamin D3) 50 50 mcg PO DAILY 07/29/25 08/22/25 History mcg (2,000 unit) capsule (Vitamin D3) docusate sodium 100 mg capsule 100 mg PO BID PRN constipation 07/29/25 08/22/25 History (Stool Softener) finasteride 5 mg tablet 5 mg PO DAILY 07/29/25 08/22/25 History meloxicam 15 mg tablet 15 mg PO DAILY 07/29/25 08/22/25 History metformin 500 mg tablet 500 mg PO DAILY 07/29/25 08/22/25 History terazosin 5 mg capsule 5 mg PO DAILY 07/29/25 08/22/25 History insulin glargine 100 unit/mL (3 5 unit subcut HS 08/22/25 08/22/25 History mL) subcutaneous pen (Lantus Solostar U-100 Insulin) Allergies Allergy/AdvReac Type Severity Reaction Status Date / Time No Known Allergies Allergy Verified 08/22/25 15:45 Vital Signs Vital Signs - 24 hr 08/29/25 10:45 Temperature 36.5 C Pulse Rate 63 Respiratory Rate 16 Blood Pressure 124/65 Pulse Oximetry 98 Oxygen Delivery Room Air Exam Narrative: General: Well developed, well nourished. No apparent distress. Voice raspy and weak. Head: Normocephalic, atraumatic. Eyes: Sclerae and conjunctivae clear. Pupils equal and round. Full extraocular motility. Ears: Normal pinnae. Nose: Nasal dorsum is straight. No drainage or crusting at nares. Oral Cavity / Oropharynx: Moist mucous membranes. No suspicious lesions. Posterior pharynx is clear without drainage. Neck: Supple, nontender. No palpable lymphadenopathy, neck mass, or thyromegaly. Lungs: Respirations unlabored. Cardiovascular: Extremities warm and well perfused. Neurologic: Alert, oriented. Moves all extremities. Facial sensation intact to light touch. Face symmetric. Palate elevates symmetrically. Tongue midline. Assessment and Plan Assessment and plan (1) Dysphonia: Code(s): R49.0 - Dysphonia Status: Acute Plan Will proceed to the OR today for microdirect laryngoscopy with bilateral true vocal fold injection. The risks, benefits, and alternatives to surgery were discussed. The risks of pain, bleeding, infection, scarring, no improvement in symptoms, worsening symptoms, recurrent symptoms, airway compromise, injury to the lips or teeth or gums, tongue swelling and bruising, tongue numbness, altered taste, and injury to the neck were all reviewed. The patient expressed understanding and wishes to proceed with surgery.
--- NOTE | 2025-08-29 13:00 | WPDHPUPDATE1 ---
History and Physical Update Update Date/Time: 08/29/25 13:00 History and Physical has been reviewed, including an updated exam of the patient. There are NO changes in the patient's condition. Risks, benefits, and alternatives have been discussed and questions answered. Patient agrees to proceed with procedure.
--- NOTE | 2025-08-29 13:39 | P.OP_ITS ---
Procedure Note - Detailed Date of Procedure 08/29/25 Pre-op Diagnosis Dysphonia Dysphagia Post-op Diagnosis Same Procedure Performed Direct microlaryngoscopy with bilateral vocal fold injection Surgeon Eduard Cheung MD Anesthesia General Findings True vocal folds injected with 0.4cc of Prolaryn Gel bilaterally Description of Procedure Patient was identified in the preoperative area and informed written consent was obtained. The patient was transported to the operating room and placed supine on the operating room table. The anesthesiology service induced general anesthesia and intubated the patient. The patient was then positioned and draped. A surgi alvaro time-out was conducted confirming the patient's identity and the procedure to be performed. A moist raytec was placed to protect the upper dentition. A Kleinsasser laryngoscope was inserted. The oropharynx, hypopharynx, and larynx were all inspected. The scope was advanced into the laryngeal introitus. The patient was placed into suspension. Examination of the true vocal folds with a 0 degree telescope showed bilateral vocal fold atrophy. There were no lesions. 0.4cc of Prolaryn Gel was injected into the right paraglottic space then 0.4cc was injected into the left paraglottic space. This adequately medialized both vocal folds. There was no bleeding. The patient was then taken out of suspension. The laryngoscope and raytec were removed. There were no injuries to the lips or gums. The patient was returned to the anesthesiology service. He was awoken, extubated, and transferred to the postoperative recovery area in stable condition. There were no immediate complications. Estimated Blood Loss 0 [facility] Billing Surgery - Charge Forward: Surgery Billing
[2025-08-29] MEDS: LACTATED RINGERS 1,000 ML 30 ML IV CONT (13:43)
== END 2025-08-29 15:20 | disposition home or self-care (01) ==
PROVIDERS: Visit Provider Otolaryngology
PROC: 0CJS8ZZ Inspection of Larynx, Via Natural or Artificial Opening Endoscopic (ICD-10-PCS; CPT 31571; principal; 2025-08-29 13:00)
DX: R49.0 Dysphonia (principal); R13.10 Dysphagia, unspecified; Z79.4 Long term (current) use of insulin
CPT/HCPCS: 31571; 82948; C1878; J1100; J1815; J2003; J2704; J3010; J7120